=== PATIENT | female | born 1980 | race Two or more races ===

== ENCOUNTER 2024-07-01 08:30 | Outpatient (RCR) | payer MEDICAID, SELFPAY ==
--- NOTE | 2024-06-08 10:36 | PT.ODAYNRPT ---
PT Outpatient Daily Note OP Daily Note Outpatient Physical Therapy Treatment Date: 06/08/24 Visit Reasons: Left shoulder Rotator cuff Subjective: Pt still has difficulty reaching behind her back due to tightness . Pt recently had a follow up appt with her surgeon and mention about the numbness/tingling in her arm but it was dismiss. Pt continues to have concerns about numbness besides concerns patient feel that her arm ROM is improving. Objective: HBB AROM: thumb at gluteal fold Assessment: Pt instructed on HBB stretch as HEP to help improved HBB AROM. Pt demonstrate correctly and safely Plan: Continue with PT Length of Time (minutes) of Treatment: 30 Minutes Procedure Charges Therapeutic Exercise 30 minutes: Yes
--- NOTE | 2024-06-11 10:36 | PT.ODAYNRPT ---
PT Outpatient Daily Note OP Daily Note Outpatient Physical Therapy Treatment Date: 06/11/24 Visit Reasons: Left shoulder Rotator cuff Subjective: Pt continues to difficulty reaching behind her back. Pt has been working on stretching more at home. Objective: Please see flow chart for list of ther ex performed Assessment: minimal changes with HBB AROM. Pt ecourage to continue HBB stretching at home to help ROM Plan: Continue with PT Length of Time (minutes) of Treatment: 30 Minutes Procedure Charges Therapeutic Exercise 30 minutes: Yes
--- NOTE | 2024-06-15 09:25 | PT.ODAYNRPT ---
PT Outpatient Daily Note OP Daily Note Outpatient Physical Therapy Treatment Date: 06/15/24 Visit Reasons: Left shoulder Rotator cuff Subjective: Pt mention she may her strained or hurt her shoulder a few days ago. Pt continues to have pain and has been using ice more often. Objective: HBB AROM: thumb at L3 Assessment: progressing with HBB AROM. unable to perform standing ER stretch due to pain. The stretch was held. Plan: Continue with PT Length of Time (minutes) of Treatment: 30 Minutes Procedure Charges Therapeutic Exercise 30 minutes: Yes
--- NOTE | 2024-06-22 09:01 | PT.ODAYNRPT ---
PT Outpatient Daily Note OP Daily Note Outpatient Physical Therapy Treatment Date: 06/22/24 Visit Reasons: Left shoulder Rotator cuff Subjective: Pt's shoulder feels good. Today Pt denies of dizziness and wants to do physical therapy. Objective: Please see flow chart for list of ther ex performed Assessment: no change in HBB AROM; Pt educated to continue HBB AROM and stretching at home to help improve ROM. Pt gave verbal understanding Plan: Continue with PT Length of Time (minutes) of Treatment: 30 Minutes Procedure Charges Therapeutic Exercise 30 minutes: Yes
--- NOTE | 2024-06-24 08:45 | PT.ODAYNRPT ---
PT Outpatient Daily Note OP Daily Note Outpatient Physical Therapy Treatment Date: 06/24/24 Visit Reasons: Left shoulder Rotator cuff Subjective: Pt reports shoulder progress for mobility is slow. Pt shared that she continues to have tingling and numbing down her arm and notices it is happening more frequent. Objective: Please see flow sheet for ther ex list. Assessment: Pt ROM continues to improve, IR behind back continues to be the most limited. Pt has aggravating numbing and tingling with thera band exercises. Plan: Continue with POC. Length of Time (minutes) of Treatment: 30 Minutes Procedure Charges Therapeutic Exercise 30 minutes: Yes
--- NOTE | 2024-07-01 09:20 | PT.ODAYNRPT ---
PT Outpatient Daily Note OP Daily Note Outpatient Physical Therapy Treatment Date: 07/01/24 Visit Reasons: Left shoulder Rotator cuff Subjective: Pt's shoulder is better only concern is numbness in the hand. Objective: Please see flow chart for list of ther ex performed Assessment: progressing with HBB AROM. Cues to correct form with body blade exercises Plan: Continue with PT Length of Time (minutes) of Treatment: 30 Minutes Procedure Charges Therapeutic Exercise 30 minutes: Yes
== END 2024-07-06 23:59 | disposition home or self-care (01) ==
LOC: CPTX 08:30
PROVIDERS: PCP Nurse Practitioner; Referring Provider Nurse Practitioner; Visit Provider Nurse Practitioner
DX: M25.512 Pain in left shoulder (principal); R53.1 Weakness; R20.0 Anesthesia of skin; S46.012D Strain of muscle(s) and tendon(s) of the rotator cuff of left shoulder, subsequent encounter; X58.XXXD Exposure to other specified factors, subsequent encounter
CPT/HCPCS: 97110

== ENCOUNTER 2024-08-03 08:30 | Outpatient (RCR) | payer MEDICAID, SELFPAY ==
--- NOTE | 2024-07-08 10:31 | PT.ODAYNRPT ---
PT Outpatient Daily Note OP Daily Note Outpatient Physical Therapy Treatment Date: 07/08/24 Visit Reasons: Left shoulder Rotator cuff Subjective: Pt's shoulder sore and ache from her son bumping into her a few days ago. Objective: Please see flow chart for list of ther ex performed Assessment: difficulty with OH press up and PNF D1 exercise using weight due to rotator cuff weakness. Pt was able to complete instructed reps Plan: Continue with PT Length of Time (minutes) of Treatment: 30 Minutes Procedure Charges Therapeutic Exercise 30 minutes: Yes
--- NOTE | 2024-07-14 10:43 | PT.ODAYNRPT ---
PT Outpatient Daily Note OP Daily Note Outpatient Physical Therapy Treatment Date: 07/14/24 Visit Reasons: Left shoulder Rotator cuff Subjective: Pt reports L shoulder mobility is slowly coming along but continues to have tingling and numbing that is worse with activity. Objective: Please see flow sheet for ther ex list. Assessment: INterventions completed with rest break in between due to increase in numbing and tingling with movement in all planes. Plan: Continue with pOC. Length of Time (minutes) of Treatment: 30 Minutes Procedure Charges Therapeutic Exercise 30 minutes: Yes
--- NOTE | 2024-07-20 13:15 | PT.ODS1RPT ---
PT OP Progress/Discharge Note Date of Service: 07/20/24 Progress Note/DC Note Progress Note/Discharge Note: Progress Note Patient Information Visit Reasons: Left shoulder Rotator cuff Medical Diagnosis: M75.112 Treatment Dx #1: Left Shoulder Weakness Treatment Dx #2: Left Shoulder Pain Service Continue Service or Discharge: Continue Service Certification Date Certification Dates: 07/20/24 to 10/18/24 Status Subjective: Pt's shoulder is feeling much better. Pt still has limitation with reaching behind her back, overhead lifting, and performing recreational activities. Pt has been able to resume self care, cook, chores, and light ADLs around the house. Pt mentioned she continues to have numbess in her arm with certain movement and will consult with surgeon soon. Objective: Left Shoulder AROM Flexion: 170 deg Abduction: 160 deg External Rotation: 90 deg Internal Rotation: 70 deg Left Shoulder MMTs: grossly 4-/5 Left Scapula MMTs: grossly 4-/5 HBB AROM: Thumb at T10 Assessment: Pt is progressing slowly with shoulder AROM and strength allowing her to perform most light ADLs with less limitation. Pt still has limitation with overhead lifting and recreational activities due to weakness and will continue to benefit from physical therapy to work on strengthening. Pt advised to consult with surgeon regarding persistent numbness in the arm. Pt gave verbal consent and understanding; thank you for your referrals. Plan: Continue with PT/POC and add 6 sessions (2 x wk for 3 wks) Procedure Charges Therapeutic Exercise 30 minutes: Yes
--- NOTE | 2024-07-27 15:06 | PT.ODAYNRPT ---
PT Outpatient Daily Note OP Daily Note Outpatient Physical Therapy Treatment Date: 07/27/24 Visit Reasons: Left shoulder Rotator cuff Subjective: According to patient surgeon does not plan to extend therapy. Pt will like PT to finish with authorized session and d/c patient with HEP Objective: Please see flow chart for list of ther ex performed Assessment: difficulty with OH press using 1 # weight due to RTC weakness where patient overcompensate with upper trape. Pt able to complete instructed reps. Plan: Continue with PT Length of Time (minutes) of Treatment: 30 Minutes Procedure Charges Therapeutic Exercise 30 minutes: Yes
--- NOTE | 2024-08-25 10:58 | PT.ODS1RPT ---
PT OP Progress/Discharge Note Date of Service: 08/25/24 Progress Note/DC Note Progress Note/Discharge Note: DC Note Patient Information Visit Reasons: Left shoulder Rotator cuff Service Discharge Date: 08/25/24 Status Assessment: Pt has been seen for 24 visits (eval + 23 visits). Pt last treated on 08/04/24. Pt did not returned to her last session. At this time Pt will be d/c from care due to non-compliance per attendance policy. Pt met most goals set in therapy; thank you for your referrals.
== END 2024-08-06 23:59 | disposition home or self-care (01) ==
LOC: CPTX 08:30
PROVIDERS: PCP Nurse Practitioner; Referring Provider Nurse Practitioner; Visit Provider Nurse Practitioner
DX: M25.512 Pain in left shoulder (principal); R53.1 Weakness; S43.432D Superior glenoid labrum lesion of left shoulder, subsequent encounter; X58.XXXD Exposure to other specified factors, subsequent encounter
CPT/HCPCS: 97110

== ENCOUNTER 2024-08-10 08:20 | Outpatient (RCR) | payer MEDICAID, SELFPAY | END 2024-09-03 23:59 | disposition home or self-care (01) | LOC: CPTX 08:20 | PROVIDERS: PCP Nurse Practitioner; Referring Provider Nurse Practitioner; Visit Provider Nurse Practitioner | DX: Z53.8 Procedure and treatment not carried out for other reasons (principal) ==

== ENCOUNTER 2024-09-08 07:52 | Inpatient (IN) | payer MEDICAID, SELFPAY ==
[2024-09-08] VITALS (13 sets, daily range): BP systolic 86–153; BP diastolic 49–96; PULSE 72–139; RESP 16–29; TEMP 32.7–38.1; O2SAT 92–100; BMI 31.3
--- NOTE | 2024-09-08 07:56 | XR_ITS ---
Examination: CT brain head without contrast. 2-D sagittal coronal reconstructions Date and time of exam:September 08, 2024 0847 hours Comparison January 02, 2024 INDICATIONS: Onset altered mental status today CTDI: vol (mGy):52.5 DLP: (mGycm):1061 Technique: Multiple CT axial sections of the brain have been obtained, 5 mm slice thickness. Contrast has not been administered. 2-D sagittal, coronal reconstructions have been obtained Low dose protocols were performed. One or more of the following dose reduction techniques were used; automated exposure control, adjustment of the mA and/or KV according to patient size, use of iterative reconstruction technique. Findings: No significant ventricular enlargement. Intra-axial or extra-axial hemorrhage density is not seen. No mass effect or midline shift Basal cisterns are not remarkable. Fourth ventricle is midline. Cranial vault intact. Impression: Negative for acute hemorrhage, mass effect or midline shift If symptoms persist, consider brain MRI follow-up stroke protocol
--- NOTE | 2024-09-08 07:57 | EKG_ITS ---
[facility] Test Date: 2024-09-08 Pat Name: GEE MURILLO Department: Room: - Gender: Female [employer] Room Tapper: : 1980 Requested By: Luke Martinez Order Number: [id number] Reading MD: Luke Martinez Measurements Intervals [place] Rate: 95 P: 20 CT: 142 QRS: 12 QRSD: 95 T: 5 QT: 360 QTc: 453 Interpretive Statements SINUS RHYTHM No previous ECG available for comparison /store/S0/[id number]/ecg/[id number].pdf
--- NOTE | 2024-09-08 07:57 | XR_ITS ---
Examination: AP chest single view TECHNIQUE: AP portable semiupright chest single view Exam date and time: September 08, 2024 at 0929 hours Comparison March 02, 2022 INDICATIONS: Shortness of breath today. FINDINGS: Diffuse left lung pneumonia Normal heart size Right lung clear IMPRESSION: Diffuse left lung pneumonia
[2024-09-08] MEDS: DEXTROSE 50%-WATER INJ 50 ML SYRINGE IV ×3 (08:00→11:41)
[2024-09-08 08:20] LABS: Base Excess -2 (-3-3); HCO3 25 mEq/L (20-26); Inspired O2, VO2 Liters 15 L/min; O2 Saturation 97 % (91-98); PCO2 48 mmHg (32.0-48.0); PO2 93 mmHg (83-108); pH, Arterial 7.32 (7.35-7.45)
[2024-09-08 08:22] LABS: Allen Test Performed/OK; Puncture Site Right Radial
--- NOTE | 2024-09-08 08:32 | PD.EDAMS ---
Altered Mental Status RME/HPI General Chief Complaint: Altered Mental Status Stated Complaint: HYPOGLYCEMIA Time Seen by Provider: 09/08/24 07:55 Arrival date/time: 09/08/24 07:52 RME / HPI RME / HPI narrative: DR. LIGHT MAIN ED EVALUATION: This section includes all my notes and documentations, including HPI, PE, and ED course.? Luke Light MD HPI: 43 year old female with past medical history significant for seizures, diabetes, and hypothyroidism presents to the Emergency Department [facility] with complaint of decreased mentation according to this morning. Per EMS, patient has low blood glucose, in the 20's. No treatment given due to difficult IV access. No other complaints reported. ROS: Can't obtain from the patient due to current clinical condition. Physical Exam: General: Patient is obtunded. Eyes:? Conjunctivae and lids clear. PERRL. EOMI. ENT:? No nasal congestion.? ? Neck:? Supple. Heart:? RRR. Lungs:? No respiratory distress.? Decreased air movement with rales..? Abdomen:? Soft and nontender.? Legs:? No clubbing, cyanosis, edema. Skin:? Warm and dry.? Neuro: GCS 4 (patient only moans). Glucagon 1 mg IM given prior to IV access. I reviewed all diagnostic test results. My interpretation of the EKG is?NSR (95 bpm) with no ST-T changes. My interpretation of the chest x-ray is diffuse left lung pneumonia My review of the head CT report is?negative for acute hemorrhage, mass effect or midline shift Blood tests remarkable for GLU 121. At this point, diagnoses include severe and persistent hypoglycemia and AMS and pneumonia. Treatment here included D50 multiple times due to persistent hypoglycemia, glucagon, Rocephin, and Zithromax. Significant improvement noted, patient returned to baseline mental status. I discussed the case with our hospitalist.? About the presentation and exam and diagnostics and treatments here.? And need of further care in the hospital. Will accept the patient. Luke Light MD Related Data Home Medications ?Medication ?Instructions ?Recorded ?Confirmed cholecalciferol (vitamin D3) 10 50,000 unit PO QWEEK 03/11/20 04/30/21 mcg (400 unit) capsule (Vitamin D3) propranolol 20 mg tablet 20 mg PO DAILY 03/11/20 04/30/21 gabapentin 300 mg capsule 300 mg PO BID 03/22/20 04/30/21 topiramate 100 mg tablet (Topamax) 100 mg PO QAM 04/04/20 03/02/22 glimepiride 1 mg tablet 1 mg PO QDAY 07/26/20 03/02/22 pioglitazone 30 mg tablet (Actos) 30 mg PO QDAY 07/26/20 04/30/21 baclofen 10 mg tablet 10 mg PO HS 03/02/22 03/02/22 duloxetine 30 mg capsule,delayed 30 mg PO BID 03/02/22 03/02/22 release levothyroxine 75 mcg tablet 75 mcg PO QDAY 03/02/22 03/02/22 prochlorperazine maleate 10 mg 10 mg PO BID PRN Nausea or Headache 03/02/22 03/02/22 tablet rimegepant 75 mg disintegrating 75 mg PO Q OTHER DAY 03/02/22 03/02/22 tablet (Nurtec ODT) topiramate 100 mg tablet 200 mg PO QPM 03/02/22 03/02/22 Previous Rx's ?Medication ?Instructions ?Recorded sumatriptan succinate 100 mg 100 mg PO Q2HR PRN MIGRAINE #10 03/24/20 tablet (Imitrex) tabs Allergies Allergy/AdvReac Type Severity Reaction Status Date / Time egg Allergy Severe Abdominal Verified 01/02/24 03:45 Pain milk Allergy Severe Abdominal Verified 01/02/24 03:45 Pain Penicillins Allergy Severe Rash Verified 01/02/24 03:45 hydrocodone Allergy Intermediate ITCHING Verified 01/02/24 03:45 morphine Allergy Rash Verified 01/02/24 03:45 metoclopramide HCl AdvReac Severe HEADACHE Verified 01/02/24 03:45 Course Quality Measures none Orders Category Date Time Status Bedside COVID-19 Antigen Test NOW Care 09/08/24 07:56 Active Bedside Influenza A&B Antigen Test NOW Care 09/08/24 07:56 Completed EKG (ED ONLY) *Do not use* NOW Care 09/08/24 07:57 Completed Glucose [Bedside Blood Glucose] NOW Care 09/08/24 09:25 Active Initiate Warming Therapy X1 Care 09/08/24 10:03 Active Insert IV NOW Care 09/08/24 07:53 Active Saline [Insert IV] NOW Care 09/08/24 07:56 Active Straight [In and Out Catheter] X1 Care 09/08/24 07:[address] head/brain wo con Stat Exams 09/08/24 07:56 Completed EKG (ED Only) Stat Exams 09/08/24 07:57 Draft XR chest 1V portable Stat Exams 09/08/24 07:57 Completed ABG [Arterial Blood Gas] Stat Lab 09/08/24 08:15 Completed Alcohol, Blood Medical Stat Lab 09/08/24 08:29 Completed Ammonia Stat Lab 09/08/24 08:29 Completed BNP [B-Type Natriuretic Peptide] Stat Lab 09/08/24 08:29 Completed Beta Hydroxybutyrate Stat Lab 09/08/24 08:29 Completed Blood Culture (Lab) Stat Lab 09/08/24 08:29 Received CBC Stat Lab 09/08/24 08:29 Completed CMP [Comprehensive Metabolic Panel] Stat Lab 09/08/24 08:29 Completed Drug Screen,Urine Stat Lab 09/08/24 07:57 Ordered HCG Qualitative,Urine Stat Lab 09/08/24 07:57 Ordered HCG,Qualitative Serum Stat Lab 09/08/24 08:29 Completed Lactate (Lactic Acid) Stat Lab 09/08/24 08:29 Completed Magnesium Stat Lab 09/08/24 08:29 Completed TSH [Thyroid Stimulating Hormone] Stat Lab 09/08/24 08:29 Completed Troponin I Stat Lab 09/08/24 08:29 Completed UA, C/S IF [Urinalysis, C/S if Indicated] Stat Lab 09/08/24 07:57 Ordered Azithromycin Inj [Zithromax Inj] 500 mg Med 09/08/24 10:35 Pending Sodium Chloride 0.9% 250 ml [Ns] 250 ml IV QDAY Azithromycin Inj [Zithromax Inj] 500 mg Med 09/08/24 10:45 Active Sodium Chloride 0.9% 250 ml [Ns] 250 ml IV X1 Dextrose 50% Syr [D50w Syringe Abboject] Med 09/08/24 07:53 Discontinued 50 ml IV X1 ONE Dextrose 50% Syr [D50w Syringe Abboject] Med 09/08/24 07:56 Discontinued 50 ml IV X1 ONE Dextrose 50% Syr [D50w Syringe Abboject] Med 09/08/24 09:39 Discontinued 50 ml IV X1 ONE Dextrose 50% Syr [D50w Syringe Abboject] Med 09/08/24 11:39 Discontinued 50 ml IV X1 ONE Glucagon Inj Med 09/08/24 07:55 Discontinued 1 mg IM X1 ONE HYDROmorphone INJ [Dilaudid Inj] Med 09/08/24 09:15 Discontinued 0.5 mg IVP X1 ONE Promethazine HCl [Phenergan] Med 09/08/24 09:22 Discontinued 25 mg PO X1 ONE Sodium Chloride 0.9% 1000 ml [Ns] 1,000 ml Med 09/08/24 10:33 Discontinued IV 999 mls/hr cefTRIAXone [Rocephin] 1,000 mg Med 09/08/24 10:33 Discontinued SODIUM CHLORIDE 0.9% (Popper) [Ns 0.9% (P)] 50 ml IV X1 Vital Signs Vital signs: Vital Signs Pulse Rate 77 09/08/24 07:53 Respiratory Rate 18 09/08/24 07:53 Blood Pressure 153/96 H 09/08/24 07:53 Pulse Oximetry (%) 100 09/08/24 07:53 Oxygen Delivery Method Oxy Mask 09/08/24 07:53 Oxygen Flow Rate 15 09/08/24 07:53 Altered Mental Status MDM Narrative MDM Narrative:: I, Caroline Shay am scribing for and in the presence of Dr. Light. Patient data External records reviewed:: EMS form Clinical information provided by:: patient, EMS and spouse Social determinants that could affect healthcare access:: none Patient has the following chronic illnesses:: seizures, diabetes, and hypothyroidism How is presenting disease/condition affected by chronic disease/condition?: uneffected by Evaluation data The following diagnostics were reviewed and interpreted by me:: lab results, radiology exam(s) and EKG tracing(s) (My interpretation of the EKG: NSR (95 bpm) with no ST-T changes. Luke Light MD) Lab and/or radiology exams considered but not ordered:: none Interpretation Summary: Pneumonia and hypoglycemia Medications / Prescriptions Medications or Prescriptions considered but not ordered:: none Medication administrations:: Medication Administration History Azithromycin 500 mg/ Sodium (Chloride) 250 mls @ 250 mls/hr IV QDAY ARIANA Stop: 09/15/24 10:34 Azithromycin 500 mg/ Sodium (Chloride) 250 mls @ 250 mls/hr IV X1 ONE Stop: 09/08/24 11:44 Last Admin: 09/08/24 11:34 Dose: 250 mls/hr Documented By: TRAV Discontinued Medications Dextrose (Dextrose 50%-Water Inj 50 Ml Syringe) 50 ml IV X1 ONE Stop: 09/08/24 07:57 Last Admin: 09/08/24 08:00 Dose: 50 ml Documented By: TRAV Dextrose (Dextrose 50%-Water Inj 50 Ml Syringe) 50 ml IV X1 ONE Stop: 09/08/24 07:54 Last Admin: 09/08/24 09:20 Dose: Not Given Documented By: TRAV Non-Admin Reason: Duplicate Medication on eMAR Dextrose (Dextrose 50%-Water Inj 50 Ml Syringe) 50 ml IV X1 ONE Stop: 09/08/24 09:40 Last Admin: 09/08/24 09:42 Dose: 50 ml Documented By: TRAV Dextrose (Dextrose 50%-Water Inj 50 Ml Syringe) 50 ml IV X1 ONE Stop: 09/08/24 11:40 Last Admin: 09/08/24 11:41 Dose: 50 ml Documented By: TRAV Glucagon (Glucagon Inj 1 Mg Vial) 1 mg IM X1 ONE Stop: 09/08/24 07:56 Last Admin: 09/08/24 09:02 Dose: Not Given Documented By: TRAV Non-Admin Reason: Change of Condition Hydromorphone HCl (Hydromorphone Inj 2 Mg/Ml Vial) 0.5 mg IVP X1 ONE Stop: 09/08/24 09:16 Last Admin: 09/08/24 09:34 Dose: 0.5 mg Documented By: TRAV Ceftriaxone Sodium 1,000 mg/ (Sodium Chloride) 50 mls @ 100 mls/hr IV X1 ONE Stop: 09/08/24 11:02 Last Infusion: 09/08/24 11:35 Dose: Infused Documented By: Admin: 09/08/24 10:55 Dose: 100 mls/hr Documented By: TRAV Sodium Chloride (Ns) 1,000 mls @ 999 mls/hr IV .Q1H1M ONE Stop: 09/08/24 11:33 Last Admin: 09/08/24 10:55 Dose: 999 mls/hr Documented By: TRAV Promethazine HCl (Promethazine Hcl 25 Mg Tablet) 25 mg PO X1 ONE Stop: 09/08/24 09:23 Last Admin: 09/08/24 09:35 Dose: 25 mg Documented By: TRAV Glucagon and D50 and Rocephin and Zithromax Consultations Consultation(s) initiated? (list below): No Diagnosis Differential diagnosis altered mental status: alcoholic intoxication, altered mental status, delirium, dementia, hypoglycemia, hyponatremia, subarachnoid hemorrhage and sepsis Most likely diagnosis given after review of the tests above:: Pneumonia and persistent hypoglycemia Admission Indicated Admission indicated?: indicated Explain why admission is indicated or not indicated:: Pneumonia and persistent hypoglycemia Admission Request Was there a request for admission?: Yes Admission Attestation Admission request attestation: Discussed case with Hospitalist service regarding admission. Discussed patients ED course, exam findings, labs, and radiology results. The Hospitalist [agrees] to accept the patient for admission. Disposition Plan Disposition Plan: Admit Discharge Plan Prescriptions/Referrals Prescriptions/Med Rec: No Action propranolol 20 mg Tablet 20 mg PO DAILY cholecalciferol (vitamin D3) [Vitamin D3] 10 mcg (400 unit) Capsule 50,000 unit PO QWEEK Rx Instructions: SATURDAYS. topiramate [Topamax] 100 mg Tablet 100 mg PO QAM Rx Instructions: FILLED AT [facility] ON 03/24/2020. gabapentin 300 mg capsule 300 mg PO BID sumatriptan succinate [Imitrex] 100 MG tablet 100 mg PO Q2HR PRN (Reason: MIGRAINE) Qty: 10 0RF glimepiride 1 mg Tablet 1 mg PO QDAY pioglitazone [Actos] 30 mg Tablet 30 mg PO QDAY prochlorperazine maleate 10 mg Tablet 10 mg PO BID PRN (Reason: Nausea or Headache) levothyroxine 75 mcg Tablet 75 mcg PO QDAY baclofen 10 mg Tablet 10 mg PO HS topiramate 100 mg Tablet 200 mg PO QPM duloxetine 30 mg Capsule,Delayed Release(Dr/Ec) 30 mg PO BID Nurtec ODT 75 mg Tablet,Disintegrating 75 mg PO Q OTHER DAY Referrals: Eunice Peterson PA-C [Primary Care Provider] - In 1 week Problem List Clinical Impression: Hypoglycemia level 3, Pneumonia Patient/Caregiver Discharge Instructions Print Language: Hungarian
[2024-09-08 08:43] LABS: Lactate (Lactic Acid) 1.5 mMol/L (0.4-2.0)
[2024-09-08 08:49] LABS: Basophils % (Auto) 1 % (0-2.5); Eosinophils # (Auto) 0.1 Thou/mm3 (0.0-0.5); Eosinophils % (Auto) 1 % (0-10); Hematocrit 30.6 % (36.0-46.0); Hemoglobin 8.9 g/dL (12.0-16.0); Immature Granulocytes % (Auto) 0 % (0-0); Immature Granulocytes Auto 0.03 Thou/mm3 (0.00-0.00); Lymphocytes # (Auto) 1.8 Thou/mm3 (1.0-4.8); Lymphocytes % (Auto) 23 % (10-50); Mean Corpuscular HGB Conc 29.1 g/dl (31.0-37.0); Mean Corpuscular Hemoglobin 20.1 pg (25.0-35.0); Mean Corpuscular Volume 69 fL (80-100); Monocytes # (Auto) 0.3 Thou/mm3 (0.0-0.8); Monocytes % (Auto) 4 % (0-12); Neutrophils # (Auto) 5.6 Thou/mm3 (1.8-7.7); Neutrophils % (Auto) 71 % (37-80); Nucleated Red Blood Cell % 0 /100 WBC (0); Platelet Count 523 Thou/mm3 (140-440); RDW Standard Deviation 43.2 fL (36.4-46.3); Red Blood Count 4.42 Miln/mm3 (4.00-5.20); White Blood Count 7.8 Thou/mm3 (3.6-11.0)
[2024-09-08 08:51] LABS: Beta Hydroxybutyrate 0.1 mmol/L (<0.6)
[2024-09-08 09:03] LABS: B-Type Natriuretic Peptide 44 pg/mL (0-100)
[2024-09-08 09:04] LABS: Ammonia 23 uMol/L (11-32); HCG,Qualitative Serum Negative
[2024-09-08 09:17] LABS: Alanine Aminotransferase 31 U/L (10-49); Albumin, Serum 4.1 gm/dL (3.5-5.0); Albumin/Globulin Ratio 1.3 (1.2-2.2); Alcohol, Blood Medical < 3.0 mg/dL (0-10.0); Alkaline Phosphatase 114 U/L (46-116); Anion Gap 9 (7-16); Aspartate Amino Transferase 32 U/L (0-34); BUN/Creatinine Ratio 24 Ratio (12-20); Bilirubin,Total < 0.2 mg/dL (0.3-1.2); Blood Urea Nitrogen 19 mg/dL (9-23); Calcium 8.6 mg/dL (8.3-10.6); Calcium (Corrected) 8.6 mg/dL (8.5-10.1); Carbon Dioxide 22.6 mMol/L (20.0-31.0); Chloride 108 mMol/L (98-107); Creatinine (Component) 0.8 mg/dL (0.6-1.3); Estimated Creatinine Clearance 105.9 mL/min (>60); Globulin 3.2 gm/dL (2.3-3.5); Glucose 121 mg/dL (74-106); Osmolality,Calculated 282 (275-295); Potassium 3.9 mMol/L (3.4-5.1); Sodium 140 mMol/L (136-145); Thyroid Stimulating Hormone 4.81 uIU/mL (0.55-4.78); Total Protein 7.3 gm/dL (5.7-8.2); Troponin I < 0.020 ng/mL (0.0-0.045); eGFR > 60 See Note
[2024-09-08] MEDS: HYDROmorphone INJ 2 MG/ML VIAL 0.5 MG IVP (09:34)
[2024-09-08] MEDS: PROMETHAZINE HCL 25 MG TABLET PO ×2 (09:35→20:14)
[2024-09-08] MEDS: cefTRIAXone 1,000 MG in SODIUM CHLORIDE 0.9% (Popper) 50 ML 100 MG IV (10:55)
[2024-09-08] MEDS: SODIUM CHLORIDE 0.9% 1000 ML 1,000 ML 999 ML IV (10:55)
[2024-09-08] MEDS: AZITHROMYCIN INJ 500 MG in SODIUM CHLORIDE 0.9% 250 ML 250 ML 250 MG IV (11:34)
--- NOTE | 2024-09-08 12:28 | PC.CC ---
Patient is a 43 year-old female BIBA due to Hypoglycemia. Bronwyn PRATER made [id number] contact with patient. ASW introduced self, role, and reason for visit. Patient appeared alert and oriented to self, location, and situation. Patient was pleasant and engaged in initial assessment. Patient confirmed information on demographic and reports to living at home with her , Alfreod Hicks . Patient reports in the event she is unable to make her own medical decisions her medical decision maker would be her , Alfredo Hicks. Patient is able to ambulate independently and completes own ADLs. Patient does not use any DME at home. Patient's primary provider is Eunice Peterson and her pharmacy of choice is [facility]. Upon discharge patient plans to return home. business services intern to follow up with any discharge needs.
[2024-09-08] MEDS: DEXTROSE 10%-WATER 1000 ML 1,000 ML 35 ML IV (12:44)
[2024-09-08 13:35] LABS: Collection Type, Urine Clean Catch; RBC,Urine 0 /hpf (0-3)
--- NOTE | 2024-09-08 13:48 | ESHP_ITS ---
<Statement entered by Dayna Armstrong MD - 09/08/24 23:39> Patient was seen and examined by me personally. I have directly supervised and reviewed documentation by the team resident and agree with its findings with any exceptions or additional findings as below. Plan of care was discussed with the attending, Dr. Weinberg. New admission today. Patient is a 43-year-old female with a past medical history of type 2 diabetes, hypothyroidism, fibromyalgia, and gastric bypass surgery who presented to the ED on 09/08/2024 due to altered mental status. Patient was found to be hypoglycemic to 23 and hypothermic to 91 degrees F. At the time of evaluation for admission the patient was back to baseline mental status, seen under theodore nicole. However blood glucose kept dropping and patient needed 4 administrations of D50. Patient reports last night she was laying in bed playing games on her phone around 3 am with her when she started feeling hot and sweaty, symptoms she notes she gets when she becomes hypoglycemic. She drank some juice then subsequently went to sleep. This morning she was found to be unarousable by , therefore was brought by EMS to ED. Patient denies any usage of insulin for the past 1 year due to frequent episodes of hypoglycemia since her gastric bypass surgery about 5 years ago. Pharmacy history suggests patient was also on glimepiride but she denies taking it the last few months, stating she self-discontinued it due to hypoglycemia. Patient follows with PCP Eunice Peterson at [facility]. Patient does endorse history of passing out due to hypoglycemia, last episode was a few days ago but at that time she was able to be woken up so did not seek medical care. Upon reviewing the chart, notably the patient had admissions related to hypoglycemia as early as 2019. During an April 2020 admission, she was hypoglycemic, denied insulin usage, but blood insulin levels were found high and C-peptide levels low, raising suspicion for exogenous insulin use. At that point in time PCP was notified by hospitalist with concern to have insulin discontinued. Patient has also had imaging done in the past to evaluate for possible pancreatic tumor which had been negative, latest was an MRCP in February 2022 which was negative for masses. The patient will be admitted for hypoglycemia, and further workup will be done for recurrent episodes, C-peptide and blood insulin levels ordered, AM cortisol ordered. Started D10 infusion. On CXR patient also noted to have diffuse left lung pneumonia and she was requiring supplemental oxygen so was started on ceftriaxone and metronidazole to cover for potential aspiration pneumonia. Will follow cultures. Attempted to reach out to PCP today, did not receive a call back, will try again tomorrow. Dayna Patti, PGY-2 Documentation for date of: 09/08/24 HPI History of Present Illness Chief complaint: general weakness History of present illness: The patient is a 43-year-old female with a previous medical history of type 2 diabetes, hypothyroidism, fibromyalgia who was brought to the ED due to low blood sugar. Initial blood sugar was 23. According to the chart review she had multiple admissions for low blood sugar previously and was found to have low level of C-peptide and high levels of insulin. According to the patient she has been playing on the phone with her at approximately 3 AM when she started to feel weak, shaky and sweaty, she started to drink juice. She has not been using insulin in in a year and denies taking glimepiride in a few months. She reports that she started to have episodes of weakness and low blood sugar after undergoing a gastric bypass surgery a few years ago. She also reports having diarrhea after the meals, denies bloody stools, nausea, vomiting. In the ED initially her blood sugar was 23, she was hypothermic and saturates well on 2 L NC. Following up labs showed hemoglobin 8.9, ABGs showed pH of 7.2, TSH of 4.81. hCG was negative. U tox was negative. Head CT was unremarkable, chest x-ray showed diffuse left lung pneumonia. EKG unremarkable. She received D50 4 times, her blood sugar arelis, but continued to drop after some time so D10 she was also started tolerating continuous infusion was started on antibiotics. She is being admitted for hypoglycemia episode. Review of Systems Review of Systems Narrative Review of Systems: General: Denies weight loss, fever and chills. Reports shaking. HEENT: Denies changes in vision and hearing. Resp: Denies SOB, cough and wheezing. CVS: Denies palpitations and CP. GI: Denies abdominal pain, nausea, vomiting. Reports diarrhea after meals. : Denies dysuria and urinary frequency. MSK: Denies myalgia and joint pain. Denies rash and pruritus. Neuro: Denies headache and syncope. Exam Vital Signs Temp Pulse Resp BP Pulse Ox O2 Del Method O2 Flow Rate 99.1 F 136 H 26 H 147/76 H 94 L Nasal Cannula 2 09/08/24 13:40 09/08/24 13:40 09/08/24 13:40 09/08/24 13:40 09/08/24 13:40 09/08/24 13:40 09/08/24 13:40 Narrative Exam Physical Exam General: Awake, shaking in a theodore hugger. Conversational and non-toxic appearing. HEENT: Normocephalic, atraumatic, mucous membranes moist. Heart: Regular rate and rhythm, no murmurs. Lungs: Mild diffuse wheezing. Abdomen: Soft, nondistended, nontender, positive bowel sounds. ?No guarding or rebound tenderness. Neurologic: Alert and oriented x3, no gross neurological deficit, and patient able to move all 4 extremities. Extremities: No edema. Skin: No rash or ecchymoses. Results: Labs 09/09/24 04:47 09/09/24 04:47 Labs: Short CBC 09/08/24 Range/Units 08:29 WBC 7.8 (3.6-11.0) Thou/mm3 Hgb 8.9 L (12.0-16.0) g/dL Hct 30.6 L (36.0-46.0) % Plt Count 523 H (140-440) Thou/mm3 BMP 09/08/24 08:29 Sodium 140 Potassium 3.9 Chloride 108 H Carbon Dioxide 22.6 BUN 19 Creatinine 0.8 Glucose 121 H Calcium 8.6 Cardiac Enzymes 09/08/24 Range/Units 08:29 Troponin I < 0.020 (0.0-0.045) ng/mL Liver Function 09/08/24 Range/Units 08:29 Total Bilirubin < 0.2 L (0.3-1.2) mg/dL AST 32 (0-34) U/L ALT 31 (10-49) U/L Alkaline Phosphatase 114 (46-116) U/L Albumin 4.1 (3.5-5.0) gm/dL ABG Interpretation ABG results: 09/08/24 08:15 ABG pH 7.32 L ABG pCO2 48 ABG pO2 93 ABG HCO3 25 ABG O2 Saturation 97 ABG Base Excess -2 Quality Measures Quality Measures none Medications Home Medications and Allergies Home Medications ?Medication ?Instructions ?Recorded ?Confirmed ?Type cholecalciferol (vitamin D3) 10 50,000 unit PO QWEEK 0 03/11/20 04/30/21 History mcg (400 unit) capsule (Vitamin D3) propranolol 20 mg tablet 20 mg PO DAILY 03/11/2004/07 History gabapentin 300 mg capsule 300 mg PO BID 03/22/2004/30 History topiramate 100 mg tablet (Topamax) 100 mg PO QAM 04/0403/02/22 History glimepiride 1 mg tablet 1 mg PO QDAY 07/26/20 History pioglitazone 30 mg tablet (Actos) 30 mg PO QDAY 04/30/21 History baclofen 10 mg tablet 10 mg PO HS 03/02/22 2 History duloxetine 30 mg capsule,delayed 30 mg PO BID 03/02/22 03/02/22 History release levothyroxine 75 mcg tablet 75 mcg PO QDAY 03/02/22 History prochlorperazine maleate 10 mg 10 mg PO BID PRN Nausea or Headache 03/02/22 03/02/22 History tablet rimegepant 75 mg disintegrating 75 mg PO Q OTHER DAY 0 03/02/22 03/02/22 History tablet (Nurtec ODT) topiramate 100 mg tablet 200 mg PO QPM 03/02/2203/02 History Allergies Allergy/AdvReac Type Severity Reaction Status Date / Time egg Allergy Severe Abdominal Verified 01/02/24 03:45 Pain milk Allergy Severe Abdominal Verified 01/02/24 03:45 Pain Penicillins Allergy Severe Rash Verified 01/02/24 03:45 hydrocodone Allergy Intermediate ITCHING Verified 01/02/24 03:45 morphine Allergy Rash Verified 01/02/24 03:45 metoclopramide HCl AdvReac Severe HEADACHE Verified 01/02/24 03:45 Visit Medications Acetaminophen (Acetaminophen 325 Mg Tablet) 650 mg PO Q6H PRN PRN Reason: Fever >101.5 Stop: 10/08/24 12:14 Acetaminophen (Acetaminophen 325 Mg Tablet) 650 mg PO Q6H PRN PRN Reason: PAIN SCALE 1-3 (mild Stop: 10/08/24 12:14 Heparin Sodium (Porcine) (Heparin Sod Inj 5000 Unit/Ml Vial) 5,000 unit SC BID [facility] Stop: 09/22/24 20:59 Azithromycin 500 mg/ Sodium (Chloride) 250 mls @ 250 mls/hr IV QDAY [facility] Stop: 09/15/24 10:34 Dextrose (D10w 1000 Ml) 1,000 mls @ 35 mls/hr IV .Q24H [facility] Stop: 09/09/24 12:17 Last Admin: 09/08/24 12:44 Dose: 35 mls/hr Ondansetron HCl (Ondansetron Inj 2 Mg/Ml Inj 2 Ml) 4 mg IV Q6H PRN; Protocol PRN Reason: NAUSEA OR VOMITING Stop: 10/08/24 12:14 Discontinued Medications Dextrose (Dextrose 50%-Water Inj 50 Ml Syringe) 50 ml IV X1 ONE Stop: 09/08/24 07:57 Last Admin: 09/08/24 08:00 Dose: 50 ml Dextrose (Dextrose 50%-Water Inj 50 Ml Syringe) 50 ml IV X1 ONE Stop: 09/08/24 07:54 Last Admin: 09/08/24 09:20 Dose: Not Given Dextrose (Dextrose 50%-Water Inj 50 Ml Syringe) 50 ml IV X1 ONE Stop: 09/08/24 09:40 Last Admin: 09/08/24 09:42 Dose: 50 ml Dextrose (Dextrose 50%-Water Inj 50 Ml Syringe) 50 ml IV X1 ONE Stop: 09/08/24 11:40 Last Admin: 09/08/24 11:41 Dose: 50 ml Glucagon (Glucagon Inj 1 Mg Vial) 1 mg IM X1 ONE Stop: 09/08/24 07:56 Last Admin: 09/08/24 09:02 Dose: Not Given Hydromorphone HCl (Hydromorphone Inj 2 Mg/Ml Vial) 0.5 mg IVP X1 ONE Stop: 09/08/24 09:16 Last Admin: 09/08/24 09:34 Dose: 0.5 mg Ceftriaxone Sodium 1,000 mg/ (Sodium Chloride) 50 mls @ 100 mls/hr IV X1 ONE Stop: 09/08/24 11:02 Last Infusion: 09/08/24 11:35 Dose: Infused Sodium Chloride (Ns) 1,000 mls @ 999 mls/hr IV .Q1H1M ONE Stop: 09/08/24 11:33 Last Infusion: 09/08/24 12:14 Dose: Infused Azithromycin 500 mg/ Sodium (Chloride) 250 mls @ 250 mls/hr IV X1 ONE Stop: 09/08/24 11:44 Last Infusion: 09/08/24 12:50 Dose: Infused Promethazine HCl (Promethazine Hcl 25 Mg Tablet) 25 mg PO X1 ONE Stop: 09/08/24 09:23 Last Admin: 09/08/24 09:35 Dose: 25 mg Assessment & Plan Plan The patient is a 43-year-old female with a previous medical history of type 2 diabetes, hypothyroidism, fibromyalgia who was admitted due to low blood sugar levels. #Hypoglycemia episodes #Type 2 diabetes #Hypothermia Patient has a history of recurrent hypoglycemic episodes. Denies recent glimepiride and insuline use. Reports only taking Monjaro injections. Denies having a ignition specialist. Patient has a history of multiple admission for hypoglycemia episodes. In 2019 work up showed low level of C-peptide and high level of insulin. 09/08: utox is negative. Plan: - hypoglycemia protocol - D10 infusion at 50 ml, rate depending on the blood glucose level - C-peptide and insuline levels pending - AM cortizol - Theodore hugger as needed - med rec is pending #Community-acquired pneumonia Patient reporting having wheezes. She reports using inhaler at home. Chest x- ray showed pneumonia. There's a concern for possible aspiration during hypoglycemia. Plan: ? Blood cultures pending ? Ceftriaxone 1 g daily 3/5?current ?Metronidazole 500 mg daily 3/5?current #Hypothyroidism Patient reports to have chronic hypothyroidism. Plan: ? pending med rec #Diabetic neuropathy Patient reports taking gabapentine and duloxetine for pain. Plan: ?Hold for now due to episode of altered mental status Health maintenance: FEN: Carbohydrate consistent DVT prophylaxis: Heparin SC GI prophylaxis: None Dispo: Telemetry CODE STATUS: Full code Plan of care discussed with attending Dr. Weinberg, PGY-[address] Armstrong and PGY-[address] Mcneill. Ana Luisa Jorgensen MD, PGY 1. Attending Provider Attestation/Addendum I have examined the patient, reviewed labs and imaging findings, discussed the case with the resident(s), and reviewed entered orders. I agree with the plan of care as outlined in this note, with these additional summaries/recommendations: Patient is a 43-year-old female with a medical history of diabetes mellitus type 2, obesity status post gastric bypass approx. 4 years ago? and currently on Mounjaro, Migraine headaches, and fibromyalgia who presents to [facility] emergency department on 09/08/2024 with chief complaint of altered mental status secondary to hypoglycemia. Patient was found to have severe life-threatening hypoglycemia on admission with blood sugars in the 20s. Patient was given multiple amps of D50 in the ED with improvement in mental status and patient is back to baseline in terms of her mentation. Patient has had hospitalizations in the past for recurrent hypoglycemia and thought to be secondary to exogenous insulin/factitious disorder. Nonetheless we will proceed with workup for recurrent hypoglycemia. We will order insulin, C-peptide, proinsulin, A1C, and cortisol. BHB WNL on admission. Differential includes factitious versus late dumping syndrome versus adrenal versus medication induced versus less likely insulinoma. We will start the patient on D10 drip and monitor blood sugars every hour. Patient was also noted to be hypothermic and currently on Theodore hugger and can discontinue if patient reaches appropriate body temperature. Community-acquired aspiration pneumonia also noted on chest x-ray. We will start IV Rocephin and metronidazole. Patient noted to have microcytic anemia although no evidence of gastrointestinal bleeding at this time. Continue to monitor blood sugar closely. Patient updated on plan and in agreement. Repeat hematology and chemistry panel in AM. Dr. Lenard MD
[2024-09-08 13:50] LABS: HCG Qualitative,Urine Negative
[2024-09-08 13:55] LABS: Bacteria,Urine Rare; Bilirubin,Urine Negative (Negative); Blood,Urine Negative (Negative); Clarity,Urine Clear (Clear/Hazy); Color,Urine Lt-Yellow (Lt Yel-Yel); Glucose, Urine 1+ (Negative); Ketones,Urine Negative (Negative); Leukocyte Esterase,Urine Negative (Negative); Nitrite,Urine Positive (Negative); PH,Urine 5.5 (5.0-7.0); Protein,Urine Trace (Neg - Trace); Specific Gravity,Urine 1.021 (1.001-1.035); Squamous Epithelial Cell,Urine < 1 /hpf (0-5); Urobilinogen,Urine Negative mg/dL (0.0-1.0); WBC,Urine 1 /hpf (0-5)
[2024-09-08 13:58] LABS: Amphetamine/Methamp Scrn,U Negative (Negative); Barbiturate Screen,Urine Negative (Negative); Benzodiazepines Screen,Urine Negative (Negative); Benzoylecgonine Screen, Ur Negative (Negative); Fentanyl Screen,Urine Negative (Negative); Opiate Screen,Urine Negative (Negative); THC Screen,Urine Negative (Negative)
[2024-09-08 14:16] LABS: Culture Indicated,Urine Yes
[2024-09-08] MEDS: ACETAMINOPHEN 325 MG TABLET 650 MG PO ×2 (14:59→22:28)
[2024-09-08] MEDS: DEXTROSE 10%-WATER 1000 ML 1,000 ML 50 ML IV (16:13)
--- NOTE | 2024-09-08 19:20 | PC.NURSE ---
DR. CUELLAR MADE AWARE OF BP OF 91/53, MAP OF 65, HR 122. +DIZZINESS. LAST BSFS AT 1820 74. ON D10 @ 50 ML/HR. NO NEW ORDERS GIVEN.
[2024-09-08] MEDS: KETOROLAC INJ 30 MG/ML VIAL IVP (19:25)
[2024-09-08] MEDS: metroNIDAZOLE/NS 500 MG IVPB 500 MG/100 ML BAG 200 MG IV (19:43)
--- NOTE | 2024-09-08 19:48 | PC.NURSE ---
DR. ELLIS AND POLO AT BEDSIDE ASSESSING PT. NEW ORDERS PLACED FOR IVF BOLUS. HOME MED PHENERGAN RESUMED SINCE PT IS STATING THAT ZOFRAN IS INEFFECTIVE.
[2024-09-08] MEDS: DEXTROSE 5%-NS 1,000 ML 100 ML IV (20:00)
--- NOTE | 2024-09-08 20:01 | PC.NURSE ---
Dr. Armstrong notified of BS 63 and ordered to increase D10 fluids. Notified Dr. Armstrong of pain from IO insertion, pain regime ordered. When checking pain medication in sep norco ordered, but allergy to norco. Pharmacy called and changed to toradol.
[2024-09-08] MEDS: HEPARIN SOD INJ 5000 UNIT/ML VIAL SC (20:14)
[2024-09-08] MEDS: RINGERS LACTATED 1000 ML 1,000 ML 999 ML IV ×2 (20:14→22:45)
[2024-09-08 21:07] LABS: INR 1.1 (0.9-1.3); Partial Thromboplastin Time 31.7 Seconds (22.0-36.0)
--- NOTE | 2024-09-08 22:35 | PC.NURSE ---
DR. ELLIS MADE AWARE OF CURRENT BP LEFT ARM 86/49, MAP OF 61 AND RIGHT LOWER ARM 93/53, MAP OF 66. FSBS AT 105. +DIZZINESS. STATES HE WILL PLACE NEW ORDERS FOR IVF BOLUS.
[2024-09-08] MEDS: SODIUM CHLORIDE RT 10% 15 ML NEBU 5 ML INH (23:47)
[2024-09-08] MEDS: ALBUTEROL/IPRATROPIUM (Duoneb) RT SOL 3 ML NEBU INH (23:57)
[2024-09-09] VITALS (53 sets, daily range): BP systolic 93–134; BP diastolic 51–80; PULSE 103–131; RESP 13–54; TEMP 36.1–38; O2SAT 90–97
[2024-09-09] MEDS: KETOROLAC INJ 30 MG/ML VIAL IVP ×2 (01:57→09:55)
[2024-09-09] MEDS: DEXTROSE 10%-WATER 500 ML 40 ML IV (02:10)
[2024-09-09] MEDS: DEXTROSE 5%-NS 1,000 ML 100 ML IV ×2 (05:13→12:24)
[2024-09-09] MEDS: metroNIDAZOLE/NS 500 MG IVPB 500 MG/100 ML BAG 200 MG IV ×3 (05:13→21:31)
[2024-09-09] MEDS: PROMETHAZINE HCL 25 MG TABLET PO ×2 (05:48→19:59)
[2024-09-09 05:56] LABS: Basophils # (Auto) 0.1 Thou/mm3 (0.0-0.2); Basophils % (Auto) 0 % (0-2.5); Eosinophils # (Auto) 0.3 Thou/mm3 (0.0-0.5); Eosinophils % (Auto) 1 % (0-10); Hematocrit 23.4 % (36.0-46.0); Immature Granulocytes % (Auto) 0 % (0-0); Immature Granulocytes Auto 0.09 Thou/mm3 (0.00-0.00); Lymphocytes # (Auto) 2.8 Thou/mm3 (1.0-4.8); Lymphocytes % (Auto) 12 % (10-50); Mean Corpuscular HGB Conc 29.5 g/dl (31.0-37.0); Mean Corpuscular Hemoglobin 20.4 pg (25.0-35.0); Mean Corpuscular Volume 69 fL (80-100); Monocytes % (Auto) 4 % (0-12); Neutrophils # (Auto) 19.9 Thou/mm3 (1.8-7.7); Neutrophils % (Auto) 82 % (37-80); Nucleated Red Blood Cell % 0 /100 WBC (0); Platelet Count 401 Thou/mm3 (140-440); RDW Standard Deviation 43.9 fL (36.4-46.3); Red Blood Count 3.38 Miln/mm3 (4.00-5.20); White Blood Count 24.2 Thou/mm3 (3.6-11.0)
--- NOTE | 2024-09-09 06:04 | PC.NURSE ---
DR. WILLOUGHBY MADE AWARE OF URINE OUTPUT OF 350 ML. PT FEELING HANDS TIGHT . FSBS AT 77. PT ASYMPTOMATIC. ORANGE JUICE GIVEN. NO NEW ORDERS.
[2024-09-09 06:08] LABS: Hemoglobin 6.9 g/dL (12.0-16.0)
[2024-09-09 06:31] LABS: Alanine Aminotransferase 26 U/L (10-49); Albumin/Globulin Ratio 1.2 (1.2-2.2); Alkaline Phosphatase 78 U/L (46-116); Anion Gap 8 (7-16); Aspartate Amino Transferase 22 U/L (0-34); BUN/Creatinine Ratio 22 Ratio (12-20); Bilirubin,Total 0.2 mg/dL (0.3-1.2); Blood Urea Nitrogen 26 mg/dL (9-23); Calcium 7.6 mg/dL (8.3-10.6); Calcium (Corrected) 8.4 mg/dL (8.5-10.1); Carbon Dioxide 24.3 mMol/L (20.0-31.0); Chloride 105 mMol/L (98-107); Creatinine (Component) 1.2 mg/dL (0.6-1.3); Estimated Creatinine Clearance 70.6 mL/min (>60); Free T4 (Free Thyroxine) 1.06 ng/dL (0.89-1.76); Globulin 2.5 gm/dL (2.3-3.5); Glucose 79 mg/dL (74-106); Magnesium 1.8 mg/dL (1.6-2.6); Osmolality,Calculated 277 (275-295); Phosphorous 2.8 mg/dL (2.4-5.1); Potassium 3.8 mMol/L (3.4-5.1); Sodium 137 mMol/L (136-145); Thyroid Stimulating Hormone 1.76 uIU/mL (0.55-4.78); Total Protein 5.5 gm/dL (5.7-8.2); eGFR 58 See Note
[2024-09-09] MEDS: ACETAMINOPHEN 325 MG TABLET 650 MG PO ×2 (07:20→19:53)
--- NOTE | 2024-09-09 07:24 | PC.NURSE ---
LAB MADE AWARE OF STAT CBC STILL NOT DRAWN. STATES THEY WILL SEND SOME ONE UP TO DRAW
[2024-09-09 08:33] LABS: Basophils # (Auto) 0.1 Thou/mm3 (0.0-0.2); Basophils % (Auto) 0 % (0-2.5); Eosinophils # (Auto) 0.4 Thou/mm3 (0.0-0.5); Eosinophils % (Auto) 1 % (0-10); Hematocrit 27.6 % (36.0-46.0); Immature Granulocytes % (Auto) 1 % (0-0); Immature Granulocytes Auto 0.16 Thou/mm3 (0.00-0.00); Lymphocytes # (Auto) 2.7 Thou/mm3 (1.0-4.8); Lymphocytes % (Auto) 11 % (10-50); Mean Corpuscular Hemoglobin 20.5 pg (25.0-35.0); Mean Corpuscular Volume 71 fL (80-100); Monocytes # (Auto) 0.9 Thou/mm3 (0.0-0.8); Monocytes % (Auto) 3 % (0-12); Neutrophils # (Auto) 21.5 Thou/mm3 (1.8-7.7); Neutrophils % (Auto) 84 % (37-80); Nucleated Red Blood Cell % 0 /100 WBC (0); Platelet Count 345 Thou/mm3 (140-440); RDW Standard Deviation 44.8 fL (36.4-46.3); Red Blood Count 3.91 Miln/mm3 (4.00-5.20); White Blood Count 25.7 Thou/mm3 (3.6-11.0)
[2024-09-09] MEDS: cefTRIAXone 1,000 MG in SODIUM CHLORIDE 0.9% (Popper) 50 ML 100 MG IV (08:54)
[2024-09-09] MEDS: AZITHROMYCIN INJ 500 MG in SODIUM CHLORIDE 0.9% 250 ML 250 ML 250 MG IV (08:56)
[2024-09-09] MEDS: HEPARIN SOD INJ 5000 UNIT/ML VIAL SC ×2 (08:56→20:59)
--- NOTE | 2024-09-09 09:23 | PC.SS ---
Follow up note: On IV fluids and IV antibiotic. Ptr will return home upon dc.
[2024-09-09 10:07] LABS: Misc Send Out* See Sep Rpt
--- NOTE | 2024-09-09 12:17 | PC.NURSE ---
MD made aware of pt blood glucose 48. Pt is asymptomatic at this time. Juice was given to the pt. Md ordered to stop D10 iv fluids and to restart D5NS iv fluids @ 100 ml/hr. Will continue to monitor
--- NOTE | 2024-09-09 14:21 | ESPR_ITS ---
<Statement entered by Dayna Armstrong MD - 09/10/24 00:24> Patient was seen and examined by me personally. I have directly supervised and reviewed documentation by the team resident and agree with its findings with any exceptions or additional findings as below. Plan of care was discussed with the attending, Dr. Weinberg. Overnight, patient continued to have episodes of hypoglycemia despite D10W infusion and had low BP to 86/49, therefore night team added D5-LR infusion at 100 ml/hr in addition to the D10. When inquired about her medication usage patient again denied insulin use for some time and states she self-discontinued glimepiride a couple months ago due to the low blood sugars. It was brought up that patient had hospitalizations for hypoglycemia in 2019 where it was suspected that the patient was using insulin while she was denying use. Patient states that indeed there was an investigation carried out at that time where police were even sent to her house and interviewed her partner and children, and she felt it was unnecessary and unwarranted. Patient is adamant that she could not have mixed up her medications either, she adamantly denies taking the sulfonylurea. at bedside and did not provide input himself. Patient states that she does have depression and fibromyalgia and takes duloxetine, but denies any intents of self-harm or suicidal ideations. She also reports history of seizures described as stiffening, is taking Keppra, is followed by Neurology Dr. Tello, and is scheduled for an EEG. Throughout the day today, patient's BG continued to have dips despite having adequate food intake. BG at 12:00 was 48, at 15:00 was 47, and at 17:00 was 51. Patient asymptomatic at all of these episodes and able to eat. Consulted with Dr. Wallace, Insurance Representative for input regarding case. He suggested the following studies to be drawn during a period of low glucose, <55: serum insulin, pro-insulin, C-peptide, beta-hydroxybutyrate, and serum glucose. Labs were successfully drawn and sent this afternoon, serum glucose at draw resulted at 43. Sulfonylurea screening also sent. Will continue to follow the case. Contacted the patient's PCP LULÚ Beltrán at [facility]. PCP denies documented history of hypoglycemic episodes for the patient, but that patient had on some visits been complaining of fatigue, which was attributed to anemia (Hgb 8.7). PCP does confirm that glimepiride is on patient's active medications list and was not aware that the patient reportedly stopped taking it. She confirms that the patient has not been on prescribed insulin for a long time. The last A1c was 6.5 for the patient, obtained on 08/20/2024. Interestingly, A1c drawn for this admission was cancelled and unable to be read, usually indicative of extremely low or extremely high (>14.0) A1c. It seems very much less likely that her A1c is higher than 14.0 given the reading of 6.5 three weeks ago. It is possible that the A1c is very low given the recent recurrent episodes of hypoglycemia. Otherwise, PCP denies any notable personality disorder or psych issues other than patient does not like leaving her home, and it has been difficult for her to come to appointments. At this point differentials are still broad, which include gastric bypass- induced postprandial hyperinsulinemic hypoglycemia; sulfonylurea or meglitinide toxicity; insulinoma or islet cell hyperplasia; psych etiologies such as surreptitious insulin use secondary to Munchausen syndrome (factitious disorder), Munchausen by proxy (if is administering patient medication, less likely), or suicide/self-harm attempt (patient denies); noninsulinoma pancreatogenous hypoglycemia syndrome; and other drug-induced causes. Sent additional studies: insulin antibody and insulin-like growth factor. Should refractory hypoglycemia persist, may consider octreotide drip. Dayna Armstrong, PGY-2 Test interpretation per [employer]. [email or web address] Documentation for date of: 09/09/24 Subjective Subjective Interval history: Patient was seen and examined by the bedside. Overnight patient continued to be on D10 W infusion, D5 W with elevated blood pressure, blood sugar was in the 70s. Patient reports feeling better, not shaky and sweaty. Denies taking insulin or sulfonylureas. Patient reported that previously she was investigated for surreptitious insulin use and that the police came to her house to investigate. Denies surreptitious insulin use. Insulin and C-peptide levels are pending. Continues to receive antibiotics. Saturates well on 1 L nasal cannula. Asked the patient about taking any supplements, she was not sure and was asked to bring all her medications to the hospital for med rec. Patient also reporting having seizures and following up with neurologist Dr. Tello, reported taking Keppra, last seizure 6 months ago, patient herself describes it as she becomes stiff . Patient has showed her extensive list of prescription on the phone, she has a prescription for glimepiride last picked up on 08/23/2024, she also is taking Keppra 500 mg qday. Spoke with Dr. Wallace, dietitian chief. He recommended to hold glucose infusions and controlled the labs when the sugar is less than 60. The labs he suggested are C-peptide, proinsulin, insulin, beta hydroxybutyrate and sulfonylurea screen. Also, Eunice Peterson who is patient's PA was contacted, she deniedhypoglycemic episodes under her care. Exam Vital Signs Temp Pulse Resp BP Pulse Ox O2 Del Method O2 Flow Rate 98.5 F 108 H 21 H 134/72 H 96 Nasal Cannula 1 09/09/24 12:00 09/09/24 12:00 09/09/24 12:09/09/24 12:00 09/09/24 12:00 09/09/24 12:09/09/24 12:00 Narrative Exam Physical Exam General: Awake and in no acute distress. Conversational and non-toxic appearing. HEENT: Normocephalic, atraumatic, mucous membranes moist. Heart: Regular rate and rhythm, no murmurs. Lungs: Clear to auscultation with no wheezing or crackles. Abdomen: Soft, nondistended, nontender, positive bowel sounds. ?No guarding or rebound tenderness. Neurologic: Alert and oriented x3, no gross neurological deficit, and patient able to move all 4 extremities. Extremities: No edema. Skin: No rash or ecchymoses. Objective Labs 09/10/24 04:24 09/10/24 04:24 Labs: Laboratory Results - last 24 hr 09/08/24 09/09/24 09/09/24 20:18 04:47 07:58 WBC 24.2 H D 25.7 H RBC 3.38 L 3.91 L Hgb 6.9 L* D 8.0 L Hct 23.4 L 27.6 L MCV 69 L 71 L MCH 20.4 L 20.5 L MCHC 29.5 L 29.0 L RDW Std Deviation 43.9 44.8 Plt Count 401 D 345 D Neut % (Auto) 82 H 84 H Lymph % (Auto) 12 11 [place] % (Auto) 4 3 Eos % (Auto) 1 1 Baso % (Auto) 0 0 Neut # (Auto) 19.9 H 21.5 H Lymph # (Auto) 2.8 2.7 [place] # (Auto) 1.0 H 0.9 H Eos # (Auto) 0.3 0.4 Baso # (Auto) 0.1 0.1 Immature Gran # (Auto) 0.09 H 0.16 H Absolute Nucleated RBC 0.00 0.00 Immature Gran % 0 1 H Nucleated RBC % 0 0 PT 12.0 INR 1.1 APTT 31.7 Sodium 137 Potassium 3.8 Chloride 105 Carbon Dioxide 24.3 Anion Gap 8 BUN 26 H Creatinine 1.2 Estim Creat Clear Calc 70.6 eGFR 58 L BUN/Creatinine Ratio 22 [address] Glucose [address] Glu mg/dL Cancelled Hemoglobin A1c Cancelled Calculated Osmolality 277 Calcium 7.6 L Corrected Calcium 8.4 L Phosphorus 2.8 Magnesium 1.8 Total Bilirubin 0.2 L AST 22 ALT 26 Alkaline Phosphatase 78 D Total Protein 5.5 L Albumin 3.0 L D Globulin 2.5 Albumin/Globulin Ratio 1.2 TSH 1.76 D Free T4 1.06 ABG Interpretation ABG results: 09/08/24 08:15 ABG pH 7.32 L ABG pCO2 48 ABG pO2 93 ABG HCO3 25 ABG O2 Saturation 97 ABG Base Excess -2 Quality Measures Quality Measures VTE prophylaxis Assessment & Plan Assessment Current Active Medications: Generic Name Dose Route Start Last Admin Trade Name Freq PRN Reason Stop Dose Admin Acetaminophen 650 mg 09/08/24 12:15 Acetaminophen 325 Mg Tablet PO 10/08/24 12:14 Q6H PRN Fever >101.5 Acetaminophen 650 mg 09/08/24 12:15 09/09/24 07:20 Acetaminophen 325 Mg Tablet PO 10/08/24 12:14 650 mg Q6H PRN Administration PAIN SCALE 1-3 (mild Albuterol/Ipratropium 3 ml 09/08/24 14:57 09/08/24 23:57 Albuterol/Ipratropium (Duoneb) Rt Jennifer 3 Ml Nebu INH 10/08/24 14:59 3 ml Q8HRRT PRN Administration Shortness of breath, wheezing Dextrose 25 ml 09/08/24 16:18 Dextrose 50%-Water Inj 50 Ml Syringe IV 10/08/24 16:17 Q15MIN PRN BG 50-70 responsive npo pt Dextrose 50 ml 09/08/24 16:18 Dextrose 50%-Water Inj 50 Ml Syringe IV 10/08/24 16:17 Q15MIN PRN BG <50 OR BG <70 & pt unresponsive Glucagon 1 mg 09/08/24 16:18 Glucagon Inj 1 Mg Vial IM Q15MIN PRN BG <70, and no IV access Heparin Sodium (Porcine) 5,000 unit 09/08/24 21:00 09/09/24 08:56 Heparin Sod Inj 5000 Unit/Ml Vial SC 09/22/24 20:59 5,000 unit BID ARIANA Administration Ceftriaxone Sodium 1,000 mg/ 50 mls @ 100 mls/hr 09/09/24 09:00 09/09/24 08:54 Sodium Chloride IV 09/16/24 08:59 100 mls/hr QDAY ARIANA Administration Metronidazole 500 mg in 100 mls @ 200 mls/hr 09/08/24 15:58 09/09/24 13:11 Flagyl 500 Mg Iv IV 09/15/24 15:57 200 mls/hr Q8HR ARIANA Administration Azithromycin 500 mg/ Sodium 250 mls @ 250 mls/hr 09/09/24 09:00 09/09/24 08:56 Chloride IV 09/18/24 08:59 250 mls/hr QDAY ARIANA Administration Dextrose/Sodium Chloride 1,000 mls @ 100 mls/hr 09/09/24 12:15 09/09/24 12:24 D5-Ns IV 10/09/24 12:14 100 mls/hr .Q10H ARIANA Administration Ketorolac Tromethamine 30 mg 09/08/24 18:34 09/09/24 09:55 Ketorolac Inj 30 Mg/Ml Vial IVP 09/13/24 18:33 30 mg Q6HR PRN Administration PAIN Protocol Ondansetron HCl 4 mg 09/08/24 12:15 Ondansetron Inj 2 Mg/Ml Inj 2 Ml IV 10/08/24 12:14 Q6H PRN NAUSEA OR VOMITING Protocol Promethazine HCl 25 mg 09/08/24 19:52 09/09/24 05:48 Promethazine Hcl 25 Mg Tablet PO 10/08/24 19:51 25 mg Q6HR PRN Administration NAUSEA OR VOMITING Protocol Plan The patient is a 43-year-old female with a previous medical history of type 2 diabetes, hypothyroidism, fibromyalgia who was admitted due to low blood sugar levels. #Hypoglycemia episodes #Type 2 diabetes #Hypothermia Patient has a history of recurrent hypoglycemic episodes. Denies recent glimepiride and insuline use. Reports only taking Monjaro injections. Denies having a application packaging specialist. Patient has a history of multiple admission for hypoglycemia episodes. In 2019 work up showed low level of C-peptide and high level of insulin. CT done in [place]: medication side effect vs dumping syndrome vs hormon producing tumor vs insulin use 09/08: utox is negative. 09/09: Spoke with Dr. Wallace, dietitian chief. He recommended to hold glucose infusions and controlled the labs when the sugar is less than 60. The labs he suggested are C-peptide, proinsulin, insulin, beta hydroxybutyrate and sulfonylurea screen. Plan: - hypoglycemia protocol - D10 infusion at 50 ml, rate depending on the blood glucose level - C-peptide and insuline levels pending - AM cortizol pending - med rec is pending #Community-acquired pneumonia Patient reporting having wheezes. She reports using inhaler at home. Chest x- ray showed pneumonia. There's a concern for possible aspiration during hypoglycemia. Plan: ? Blood cultures pending ? Ceftriaxone 1 g daily 3/5?current ?Metronidazole 500 mg daily 3/5?current #History of seizures Patient follow-up with Dr. Tello. Last seizure was 6 months ago. Plan: - Keppra 500 mg qday #Hypothyroidism Patient reports to have chronic hypothyroidism. Plan: ? pending med rec #Diabetic neuropathy Patient reports taking gabapentine and duloxetine for pain. Plan: ?Hold for now due to episode of altered mental status Health maintenance: FEN: Carbohydrate consistent DVT prophylaxis: Heparin SC GI prophylaxis: None Dispo: Telemetry CODE STATUS: Full code Plan of care discussed with attending Dr. Weinberg, PGY-[address] Armstrong and PGY-[address] Mcneill. Ana Luisa Jorgensen MD, PGY 1. Attending Provider Attestation/Addendum I have examined the patient, reviewed labs and imaging findings, discussed the case with the resident(s), and reviewed entered orders. I agree with the plan of care as outlined in this note, with these additional summaries/recommendations: Patient is a 43-year-old female with a medical history of diabetes mellitus type 2, obesity status post gastric bypass approx. 4 years ago? and currently on Mounjaro, Migraine headaches, and fibromyalgia who presents to [facility] emergency department on 09/08/2024 with chief complaint of altered mental status secondary to hypoglycemia. Patient seen at bedside. Overnight patients blood pressure was noted to be soft and was given additional fluid boluses. Patient also had recurrent hypoglycemia despite D10 drip and D50 was also added. Today we will wean off D10 and continue with D50 at 100 cc/h. Patient again denies taking any insulin or sulfonylurea. Medication reconciliation requested via in-house pharmacy. Patient has had hospitalizations in the past for recurrent hypoglycemia and thought to be secondary to exogenous insulin/factitious disorder. Nonetheless we will proceed with workup for recurrent hypoglycemia as we cannot confirm or deny exogenous insulin at this time. Insulin, C-peptide, proinsulin, A1C, and cortisol ordered and pending. BHB WNL on admission. Differential includes factitious versus late dumping syndrome versus adrenal versus medication induced versus less likely insulinoma. Community-acquired aspiration pneumonia also noted on chest x-ray. We will continue IV Rocephin and metronidazole. Patient noted to have microcytic anemia although no evidence of gastrointestinal bleeding at this time. Hgb 6.9 this morning which was likely lab error as repeat hemoglobin 8.0. Continue to monitor blood sugar closely. Ur cx growing GNR although to urinary symptoms at this time. Patient updated on plan and in agreement. Repeat hematology and chemistry panel in AM. Dr. Lenard MD
--- NOTE | 2024-09-09 15:08 | PC.NURSE ---
MD made aware pt blood glucose is 47. previous blood glucose was 81 @ 1300. pt is eating and drinking juice. pt is asymptomatic at this time. MD ordered to restart the D10 @ 60 ml/hr and d/c d5ns. will continue to monitor.
[2024-09-09 17:23] LABS: Misc Send Out* See Sep Rpt
[2024-09-09 17:54] LABS: Beta Hydroxybutyrate 0.1 mmol/L (<0.6)
[2024-09-09 18:11] LABS: Glucose 43 mg/dL (74-106)
--- NOTE | 2024-09-09 18:22 | PC.NURSE ---
Critical lab blood glucose 43. made aware. to place orders. Pt is asymptomatic at this time. Will continue to monitor
[2024-09-09] MEDS: DEXTROSE 10%-WATER 500 ML 70 ML IV (20:23)
[2024-09-09] MEDS: GABAPENTIN 300 MG CAPSULE PO (20:58)
[2024-09-09] MEDS: PROMETHAZINE INJ 12.5 MG in SODIUM CHLORIDE 0.9% 50 ML 150.871 MG IV (20:58)
[2024-09-09] MEDS: DULoxetine HCL 30 MG CAPSULE PO (20:58)
[2024-09-09] MEDS: DEXTROSE 50%-WATER INJ 50 ML SYRINGE 25 ML IV (23:12)
[2024-09-10] VITALS (25 sets, daily range): BP systolic 103–153; BP diastolic 69–98; PULSE 103–125; RESP 14–95; TEMP 36.3–37.1; O2SAT 89–96; BMI 31.4
[2024-09-10] MEDS: LORazepam 2 MG/ML VIAL 0.5 MG IVP ×2 (00:02→21:46)
[2024-09-10] MEDS: DEXTROSE 50%-WATER INJ 50 ML SYRINGE IV ×2 (02:59→03:43)
[2024-09-10] MEDS: DEXTROSE 10%-WATER 500 ML 100 ML IV ×2 (03:43→09:01)
[2024-09-10] MEDS: ACETAMINOPHEN 325 MG TABLET 650 MG PO ×2 (04:28→21:45)
[2024-09-10 05:13] LABS: Misc Send Out* See Sep Rpt
[2024-09-10 05:17] LABS: Basophils # (Auto) 0.1 Thou/mm3 (0.0-0.2); Basophils % (Auto) 0 % (0-2.5); Eosinophils # (Auto) 0.6 Thou/mm3 (0.0-0.5); Eosinophils % (Auto) 3 % (0-10); Hematocrit 23.8 % (36.0-46.0); Immature Granulocytes % (Auto) 1 % (0-0); Immature Granulocytes Auto 0.09 Thou/mm3 (0.00-0.00); Lymphocytes # (Auto) 2.1 Thou/mm3 (1.0-4.8); Lymphocytes % (Auto) 12 % (10-50); Mean Corpuscular Hemoglobin 20.1 pg (25.0-35.0); Mean Corpuscular Volume 69 fL (80-100); Monocytes # (Auto) 0.9 Thou/mm3 (0.0-0.8); Monocytes % (Auto) 5 % (0-12); Neutrophils # (Auto) 13.8 Thou/mm3 (1.8-7.7); Neutrophils % (Auto) 79 % (37-80); Nucleated Red Blood Cell % 0 /100 WBC (0); Platelet Count 449 Thou/mm3 (140-440); RDW Standard Deviation 44.1 fL (36.4-46.3); Red Blood Count 3.43 Miln/mm3 (4.00-5.20); White Blood Count 17.6 Thou/mm3 (3.6-11.0)
[2024-09-10 05:31] LABS: Hemoglobin 6.9 g/dL (12.0-16.0)
[2024-09-10 05:41] LABS: Alanine Aminotransferase 21 U/L (10-49); Albumin, Serum 3.4 gm/dL (3.5-5.0); Albumin/Globulin Ratio 1.2 (1.2-2.2); Alkaline Phosphatase 88 U/L (46-116); Anion Gap 7 (7-16); Aspartate Amino Transferase 19 U/L (0-34); BUN/Creatinine Ratio 20 Ratio (12-20); Bilirubin,Total 0.2 mg/dL (0.3-1.2); Blood Urea Nitrogen 20 mg/dL (9-23); Calcium (Corrected) 8.5 mg/dL (8.5-10.1); Carbon Dioxide 24.9 mMol/L (20.0-31.0); Chloride 108 mMol/L (98-107); Estimated Creatinine Clearance 84.7 mL/min (>60); Globulin 2.9 gm/dL (2.3-3.5); Glucose 127 mg/dL (74-106); Osmolality,Calculated 284 (275-295); Potassium 4.1 mMol/L (3.4-5.1); Sodium 140 mMol/L (136-145); Total Protein 6.3 gm/dL (5.7-8.2); eGFR > 60 See Note
[2024-09-10] MEDS: LEVOTHYROXINE SODIUM 25 MCG TABLET 75 MCG PO (05:52)
[2024-09-10] MEDS: metroNIDAZOLE/NS 500 MG IVPB 500 MG/100 ML BAG 200 MG IV ×3 (05:52→21:07)
[2024-09-10 07:57] LABS: Hematocrit 22.7 % (36.0-46.0)
[2024-09-10 08:01] LABS: Hemoglobin 6.6 g/dL (12.0-16.0)
[2024-09-10] MEDS: cefTRIAXone 1,000 MG in SODIUM CHLORIDE 0.9% (Popper) 50 ML 100 MG IV (08:41)
[2024-09-10] MEDS: levETIRAcetam 250 MG TABLET 500 MG PO ×2 (08:41→20:04)
[2024-09-10] MEDS: GABAPENTIN 300 MG CAPSULE PO ×2 (08:41→20:04)
[2024-09-10] MEDS: DULoxetine HCL 30 MG CAPSULE PO ×2 (08:42→20:04)
[2024-09-10] MEDS: HEPARIN SOD INJ 5000 UNIT/ML VIAL SC ×2 (08:45→20:17)
[2024-09-10] MEDS: AZITHROMYCIN INJ 500 MG in SODIUM CHLORIDE 0.9% 250 ML 250 ML 250 MG IV (08:59)
[2024-09-10] MEDS: FUROSEMIDE INJ 10 MG/ML VIAL 2 ML 20 MG IVP (09:00)
[2024-09-10 11:11] LABS: Iron 10 mcg/dL (50-170); Percent Iron Saturation 2 % (20-55); Total Iron Binding Capacity 345 mcg/dL (250-425); Unsaturated Iron Binding 335 (225-295)
[2024-09-10] MEDS: OCTREOTIDE ACET 50 MCG IVP ×3 (13:23→23:45)
--- NOTE | 2024-09-10 15:04 | PC.SS ---
GRADUATE FELLOW conducted bedside contact with the patient conduct initial assessment and to discuss discharge planning.? Patient confirmed demographic information.? Patient resides at home with spouse, Alfredo Hicks . ?Patient does not utilize any form of DME to assist with ambulation.? Patient does not utilize home oxygen.? Patient describes the ability to complete ADL?s independently.? Patient identified spouse, Alfredo Hicks; as medical surrogate decision maker.? Patient?s PCP is Eunice Peterson.? Patient?s neurologist is Dr. Tello.? Patient does not participate with dialysis.? Patient possesses history of diabetes.? Patient in possession of [employer].? Patient utilizes [facility] for medication services.? Plan is for the patient to return home at the time of discharge.? Family will provide transportation on behalf of the patient. No discharge needs identified by the patient.? No further intervention required at this time, manager social responsibility will be available to address any further concerns.? Next of Kin: Alfredo Hicks D/C Plan: Home
--- NOTE | 2024-09-10 15:24 | ESPR_ITS ---
Documentation for date of: 09/10/24 Subjective Subjective Interval history: Patient was seen and examined by the bedside. Patient had low blood sugar overnight, D10W was increased to 100 ml/hr. Today, she was started on octreotide 50 mcg q6hr. Glucose checks q4hr, continues to be on D10W at 30 ml/hr. Insullin, C-peptide pending. AM CBC was 6.9, before starting D10W she was anemic. Will diurese her today and transfuse 1 unit of PRBC. Ordered FOBT. Exam Vital Signs Temp Pulse Resp BP Pulse Ox O2 Del Method O2 Flow Rate 98.2 F 104 H 20 145/83 H 94 L Nasal Cannula 2 09/10/24 15:13 09/10/24 15:13 09/10/24 15:13 09/10/24 15:13 09/10/24 15:13 09/10/24 12:00 09/10/24 15:13 Narrative Exam Physical Exam General: Awake and in no acute distress. Conversational and non-toxic appearing. HEENT: Normocephalic, atraumatic, mucous membranes moist. Heart: Regular rate and rhythm, no murmurs. Lungs: Clear to auscultation with no wheezing or crackles. Abdomen: Soft, nondistended, nontender, positive bowel sounds. ?No guarding or rebound tenderness. Neurologic: Alert and oriented x3, no gross neurological deficit, and patient able to move all 4 extremities. Extremities: 1+ edema. Skin: No rash or ecchymoses. Objective Labs 09/11/24 05:00 09/11/24 05:00 Labs: Laboratory Results - last 24 hr 09/09/24 09/10/24 09/10/24 17:05 04:24 07:34 WBC 17.6 H D RBC 3.43 L Hgb 6.9 L* 6.6 L* Hct 23.8 L 22.7 L MCV 69 L MCH 20.1 L MCHC 29.0 L RDW Std Deviation 44.1 Plt Count 449 H D Neut % (Auto) 79 Lymph % (Auto) 12 Webb % (Auto) 5 Eos % (Auto) 3 Baso % (Auto) 0 Neut # (Auto) 13.8 H Lymph # (Auto) 2.1 Webb # (Auto) 0.9 H Eos # (Auto) 0.6 H Baso # (Auto) 0.1 Immature Gran # (Auto) 0.09 H Absolute Nucleated RBC 0.00 Immature Gran % 1 H Nucleated RBC % 0 Sodium 140 Potassium 4.1 Chloride 108 H Carbon Dioxide 24.9 Anion Gap 7 BUN 20 Creatinine 1.0 Estim Creat Clear Calc 84.7 eGFR > 60 BUN/Creatinine Ratio 20 Glucose 43 L* 127 H D Calculated Osmolality 284 Calcium 8.0 L Corrected Calcium 8.5 Iron 10 L TIBC 345 Iron Saturation 2 L Unsat Iron Binding 335 H Total Bilirubin 0.2 L AST 19 ALT 21 Alkaline Phosphatase 88 Total Protein 6.3 Albumin 3.4 L Globulin 2.9 Albumin/Globulin Ratio 1.2 Beta-Hydroxybutyrate/Acetoacetate 0.1 Blood Type Antibody Screen Crossmatch Blood Bank Wristband ID 09/10/24 08:45 WBC RBC Hgb Hct MCV MCH MCHC RDW Std Deviation Plt Count Neut % (Auto) Lymph % (Auto) Webb % (Auto) Eos % (Auto) Baso % (Auto) Neut # (Auto) Lymph # (Auto) Webb # (Auto) Eos # (Auto) Baso # (Auto) Immature Gran # (Auto) Absolute Nucleated RBC Immature Gran % Nucleated RBC % Sodium Potassium Chloride Carbon Dioxide Anion Gap BUN Creatinine Estim Creat Clear Calc eGFR BUN/Creatinine Ratio Glucose Calculated Osmolality Calcium Corrected Calcium Iron TIBC Iron Saturation Unsat Iron Binding Total Bilirubin AST ALT Alkaline Phosphatase Total Protein Albumin Globulin Albumin/Globulin Ratio Beta-Hydroxybutyrate/Acetoacetate Blood Type O Positive Antibody Screen NEGATIVE Crossmatch See Detail Blood Bank Wristband ID Yes ABG Interpretation ABG results: 09/08/24 08:15 ABG pH 7.32 L ABG pCO2 48 ABG pO2 93 ABG HCO3 25 ABG O2 Saturation 97 ABG Base Excess -2 Quality Measures Quality Measures VTE prophylaxis Assessment & Plan Assessment Current Active Medications: Generic Name Dose Route Start Last Admin Trade Name Freq PRN Reason Stop Dose Admin Acetaminophen 650 mg 09/08/24 12:15 Acetaminophen 325 Mg Tablet PO 10/08/24 12:14 Q6H PRN Fever >101.5 Acetaminophen 650 mg 09/08/24 12:15 09/10/24 04:28 Acetaminophen 325 Mg Tablet PO 10/08/24 12:14 650 mg Q6H PRN Administration PAIN SCALE 1-3 (mild Albuterol/Ipratropium 3 ml 09/08/24 14:57 09/08/24 23:57 Albuterol/Ipratropium (Duoneb) Rt Jennifer 3 Ml Nebu INH 10/08/24 14:59 3 ml Q8HRRT PRN Administration Shortness of breath, wheezing Dextrose 25 ml 09/08/24 16:18 09/09/24 23:12 Dextrose 50%-Water Inj 50 Ml Syringe IV 10/08/24 16:17 25 ml Q15MIN PRN Administration BG 50-70 responsive npo pt Dextrose 50 ml 09/08/24 16:18 09/10/24 02:59 Dextrose 50%-Water Inj 50 Ml Syringe IV 10/08/24 16:17 50 ml Q15MIN PRN Administration BG <50 OR BG <70 & pt unresponsive Duloxetine HCl 30 mg 09/09/24 21:00 09/10/24 08:42 Duloxetine Hcl 30 Mg Capsule PO 10/09/24 20:59 30 mg BID ARIANA Administration Gabapentin 300 mg 09/09/24 21:00 09/10/24 08:41 Gabapentin 300 Mg Capsule PO 10/09/24 20:59 300 mg BID ARIANA Administration Glucagon 1 mg 09/08/24 16:18 Glucagon Inj 1 Mg Vial IM Q15MIN PRN BG <70, and no IV access Heparin Sodium (Porcine) 5,000 unit 09/08/24 21:00 09/10/24 08:45 Heparin Sod Inj 5000 Unit/Ml Vial SC 09/22/24 20:59 5,000 unit BID ARIANA Administration Ceftriaxone Sodium 1,000 mg/ 50 mls @ 100 mls/hr 09/09/24 09:00 09/10/24 08:41 Sodium Chloride IV 09/16/24 08:59 100 mls/hr QDAY ARIANA Administration Metronidazole 500 mg in 100 mls @ 200 mls/hr 09/08/24 15:58 09/10/24 14:23 Flagyl 500 Mg Iv IV 09/15/24 15:57 200 mls/hr Q8HR ARIANA Administration Azithromycin 500 mg/ Sodium 250 mls @ 250 mls/hr 09/09/24 09:00 09/10/24 08:59 Chloride IV 09/18/24 08:59 250 mls/hr QDAY ARIANA Administration Promethazine HCl 12.5 mg/ 50.5 mls @ 150.871 mls/hr 09/09/24 20:32 09/09/24 20:58 Sodium Chloride IV 10/09/24 20:31 150.871 mls/hr Q6HR PRN Administration NAUSEA OR VOMITING Protocol Levetiracetam 500 mg 09/10/24 21:00 Levetiracetam 250 Mg Tablet PO 10/10/24 20:59 BID ARIANA Levothyroxine Sodium 75 mcg 09/10/24 06:00 09/10/24 05:52 Levothyroxine Sodium 25 Mcg Tablet PO 10/10/24 05:59 75 mcg ACBR ARIANA Administration Octreotide Acetate 50 mcg 09/10/24 12:00 09/10/24 13:23 Octreotide Acet Inj 100 Mcg/Ml Vial IVP 09/11/24 06:01 50 mcg Q6HR ARIANA Administration Ondansetron HCl 4 mg 09/08/24 12:15 Ondansetron Inj 2 Mg/Ml Inj 2 Ml IV 10/08/24 12:14 Q6H PRN NAUSEA OR VOMITING Protocol Plan The patient is a 43-year-old female with a previous medical history of type 2 diabetes, hypothyroidism, fibromyalgia who was admitted due to low blood sugar levels. #Hypoglycemia episodes #Type 2 diabetes #Hypothermia Patient has a history of recurrent hypoglycemic episodes. Denies recent glimepiride and insuline use. Reports only taking Monjaro injections. Denies having a pet nutrition specialist. Patient has a history of multiple admission for hypoglycemia episodes. In 2019 work up showed low level of C-peptide and high level of insulin. CT done in Ddx: medication side effect vs dumping syndrome vs hormon producing tumor vs insulin use 09/08: utox is negative. 09/09: Spoke with Dr. Wallace, bus and trolley inspecting dispatcher. He recommended to hold glucose infusions and controlled the labs when the sugar is less than 60. The labs he suggested are C-peptide, proinsulin, insulin, beta hydroxybutyrate and sulfonylurea screen. Plan: - hypoglycemia protocol - D10 infusion at 30 ml, rate depending on the blood glucose level - C-peptide and insuline levels pending - AM cortizol pending - med rec is pending ?Glucose checks every 4 hours #Community-acquired pneumonia Patient reporting having wheezes. She reports using inhaler at home. Chest x- ray showed pneumonia. There's a concern for possible aspiration during hypoglycemia. Plan: ? Blood cultures negative after 48 hours ? Ceftriaxone 1 g daily 09/08?current ?Metronidazole 500 mg daily 09/08?current #UTI UA was possible for rare bacteria.Urine culture grew E. coli resistant to amoxicillin/clavulanate and ampicillin. #History of seizures Patient follow-up with Dr. Tello. Last seizure was 6 months ago. Plan: - Keppra 500 mg twice daily ? Lamotrigine is on hold for now due to concern of possible side effect of hypoglycemia #Hypothyroidism Patient reports to have chronic hypothyroidism. Plan: ? pending med rec #Diabetic neuropathy Patient reports taking gabapentine and duloxetine for pain. Plan: ?Hold for now due to episode of altered mental status Health maintenance: FEN: Carbohydrate consistent DVT prophylaxis: Heparin SC GI prophylaxis: None Dispo: Telemetry CODE STATUS: Full code Plan of care discussed with attending Dr. Weinberg and PGY-[address] Mcneill. Ana Luisa Jorgensen MD, PGY 1. -- ATTESTATION: I saw and examined the patient this morning, and I agree with current management stated by the resident. Will continue to monitor patient during their stay. patient is a 43-year-old female with a previous medical history of type 2 diabetes, hypothyroidism, fibromyalgia who was initially admitted on 09/08/2024 due to recurrent episodes of severe hypoglycemia. Patient continues to have episodes of hypoglycemia down to the 40s with 2 episodes overnight. We started octreotide today as our differential seems to include dumping syndrome. We have ordered proinsulin, C-peptide, insulin level, glucose level, and beta- hydroxybutyrate as per endocrinology recommendations during an episode of hypoglycemia. We are pending those results. Will continue to monitor patient closely and she was put back on the D10 at 30 cc/h on top of the octreotide as she continues to have hypoglycemic episodes. Will also pending urine culture speciation. Patient agrees with current plan. Disclaimer: Despite multiple revisions, due to the dictation software being used, the document bellow may not be free of grammatical errors including phonetic/typographic errors. However, this does not deter from our commitment to providing health care in the patient's best interest in mind. Dr. Jorge Mcneill, PGY-3 Attending Provider Attestation/Addendum I have examined the patient, reviewed labs and imaging findings, discussed the case with the resident(s), and reviewed entered orders. I agree with the plan of care as outlined in this note, with these additional summaries/recommendations: Patient is a 43-year-old female with a medical history of diabetes mellitus type 2, obesity status post gastric bypass approx. 4 years ago? and currently on Mounjaro, Migraine headaches, and fibromyalgia who presents to [facility] emergency department on 09/08/2024 with chief complaint of altered mental status secondary to hypoglycemia. Patient seen at bedside. Patient had another hypoglycemic event overnight despite glucose containing fluids. Patient was given juice/glucose with improvement and moved to ICU for closer monitoring. Today at bedside patient has no new complaints to report except for mild headache. Differentials for recurrent hypoglycemia include gastric bypass-induced postprandial hyperinsulinemic hypoglycemia/Dumping syndrome vs sulfonylurea vs exogenous insulin vs adrenal insufficiency vs insulinoma. Yesterday we ordered serum insuin, proinsulin, C-peptide, BHB, cortisol, and serum glucose. We will follow- up results as they become available. We will start IV octreotide today for suspected dumping syndrome and we will monitor how patient tolerates. Will follow-up with endocrinology for further recommendations. Continue IV antibiotics for community-acquired aspiration pneumonia. Blood cultures negative at 48 hours. Urine culture returned with E. coli although no urinary symptoms. Hemoglobin 6.9 on hematology panel and repoint 6.6. No obvious signs of bleeding at this time and likely secondary to severe iron deficiency anemia. We will transfuse 1 unit PRBCs today and follow-up posttransfusion H&H. FOBT ordered. Patient will remain hospitalized given recurrent hypoglycemia. Patient and updated on the plan and in agreement. Repeat hematology and chemistry panel in AM. Continue every hour fingerstick glucose checks. Dr. Lenard MD
[2024-09-10] MEDS: DEXTROSE 10%-WATER 500 ML 30 ML IV (16:21)
[2024-09-10] MEDS: PROMETHAZINE INJ 12.5 MG in SODIUM CHLORIDE 0.9% 50 ML 150.871 MG IV (19:37)
[2024-09-10 21:05] LABS: Hematocrit 29.4 % (36.0-46.0)
[2024-09-10 21:10] LABS: Hemoglobin 8.8 g/dL (12.0-16.0)
[2024-09-11] VITALS (11 sets, daily range): BP systolic 121–160; BP diastolic 68–102; PULSE 96–111; RESP 16–93; TEMP 36.2–36.8; O2SAT 93–97; BMI 39.7
[2024-09-11] MEDS: LEVOTHYROXINE SODIUM 25 MCG TABLET 75 MCG PO (05:16)
[2024-09-11] MEDS: OCTREOTIDE ACET 50 MCG IVP (05:16)
[2024-09-11] MEDS: metroNIDAZOLE/NS 500 MG IVPB 500 MG/100 ML BAG 200 MG IV ×3 (05:16→21:34)
[2024-09-11 05:55] LABS: Basophils # (Auto) 0.1 Thou/mm3 (0.0-0.2); Basophils % (Auto) 1 % (0-2.5); Eosinophils # (Auto) 0.8 Thou/mm3 (0.0-0.5); Eosinophils % (Auto) 6 % (0-10); Hematocrit 27.9 % (36.0-46.0); Immature Granulocytes % (Auto) 0 % (0-0); Immature Granulocytes Auto 0.04 Thou/mm3 (0.00-0.00); Lymphocytes # (Auto) 2.5 Thou/mm3 (1.0-4.8); Lymphocytes % (Auto) 19 % (10-50); Mean Corpuscular HGB Conc 29.7 g/dl (31.0-37.0); Mean Corpuscular Hemoglobin 21.3 pg (25.0-35.0); Mean Corpuscular Volume 72 fL (80-100); Monocytes # (Auto) 0.7 Thou/mm3 (0.0-0.8); Monocytes % (Auto) 5 % (0-12); Neutrophils # (Auto) 8.9 Thou/mm3 (1.8-7.7); Neutrophils % (Auto) 69 % (37-80); Nucleated Red Blood Cell % 0 /100 WBC (0); Platelet Count 434 Thou/mm3 (140-440); RDW Standard Deviation 48.8 fL (36.4-46.3)
[2024-09-11 05:56] LABS: Hemoglobin 8.3 g/dL (12.0-16.0)
[2024-09-11 06:36] LABS: Alanine Aminotransferase 36 U/L (10-49); Albumin, Serum 3.6 gm/dL (3.5-5.0); Albumin/Globulin Ratio 1.2 (1.2-2.2); Alkaline Phosphatase 103 U/L (46-116); Anion Gap 8 (7-16); Aspartate Amino Transferase 50 U/L (0-34); BUN/Creatinine Ratio 18 Ratio (12-20); Bilirubin,Total 0.3 mg/dL (0.3-1.2); Blood Urea Nitrogen 16 mg/dL (9-23); Calcium 8.5 mg/dL (8.3-10.6); Calcium (Corrected) 8.8 mg/dL (8.5-10.1); Carbon Dioxide 24.5 mMol/L (20.0-31.0); Chloride 107 mMol/L (98-107); Creatinine (Component) 0.9 mg/dL (0.6-1.3); Estimated Creatinine Clearance 104.9 mL/min (>60); Glucose 107 mg/dL (74-106); Osmolality,Calculated 278 (275-295); Potassium 4.2 mMol/L (3.4-5.1); Sodium 139 mMol/L (136-145); Total Protein 6.6 gm/dL (5.7-8.2); eGFR > 60 See Note
[2024-09-11] MEDS: cefTRIAXone 1,000 MG in SODIUM CHLORIDE 0.9% (Popper) 50 ML 100 MG IV (09:07)
[2024-09-11] MEDS: levETIRAcetam 250 MG TABLET 500 MG PO ×2 (09:08→20:26)
[2024-09-11] MEDS: DULoxetine HCL 30 MG CAPSULE PO ×2 (09:08→20:26)
[2024-09-11] MEDS: GABAPENTIN 300 MG CAPSULE PO ×2 (09:08→20:26)
[2024-09-11] MEDS: HEPARIN SOD INJ 5000 UNIT/ML VIAL SC ×2 (09:08→20:30)
[2024-09-11] MEDS: lamoTRIgine 25 MG CHEW 100 MG PO ×2 (10:30→21:34)
[2024-09-11] MEDS: PROPRANOLOL 10 MG TABLET PO ×2 (10:30→20:25)
[2024-09-11] MEDS: PROMETHAZINE INJ 12.5 MG in SODIUM CHLORIDE 0.9% 50 ML 150.871 MG IV (12:56)
--- NOTE | 2024-09-11 13:04 | ESPR_ITS ---
<Statement entered by Dayna Armstrong MD - 09/11/24 13:33> Patient was seen and examined by me personally. I have directly supervised and reviewed documentation by the team resident and agree with its findings with any exceptions or additional findings as below. Plan of care was discussed with the attending, Dr. Weinberg. Overnight, patient reported anxiety and panic attacks, so was given lorazepam 0.5 mg IV x1 by night team and patient was able to sleep. Patient seen this morning and reported feeling well, although she states that her anxiety has been worse as she spends more days in the hospital. Patient sees her psychiatrist for anxiety, depression, PTSD, and agoraphobia. She states she takes propranalol both scheduled and as needed for anxiety. Will resume propranalol here and again attempt to get a full medication list from her pharmacy, [facility] [address]. Will obtain medical information release authorization. Otherwise, patient glucose has been maintaining above 100 overnight with q4h checks on D10W at 30 ml/hr. She completed 4 doses of octreotide. Will stop the D10, discontinue octreotide, and monitor blood glucose for the rest of the day. Patient encouraged to call if symptomatic again. Hypoglycemia workup is pending (see prior notes). Will likely need to follow up outpatient for full results of studies. Hgb today stable at 8.3. Patient is saturating well on room air. Continue IV ceftriaxone and IV metronidazole for aspiration pneumonia. Dayna Armstrong, PGY-2 Documentation for date of: 09/11/24 Subjective Subjective Interval history: Patient was seen and examined by the bedside. Overnight patient reported having anxiety, received Ativan 0.5 mg once. Her home Lamictal and propranolol medications were resumed. This morning blood sugar was 149, discontinued D10W and octreotide injection. Will continue with glucose checks every 4 hours and antibiotic. A.m. hemoglobin 8.3, hematocrit 27.9. Exam Vital Signs Temp Pulse Resp BP Pulse Ox O2 Del Method O2 Flow Rate 98.1 F 103 H 18 145/82 H 97 Nasal Cannula 2 09/11/24 08:00 09/11/24 10:30 09/11/24 08:00 09/11/24 10:30 09/11/24 08:00 09/11/24 08:00 09/11/24 08:00 Narrative Exam Physical Exam General: Awake and in no acute distress. Conversational and non-toxic appearing. HEENT: Normocephalic, atraumatic, mucous membranes moist. Heart: Regular rate and rhythm, no murmurs. Lungs: Clear to auscultation with no wheezing or crackles. Abdomen: Soft, nondistended, nontender, positive bowel sounds. ?No guarding or rebound tenderness. Neurologic: Alert and oriented x3, no gross neurological deficit, and patient able to move all 4 extremities. Extremities: 1+ edema. Skin: No rash or ecchymoses. Objective Labs 09/12/24 05:38 09/12/24 05:38 Labs: Laboratory Results - last 24 hr 09/10/24 09/10/24 09/11/24 08:45 20:22 05:00 WBC 13.0 H RBC 3.90 L Hgb 8.8 L D 8.3 L Hct 29.4 L 27.9 L MCV 72 L MCH 21.3 L MCHC 29.7 L RDW Std Deviation 48.8 H Plt Count 434 Neut % (Auto) 69 Lymph % (Auto) 19 Bulloch % (Auto) 5 Eos % (Auto) 6 Baso % (Auto) 1 Neut # (Auto) 8.9 H Lymph # (Auto) 2.5 Bulloch # (Auto) 0.7 Eos # (Auto) 0.8 H Baso # (Auto) 0.1 Immature Gran # (Auto) 0.04 H Absolute Nucleated RBC 0.00 Immature Gran % 0 Nucleated RBC % 0 Sodium 139 Potassium 4.2 Chloride 107 Carbon Dioxide 24.5 Anion Gap 8 BUN 16 Creatinine 0.9 Estim Creat Clear Calc 104.9 eGFR > 60 BUN/Creatinine Ratio 18 Glucose 107 H Calculated Osmolality 278 Calcium 8.5 Corrected Calcium 8.8 Total Bilirubin 0.3 AST 50 H ALT 36 Alkaline Phosphatase 103 Total Protein 6.6 Albumin 3.6 Globulin 3.0 Albumin/Globulin Ratio 1.2 Blood Type O Positive Antibody Screen NEGATIVE Crossmatch See Detail Blood Bank Wristband ID Yes ABG Interpretation ABG results: 09/08/24 08:15 ABG pH 7.32 L ABG pCO2 48 ABG pO2 93 ABG HCO3 25 ABG O2 Saturation 97 ABG Base Excess -2 Quality Measures Quality Measures VTE prophylaxis Assessment & Plan Assessment Current Active Medications: Generic Name Dose Route Start Last Admin Trade Name Freq PRN Reason Stop Dose Admin Acetaminophen 650 mg 09/08/24 12:15 09/10/24 21:45 Acetaminophen 325 Mg Tablet PO 10/08/24 12:14 650 mg Q6H PRN Administration Fever >101.5 Acetaminophen 650 mg 09/08/24 12:15 09/10/24 04:28 Acetaminophen 325 Mg Tablet PO 10/08/24 12:14 650 mg Q6H PRN Administration PAIN SCALE 1-3 (mild Albuterol/Ipratropium 3 ml 09/08/24 14:57 09/08/24 23:57 Albuterol/Ipratropium (Duoneb) Rt Jennifer 3 Ml Nebu INH 10/08/24 14:59 3 ml Q8HRRT PRN Administration Shortness of breath, wheezing Dextrose 25 ml 09/08/24 16:18 09/09/24 23:12 Dextrose 50%-Water Inj 50 Ml Syringe IV 10/08/24 16:17 25 ml Q15MIN PRN Administration BG 50-70 responsive npo pt Dextrose 50 ml 09/08/24 16:18 09/10/24 02:59 Dextrose 50%-Water Inj 50 Ml Syringe IV 10/08/24 16:17 50 ml Q15MIN PRN Administration BG <50 OR BG <70 & pt unresponsive Duloxetine HCl 30 mg 09/09/24 21:00 09/11/24 09:08 Duloxetine Hcl 30 Mg Capsule PO 10/09/24 20:59 30 mg BID ARIANA Administration Gabapentin 300 mg 09/09/24 21:00 09/11/24 09:08 Gabapentin 300 Mg Capsule PO 10/09/24 20:59 300 mg BID ARIANA Administration Glucagon 1 mg 09/08/24 16:18 Glucagon Inj 1 Mg Vial IM Q15MIN PRN BG <70, and no IV access Heparin Sodium (Porcine) 5,000 unit 09/08/24 21:00 09/11/24 09:08 Heparin Sod Inj 5000 Unit/Ml Vial SC 09/22/24 20:59 5,000 unit BID ARIANA Administration Ceftriaxone Sodium 1,000 mg/ 50 mls @ 100 mls/hr 09/09/24 09:00 09/11/24 09:07 Sodium Chloride IV 09/16/24 08:59 100 mls/hr QDAY ARIANA Administration Metronidazole 500 mg in 100 mls @ 200 mls/hr 09/08/24 15:58 09/11/24 05:16 Flagyl 500 Mg Iv IV 09/15/24 15:57 200 mls/hr Q8HR ARIANA Administration Promethazine HCl 12.5 mg/ 50.5 mls @ 150.871 mls/hr 09/09/24 20:32 09/11/24 12:56 Sodium Chloride IV 10/09/24 20:31 150.871 mls/hr Q6HR PRN Administration NAUSEA OR VOMITING Protocol Lamotrigine 100 mg 09/11/24 10:00 09/11/24 10:30 Lamotrigine 25 Mg Chew PO 10/11/24 09:59 100 mg BID ARIANA Administration Levetiracetam 500 mg 09/10/24 21:00 09/11/24 09:08 Levetiracetam 250 Mg Tablet PO 10/10/24 20:59 500 mg BID ARIANA Administration Levothyroxine Sodium 75 mcg 09/10/24 06:00 09/11/24 05:16 Levothyroxine Sodium 25 Mcg Tablet PO 10/10/24 05:59 75 mcg ACBR ARIANA Administration Ondansetron HCl 4 mg 09/08/24 12:15 Ondansetron Inj 2 Mg/Ml Inj 2 Ml IV 10/08/24 12:14 Q6H PRN NAUSEA OR VOMITING Protocol Propranolol HCl 10 mg 09/11/24 10:00 09/11/24 10:30 Propranolol 10 Mg Tablet PO 10/11/24 09:59 10 mg BID ARIANA Administration Plan The patient is a 43-year-old female with a previous medical history of type 2 diabetes, hypothyroidism, fibromyalgia who was admitted due to low blood sugar levels. #Hypoglycemia episodes #Type 2 diabetes #Hypothermia Patient has a history of recurrent hypoglycemic episodes. Denies recent glimepiride and insuline use. Reports only taking Monjaro injections. Denies having a monitoring specialist. Patient has a history of multiple admission for hypoglycemia episodes. In 2019 work up showed low level of C-peptide and high level of insulin. CT done in Ddx: medication side effect vs dumping syndrome vs hormon producing tumor vs insulin use 09/08: utox is negative. 09/09: Spoke with Dr. Wallace, chief scientific officer. He recommended to hold glucose infusions and controlled the labs when the sugar is less than 60. The labs he suggested are C-peptide, proinsulin, insulin, beta hydroxybutyrate and sulfonylurea screen. Plan: - hypoglycemia protocol - D10 infusion discontinued today ? Octreotide on hold for now - C-peptide and insuline levels pending - AM cortizol pending - med rec is pending ?Glucose checks every 4 hours #Community-acquired pneumonia Patient reporting having wheezes. She reports using inhaler at home. Chest x- ray showed pneumonia. There's a concern for possible aspiration during hypoglycemia. Plan: ? Blood cultures negative after 48 hours ? Ceftriaxone 1 g daily 09/08?current ?Metronidazole 500 mg daily 09/08?current #UTI UA was possible for rare bacteria.Urine culture grew E. coli resistant to amoxicillin/clavulanate and ampicillin. #History of seizures Patient follow-up with Dr. Tello. Last seizure was 6 months ago. Plan: - Keppra 500 mg twice daily #Hypothyroidism Patient reports to have chronic hypothyroidism. Plan: ? Resumed home levothyroxine #Anxiety Plan: ? Resume home propranolol and lamotrigine #Diabetic neuropathy Patient reports taking gabapentine and duloxetine for pain. Plan: ?Hold for now due to episode of altered mental status Health maintenance: FEN: Carbohydrate consistent DVT prophylaxis: Heparin SC GI prophylaxis: None Dispo: Telemetry CODE STATUS: Full code Plan of care discussed with attending Dr. Weinberg and PGY-[address] Armstrong. Ana Luisa Jorgensen MD, PGY 1. Attending Provider Attestation/Addendum I have examined the patient, reviewed labs and imaging findings, discussed the case with the resident(s), and reviewed entered orders. I agree with the plan of care as outlined in this note, with these additional summaries/recommendations: Patient is a 43-year-old female with a medical history of diabetes mellitus type 2, obesity status post gastric bypass approx. 4 years ago? and currently on Mounjaro, Migraine headaches, and fibromyalgia who presents to [facility] emergency department on 09/08/2024 with chief complaint of altered mental status secondary to hypoglycemia. Patient seen at bedside. No acute overnight events. Patient remained on D10 gtt overnight without any hypoglycemic events. We will discontinue glucose fluids & octreotide today. We will monitor closely for any further episodes of hypoglycemia. Differentials for recurrent hypoglycemia include gastric bypass- induced postprandial hyperinsulinemic hypoglycemia/Dumping syndrome vs sulfonylurea vs exogenous insulin vs adrenal insufficiency vs insulinoma. Serum insuin, proinsulin, C-peptide, BHB, cortisol, and serum glucose ordered and pending. We will follow-up results as they become available. Patient encouraged to eat frequent small meals for possible dumping syndrome. Will follow-up with endocrinology for further recommendations. Continue IV antibiotics for community-acquired aspiration pneumonia. Blood cultures negative at 48 hours. Urine culture returned with E. coli although no urinary symptoms. Patient received 1U PRBCs for MELISSA. No obvious signs of bleeding at this time. Resume ferrous gluconate. Patient will remain hospitalized given recurrent hypoglycemia. Patient and updated on the plan and in agreement. Repeat hematology and chemistry panel in AM. Dr. Lenard MD
[2024-09-11] MEDS: FERROUS GLUCONATE 324 MG PO (18:04)
[2024-09-11] MEDS: PROMETHAZINE INJ 25 MG in SODIUM CHLORIDE 0.9% 50 ML 150.871 MG IV (18:04)
--- NOTE | 2024-09-11 22:21 | PC.NURSE ---
MD Esteban notified that patient is experiencing severe anxiety and feeling restless due to her agoraphobia. MD ordered 6 mg of melatonin and she said to reassess in 15-20 minutes. MD spoke to patient on the phone and patient agreed to take melatonin.
[2024-09-11] MEDS: MELATONIN 3 MG TABLET 6 MG PO (22:26)
[2024-09-11] MEDS: LORazepam 2 MG/ML VIAL 0.5 MG IVP (22:59)
[2024-09-12] VITALS (12 sets, daily range): BP systolic 100–151; BP diastolic 71–99; PULSE 82–96; RESP 16–92; TEMP 36.1–36.7; O2SAT 92–100; BMI 39.7
[2024-09-12] MEDS: PROMETHAZINE INJ 25 MG in SODIUM CHLORIDE 0.9% 50 ML 150.871 MG IV ×2 (00:26→09:13)
[2024-09-12] MEDS: LEVOTHYROXINE SODIUM 25 MCG TABLET 75 MCG PO (05:31)
[2024-09-12] MEDS: metroNIDAZOLE/NS 500 MG IVPB 500 MG/100 ML BAG 200 MG IV (05:32)
[2024-09-12 06:07] LABS: Basophils # (Auto) 0.1 Thou/mm3 (0.0-0.2); Basophils % (Auto) 1 % (0-2.5); Eosinophils # (Auto) 0.6 Thou/mm3 (0.0-0.5); Eosinophils % (Auto) 6 % (0-10); Hematocrit 29.5 % (36.0-46.0); Hemoglobin 8.9 g/dL (12.0-16.0); Immature Granulocytes % (Auto) 0 % (0-0); Immature Granulocytes Auto 0.03 Thou/mm3 (0.00-0.00); Lymphocytes # (Auto) 2.5 Thou/mm3 (1.0-4.8); Lymphocytes % (Auto) 24 % (10-50); Mean Corpuscular HGB Conc 30.2 g/dl (31.0-37.0); Mean Corpuscular Hemoglobin 21.3 pg (25.0-35.0); Mean Corpuscular Volume 71 fL (80-100); Monocytes # (Auto) 0.6 Thou/mm3 (0.0-0.8); Monocytes % (Auto) 6 % (0-12); Neutrophils # (Auto) 6.6 Thou/mm3 (1.8-7.7); Neutrophils % (Auto) 64 % (37-80); Nucleated Red Blood Cell % 0 /100 WBC (0); Platelet Count 448 Thou/mm3 (140-440); RDW Standard Deviation 47.8 fL (36.4-46.3); Red Blood Count 4.17 Miln/mm3 (4.00-5.20); White Blood Count 10.4 Thou/mm3 (3.6-11.0)
[2024-09-12 06:30] LABS: Alanine Aminotransferase 36 U/L (10-49); Albumin, Serum 3.6 gm/dL (3.5-5.0); Albumin/Globulin Ratio 1.1 (1.2-2.2); Alkaline Phosphatase 113 U/L (46-116); Anion Gap 6 (7-16); Aspartate Amino Transferase 34 U/L (0-34); BUN/Creatinine Ratio 20 Ratio (12-20); Bilirubin,Total 0.3 mg/dL (0.3-1.2); Blood Urea Nitrogen 18 mg/dL (9-23); Calcium 8.6 mg/dL (8.3-10.6); Calcium (Corrected) 8.9 mg/dL (8.5-10.1); Carbon Dioxide 24.5 mMol/L (20.0-31.0); Chloride 107 mMol/L (98-107); Creatinine (Component) 0.9 mg/dL (0.6-1.3); Estimated Creatinine Clearance 104.9 mL/min (>60); Globulin 3.2 gm/dL (2.3-3.5); Glucose 115 mg/dL (74-106); Osmolality,Calculated 276 (275-295); Potassium 4.2 mMol/L (3.4-5.1); Sodium 137 mMol/L (136-145); Total Protein 6.8 gm/dL (5.7-8.2); eGFR > 60 See Note
[2024-09-12] MEDS: cefTRIAXone 1,000 MG in SODIUM CHLORIDE 0.9% (Popper) 50 ML 100 MG IV (08:53)
[2024-09-12] MEDS: HEPARIN SOD INJ 5000 UNIT/ML VIAL SC ×2 (08:58→20:39)
[2024-09-12] MEDS: PROPRANOLOL 10 MG TABLET PO ×2 (08:58→20:38)
[2024-09-12] MEDS: GABAPENTIN 300 MG CAPSULE PO ×2 (08:59→20:38)
[2024-09-12] MEDS: lamoTRIgine 25 MG CHEW 100 MG PO (08:59)
[2024-09-12] MEDS: levETIRAcetam 250 MG TABLET 500 MG PO ×2 (08:59→20:38)
[2024-09-12] MEDS: DULoxetine HCL 30 MG CAPSULE PO ×2 (08:59→20:38)
--- NOTE | 2024-09-12 09:25 | PC.NURSE ---
Pt. at side of bed, pt. refuses bed alarm and refuses assistance. Pt. ambulatory. pt. educated to call for help and agrees. call light and belongings within reach.
--- NOTE | 2024-09-12 10:42 | PC.NURSE ---
Per. Dr. Jorgensen hold this amoxicilin dose and start it tonight. pt. will be DC most likely tomorrow.
--- NOTE | 2024-09-12 12:38 | PC.NURSE ---
Addendum entered by Radha Arnold RN 09/12/24 12:41: Dr. Armstrong orders no insulin for now. give Tylenol for headache and if it does not resolve then will give something else. Original Note: Dr. Armstrong made aware pt. q4 sugar reading is 211.
[2024-09-12] MEDS: ACETAMINOPHEN 325 MG TABLET 650 MG PO (12:47)
[2024-09-12] MEDS: ALBUTEROL/IPRATROPIUM (Duoneb) RT SOL 3 ML NEBU INH (16:23)
[2024-09-12] MEDS: KETOROLAC INJ 30 MG/ML VIAL 15 MG IVP (16:25)
--- NOTE | 2024-09-12 17:59 | ESPR_ITS ---
Documentation for date of: 09/12/24 Subjective Subjective Interval history: Patient was seen and examined by the bedside. Patient had anxiety overnight, night team tried alprazolam but the patient declined, requested lorazepam IV. Patient reported that she likes lorazepam more since alprazolam makes her feel like she is out of her body. Overnight, blood sugar was stable, during the day her blood sugar went up to 211 after the breakfast. Will monitor blood sugar for today since her episodes of glycemia were frequent and she had an life- threatening levels of glucose. Dr. Armstrong has reached out to them pharmacy with the patient and obtained a list of the medications that she was prescribed. Send out labs, insulin, C-peptide pending. If her blood sugar continues to be stable, anticipate discharge in 24 hours. Exam Vital Signs Temp Pulse Resp BP Pulse Ox O2 Del Method O2 Flow Rate 97.0 F 93 22 H 137/99 H 97 Nasal Cannula 3 09/12/24 16:00 09/12/24 16:37 09/12/24 16:37 09/12/24 16:00 09/12/24 16:37 09/12/24 16:00 09/12/24 16:37 Narrative Exam Physical Exam General: Awake and in no acute distress. Conversational and non-toxic appearing. HEENT: Normocephalic, atraumatic, mucous membranes moist. Heart: Regular rate and rhythm, no murmurs. Lungs: Clear to auscultation with no wheezing or crackles. Abdomen: Soft, nondistended, nontender, positive bowel sounds. ?No guarding or rebound tenderness. Neurologic: Alert and oriented x3, no gross neurological deficit, and patient able to move all 4 extremities. Extremities: Trace ankle edema. Skin: No rash or ecchymoses. Objective Labs 09/13/24 05:34 09/13/24 05:34 Labs: Laboratory Results - last 24 hr 09/12/24 05:38 WBC 10.4 RBC 4.17 Hgb 8.9 L Hct 29.5 L MCV 71 L MCH 21.3 L MCHC 30.2 L RDW Std Deviation 47.8 H Plt Count 448 H Neut % (Auto) 64 Lymph % (Auto) 24 [place] % (Auto) 6 Eos % (Auto) 6 Baso % (Auto) 1 Neut # (Auto) 6.6 Lymph # (Auto) 2.5 [place] # (Auto) 0.6 Eos # (Auto) 0.6 H Baso # (Auto) 0.1 Immature Gran # (Auto) 0.03 H Absolute Nucleated RBC 0.00 Immature Gran % 0 Nucleated RBC % 0 Sodium 137 Potassium 4.2 Chloride 107 Carbon Dioxide 24.5 Anion Gap 6 L BUN 18 Creatinine 0.9 Estim Creat Clear Calc 104.9 eGFR > 60 BUN/Creatinine Ratio 20 Glucose 115 H Calculated Osmolality 276 Calcium 8.6 Corrected Calcium 8.9 Total Bilirubin 0.3 AST 34 ALT 36 Alkaline Phosphatase 113 Total Protein 6.8 Albumin 3.6 Globulin 3.2 Albumin/Globulin Ratio 1.1 L ABG Interpretation ABG results: 09/08/24 08:15 ABG pH 7.32 L ABG pCO2 48 ABG pO2 93 ABG HCO3 25 ABG O2 Saturation 97 ABG Base Excess -2 Quality Measures Quality Measures VTE prophylaxis Assessment & Plan Assessment Current Active Medications: Generic Name Dose Route Start Last Admin Trade Name Freq PRN Reason Stop Dose Admin Acetaminophen 650 mg 09/08/24 12:15 09/10/24 21:45 Acetaminophen 325 Mg Tablet PO 10/08/24 12:14 650 mg Q6H PRN Administration Fever >101.5 Acetaminophen 650 mg 09/08/24 12:15 09/12/24 12:47 Acetaminophen 325 Mg Tablet PO 10/08/24 12:14 650 mg Q6H PRN Administration PAIN SCALE 1-3 (mild Albuterol/Ipratropium 3 ml 09/08/24 14:57 09/12/24 16:23 Albuterol/Ipratropium (Duoneb) Rt Jennifer 3 Ml Nebu INH 10/08/24 14:59 3 ml Q8HRRT PRN Administration Shortness of breath, wheezing Amoxicillin/Clavulanate Potassium 1 tab 09/12/24 09:45 09/12/24 10:39 Amoxicillin/Pot Clav 875 Tablet PO 09/19/24 09:44 Not Given BID ARIANA Dextrose 25 ml 09/08/24 16:18 09/09/24 23:12 Dextrose 50%-Water Inj 50 Ml Syringe IV 10/08/24 16:17 25 ml Q15MIN PRN Administration BG 50-70 responsive npo pt Dextrose 50 ml 09/08/24 16:18 09/10/24 02:59 Dextrose 50%-Water Inj 50 Ml Syringe IV 10/08/24 16:17 50 ml Q15MIN PRN Administration BG <50 OR BG <70 & pt unresponsive Duloxetine HCl 30 mg 09/09/24 21:00 09/12/24 08:59 Duloxetine Hcl 30 Mg Capsule PO 10/09/24 20:59 30 mg BID ARIANA Administration Ferrous Gluconate 324 mg 09/11/24 17:30 09/11/24 18:04 Ferrous Gluc 324 Mg Tablet PO 10/11/24 17:29 324 mg QOD ARIANA Administration Gabapentin 300 mg 09/09/24 21:00 09/12/24 08:59 Gabapentin 300 Mg Capsule PO 10/09/24 20:59 300 mg BID ARIANA Administration Glucagon 1 mg 09/08/24 16:18 Glucagon Inj 1 Mg Vial IM Q15MIN PRN BG <70, and no IV access Heparin Sodium (Porcine) 5,000 unit 09/08/24 21:00 09/12/24 08:58 Heparin Sod Inj 5000 Unit/Ml Vial SC 09/22/24 20:59 5,000 unit BID ARIANA Administration Promethazine HCl 25 mg/ Sodium 51 mls @ 150.871 mls/hr 09/11/24 13:28 09/12/24 09:13 Chloride IV 10/09/24 20:31 150.871 mls/hr Q6HR PRN Administration NAUSEA OR VOMITING Protocol Lamotrigine 100 mg 09/12/24 21:00 Lamotrigine 100 Mg Tablet (Non-Form) PO 10/11/24 09:59 BID ARIANA Levetiracetam 500 mg 09/10/24 21:00 09/12/24 08:59 Levetiracetam 250 Mg Tablet PO 10/10/24 20:59 500 mg BID ARIANA Administration Levothyroxine Sodium 75 mcg 09/10/24 06:00 09/12/24 05:31 Levothyroxine Sodium 25 Mcg Tablet PO 10/10/24 05:59 75 mcg ACBR ARIANA Administration Lorazepam 0.5 mg 09/12/24 17:47 Lorazepam 2 Mg/Ml Vial IVP 09/17/24 17:46 X1 PRN ANXIETY Ondansetron HCl 4 mg 09/08/24 12:15 Ondansetron Inj 2 Mg/Ml Inj 2 Ml IV 10/08/24 12:14 Q6H PRN NAUSEA OR VOMITING Protocol Propranolol HCl 10 mg 09/11/24 10:00 09/12/24 08:58 Propranolol 10 Mg Tablet PO 10/11/24 09:59 10 mg BID ARIANA Administration Plan The patient is a 43-year-old female with a previous medical history of type 2 diabetes, hypothyroidism, fibromyalgia who was admitted due to low blood sugar levels. #Hypoglycemia episodes, resolving #Type 2 diabetes #Hypothermia, resolved Patient has a history of recurrent hypoglycemic episodes. Denies recent glimepiride and insuline use. Reports only taking Monjaro injections. Denies having a beef cattle specialist. Patient has a history of multiple admission for hypoglycemia episodes. In 2019 work up showed low level of C-peptide and high level of insulin. CT done in Ddx: medication side effect vs dumping syndrome vs hormon producing tumor vs insulin use 09/08: utox is negative. 09/09: Spoke with Dr. Wallace, requirements analyst. He recommended to hold glucose infusions and controlled the labs when the sugar is less than 60. The labs he suggested are C-peptide, proinsulin, insulin, beta hydroxybutyrate and sulfonylurea screen. Plan: - hypoglycemia protocol - C-peptide and insuline levels pending - AM cortizol pending ?Glucose checks every 4 hours - Follow-up with requirements analyst on discharge #Community-acquired pneumonia, improving Patient reporting having wheezes. She reports using inhaler at home. Chest x- ray showed pneumonia. There's a concern for possible aspiration during hypoglycemia. Plan: ? Blood cultures negative after 48 hours ? Started Augmentin 875 mg twice daily 09/12?current ? Discontinued ceftriaxone 1 g daily 09/08?09/12 ? Discontinued metronidazole 500 mg daily 09/08?09/12 #Asymptomatic bacteriuria UA was positive for rare bacteria. Urine culture grew E. coli resistant to amoxicillin/clavulanate and ampicillin. Patient denies dysuria. Plan: - continue to monitor - continue antibiotics #History of seizures Patient follow-up with Dr. Tello. Last seizure was 6 months ago. Plan: - Keppra 500 mg twice daily #Hypothyroidism Patient reports to have chronic hypothyroidism. Plan: ? Resumed home levothyroxine #Anxiety Plan: ? home propranolol and lamotrigine #Diabetic neuropathy Patient reports taking gabapentine and duloxetine for pain. Plan: ? home gabapentin and duloxetine Health maintenance: FEN: Carbohydrate consistent DVT prophylaxis: Heparin SC GI prophylaxis: None Dispo: Telemetry CODE STATUS: Full code Plan of care discussed with attending Dr. Weinberg and PGY-[address] Armstrong. Ana Luisa Jorgensen MD, PGY 1. Attending Provider Attestation/Addendum I have examined the patient, reviewed labs and imaging findings, discussed the case with the resident(s), and reviewed entered orders. I agree with the plan of care as outlined in this note, with these additional summaries/recommendations: Patient is a 43-year-old female with a medical history of diabetes mellitus type 2, obesity status post gastric bypass approx. 4 years ago? and currently on Mounjaro, Migraine headaches, and fibromyalgia who presents to [facility] emergency department on 09/08/2024 with chief complaint of altered mental status secondary to hypoglycemia. Patient seen at bedside. Overnight patient had panic attack and required benzodiazepine. Patient has extensive history of anxiety and informed patient we will give low-dose benzodiazepine again tonight if she is anxious. Patient now off dextrose containing fluids for 24 hours and blood sugars are maintaining. Given the life-threatening nature of patient's hypoglycemia we will keep patient hospitalized for additional 24 hours to monitor for any further hypoglycemic episodes. If no further hypoglycemic episodes then anticipate patient will be discharged in the next 24 to 48 hours. She will require close outpatient follow-up with PCP and discussed referral to requirements analyst. We will monitor closely for any further episodes of hypoglycemia. Differentials for recurrent hypoglycemia include gastric bypass- induced postprandial hyperinsulinemic hypoglycemia/Dumping syndrome vs sulfonylurea vs exogenous insulin vs adrenal insufficiency vs insulinoma. Serum insuin, proinsulin, C-peptide, BHB, cortisol, and serum glucose ordered and pending. We will follow-up results as they become available. Patient encouraged to eat frequent small meals for possible dumping syndrome. Will follow-up with endocrinology for further recommendations. De-escalate antibiotics today for community-acquired aspiration pneumonia. Blood cultures negative at 48 hours. Urine culture returned with E. coli although no urinary symptoms. Patient received 1U PRBCs for MELISSA. No obvious signs of bleeding at this time. Continue ferrous gluconate. Patient and updated on the plan and in agreement. Repeat hematology and chemistry panel in AM. Dr. Lenard MD
[2024-09-12] MEDS: lamoTRIgine 100 MG TABLET (NON-FORM) PO (20:38)
[2024-09-12] MEDS: AMOXICILLIN/POT CLAV 875 TABLET 1 TAB PO (20:38)
[2024-09-12] MEDS: LORazepam 2 MG/ML VIAL 0.5 MG IVP ×2 (20:53→22:56)
[2024-09-12] MEDS: PROMETHAZINE INJ 25 MG in SODIUM CHLORIDE 0.9% 50 ML 150.8 MG IV (20:59)
[2024-09-13] VITALS (8 sets, daily range): BP systolic 135–171; BP diastolic 78–99; PULSE 84–98; RESP 14–21; TEMP 35.9–36.4; O2SAT 95–99
[2024-09-13] MEDS: LEVOTHYROXINE SODIUM 25 MCG TABLET 75 MCG PO (05:25)
[2024-09-13 06:04] LABS: Basophils # (Auto) 0.1 Thou/mm3 (0.0-0.2); Basophils % (Auto) 1 % (0-2.5); Eosinophils # (Auto) 0.7 Thou/mm3 (0.0-0.5); Eosinophils % (Auto) 7 % (0-10); Hematocrit 29.8 % (36.0-46.0); Immature Granulocytes % (Auto) 0 % (0-0); Immature Granulocytes Auto 0.04 Thou/mm3 (0.00-0.00); Lymphocytes # (Auto) 2.6 Thou/mm3 (1.0-4.8); Lymphocytes % (Auto) 26 % (10-50); Mean Corpuscular HGB Conc 30.2 g/dl (31.0-37.0); Mean Corpuscular Hemoglobin 21.3 pg (25.0-35.0); Mean Corpuscular Volume 70 fL (80-100); Monocytes # (Auto) 0.7 Thou/mm3 (0.0-0.8); Monocytes % (Auto) 7 % (0-12); Neutrophils # (Auto) 5.9 Thou/mm3 (1.8-7.7); Neutrophils % (Auto) 59 % (37-80); Nucleated Red Blood Cell % 0 /100 WBC (0); Platelet Count 431 Thou/mm3 (140-440); RDW Standard Deviation 47.5 fL (36.4-46.3); Red Blood Count 4.23 Miln/mm3 (4.00-5.20)
[2024-09-13 06:53] LABS: Alanine Aminotransferase 39 U/L (10-49); Albumin, Serum 3.7 gm/dL (3.5-5.0); Albumin/Globulin Ratio 1.2 (1.2-2.2); Alkaline Phosphatase 117 U/L (46-116); Anion Gap 7 (7-16); Aspartate Amino Transferase 41 U/L (0-34); BUN/Creatinine Ratio 22 Ratio (12-20); Bilirubin,Total 0.2 mg/dL (0.3-1.2); Blood Urea Nitrogen 22 mg/dL (9-23); Calcium 9.1 mg/dL (8.3-10.6); Calcium (Corrected) 9.3 mg/dL (8.5-10.1); Carbon Dioxide 24.1 mMol/L (20.0-31.0); Chloride 107 mMol/L (98-107); Estimated Creatinine Clearance 95.7 mL/min (>60); Globulin 3.2 gm/dL (2.3-3.5); Glucose 104 mg/dL (74-106); Osmolality,Calculated 278 (275-295); Potassium 4.6 mMol/L (3.4-5.1); Sodium 138 mMol/L (136-145); Total Protein 6.9 gm/dL (5.7-8.2); eGFR > 60 See Note
[2024-09-13] MEDS: levETIRAcetam 250 MG TABLET 500 MG PO (08:59)
[2024-09-13] MEDS: PROPRANOLOL 10 MG TABLET PO (08:59)
[2024-09-13] MEDS: lamoTRIgine 100 MG TABLET (NON-FORM) PO (08:59)
[2024-09-13] MEDS: DULoxetine HCL 30 MG CAPSULE PO (09:00)
[2024-09-13] MEDS: FERROUS GLUCONATE 324 MG PO (09:00)
[2024-09-13] MEDS: GABAPENTIN 300 MG CAPSULE PO (09:00)
[2024-09-13] MEDS: HEPARIN SOD INJ 5000 UNIT/ML VIAL SC (09:01)
[2024-09-13] MEDS: AMOXICILLIN/POT CLAV 875 TABLET 1 TAB PO (09:02)
--- NOTE | 2024-09-13 09:04 | PC.CC ---
PA submitted for Freestyle Dina 3 Plus sensors 2/2 recurrent severe hypoglycemia.
--- NOTE | 2024-09-13 10:09 | PC.SS ---
Follow up note: Pt will return home upon dc. Pt is d/c for today.
[2024-09-13] MEDS: PROMETHAZINE INJ 25 MG in SODIUM CHLORIDE 0.9% 50 ML 150.8 MG IV (15:06)
[2024-09-13] MEDS: LORazepam 2 MG/ML VIAL 0.5 MG IVP ×2 (15:24→16:27)
--- NOTE | 2024-09-13 16:00 | PC.NURSE ---
PT placed on RA with O2 saturations 96%. On exertion patient maintained O2 saturations at 93%
[2024-09-13] MEDS: hydrOXYzine HCL 10 MG TABLET PO (16:52)
--- NOTE | 2024-09-13 17:55 | PD.RESDS ---
Planned Discharge Date 09/13/24 DS: Providers Provider Date of admission: 09/08/24 12:15 Primary care physician: Eunice Peterson PA-C Admitting Provider: Claudy Weinberg MD Attending Provider on Admission: Claudy Weinberg MD Consults: 09/08/24 18:47 [facility] Referral - Nutrition Routine Comment: Positive screening for nutrition needs. [facility] Referral - Utilities Routine Comment: Positive screening for utility assistance needs. Attending Provider on DC: Claudy Weinberg MD Discharging Provider: Dayna Armstrong MD Hospital Course Hospital Course Hospital course: Patient was seen and examined by the bedside. Patient had anxiety overnight, night team tried alprazolam but the patient declined, requested lorazepam IV. Patient reported that she likes lorazepam more since alprazolam makes her feel like she is out of her body. Overnight, blood sugar was stable, during the day her blood sugar went up to 211 after the breakfast. Will monitor blood sugar for today since her episodes of glycemia were frequent and she had an life-threatening levels of glucose. Dr. Armstrong has reached out to them pharmacy with the patient and obtained a list of the medications that she was prescribed. Send out labs, insulin, C-peptide pending. If her blood sugar continues to be stable, anticipate discharge in 24 hours. Time Spent with Patient Time attestation: Total time spent providing and/or coordinating discharge services: Exam Vital Signs Temp Pulse Resp BP Pulse Ox O2 Del Method O2 Flow Rate 97.3 F 92 18 137/82 H 96 Room Air 2 09/13/24 16:20 09/13/24 16:20 09/13/24 16:20 09/13/24 16:20 09/13/24 16:20 09/13/24 16:20 09/13/24 16:00 Discharge Plan Plan Patient Disposition: HOME (Self Care) Patient condition on transfer: Stable Care Plan Goals: Discharge Recommendations: -Follow up with PCP within 1 week of discharge -Please request a referral to Endocrinology for blood sugar control and hypoglycemia work up -Follow up with your Psychiatrist as usual -We recommend holding the following medications, if you can, because they may have rare side effects related to low blood sugars: ? Mounjaro ? propranolol ? gabapentin ? tramadol -Completely stop glimepiride, as you have been doing -Continue rest of medications as previously prescribed -Return to the ED or call EMS if symptoms return and/or worsen. Prescriptions/Referrals Prescriptions/Med Rec: New (DME) FreeStyle Dina 3 [place] Misc See Rx Instructions .Route Qty: 1 0RF Rx Instructions: As directed (DME) FreeStyle Dina 3 Sensor Device See Rx Instructions .Route Qty: 2 3RF Rx Instructions: As directed Continued prochlorperazine maleate 10 mg Tablet 10 mg PO BID PRN (Reason: Nausea or Headache) levothyroxine 75 mcg Tablet 75 mcg PO QDAY Nurtec ODT 75 mg Tablet,Disintegrating 75 mg PO Q OTHER DAY promethazine 25 mg tablet 25 mg PO TID PRN (Reason: nausea and vomiting) albuterol sulfate 90 mcg/actuation HFA aerosol inhaler 2 inh inhalation Q8H PRN (Reason: shortness of breath or wheezing) hydroxyzine HCl 10 mg tablet 10 mg PO HS ferrous gluconate 324 mg (37.5 mg iron) tablet 324 mg PO TID paroxetine HCl 20 mg tablet 20 mg PO QDAY PRN (Reason: depression) atorvastatin 20 mg tablet 20 mg PO QPM diphenhydramine HCl [Banophen] 50 mg capsule 300 mg PO HS buspirone 5 mg tablet 5 mg PO DAILY paroxetine HCl 37.5 mg tablet extended release 24 hr 37.5 mg PO HS levetiracetam [Keppra] 500 mg tablet 500 mg PO DAILY Xcopri 150 mg tablet 150 mg PO QDAY Rx Instructions: administer weeks 9 and 10 of therapy Held propranolol 20 mg Tablet 20 mg PO DAILY PRN (Reason: anxiety) Hold Instructions: Resume on 09/27/24. Hold until follow up with PCP gabapentin 300 mg capsule 300 mg PO DAILY Hold Instructions: Resume on 09/27/24. Hold until follow up with PCP tramadol 50 mg tablet 50 mg PO BID Hold Instructions: Resume on 09/27/24. Hold until follow up with PCP Mounjaro 10 mg/0.5 mL pen injector 10 mg subcut QWEEK Hold Instructions: Resume on 09/27/24. Hold until follow up with PCP propranolol 160 mg capsule,extended release 24 hr 160 mg PO QDAY Hold Instructions: Resume on 09/27/24. Hold until follow up with PCP Referrals: Vinning,Eunice, PA-C [Primary Care Provider] - Patient/Caregiver Discharge Instructions Education Materials: C-Peptide (Blood), Hypoglycemia (Low Blood Sugar), Hypoglycemia Steps, ED Hypoglycemia Oral Diabetic ... Print Language: Vietnamese Stand Alone Forms: Janel Award Info., Patient Portal Info Letter Discharge Order Discharge Orders: Discharge (Routine); Ordered 09/13/24 Ordered By: Dayna Armstrong MD Attestestation MD Attestation I have examined the patient, reviewed labs and imaging findings, discussed the case with the resident(s), and reviewed entered orders. I agree with the plan of care as outlined in this note, with these additional summaries/recommendations: Patient will require close outpatient follow-up with PCP and discussed referral to hose seamer. Differentials for recurrent hypoglycemia include gastric bypass-induced postprandial hyperinsulinemic hypoglycemia/Dumping syndrome vs sulfonylurea vs exogenous insulin vs adrenal insufficiency vs insulinoma. Serum insuin, proinsulin, C-peptide, BHB, cortisol, and serum glucose ordered and will need to be followed up outpatient with primary care provider. Patient encouraged to eat frequent small meals for possible dumping syndrome. Patient will be sent short course of antibiotics to complete treatment for aspiration pneumonia. Patient was counseled extensively on the importance of keeping a close eye on her blood sugars. Patient was advised to seek immediate medical attention if she develops any further hypoglycemic events. Continue ferrous gluconate for iron deficiency anemia. Patient updated on the plan and in agreement. All questions answered to satisfaction. Dr. Lenard MD
== END 2024-09-13 18:30 | disposition home or self-care (01) | DRG 420 ==
LOC: SERX 08:07 → SERHOLD 12:47 → S2NX 15:56 → S2SX 09-10 00:16 → S2NX 09-10 21:35
PROVIDERS: Student in an Organized Health Care Education/Training Program; Admitting Provider Student in an Organized Health Care Education/Training Program; Emergency Provider Emergency Medicine; PCP Physician Assistant; Visit Provider Student in an Organized Health Care Education/Training Program
DX: E11.649 Type 2 diabetes mellitus with hypoglycemia without coma (principal); E03.9 Hypothyroidism, unspecified; M79.7 Fibromyalgia; J69.0 Pneumonitis due to inhalation of food and vomit; E11.40 Type 2 diabetes mellitus with diabetic neuropathy, unspecified; G40.909 Epilepsy, unspecified, not intractable, without status epilepticus; D50.9 Iron deficiency anemia, unspecified; B96.20 Unspecified Escherichia coli [E. coli] as the cause of diseases classified elsewhere; F43.10 Post-traumatic stress disorder, unspecified; E66.9 Obesity, unspecified; G43.909 Migraine, unspecified, not intractable, without status migrainosus; F40.00 Agoraphobia, unspecified; Z98.84 Bariatric surgery status; Z68.41 Body mass index [BMI] 40.0-44.9, adult; Z79.84 Long term (current) use of oral hypoglycemic drugs; Z79.899 Other long term (current) drug therapy; Z79.890 Hormone replacement therapy; T68.XXXA Hypothermia, initial encounter
CPT/HCPCS: 36415; 36600; 70450; 71045; 80053; 80307; 80320; 81001; 81025; 82010; 82140; 82533; 82803; 82947; 83036; 83525; 83540; 83550; 83605; 83735; 83880; 84100; 84305; 84439; 84443; 84484; 84681; 84703; 85014; 85018; 85025; 85610; 85730; 86850; 86900; 86901; 86920; 87040; 87077; 87086; 87186; 87400; 87811; 93005; 94640; 94664; 96365; 96367; 99285; A9270; J0456; J0696; J1643; J1885; J1940; J2060; J2354; J2550; J3490; J7030; J7042; J7050; J7120; P9016; G0480; J1836

== ENCOUNTER 2024-10-11 10:53 | Emergency (ER) | payer MEDICAID, SELFPAY ==
[2024-10-11 10:54] VITALS: PULSE 88; RESP 16; O2SAT 98
[2024-10-11 11:06] VITALS: BMI 40.3
[2024-10-11 11:07] VITALS: BP 189/97; PULSE 116; RESP 16; TEMP 36.8; O2SAT 100
[2024-10-11] MEDS: DEXTROSE 50%-WATER INJ 50 ML SYRINGE IV (11:07)
[2024-10-11] MEDS: ONDANSETRON INJ 2 MG/ML INJ 2 ML 4 MG IV (11:37)
--- NOTE | 2024-10-11 11:54 | PD.EDADULT ---
ED General RME/HPI General Chief complaint: Nausea/Vomiting/Diarrhea Stated complaint: LOW BLOOD SUGAR Time Seen by Provider: 10/11/24 11:39 Arrival date/time: 10/11/24 10:53 RME / HPI RME / HPI narrative: DR. SPAIN MAIN ED EVALUATION: 43 year old female presents to the Emergency Department [facility] with complaints of reported syncopal episode and hypoglycemia. Symptoms are moderate. No other symptoms reported at this time. PMHx: Seizures, diabetes, and hypothyroidism. Social Hx: No tobacco, alcohol, or substance use. Related Data Home Medications ?Medication ?Instructions ?Recorded ?Confirmed propranolol 20 mg tablet 20 mg PO DAILY PRN anxiety 03/11/20 09/12/24 Held on 09/13/24. Instructions: Resume on 09/27/24. Hold until follow up with PCP gabapentin 300 mg capsule 300 mg PO DAILY 03/22/20 09/12/24 Held on 09/13/24. Instructions: Resume on 09/27/24. Hold until follow up with PCP levothyroxine 75 mcg tablet 75 mcg PO QDAY 03/02/22 09/12/24 prochlorperazine maleate 10 mg 10 mg PO BID PRN Nausea or Headache 03/02/22 09/12/24 tablet rimegepant 75 mg disintegrating 75 mg PO Q OTHER DAY 03/02/22 09/12/24 tablet (Nurtec ODT) albuterol sulfate 90 mcg/actuation 2 inh inhalation Q8H PRN shortness 09/12/24 09/12/24 aerosol inhaler of breath or wheezing atorvastatin 20 mg tablet 20 mg PO QPM 09/12/24 09/12/24 buspirone 5 mg tablet 5 mg PO DAILY 09/12/24 09/12/24 cenobamate 150 mg tablet (Xcopri) 150 mg PO QDAY 09/12/24 09/12/24 diphenhydramine HCl 50 mg capsule 300 mg PO HS 09/12/24 09/12/24 (Banophen) ferrous gluconate 324 mg (37.5 mg 324 mg PO TID 09/12/24 09/12/24 iron) tablet hydroxyzine HCl 10 mg tablet 10 mg PO HS 09/12/24 09/12/24 levetiracetam 500 mg tablet 500 mg PO DAILY 09/12/24 09/12/24 (Lindsey) paroxetine HCl 20 mg tablet 20 mg PO QDAY PRN depression 09/12/24 09/12/24 paroxetine HCl 37.5 mg 37.5 mg PO HS 09/12/24 09/12/24 tablet,extended release 24 hr promethazine 25 mg tablet 25 mg PO TID PRN nausea and 09/12/24 09/12/24 vomiting propranolol 160 mg capsule,24 160 mg PO QDAY 09/12/24 09/12/24 hr,extended release Held on 09/13/24. Instructions: Resume on 09/27/24. Hold until follow up with PCP tirzepatide 10 mg/0.5 mL 10 mg subcut QWEEK 09/12/24 09/12/24 subcutaneous pen injector (Vandana) Held on 09/13/24. Instructions: Resume on 09/27/24. Hold until follow up with PCP tramadol 50 mg tablet 50 mg PO BID 09/12/24 09/12/24 Held on 09/13/24. Instructions: Resume on 09/27/24. Hold until follow up with PCP Previous Rx's ?Medication ?Instructions ?Recorded blood-glucose meter,continuous #1 ea 09/13/24 (FreeStyle Dina 3 [place]) blood-glucose sensor (FreeStyle #2 ea 09/13/24 Dina 3 Sensor device) Allergies Allergy/AdvReac Type Severity Reaction Status Date / Time egg Allergy Severe Abdominal Verified 01/02/24 03:45 Pain milk Allergy Severe Abdominal Verified 01/02/24 03:45 Pain Penicillins Allergy Severe Rash Verified 01/02/24 03:45 hydrocodone Allergy Intermediate ITCHING Verified 01/02/24 03:45 morphine Allergy Rash Verified 01/02/24 03:45 metoclopramide HCl AdvReac Severe HEADACHE Verified 01/02/24 03:45 Review of Systems Review of Systems Systems Reviewed: All systems reviewed, normal except as documented Past Medical History Past Medical History NEUROLOGIC: Positive Neurological Disorders and Migraine; Negative Seizures CARDIAC: Positive Cardiac Disorders, Hypercholesterolemia, Edema and Hypertension; Negative Congestive Heart Failure RESPIRATORY: Positive Pneumonia; Negative Chronic Obstructive Pulmonary Disease (COPD) or Asthma GASTROINTESTINAL: Positive Obesity GENITOURINARY: Negative Genitourinary Disorders or Renal Disease REPRODUCTIVE: Positive Previous Pregnancies MUSCULOSKELETAL: Positive Musculoskeletal Disorders, Fibromyalgia and Fractures ENT: Positive Cataracts, Blind and Retinal Detachment ENDOCRINE: Positive Endocrine Disorders, Diabetes Mellitus Type 2 and Hypothyroidism; Negative Diabetes Mellitus Type 1 HEMATOLOGIC: Positive Blood Disorders and Anemia; Negative Sickle Cell Disease PSYCHO/SOCIAL: Positive Depression and Anxiety OTHER HISTORY: Positive Chicken Pox and Measles; Negative Autoimmune Disease, Blood Transfusions, Blood Transfusion Reaction, Anesthesia Reactions or Cancer Family History FAMILY HISTORY: Positive Family Psychiatric Problems, Family Cardiac Disorders, Family Cancer and Family Surgery; Negative Family Respiratory Disorders, Family Gastrointestinal Problems or Family Anesthesia Reaction Surgical History SURGICAL: Positive Eye Surgery, Abdominal Surgery, Gastric Bypass Surgery, Hysterectomy and Section Social History SMOKING STATUS: Never smoker SUBSTANCE USE: does not use ALCOHOL: Never ED Exam Narrative Physical exam: GENERAL APPEARANCE: alert and oriented x 4, well-developed, well-nourished, no acute distress VITALS: All vitals were reviewed and the pulse ox is 100% on room air, which is normal according to my interpretation. HEENT: Normocephalic, atraumatic; pupils equal, round, reactive to light; EOMI; mucous membranes pink, moist; oropharynx clear NECK: Supple LUNGS: CTABL; no wheezes, no rales, no rhonchi HEART: Regular rate, regular rhythm; normal S1, S2; no murmurs ABDOMEN: non distended; normal BS; soft, no tenderness, no guarding, no rebound; no masses, no organomegaly, no hernia BACK: no CVA tenderness EXTREMITIES: atraumatic; no edema NEUROLOGIC: awake; alert and oriented x4; cranial nerves II-XII grossly intact; no focal sensory or motor deficits PSYCHIATRIC: appropriate mood and affect SKIN: warm, dry, normal color; no rashes Course Quality Measures none Orders Category Date Time Status EKG (ED ONLY) *Do not use* NOW Care 10/11/24 11:51 Completed EKG (ED Only) Stat Exams 10/11/24 11:51 Ordered CBC Stat Lab 10/11/24 11:00 Completed Comprehensive Metabolic Panel Stat Lab 10/11/24 11:00 Completed Lipase Stat Lab 10/11/24 11:00 Completed Magnesium Stat Lab 10/11/24 11:00 Completed Troponin I Stat Lab 10/11/24 11:00 Completed Dextrose 50% Syr [D50w Syringe Abboject] Med 10/11/24 10:52 Discontinued 50 ml IV .STK-MED ONE Dextrose 50% Syr [D50w Syringe Abboject] Med 10/11/24 11:07 Discontinued 50 ml IV X1 ONE Ondansetron Inj [Zofran Inj] Med 10/11/24 11:33 Discontinued 4 mg IV X1 ONE Promethazine HCl [Phenergan] Med 10/11/24 11:44 Discontinued 25 mg PO X1 ONE Vital Signs Vital signs: Vital Signs Temperature 98.3 F 10/11/24 11:07 Pulse Rate 116 H 10/11/24 11:07 Respiratory Rate 16 10/11/24 11:07 Blood Pressure 189/97 H 10/11/24 11:07 Pulse Oximetry (%) 100 10/11/24 11:07 [facility] Patient data External records reviewed:: EMS form Clinical information provided by:: patient and EMS Social determinants that could affect healthcare access:: none Patient has the following chronic illnesses:: Seizures, diabetes, and hypothyroidism. How is presenting disease/condition affected by chronic disease/condition?: exacerbated by Evaluation data The following diagnostics were reviewed and interpreted by me:: lab results Lab and/or radiology exams considered but not ordered:: none Interpretation Summary: See under MDM narrative. Medications Medications considered but not ordered:: none Medication administrations:: Medication Administration History Discontinued Medications Dextrose (Dextrose 50%-Water Inj 50 Ml Syringe) 50 ml IV X1 ONE Stop: 10/11/24 11:08 Last Admin: 10/11/24 11:07 Dose: 50 ml Documented By: ANABEL Dextrose (Dextrose 50%-Water Inj 50 Ml Syringe) Confirm Administered Dose 50 ml IV .STK-MED ONE Stop: 10/11/24 10:53 Last Admin: 10/11/24 11:14 Dose: Not Given Documented By: ANABEL Non-Admin Reason: Duplicate Medication on eMAR Ondansetron HCl (Ondansetron Inj 2 Mg/Ml Inj 2 Ml) 4 mg IV X1 ONE; Protocol Stop: 10/11/24 11:34 Last Admin: 10/11/24 11:37 Dose: 4 mg Documented By: ANABEL Promethazine HCl (Promethazine Hcl 25 Mg Tablet) 25 mg PO X1 ONE Stop: 10/11/24 11:45 see above Consultations Consultation(s) initiated? (list below): No Diagnosis Differential Diagnosis ED Complaint MDM: hypoglycemia, dehydration, electrolyte imbalance Most likely diagnosis given after review of the tests above:: Hypoglycemia Admission Indicated Admission indicated?: not indicated Explain why admission is indicated or not indicated:: Patient has no emergent abnormalities on his studies and can be managed on an outpatient basis. Admission Request Was there a request for admission?: No Disposition Plan Disposition Plan: Discharge Discharge Attestation Discharge Attestation: The patient and all family members were given an opportunity to ask questions and understood the discharge instructions. Discharge instructions specifically effects, indications for sooner follow up or return to the emergency department, and the expected course of current diagnosis. Patient condition: Stable Medical Decision Making MDM Narrative MDM Narrative: Caroline Pineda am scribing for and in the presence of Dr. [place]. Differential Diagnosis Differential Diagnosis: hypoglycemia, dehydration, electrolyte imbalance Lab Data 10/11/24 11:00 10/11/24 11:00 Labs: Lab Results 10/11/24 Range/Units 11:00 WBC 11.3 H (3.6-11.0) Thou/mm3 RBC 4.42 (4.00-5.20) Miln/mm3 Hgb 9.4 L (12.0-16.0) g/dL Hct 31.8 L (36.0-46.0) % MCV 72 L (80-100) fL MCH 21.3 L (25.0-35.0) pg MCHC 29.6 L (31.0-37.0) g/dl RDW Std Deviation 49.9 H (36.4-46.3) fL Plt Count 461 H D (140-440) Thou/mm3 Neut % (Auto) 66 (37-80) % Lymph % (Auto) 22 (10-50) % [place] % (Auto) 6 (0-12) % Eos % (Auto) 5 (0-10) % Baso % (Auto) 1 (0-2.5) % Neut # (Auto) 7.4 (1.8-7.7) Thou/mm3 Lymph # (Auto) 2.5 (1.0-4.8) Thou/mm3 [place] # (Auto) 0.7 (0.0-0.8) Thou/mm3 Eos # (Auto) 0.5 (0.0-0.5) Thou/mm3 Baso # (Auto) 0.1 (0.0-0.2) Thou/mm3 Immature Gran # (Auto) 0.06 H (0.00-0.00) Thou/mm3 Absolute Nucleated RBC 0.00 (0.00-0.00) Thou/mm3 Immature Gran % 1 H (0-0) % Nucleated RBC % 0 (0) /100 WBC Sodium 136 (136-145) mMol/L Potassium 3.9 (3.4-5.1) mMol/L Chloride 100 (98-107) mMol/L Carbon Dioxide 28.1 (20.0-31.0) mMol/L Anion Gap 8 (7-16) BUN 11 (9-23) mg/dL Creatinine 0.8 (0.6-1.3) mg/dL Estim Creat Clear Calc 117.1 (>60) mL/min eGFR > 60 (60 - ) See Note BUN/Creatinine Ratio 14 (12-20) Ratio Glucose 39 L* (74-106) mg/dL Calculated Osmolality 268 L (275-295) Calcium 8.9 (8.3-10.6) mg/dL Corrected Calcium 8.9 (8.5-10.1) mg/dL Magnesium 2.0 (1.6-2.6) mg/dL Total Bilirubin 0.3 (0.3-1.2) mg/dL AST 26 (0-34) U/L ALT 26 (10-49) U/L Alkaline Phosphatase 111 (46-116) U/L Troponin I < 0.002 (0.0-0.045) ng/mL Total Protein 7.6 (5.7-8.2) gm/dL Albumin 4.1 (3.5-5.0) gm/dL Globulin 3.5 (2.3-3.5) gm/dL Albumin/Globulin Ratio 1.2 (1.2-2.2) Lipase 28 (12-53) U/L Discharge Plan Plan Patient Disposition: HOME (Self Care) Patient condition on transfer: Stable Prescriptions/Referrals Prescriptions/Med Rec: No Action propranolol 20 mg Tablet 20 mg PO DAILY PRN (Reason: anxiety) gabapentin 300 mg capsule 300 mg PO DAILY prochlorperazine maleate 10 mg Tablet 10 mg PO BID PRN (Reason: Nausea or Headache) levothyroxine 75 mcg Tablet 75 mcg PO QDAY Nurtec ODT 75 mg Tablet,Disintegrating 75 mg PO Q OTHER DAY tramadol 50 mg tablet 50 mg PO BID promethazine 25 mg tablet 25 mg PO TID PRN (Reason: nausea and vomiting) Mounjaro 10 mg/0.5 mL pen injector 10 mg subcut QWEEK propranolol 160 mg capsule,extended release 24 hr 160 mg PO QDAY albuterol sulfate 90 mcg/actuation HFA aerosol inhaler 2 inh inhalation Q8H PRN (Reason: shortness of breath or wheezing) hydroxyzine HCl 10 mg tablet 10 mg PO HS ferrous gluconate 324 mg (37.5 mg iron) tablet 324 mg PO TID paroxetine HCl 20 mg tablet 20 mg PO QDAY PRN (Reason: depression) atorvastatin 20 mg tablet 20 mg PO QPM diphenhydramine HCl [Banophen] 50 mg capsule 300 mg PO HS buspirone 5 mg tablet 5 mg PO DAILY paroxetine HCl 37.5 mg tablet extended release 24 hr 37.5 mg PO HS levetiracetam [Keppra] 500 mg tablet 500 mg PO DAILY Xcopri 150 mg tablet 150 mg PO QDAY Rx Instructions: administer weeks 9 and 10 of therapy (DME) FreeStyle Dina 3 [place] Misc See Rx Instructions .Route Qty: 1 0RF Rx Instructions: As directed (DME) FreeStyle Dina 3 Sensor Device See Rx Instructions .Route Qty: 2 3RF Rx Instructions: As directed Referrals: Eunice Peterson PA-C [Primary Care Provider] - In 1 week Problem List Clinical Impression: Hypoglycemia Patient/Caregiver Discharge Instructions Education Materials: Hypoglycemia (Low Blood Sugar) Print Language: Georgian Stand Alone Forms: Janel Award Info., Patient Portal Info Letter
[2024-10-11 12:16] LABS: Basophils # (Auto) 0.1 Thou/mm3 (0.0-0.2); Basophils % (Auto) 1 % (0-2.5); Eosinophils # (Auto) 0.5 Thou/mm3 (0.0-0.5); Eosinophils % (Auto) 5 % (0-10); Hematocrit 31.8 % (36.0-46.0); Hemoglobin 9.4 g/dL (12.0-16.0); Immature Granulocytes % (Auto) 1 % (0-0); Immature Granulocytes Auto 0.06 Thou/mm3 (0.00-0.00); Lymphocytes # (Auto) 2.5 Thou/mm3 (1.0-4.8); Lymphocytes % (Auto) 22 % (10-50); Mean Corpuscular HGB Conc 29.6 g/dl (31.0-37.0); Mean Corpuscular Hemoglobin 21.3 pg (25.0-35.0); Mean Corpuscular Volume 72 fL (80-100); Monocytes # (Auto) 0.7 Thou/mm3 (0.0-0.8); Monocytes % (Auto) 6 % (0-12); Neutrophils # (Auto) 7.4 Thou/mm3 (1.8-7.7); Neutrophils % (Auto) 66 % (37-80); Nucleated Red Blood Cell % 0 /100 WBC (0); Platelet Count 461 Thou/mm3 (140-440); RDW Standard Deviation 49.9 fL (36.4-46.3); Red Blood Count 4.42 Miln/mm3 (4.00-5.20); White Blood Count 11.3 Thou/mm3 (3.6-11.0)
[2024-10-11 12:45] LABS: Alanine Aminotransferase 26 U/L (10-49); Albumin, Serum 4.1 gm/dL (3.5-5.0); Albumin/Globulin Ratio 1.2 (1.2-2.2); Alkaline Phosphatase 111 U/L (46-116); Anion Gap 8 (7-16); Aspartate Amino Transferase 26 U/L (0-34); BUN/Creatinine Ratio 14 Ratio (12-20); Bilirubin,Total 0.3 mg/dL (0.3-1.2); Blood Urea Nitrogen 11 mg/dL (9-23); Calcium 8.9 mg/dL (8.3-10.6); Calcium (Corrected) 8.9 mg/dL (8.5-10.1); Carbon Dioxide 28.1 mMol/L (20.0-31.0); Chloride 100 mMol/L (98-107); Creatinine (Component) 0.8 mg/dL (0.6-1.3); Estimated Creatinine Clearance 117.1 mL/min (>60); Globulin 3.5 gm/dL (2.3-3.5); Lipase 28 U/L (12-53); Osmolality,Calculated 268 (275-295); Potassium 3.9 mMol/L (3.4-5.1); Sodium 136 mMol/L (136-145); Total Protein 7.6 gm/dL (5.7-8.2); Troponin I < 0.002 ng/mL (0.0-0.045); eGFR > 60 See Note
[2024-10-11 12:48] LABS: Glucose 39 mg/dL (74-106)
== END 2024-10-11 12:44 | disposition home or self-care (01) ==
PROVIDERS: Emergency Provider Emergency Medicine; PCP Physician Assistant
DX: E11.649 Type 2 diabetes mellitus with hypoglycemia without coma (principal); E03.9 Hypothyroidism, unspecified
CPT/HCPCS: 36415; 80053; 81001; 83690; 83735; 84484; 85025; 96374; 99284; J2405

== ENCOUNTER 2024-10-13 08:25 | Inpatient (IN) | payer MEDICAID, SELFPAY ==
[2024-10-13] VITALS (10 sets, daily range): BP systolic 104–159; BP diastolic 61–95; PULSE 107–173; RESP 16–20; TEMP 36.4–37.4; O2SAT 96–100; BMI 40.3; BMI 41.3
--- NOTE | 2024-10-13 09:02 | PD.EDADULT ---
ED General RME/HPI General Chief complaint: Recheck/Abnormal Lab/Rx Stated complaint: HYPOGLYCEMIA Time Seen by Provider: 10/13/24 08:29 Arrival date/time: 10/13/24 08:25 RME / HPI RME / HPI narrative: DR. LOVELL MAIN ED EVALUATION: 43 year old female presents to the Emergency Department with complaint of hypoglycemia with associated nausea and vomiting today. Blood glucose per EMS was 32 on scene. EMS gave 250 ml of D10 en route and brought it up to 162. Patient states she has not taken her diabetes medications for 5 weeks. PMHx: Seizures, diabetes, and hypothyroidism. Social Hx: No tobacco, alcohol, or substance use. Related Data Home Medications ?Medication ?Instructions ?Recorded ?Confirmed propranolol 20 mg tablet 20 mg PO DAILY PRN anxiety 03/11/20 10/14/24 gabapentin 300 mg capsule 300 mg PO DAILY 03/22/20 09/12/24 Held on 09/13/24. Instructions: Resume on 09/27/24. Hold until follow up with PCP levothyroxine 75 mcg tablet 75 mcg PO QDAY 03/02/22 10/14/24 prochlorperazine maleate 10 mg 10 mg PO BID PRN Nausea or Headache 03/02/22 10/14/24 tablet rimegepant 75 mg disintegrating 75 mg PO Q OTHER DAY 03/02/22 10/14/24 tablet (Nurtec ODT) albuterol sulfate 90 mcg/actuation 2 inh inhalation Q8H PRN shortness 09/12/24 10/13/24 aerosol inhaler of breath or wheezing atorvastatin 20 mg tablet 20 mg PO QPM 09/12/24 10/14/24 buspirone 5 mg tablet 5 mg PO DAILY 09/12/24 10/14/24 cenobamate 150 mg tablet (Xcopri) 150 mg PO QDAY 09/12/24 09/12/24 diphenhydramine HCl 50 mg capsule 50 mg PO HS 09/12/24 10/14/24 (Banophen) ferrous gluconate 324 mg (37.5 mg 324 mg PO TID 09/12/24 09/12/24 iron) tablet hydroxyzine HCl 10 mg tablet 10 mg PO HS 09/12/24 10/13/24 levetiracetam 500 mg tablet 500 mg PO DAILY 09/12/24 09/12/24 (Lindsey) paroxetine HCl 20 mg tablet 20 mg PO QDAY PRN depression 09/12/24 09/12/24 paroxetine HCl 37.5 mg 37.5 mg PO HS 09/12/24 10/14/24 tablet,extended release 24 hr promethazine 25 mg tablet 25 mg PO TID PRN nausea and 09/12/24 10/13/24 vomiting propranolol 160 mg capsule,24 160 mg PO QDAY 09/12/24 10/14/24 hr,extended release tirzepatide 10 mg/0.5 mL 10 mg subcut QWEEK 09/12/24 09/12/24 subcutaneous pen injector (Vandana) Held on 09/13/24. Instructions: Resume on 09/27/24. Hold until follow up with PCP tramadol 50 mg tablet 50 mg PO BID 09/12/24 10/14/24 cenobamate 100 mg tablet (Xcopri) 100 mg PO QDAY 10/13/24 10/13/24 flash glucose sensor (FreeXcaliayle 10/13/24 10/13/24 Dina 2 Sensor kit) gabapentin 100 mg capsule 100 mg PO 10/13/24 lamotrigine 100 mg tablet 100 mg PO HS 10/13/24 10/13/24 glucagon 3 mg/actuation nasal mg intranasal 10/14/24 spray (Baqsimi) lamotrigine 150 mg tablet 150 mg PO 10/14/24 lamotrigine 200 mg tablet 200 mg PO 10/14/24 lorazepam 2 mg tablet 2 mg PO 10/14/24 paroxetine HCl 30 mg tablet 30 mg PO 10/14/24 tretinoin 0.01 % topical gel topical 10/14/24 Previous Rx's ?Medication ?Instructions ?Recorded blood-glucose meter,continuous #1 ea 09/13/24 (FreeStyle Dina 3 Kane) blood-glucose sensor (NeongaStyle #2 ea 09/13/24 Dina 3 Sensor device) Allergies Allergy/AdvReac Type Severity Reaction Status Date / Time egg Allergy Severe Abdominal Verified 01/02/24 03:45 Pain milk Allergy Severe Abdominal Verified 01/02/24 03:45 Pain Penicillins Allergy Severe Rash Verified 01/02/24 03:45 hydrocodone Allergy Intermediate ITCHING Verified 01/02/24 03:45 morphine Allergy Rash Verified 01/02/24 03:45 metoclopramide HCl AdvReac Severe HEADACHE Verified 01/02/24 03:45 Review of Systems Review of Systems Systems Reviewed: All systems reviewed, normal except as documented Past Medical History Past Medical History NEUROLOGIC: Positive Neurological Disorders and Migraine; Negative Seizures CARDIAC: Positive Cardiac Disorders, Hypercholesterolemia, Edema and Hypertension; Negative Congestive Heart Failure RESPIRATORY: Positive Pneumonia GASTROINTESTINAL: Positive Obesity REPRODUCTIVE: Positive Previous Pregnancies MUSCULOSKELETAL: Positive Musculoskeletal Disorders, Fibromyalgia and Fractures ENT: Positive Cataracts, Blind and Retinal Detachment ENDOCRINE: Positive Endocrine Disorders, Diabetes Mellitus Type 2 and Hypothyroidism HEMATOLOGIC: Positive Blood Disorders and Anemia PSYCHO/SOCIAL: Positive Depression and Anxiety OTHER HISTORY: Positive Chicken Pox and Measles Family History FAMILY HISTORY: Positive Family Psychiatric Problems, Family Cardiac Disorders, Family Cancer and Family Surgery Surgical History SURGICAL: Positive Eye Surgery, Abdominal Surgery, Gastric Bypass Surgery, Hysterectomy and Section Social History SMOKING STATUS: Never smoker SUBSTANCE USE: does not use ALCOHOL: Never ED Exam Narrative Physical exam: GENERAL APPEARANCE: alert and oriented x 4, well-developed, well-nourished, patient is actively vomiting VITALS: All vitals were reviewed and the pulse ox is 99% on room air, which is normal according to my interpretation. HEENT: Normocephalic, atraumatic; pupils equal, round, reactive to light; EOMI; mucous membranes pink, moist; oropharynx clear NECK: Supple LUNGS: CTABL; no wheezes, no rales, no rhonchi HEART: Regular rate, regular rhythm; normal S1, S2; no murmurs ABDOMEN: non distended; normal BS; soft, no tenderness, no guarding, no rebound; no masses, no organomegaly, no hernia BACK: no CVA tenderness EXTREMITIES: atraumatic; no edema NEUROLOGIC: awake; alert and oriented x4; cranial nerves II-XII grossly intact; no focal sensory or motor deficits PSYCHIATRIC: appropriate mood and affect SKIN: warm, dry, normal color; no rashes Course Quality Measures none Orders Category Date Time Status Glucose [Bedside Blood Glucose] NOW Care 10/13/24 20:30 Completed C-Peptide* Stat Lab 10/13/24 09:40 Received CBC Stat Lab 10/13/24 12:56 Completed CMP [Comprehensive Metabolic Panel] Stat Lab 10/13/24 12:56 Completed Magnesium Stat Lab 10/13/24 12:56 Completed UA, C/S IF [Urinalysis, C/S if Indicated] Stat Lab 10/13/24 13:25 Completed Dextrose 50% Syr [D50w Syringe Abboject] Med 10/13/24 09:00 Discontinued 50 ml IV X1 ONE Dextrose 50% Syr [D50w Syringe Abboject] Med 10/13/24 14:00 Discontinued 50 ml IV X1 ONE Dextrose 50% Syr [D50w Syringe Abboject] Med 10/13/24 19:44 Discontinued 50 ml IV X1 ONE Dextrose 50% Syr [D50w Syringe Abboject] Med 10/13/24 21:10 Discontinued 50 ml IV X1 ONE LORazepam [Ativan Inj] Med 10/13/24 18:53 Discontinued 0.5 mg IVP X1 ONE LORazepam [Ativan Inj] Med 10/13/24 19:25 Discontinued 2 mg IVP X1 ONE Promethazine Inj [Phenergan Inj] 12.5 mg Med 10/13/24 09:01 Discontinued Sodium Chloride 0.9% [Ns] 50 ml IV X1 Promethazine Inj [Phenergan Inj] 12.5 mg Med 10/13/24 13:42 Discontinued Sodium Chloride 0.9% [Ns] 50 ml IV X1 Promethazine Inj [Phenergan Inj] 25 mg Med 10/13/24 20:01 Discontinued Sodium Chloride 0.9% [Ns] 50 ml IV X1 Sodium Chloride 0.9% 1000 ml [Ns] 1,000 ml Med 10/13/24 15:09 Discontinued IV 999 mls/hr Reevaluation(s) Reevaluation #1: Patient states she is feeling good and was able to keep a sandwich down. Will get a repeat blood glucose and send her home if it is okay. Time: 16:40 Reevaluation #2: Patient remains clinically stable throughout the emergency department visit. Re-assessment at the time of disposition demonstrates that the patient is in no acute distress. We reviewed all the results, analysis, and treatment plans. Patient is amenable to discharge. Strict return precautions were outlined. Patient was discharged in stable condition. Time: 16:50 Vital Signs Vital signs: Vital Signs Temperature 97.6 F 10/13/24 08:34 Pulse Rate 117 H 10/13/24 08:34 Respiratory Rate 18 10/13/24 08:34 Blood Pressure 159/95 H 10/13/24 08:34 Pulse Oximetry (%) 99 10/13/24 08:34 Oxygen Delivery Method Room Air 10/13/24 08:34 [facility] Patient data External records reviewed:: EMS form Clinical information provided by:: patient and EMS Social determinants that could affect healthcare access:: none Patient has the following chronic illnesses:: Seizures, diabetes, and hypothyroidism. How is presenting disease/condition affected by chronic disease/condition?: exacerbated by Evaluation data The following diagnostics were reviewed and interpreted by me:: lab results Lab and/or radiology exams considered but not ordered:: none Interpretation Summary: See under MDM narrative. Medications Medications considered but not ordered:: none Medication administrations:: Medication Administration History Dextrose (Dextrose 50%-Water Inj 50 Ml Syringe) 25 ml IV Q15MIN PRN PRN Reason: BG 50-70 responsive npo pt Stop: 11/12/24 21:35 Dextrose (Dextrose 50%-Water Inj 50 Ml Syringe) 50 ml IV Q15MIN PRN PRN Reason: BG <50 OR BG <70 & pt unresponsive Stop: 11/12/24 21:35 Last Admin: 10/14/24 04:20 Dose: 50 ml Documented By: HUGO Glucagon (Glucagon Inj 1 Mg Vial) 1 mg IM Q15MIN PRN PRN Reason: BG <70, and no IV access Heparin Sodium (Porcine) (Heparin Sod Inj 5000 Unit/Ml Vial) 5,000 unit SC Q8HR ARIANA Stop: 10/27/24 21:59 Last Admin: 10/14/24 05:27 Dose: 5,000 unit Documented By: HUGO Co-signed By: JOSHUA Admin: 10/13/24 23:20 Dose: 5,000 unit Documented By: HUGO Co-signed By: DARRELL Dextrose (D5w) 1,000 mls @ 100 mls/hr IV .Q10H ARIANA Stop: 11/12/24 21:44 Last Admin: 10/13/24 21:45 Dose: 100 mls/hr Documented By: LB Levothyroxine Sodium (Levothyroxine Sodium 25 Mcg Tablet) 75 mcg PO ACBR ARIANA Stop: 11/13/24 05:59 Last Admin: 10/14/24 05:27 Dose: 75 mcg Documented By: HUGO Lorazepam (Lorazepam 0.5 Mg Tablet) 2 mg PO Q8HR PRN PRN Reason: ANXIETY Stop: 10/18/24 21:48 Ondansetron HCl (Ondansetron Inj 2 Mg/Ml Inj 2 Ml) 4 mg IV Q6HR PRN; Protocol PRN Reason: NAUSEA OR VOMITING Stop: 11/12/24 23:37 Discontinued Medications Dextrose (Dextrose 50%-Water Inj 50 Ml Syringe) 50 ml IV X1 ONE Stop: 10/13/24 09:01 Last Admin: 10/13/24 09:45 Dose: 50 ml Documented By: ANTONIO Dextrose (Dextrose 50%-Water Inj 50 Ml Syringe) 50 ml IV X1 ONE Stop: 10/13/24 14:01 Last Admin: 10/13/24 14:00 Dose: 50 ml Documented By: ANTONIO Dextrose (Dextrose 50%-Water Inj 50 Ml Syringe) 50 ml IV X1 ONE Stop: 10/13/24 19:45 Last Admin: 10/13/24 19:50 Dose: 50 ml Documented By: SIGRID Dextrose (Dextrose 50%-Water Inj 50 Ml Syringe) 50 ml IV X1 ONE Stop: 10/13/24 21:11 Last Admin: 10/13/24 21:27 Dose: 50 ml Documented By: SIGRID Promethazine HCl 12.5 mg/ (Sodium Chloride) 50.5 mls @ 2.5 mls/min IV X1 ONE Stop: 10/13/24 09:21 Last Infusion: 10/13/24 09:43 Dose: Infused Documented By: Admin: 10/13/24 09:08 Dose: 2.5 mls/min Documented By: MARY Promethazine HCl 12.5 mg/ (Sodium Chloride) 50.5 mls @ 2.5 mls/min IV X1 ONE Stop: 10/13/24 14:02 Last Infusion: 10/13/24 14:15 Dose: Infused Documented By: Admin: 10/13/24 13:51 Dose: 2.5 mls/min Documented By: MARY Sodium Chloride (Ns) 1,000 mls @ 999 mls/hr IV .Q1H1M ONE Stop: 10/13/24 16:09 Last Infusion: 10/13/24 18:48 Dose: Infused Documented By: Admin: 10/13/24 15:13 Dose: 999 mls/hr Documented By: ANTONIO Promethazine HCl 25 mg/ Sodium (Chloride) 51 mls @ 2.5 mls/min IV X1 ONE Stop: 10/13/24 20:21 Last Infusion: 10/13/24 21:05 Dose: Infused Documented By: Admin: 10/13/24 20:14 Dose: 2.5 mls/min Documented By: SIGRID Promethazine HCl 12.5 mg/ (Sodium Chloride) 50.5 mls @ 2.5 mls/min IV X1 ONE Stop: 10/14/24 04:49 Last Admin: 10/14/24 04:56 Dose: 2.5 mls/min Documented By: HUGO Promethazine HCl 12.5 mg/ (Sodium Chloride) 50.5 mls @ 2.5 mls/min IV X1 ONE Stop: 10/14/24 05:24 Lorazepam (Lorazepam 2 Mg/Ml Vial) 0.5 mg IVP X1 ONE Stop: 10/13/24 18:54 Last Admin: 10/13/24 19:24 Dose: 0.5 mg Documented By: LINDSAY Lorazepam (Lorazepam 2 Mg/Ml Vial) 2 mg IVP X1 ONE Stop: 10/13/24 19:26 Last Admin: 10/13/24 19:37 Dose: 2 mg Documented By: SIGRID see above Consultations Consultation(s) initiated? (list below): No Diagnosis Differential Diagnosis ED Complaint MDM: hypoglycemia, dehydration, electrolyte imbalance Most likely diagnosis given after review of the tests above:: Hypoglycemia Vomiting Admission Indicated Admission indicated?: not indicated Explain why admission is indicated or not indicated:: Patient has no emergent abnormalities on his studies and can be managed on an outpatient basis. Admission Request Was there a request for admission?: No Disposition Plan Disposition Plan: Discharge Discharge Attestation Discharge Attestation: The patient and all family members were given an opportunity to ask questions and understood the discharge instructions. Discharge instructions specifically effects, indications for sooner follow up or return to the emergency department, and the expected course of current diagnosis. Patient condition: Stable Medical Decision Making MDM Narrative MDM Narrative: ICaroline, am scribing for and in the presence of Dr. Lovell. Differential Diagnosis Differential Diagnosis: hypoglycemia, dehydration, electrolyte imbalance Lab Data 10/13/24 12:56 10/13/24 12:56 Labs: Lab Results 10/13/24 10/13/24 Range/Units 12:56 13:25 WBC 11.5 H (3.6-11.0) Thou/mm3 RBC 4.63 (4.00-5.20) Miln/mm3 Hgb 9.7 L (12.0-16.0) g/dL Hct 32.8 L (36.0-46.0) % MCV 71 L (80-100) fL MCH 21.0 L (25.0-35.0) pg MCHC 29.6 L (31.0-37.0) g/dl RDW Std Deviation 49.1 H (36.4-46.3) fL Plt Count 552 H D (140-440) Thou/mm3 Neut % (Auto) 73 (37-80) % Lymph % (Auto) 20 (10-50) % [place]idan % (Auto) 5 (0-12) % Eos % (Auto) 0 (0-10) % Baso % (Auto) 0 (0-2.5) % Neut # (Auto) 8.4 H (1.8-7.7) Thou/mm3 Lymph # (Auto) 2.4 (1.0-4.8) Thou/mm3 [place] # (Auto) 0.6 (0.0-0.8) Thou/mm3 Eos # (Auto) 0.0 (0.0-0.5) Thou/mm3 Baso # (Auto) 0.0 (0.0-0.2) Thou/mm3 Immature Gran # (Auto) 0.06 H (0.00-0.00) Thou/mm3 Absolute Nucleated RBC 0.00 (0.00-0.00) Thou/mm3 Immature Gran % 1 H (0-0) % Nucleated RBC % 0 (0) /100 WBC Sodium 138 (136-145) mMol/L Potassium 4.5 D (3.4-5.1) mMol/L Chloride 101 (98-107) mMol/L Carbon Dioxide 31.2 H (20.0-31.0) mMol/L Anion Gap 6 L (7-16) BUN 10 (9-23) mg/dL Creatinine 0.9 (0.6-1.3) mg/dL Estim Creat Clear Calc 104.0 (>60) mL/min eGFR > 60 (60 - ) See Note BUN/Creatinine Ratio 11 L (12-20) Ratio Glucose 75 D (74-106) mg/dL Calculated Osmolality 273 L (275-295) Calcium 9.0 (8.3-10.6) mg/dL Corrected Calcium 9.0 (8.5-10.1) mg/dL Magnesium 2.3 (1.6-2.6) mg/dL Iron 26 L (50-170) mcg/dL TIBC 440 H (250-425) mcg/dL Iron Saturation 5 L (20-55) % Unsat Iron Binding 414 H (225-295) Total Bilirubin 0.4 (0.3-1.2) mg/dL AST 19 (0-34) U/L ALT 20 (10-49) U/L Alkaline Phosphatase 111 (46-116) U/L Total Protein 7.6 (5.7-8.2) gm/dL Albumin 4.2 (3.5-5.0) gm/dL Globulin 3.4 (2.3-3.5) gm/dL Albumin/Globulin Ratio 1.2 (1.2-2.2) Vitamin B12 283 (211-911) pg/mL Folate 17.70 (>5.38) ng/mL Ur Collection Type Clean Catch Urine Color Lt-Yellow (Lt Yel-Yel) Urine Clarity Clear (Clear/Hazy) Urine pH 8.0 H (5.0-7.0) Ur Specific [place] 1.013 (1.001-1.035) Urine Protein Trace (Neg - Trace) Urine Glucose (UA) Negative (Negative) Urine Ketones Negative (Negative) Urine Blood Negative (Negative) Urine Nitrite Negative (Negative) Urine Bilirubin Negative (Negative) Urine Urobilinogen (Auto) Negative (0.0-1.0) mg/dL Ur Leukocyte Esterase Negative (Negative) Urine RBC < 1 (0-3) /hpf Urine WBC 2 (0-5) /hpf Ur Squamous Epith Cells < 1 (0-5) /hpf Urine Bacteria None (None) Ur Culture Indicated? Not Indicated Discharge Plan Plan Patient Disposition: Admit Acute Care w/in Hospital Problem List Clinical Impression: Hypoglycemia, Vomiting
[2024-10-13] MEDS: PROMETHAZINE INJ 12.5 MG in SODIUM CHLORIDE 0.9% 50 ML 2.5 MG IV ×2 (09:08→13:51)
[2024-10-13] MEDS: DEXTROSE 50%-WATER INJ 50 ML SYRINGE IV ×4 (09:45→21:27)
--- NOTE | 2024-10-13 12:30 | PC.NURSE ---
PTS BS DROPPED TO 77, PROVIDER MADE AWARE. PT STATES SHE IS READY TO TRY TO EAT/DRINK. JUICE, JELLO, AND SANDWICH PROVIDED.
[2024-10-13 13:08] LABS: Basophils % (Auto) 0 % (0-2.5); Eosinophils % (Auto) 0 % (0-10); Hematocrit 32.8 % (36.0-46.0); Hemoglobin 9.7 g/dL (12.0-16.0); Immature Granulocytes % (Auto) 1 % (0-0); Immature Granulocytes Auto 0.06 Thou/mm3 (0.00-0.00); Lymphocytes # (Auto) 2.4 Thou/mm3 (1.0-4.8); Lymphocytes % (Auto) 20 % (10-50); Mean Corpuscular HGB Conc 29.6 g/dl (31.0-37.0); Mean Corpuscular Volume 71 fL (80-100); Monocytes # (Auto) 0.6 Thou/mm3 (0.0-0.8); Monocytes % (Auto) 5 % (0-12); Neutrophils # (Auto) 8.4 Thou/mm3 (1.8-7.7); Neutrophils % (Auto) 73 % (37-80); Nucleated Red Blood Cell % 0 /100 WBC (0); Platelet Count 552 Thou/mm3 (140-440); RDW Standard Deviation 49.1 fL (36.4-46.3); Red Blood Count 4.63 Miln/mm3 (4.00-5.20); White Blood Count 11.5 Thou/mm3 (3.6-11.0)
[2024-10-13 13:27] LABS: Alanine Aminotransferase 20 U/L (10-49); Albumin, Serum 4.2 gm/dL (3.5-5.0); Albumin/Globulin Ratio 1.2 (1.2-2.2); Alkaline Phosphatase 111 U/L (46-116); Anion Gap 6 (7-16); Aspartate Amino Transferase 19 U/L (0-34); BUN/Creatinine Ratio 11 Ratio (12-20); Bilirubin,Total 0.4 mg/dL (0.3-1.2); Blood Urea Nitrogen 10 mg/dL (9-23); Carbon Dioxide 31.2 mMol/L (20.0-31.0); Chloride 101 mMol/L (98-107); Creatinine (Component) 0.9 mg/dL (0.6-1.3); Globulin 3.4 gm/dL (2.3-3.5); Glucose 75 mg/dL (74-106); Magnesium 2.3 mg/dL (1.6-2.6); Osmolality,Calculated 273 (275-295); Potassium 4.5 mMol/L (3.4-5.1); Sodium 138 mMol/L (136-145); Total Protein 7.6 gm/dL (5.7-8.2); eGFR > 60 See Note
[2024-10-13 13:34] LABS: Collection Type, Urine Clean Catch
[2024-10-13 13:37] LABS: Bilirubin,Urine Negative (Negative); Blood,Urine Negative (Negative); Clarity,Urine Clear (Clear/Hazy); Color,Urine Lt-Yellow (Lt Yel-Yel); Culture Indicated,Urine Not Indicated; Glucose, Urine Negative (Negative); Ketones,Urine Negative (Negative); Leukocyte Esterase,Urine Negative (Negative); Nitrite,Urine Negative (Negative); Protein,Urine Trace (Neg - Trace); RBC,Urine < 1 /hpf (0-3); Specific Gravity,Urine 1.013 (1.001-1.035); Squamous Epithelial Cell,Urine < 1 /hpf (0-5); Urobilinogen,Urine Negative mg/dL (0.0-1.0); WBC,Urine 2 /hpf (0-5)
[2024-10-13] MEDS: SODIUM CHLORIDE 0.9% 1000 ML 1,000 ML 999 ML IV (15:13)
[2024-10-13] MEDS: LORazepam 2 MG/ML VIAL 0.5 MG IVP (19:24)
[2024-10-13] MEDS: LORazepam 2 MG/ML VIAL IVP (19:37)
[2024-10-13] MEDS: PROMETHAZINE INJ 25 MG in SODIUM CHLORIDE 0.9% 50 ML IV (20:14)
--- NOTE | 2024-10-13 21:31 | PC.NURSE ---
Dr. Su in room seeing pt.
--- NOTE | 2024-10-13 21:36 | EKG_ITS ---
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
--- NOTE | 2024-10-13 21:40 | PC.NURSE ---
Residents in room seeing pt.
--- NOTE | 2024-10-13 21:41 | PD.EVENT ---
Documentation for date of: 10/13/24 Event Note Event Note: A 43-year-old female presented to the ER with the chief complaint of hypoglycemia. The patient reports that her blood glucose was found to be critically low at home this morning by her , who observed abnormal behavior and checked her CGM device, which read ?LOW.? EMS was called and recorded a blood glucose of 32. She has a history of recurrent severe hypoglycemia, with prior episodes as low as 13, often associated with loss of consciousness. D10 was administered en route, raising her glucose to 162. She reports feeling cold and weak during these episodes. The patient describes a recurring pattern of several weeks of hypoglycemia each year since undergoing gastric bypass in 2019, followed by periods of hyperglycemia. The patient has a history of gastric bypass, anxiety, depression, PTSD, fibromyalgia, diabetic neuropathy, and hypothyroidism. Surgical history includes laparoscopic gastric bypass, hernia repair, , and hysterectomy. Current medications include Ativan 2 mg TID, Melatonin, Phenergan, Tramadol, Gabapentin, and Levothyroxine 75 mcg. She is prescribed Metformin and Mounjaro for DM but has not taken either in over 5 weeks. Social history is negative for tobacco, alcohol, or recreational drug use. She has two children. She was previously admitted in September for the same issue. During admission, hypoglycemia workup revealed insulin 32.4, C-peptide 0.39, proinsulin 5.5, IGF-1 83, and A1c 5.2 (sample drawn with serum glucose of 43). In the ER, vital signs recorded as temp 97.6 F, HR 117 bpm, RR 18, BP 159/95 mmHg, BMI 40.4. Lab revealed WBC 11.5, Hb 9.7, MCV 71, Plt 552, Na 138, K 4.5, BUN 10, Cr 0.9. She received 4 amps of D50, but glucose remained low, with recent readings of 58 and 65. She attempted oral intake of a sandwich and crackers, but notes she frequently vomits without Phenergan. The patient is being admitted for observation due to persistent hypoglycemia despite multiple interventions. #Acute Hypoglycemia Assessment: Recurrent post-bariatric hypoglycemia (documented glucose 32 in EMS, persistent hypoglycemia despite dextrose, Hx of severe episodes post-RYGB); labs suggest endogenous hyperinsulinemic hypoglycemia (insulin 32.4, C-peptide 0.39, proinsulin 5.5 during glucose 43); prior A1c 5.2; patient off DM meds for 5+ weeks Plan: - Admit for glucose monitoring and stabilization - D5W IV fluids with frequent glucose checks - Continue oral intake as tolerated - Antiemetics prn to reduce vomiting risk - Educate patient on dietary modifications to mitigate postprandial hypoglycemia - Hold diabetes medications; reassess need prior to discharge - Outpatient follow-up #Morbid Obesity Assessment: Class III obesity (BMI 40.4); status post RYGB 2018 Plan: - Reinforce dietary counseling during hospitalization; monitor for nutritional deficiencies - Encourage physical activity as tolerated - Outpatient follow-up with bariatric team and drier take off tender #Type 2 Diabetes Mellitus (off meds) Assessment: Currently off Metformin and Mounjaro for >5 weeks; A1c 5.2 during hypoglycemic state Plan: - Hold antihyperglycemic agents during admission - Monitor glucose trends; insulin not indicated at this time #Anemia Assessment: Microcytic anemia (Hb 9.7, MCV 71) Plan: - Check iron studies, B12, folate - Monitor CBC during hospitalization #Anxiety, Depression, PTSD Assessment: Chronic psychiatric conditions; currently on Ativan 2 mg TID Plan: - Continue home psych meds - Outpatient psychiatric follow-up
[2024-10-13] MEDS: DEXTROSE 5%-WATER 1,000 ML 100 ML IV (21:45)
--- NOTE | 2024-10-13 22:45 | PD.RESHP ---
Documentation for date of: 10/13/24 HPI History of Present Illness Chief complaint: Low blood sugar History of present illness: The patient is a 43-year-old female with a previous medical history of recurrent hypoglycemia episodes, type 2 diabetes, depression, anxiety, agoraphobia, fibromyalgia, hypothyroidism who was brought in by ambulance to the ED on 10/13/2024 due to low blood sugar. She reports that in the morning her found her in bed weak and her blood sugar reading was low. She reports she does not get any sleep, because her blood sugars constantly low and she has to constantly drink juice or eat something sweet to keep it up. She also reports feeling nauseaous. She denies fever, chills. EMS services were called and blood sugar measured at that point of time was 32. She received 250 mL of D10 en route, blood sugar went to 162. In the ED blood sugar was 141, she reports that she has been having more episodes of hypoglycemia since her last admission to the hospital. Her PCP is Eunice Peterson. She reports that she is usually take glimepiride and Mounjaro for her diabetes, but denies recent insulin, glimepiride, Mounjaro use. Patient denies stress at home, family problems, but reports significant agoraphobia. During her last admission in September 2024 her blood sugars has improved at the javed of 48-72 hours, A1c was 5.2, serum insulin 39.2 (reference range <or=18.4), proinsulin was 5.5 (reference range<or=18.4), C-peptide was 0.39 (reference range 0.80?3.85), drawn during blood sugar of 43. Hypoglycemic panel 09/09/2024: Negative for rosiglitazone, chlorpropamide, tolbutamide, tolazamide, glipizide, pioglitazone, glimepiride, glimepiride, nateglinide, repaglinide. IGF I level was 83 (reference 52-328 ng/mL), Z-score for female was -1.1 (reference -2?+2.[address]). [address] Wallace, picking table worker was contacted, results of the work up are highly suspicious for surreptitious insulin use. In the ED: Blood pressure 159/95, heart rate 117, afebrile. Labs showed WBC count of 11.5, hemoglobin 9.7, platelets 552, sodium 138, potassium 4.5, BUN 10, creatinine 0.9. UA was negative for signs of UTI. EKG showed sinus tachycardia. She received 4 A of D50, promethazine, 1 L of sodium chloride, lorazepam, and was started on D5W at 100 mL/h. Patient is going to be admitted for hypoglycemia management. Social history: Denies smoking, drinking alcohol. Surgical history: Status post gastric bypass surgery, hysterectomy, hernia repair. Medications: Official med rec is pending, patient reports taking tramadol, gabapentin, lorazepam, levothyroxine. Denies taking Mounjaro, glimepiride, insulin. Review of Systems Review of Systems Systems Reviewed: All systems reviewed, normal except as documented Past Medical History Past Medical History NEUROLOGIC: Positive Neurological Disorders and Migraine; Negative Seizures CARDIAC: Positive Cardiac Disorders and Hypercholesterolemia GASTROINTESTINAL: Positive Obesity REPRODUCTIVE: Positive Previous Pregnancies MUSCULOSKELETAL: Positive Musculoskeletal Disorders, Fibromyalgia and Fractures ENDOCRINE: Positive Endocrine Disorders, Diabetes Mellitus Type 2 and Hypothyroidism HEMATOLOGIC: Positive Blood Disorders and Anemia PSYCHO/SOCIAL: Positive Depression and Anxiety Family History FAMILY HISTORY: Positive Family Psychiatric Problems, Family Cardiac Disorders, Family Cancer and Family Surgery Surgical History SURGICAL: Positive Eye Surgery, Abdominal Surgery, Gastric Bypass Surgery, Hysterectomy and Section Social History SMOKING STATUS: Never smoker SUBSTANCE USE: does not use ALCOHOL: Never Exam Vital Signs Temp Pulse Resp BP Pulse Ox O2 Del Method 98.9 F 115 H 16 125/92 H 96 Room Air 10/13/24 21:11 10/13/24 21:11 10/13/24 21:11 10/13/24 21:11 10/13/24 21:11 10/13/24 21:11 Narrative Exam Physical Exam General: Awake, appears tired. Conversational. HEENT: Normocephalic, atraumatic, mucous membranes moist. Heart: Regular rate and rhythm, no murmurs. Lungs: Clear to auscultation with no wheezing or crackles. Abdomen: Soft, nondistended, nontender, positive bowel sounds. ?No guarding or rebound tenderness. Neurologic: Alert and oriented x3, no gross neurological deficit, and patient able to move all 4 extremities. Extremities: No edema. Skin: No rash or ecchymoses. Results: Labs 10/13/24 12:56 10/13/24 12:56 Labs: Short CBC 10/13/24 Range/Units 12:56 WBC 11.5 H (3.6-11.0) Thou/mm3 Hgb 9.7 L (12.0-16.0) g/dL Hct 32.8 L (36.0-46.0) % Plt Count 552 H D (140-440) Thou/mm3 BMP 10/13/24 12:56 Sodium 138 Potassium 4.5 D Chloride 101 Carbon Dioxide 31.2 H BUN 10 Creatinine 0.9 Glucose 75 D Calcium 9.0 Liver Function 10/13/24 Range/Units 12:56 Total Bilirubin 0.4 (0.3-1.2) mg/dL AST 19 (0-34) U/L ALT 20 (10-49) U/L Alkaline Phosphatase 111 (46-116) U/L Albumin 4.2 (3.5-5.0) gm/dL Urine 10/13/24 Range/Units 13:25 Urine Color Lt-Yellow (Lt Yel-Yel) Urine Clarity Clear (Clear/Hazy) Urine pH 8.0 H (5.0-7.0) Ur Specific [place] 1.013 (1.001-1.035) Urine Protein Trace (Neg - Trace) Urine Glucose (UA) Negative (Negative) Quality Measures Quality Measures none Medications Home Medications and Allergies Home Medications ?Medication ?Instructions ?Recorded ?Confirmed ?Type propranolol 20 mg tablet 20 mg PO DAILY PRN anxiety 03/11/20 10/14/24 History gabapentin 300 mg capsule 300 mg PO DAILY 03/22/20 09/12/24 History Held on 09/13/24. Instructions: Resume on 09/27/24. Hold until follow up with PCP levothyroxine 75 mcg tablet 75 mcg PO QDAY 03/02/22 10/14/24 History prochlorperazine maleate 10 mg 10 mg PO BID PRN Nausea or Headache 03/02/22 10/14/24 History tablet rimegepant 75 mg disintegrating 75 mg PO Q OTHER DAY 03/02/22 10/14/24 History tablet (Nurtec ODT) albuterol sulfate 90 mcg/actuation 2 inh inhalation Q8H PRN shortness 09/12/24 10/13/24 History aerosol inhaler of breath or wheezing atorvastatin 20 mg tablet 20 mg PO QPM 09/12/24 10/14/24 History buspirone 5 mg tablet 5 mg PO DAILY 09/12/24 10/14/24 History cenobamate 150 mg tablet (Xcopri) 150 mg PO QDAY 09/12/24 09/12/24 History diphenhydramine HCl 50 mg capsule 50 mg PO HS 09/12/24 10/14/24 History (Banophen) ferrous gluconate 324 mg (37.5 mg 324 mg PO TID 09/12/24 09/12/24 History iron) tablet hydroxyzine HCl 10 mg tablet 10 mg PO HS 09/12/24 10/13/24 History levetiracetam 500 mg tablet 500 mg PO DAILY 09/12/24 09/12/24 History (Keppra) paroxetine HCl 20 mg tablet 20 mg PO QDAY PRN depression 09/12/24 09/12/24 History paroxetine HCl 37.5 mg 37.5 mg PO HS 09/12/24 10/14/24 History tablet,extended release 24 hr promethazine 25 mg tablet 25 mg PO TID PRN nausea and 09/12/24 10/13/24 History vomiting propranolol 160 mg capsule,24 160 mg PO QDAY 09/12/24 10/14/24 History hr,extended release tirzepatide 10 mg/0.5 mL 10 mg subcut QWEEK 09/12/24 09/12/24 History subcutaneous pen injector (Vandana) Held on 09/13/24. Instructions: Resume on 09/27/24. Hold until follow up with PCP tramadol 50 mg tablet 50 mg PO BID 09/12/24 10/14/24 History cenobamate 100 mg tablet (Xcopri) 100 mg PO QDAY 10/13/24 10/13/24 History flash glucose sensor (FreeStyle 10/13/24 10/13/24 History Dina 2 Sensor kit) gabapentin 100 mg capsule 100 mg PO 10/13/24 History lamotrigine 100 mg tablet 100 mg PO HS 10/13/24 10/13/24 History glucagon 3 mg/actuation nasal mg intranasal 10/14/24 History spray (Baqsimi) lamotrigine 150 mg tablet 150 mg PO 10/14/24 History lamotrigine 200 mg tablet 200 mg PO 10/14/24 History lorazepam 2 mg tablet 2 mg PO 10/14/24 History paroxetine HCl 30 mg tablet 30 mg PO 10/14/24 History tretinoin 0.01 % topical gel topical 10/14/24 History Allergies Allergy/AdvReac Type Severity Reaction Status Date / Time egg Allergy Severe Abdominal Verified 01/02/24 03:45 Pain milk Allergy Severe Abdominal Verified 01/02/24 03:45 Pain Penicillins Allergy Severe Rash Verified 01/02/24 03:45 hydrocodone Allergy Intermediate ITCHING Verified 01/02/24 03:45 morphine Allergy Rash Verified 01/02/24 03:45 metoclopramide HCl AdvReac Severe HEADACHE Verified 01/02/24 03:45 Visit Medications Dextrose (Dextrose 50%-Water Inj 50 Ml Syringe) 25 ml IV Q15MIN PRN PRN Reason: BG 50-70 responsive npo pt Stop: 11/12/24 21:35 Dextrose (Dextrose 50%-Water Inj 50 Ml Syringe) 50 ml IV Q15MIN PRN PRN Reason: BG <50 OR BG <70 & pt unresponsive Stop: 11/12/24 21:35 Glucagon (Glucagon Inj 1 Mg Vial) 1 mg IM Q15MIN PRN PRN Reason: BG <70, and no IV access Heparin Sodium (Porcine) (Heparin Sod Inj 5000 Unit/Ml Vial) 5,000 unit SC Q8HR ARIANA Stop: 10/27/24 21:59 Dextrose (D5w) 1,000 mls @ 100 mls/hr IV .Q10H ARIANA Stop: 11/12/24 21:44 Last Admin: 10/13/24 21:45 Dose: 100 mls/hr Levothyroxine Sodium (Levothyroxine Sodium 25 Mcg Tablet) 75 mcg PO ACBR ARIANA Stop: 11/13/24 05:59 Lorazepam (Lorazepam 0.5 Mg Tablet) 2 mg PO Q8HR PRN PRN Reason: ANXIETY Stop: 10/18/24 21:48 Discontinued Medications Dextrose (Dextrose 50%-Water Inj 50 Ml Syringe) 50 ml IV X1 ONE Stop: 10/13/24 09:01 Last Admin: 10/13/24 09:45 Dose: 50 ml Dextrose (Dextrose 50%-Water Inj 50 Ml Syringe) 50 ml IV X1 ONE Stop: 10/13/24 14:01 Last Admin: 10/13/24 14:00 Dose: 50 ml Dextrose (Dextrose 50%-Water Inj 50 Ml Syringe) 50 ml IV X1 ONE Stop: 10/13/24 19:45 Last Admin: 10/13/24 19:50 Dose: 50 ml Dextrose (Dextrose 50%-Water Inj 50 Ml Syringe) 50 ml IV X1 ONE Stop: 10/13/24 21:11 Last Admin: 10/13/24 21:27 Dose: 50 ml Promethazine HCl 12.5 mg/ (Sodium Chloride) 50.5 mls @ 2.5 mls/min IV X1 ONE Stop: 10/13/24 09:21 Last Infusion: 10/13/24 09:43 Dose: Infused Promethazine HCl 12.5 mg/ (Sodium Chloride) 50.5 mls @ 2.5 mls/min IV X1 ONE Stop: 10/13/24 14:02 Last Infusion: 10/13/24 14:15 Dose: Infused Sodium Chloride (Ns) 1,000 mls @ 999 mls/hr IV .Q1H1M ONE Stop: 10/13/24 16:09 Last Infusion: 10/13/24 18:48 Dose: Infused Promethazine HCl 25 mg/ Sodium (Chloride) 51 mls @ 2.5 mls/min IV X1 ONE Stop: 10/13/24 20:21 Last Infusion: 10/13/24 21:05 Dose: Infused Lorazepam (Lorazepam 2 Mg/Ml Vial) 0.5 mg IVP X1 ONE Stop: 10/13/24 18:54 Last Admin: 10/13/24 19:24 Dose: 0.5 mg Lorazepam (Lorazepam 2 Mg/Ml Vial) 2 mg IVP X1 ONE Stop: 10/13/24 19:26 Last Admin: 10/13/24 19:37 Dose: 2 mg Assessment & Plan Plan The patient is a 43-year-old female with a previous medical history of recurrent hypoglycemia episodes, type 2 diabetes, depression, anxiety, agoraphobia, fibromyalgia, hypothyroidism who was brought in by ambulance to the ED on 10/13/2024 due to low blood sugar.Patient is going to be admitted for hypoglycemia management. #Hypoglycemia #Recurrent hypoglycemia episodes Patient has a history of multiple admission for hypoglycemia, work up done previously suspicious for exogenous insulin use. Patient denies taking diabetes medication for a few weeks. Plan: - Glucose checks q3hr - D5W at 100 ml/hr - Home diabetes medications are on hold - Hypoglycemia protocol in place #Hypothyroidism Plan: - Resumed home levothyroxine #Moderate microcytic iron deficiency anemia Hemoglobin 9.7, MCV 71. Iron panel in September 2024 showed iron deficiency. Plan: ? Folate, B12 ordered ? Consider starting iron supplements on discharge #Type 2 DM - diabetes medication on hold for now #History of anxiety #History of depression Patient denies stress at home, family problems, but reports significant agoraphobia. Plan: - Lorazepam 2 mg TID prn - Psychiatry follow-up outpatient #Morbid obesity Patient reports gaining approximately 30 pounds, eats diet high in carbohydrates. Plan: - follow-up outpatient - due to hypoglycemia, will start her on regular diet Health maintenance: FEN: regular DVT prophylaxis: heparin sc GI prophylaxis: none Dispo: med surg obs CODE STATUS: Full code Plan of care discussed with attending Dr. Su. Ana Luisa Jorgensen MD, PGY 1. Attending Provider Attestation/Addendum Pt was evaluated and plan formulated together with the housestaff team. I have reviewed the residents note above and agree with most of its content. Please refer to the residents note for additional details.
[2024-10-13] MEDS: HEPARIN SOD INJ 5000 UNIT/ML VIAL SC (23:20)
[2024-10-14] VITALS: BP 103/72; PULSE 94; RESP 18; TEMP 36.4; O2SAT 98
[2024-10-14 00:27] LABS: Vitamin B12 283 pg/mL (211-911)
[2024-10-14 00:36] LABS: Iron 26 mcg/dL (50-170); Percent Iron Saturation 5 % (20-55); Total Iron Binding Capacity 440 mcg/dL (250-425); Unsaturated Iron Binding 414 (225-295)
[2024-10-14 04:00] VITALS: BP 106/71; PULSE 100; RESP 19; TEMP 36.4; O2SAT 95
[2024-10-14] MEDS: DEXTROSE 50%-WATER INJ 50 ML SYRINGE IV (04:20)
[2024-10-14] MEDS: PROMETHAZINE INJ 12.5 MG in SODIUM CHLORIDE 0.9% 50 ML 2.5 MG IV (04:56)
[2024-10-14] MEDS: LEVOTHYROXINE SODIUM 25 MCG TABLET 75 MCG PO (05:27)
[2024-10-14] MEDS: HEPARIN SOD INJ 5000 UNIT/ML VIAL SC ×3 (05:27→21:01)
[2024-10-14 08:00] VITALS: BP 121/80; PULSE 93; RESP 17; TEMP 36.3; O2SAT 96
--- NOTE | 2024-10-14 08:09 | PC.NURSE ---
Dr. Dover made aware patient is feeling nauseous. No new orders.
--- NOTE | 2024-10-14 09:31 | PC.SS ---
Shilpa Maldonado is a 43 year old female admitted for Hypoglycemia. SS met with patient at bedside, patient appeared to be alert and oriented, patient reports she lives at home with her , Alfredo Hicks who she reports is her surrogate decision maker [phone]. Prior to admission patient did not utilize any source of DME to assist with ambulation. Choice of pharmacy is [facility]. PCP is Eunice Peterson. At time of discharge patient will return back home. Patient's will provide transportation. Next of kin; Lorraine Hicks Discharge Plan Home
[2024-10-14] MEDS: PROMETHAZINE HCL 25 MG TABLET PO (10:57)
[2024-10-14] MEDS: LORazepam 0.5 MG TABLET 2 MG PO (10:58)
[2024-10-14] MEDS: lamoTRIgine 25 MG CHEW 150 MG PO (11:01)
[2024-10-14] MEDS: DEXTROSE 5%-WATER 1,000 ML 100 ML IV (11:25)
[2024-10-14 11:54] VITALS: BP 108/77; PULSE 76; RESP 17; TEMP 37.3; O2SAT 98
--- NOTE | 2024-10-14 12:14 | ESPR_ITS ---
<Statement entered by Cory Mcmanus MD - 10/15/24 14:20> Senior Resident Attestation: I supervised/discussed management plan with production internship physician Dr. Hickey, and was involved in the care of this patient. I personally saw and examined the patient and discussed the assessment and plan with the entire medicine team, including my attending. I agree with the assessment and plan as documented. Patient's care was discussed with attending physician, Dr. Hinds. Cory Mcmanus MD PGY-2. Documentation for date of: 10/14/24 Subjective Subjective Interval history: Patient is an overnight admit. Patient seen and examined at bedside this morning patient is saturating on room air, is at bedside. Pt's most current finger stick glucose is 104. Pt states she continues to be nausea and usually nothing resolves it except promethazine. Pt denies diziness, blurry vision or abdominal pain. pt has no other complaints. Exam Vital Signs Temp Pulse Resp BP Pulse Ox O2 Del Method 99.2 F 76 17 108/77 98 Room Air 10/14/24 11:54 10/14/24 11:54 10/14/24 11:54 10/14/24 11:54 10/14/24 11:54 10/14/24 11:54 Narrative Exam General: Awake, appears tired. Conversational. HEENT: Normocephalic, atraumatic, mucous membranes moist. Heart: Regular rate and rhythm, no murmurs. Lungs: Clear to auscultation with no wheezing or crackles. Abdomen: Soft, nondistended, nontender, positive bowel sounds. ?No guarding or rebound tenderness. Neurologic: Alert and oriented x3, no gross neurological deficit, and patient able to move all 4 extremities. Extremities: No edema. Skin: No rash or ecchymoses. Objective Labs 10/13/24 12:56 10/13/24 12:56 Labs: Laboratory Results - last 24 hr 10/13/24 10/13/24 12:56 13:25 WBC 11.5 H RBC 4.63 Hgb 9.7 L Hct 32.8 L MCV 71 L MCH 21.0 L MCHC 29.6 L RDW Std Deviation 49.1 H Plt Count 552 H D Neut % (Auto) 73 Lymph % (Auto) 20 [place] % (Auto) 5 Eos % (Auto) 0 Baso % (Auto) 0 Neut # (Auto) 8.4 H Lymph # (Auto) 2.4 [place] # (Auto) 0.6 Eos # (Auto) 0.0 Baso # (Auto) 0.0 Immature Gran # (Auto) 0.06 H Absolute Nucleated RBC 0.00 Immature Gran % 1 H Nucleated RBC % 0 Sodium 138 Potassium 4.5 D Chloride 101 Carbon Dioxide 31.2 H Anion Gap 6 L BUN 10 Creatinine 0.9 Estim Creat Clear Calc 104.0 eGFR > 60 BUN/Creatinine Ratio 11 L Glucose 75 D Calculated Osmolality 273 L Calcium 9.0 Corrected Calcium 9.0 Magnesium 2.3 Iron 26 L TIBC 440 H Iron Saturation 5 L Unsat Iron Binding 414 H Total Bilirubin 0.4 AST 19 ALT 20 Alkaline Phosphatase 111 Total Protein 7.6 Albumin 4.2 Globulin 3.4 Albumin/Globulin Ratio 1.2 Vitamin B12 283 Folate 17.70 Ur Collection Type Clean Catch Urine Color Lt-Yellow Urine Clarity Clear Urine pH 8.0 H Ur Specific [place] 1.013 Urine Protein Trace Urine Glucose (UA) Negative Urine Ketones Negative Urine Blood Negative Urine Nitrite Negative Urine Bilirubin Negative Urine Urobilinogen (Auto) Negative Ur Leukocyte Esterase Negative Urine RBC < 1 Urine WBC 2 Ur Squamous Epith Cells < 1 Urine Bacteria None Ur Culture Indicated? Not Indicated Quality Measures Quality Measures none Assessment & Plan Assessment Current Active Medications: Generic Name Dose Route Start Last Admin Trade Name Freq PRN Reason Stop Dose Admin Atorvastatin Calcium 20 mg 10/14/24 21:00 Atorvastatin Calcium 20 Mg Tablet PO 11/13/24 20:59 QPM ARIANA Dextrose 25 ml 10/13/24 21:36 Dextrose 50%-Water Inj 50 Ml Syringe IV 11/12/24 21:35 Q15MIN PRN BG 50-70 responsive npo pt Dextrose 50 ml 10/13/24 21:36 10/14/24 04:20 Dextrose 50%-Water Inj 50 Ml Syringe IV 11/12/24 21:35 50 ml Q15MIN PRN Administration BG <50 OR BG <70 & pt unresponsive Glucagon 1 mg 10/13/24 21:36 Glucagon Inj 1 Mg Vial IM Q15MIN PRN BG <70, and no IV access Heparin Sodium (Porcine) 5,000 unit 10/13/24 22:00 10/14/24 05:27 Heparin Sod Inj 5000 Unit/Ml Vial SC 10/27/24 21:59 5,000 unit Q8HR ARIANA Administration Dextrose 1,000 mls @ 100 mls/hr 10/13/24 21:45 10/14/24 11:25 D5w IV 11/12/24 21:44 100 mls/hr .Q10H ARIANA Administration Lamotrigine 150 mg 10/14/24 10:30 10/14/24 11:01 Lamotrigine 25 Mg Chew PO 11/13/24 10:14 150 mg QDAY ARIANA Administration Levothyroxine Sodium 75 mcg 10/14/24 06:00 10/14/24 05:27 Levothyroxine Sodium 25 Mcg Tablet PO 11/13/24 05:59 75 mcg ACBR ARIANA Administration Lorazepam 2 mg 10/13/24 21:49 10/14/24 10:58 Lorazepam 0.5 Mg Tablet PO 10/18/24 21:48 2 mg Q8HR PRN Administration ANXIETY Home Medication- 100 mg 10/14/24 10:15 10/14/24 11:09 Please Speak With PO 11/13/24 10:14 Not Given Patient Caregiver To QDAY ARIANA Have Rx Brought To [facility] Ondansetron HCl 4 mg 10/13/24 23:38 Ondansetron Inj 2 Mg/Ml Inj 2 Ml IV 11/12/24 23:37 Q6HR PRN NAUSEA OR VOMITING Protocol Promethazine HCl 25 mg 10/14/24 10:26 10/14/24 10:57 Promethazine Hcl 25 Mg Tablet PO 11/13/24 10:01 25 mg TID PRN Administration nausea and vomiting Plan The patient is a 43-year-old female with a previous medical history of recurrent hypoglycemia episodes, type 2 diabetes, depression, anxiety, agoraphobia, fibromyalgia, hypothyroidism who was brought in by ambulance to the ED on 10/13/2024 due to low blood sugar.Patient is going to be admitted for hypoglycemia management. #Hypoglycemia #Recurrent hypoglycemia episodes #chronic nausea and vomiting Patient has a history of multiple admission for hypoglycemia, work up done previously suspicious for exogenous insulin use. Patient denies taking diabetes medication for a few weeks. -Pt states she often has episodes of nausea and vomiting since her gastric bypass surgery. which causes her to not want to eat Plan: - Glucose checks q3hr - D5W at 100 ml/hr - Hypoglycemia protocol in place -resumed home promethazine #Hypothyroidism Plan: - Resumed home levothyroxine #Microcytic iron deficiency anemia Hemoglobin 9.7, MCV 71. Iron panel October 2024 showed iron deficiency. Plan: ? Folate, B12 ordered ? Consider starting iron supplements on discharge #Type 2 DM -Last A1c from September 2024, 5.2 -Pt stopped taking manjaro and glimperide approximately 6 weeks ago. #History of seizure disorder - resumed home lamotragine and cenobamate #History of anxiety #History of depression Patient denies stress at home, family problems, but reports significant agoraphobia. Plan: -Lorazepam 2 mg TID prn -Psychiatry follow-up outpatient #Morbid obesity #S/p gastric bypass surgery in 2018 Patient reports gaining approximately 30 pounds, eats diet high in carbohydrates. Plan: -Follow-up outpatient -Due to hypoglycemia, will start her on regular diet Health maintenance: FEN: regular DVT prophylaxis: heparin sc GI prophylaxis: none Dispo: med surg obs CODE STATUS: Full code Assessment and plan discussed with my senior resident Dr. Mcmanus & attending physician Dr. Lizet Hickey (PGY-1)- Internal medicine resident Attending Provider Attestation/Addendum I attest that I was physically present for the evaluation, physical examination, lab and imaging review of the patient with the residents. I discussed the case with the residents and agree with the findings and plans of care as documented above. At bedside today, patient is states she is feeling well and feels better compared to yesterday.? Denies any new complaints.? Her blood glucose have improved significantly to 146 this afternoon while being on D5W at 100 cc/h.? We will discontinue her IV hydration and monitor her glucose level closely.? On further questioning, patient states that she was on sulfonylurea and GLP-1 inhibitor about 5 weeks ago, which were discontinued due to her episode of hypoglycemia.? Her labs from previous visit show that her serum insulin was high, C-peptide was low, proinsulin level was normal, antihyperglycemic drug screening was negative.? Patient's at home is also diabetic and is on insulin.? Her hemoglobin A1c from last visit was 5.2.? Suspicion for exogenous insulin use remains high.? If patient's blood glucoses remain stable overnight without the dextrose infusion, we will plan for discharge tomorrow.? Also plan to have further discussion with the patient regarding insulin use. William Hinds MD
[2024-10-14] MEDS: levETIRAcetam 250 MG TABLET 500 MG PO (14:30)
[2024-10-14 15:26] VITALS: BP 158/81; PULSE 84; RESP 17; TEMP 37.3; O2SAT 98
--- NOTE | 2024-10-14 18:07 | PC.NURSE ---
Dr. Pritchett made aware BS 184, continue Q6h BS checks and close monitoring throughout the night.
[2024-10-14 20:00] VITALS: BP 106/75; PULSE 102; RESP 16; TEMP 36.5; O2SAT 97
[2024-10-14] MEDS: ONDANSETRON INJ 2 MG/ML INJ 2 ML 4 MG IV (20:23)
[2024-10-14] MEDS: PROMETHAZINE INJ 25 MG in SODIUM CHLORIDE 0.9% 50 ML IV (20:38)
[2024-10-14] MEDS: LORazepam 2 MG/ML VIAL 0.5 MG IVP (21:00)
[2024-10-14] MEDS: LORazepam 2 MG/ML VIAL 1.5 MG IVP (21:55)
[2024-10-15] VITALS: BP 119/52; PULSE 103; RESP 16; TEMP 36.1; O2SAT 98
[2024-10-15 04:00] VITALS: BP 129/83; PULSE 91; PULSE 93; RESP 15; TEMP 36.2; O2SAT 95
[2024-10-15] MEDS: HEPARIN SOD INJ 5000 UNIT/ML VIAL SC (05:15)
[2024-10-15] MEDS: LEVOTHYROXINE SODIUM 25 MCG TABLET 75 MCG PO (05:15)
[2024-10-15] MEDS: PROMETHAZINE HCL 25 MG TABLET PO ×2 (05:21→11:29)
[2024-10-15 07:42] VITALS: BP 123/62; PULSE 103; RESP 18; TEMP 37.2; O2SAT 95
[2024-10-15 08:00] VITALS: PULSE 98
[2024-10-15] MEDS: lamoTRIgine 25 MG CHEW 150 MG PO (09:23)
[2024-10-15] MEDS: levETIRAcetam 250 MG TABLET 500 MG PO (09:23)
[2024-10-15 11:27] VITALS: BP 120/94; PULSE 98; RESP 18; TEMP 36.9; O2SAT 98
[2024-10-15] MEDS: LORazepam 0.5 MG TABLET 2 MG PO (11:29)
[2024-10-15 11:35] VITALS: PULSE 108
--- NOTE | 2024-10-15 15:35 | ESDS_ITS ---
Planned Discharge Date 10/15/24 DS: Providers Provider Date of admission: 10/14/24 16:37 Primary care physician: Eunice Peterson PA-C Admitting Provider: Rakesh Su MD Attending Provider on Admission: William Hinds MD Attending Provider on DC: China Hickey MD Discharging Provider: China Hickey MD DS: Diagnosis Problem List Completed Was Problem List Reviewed/Reconciled?: Yes Hospital Course Hospital Course Hospital course: Ms. Maldonado is a 43-year-old female with a past medical history of type 2 diabetes, hypothyroidism, gastric bypass surgery (2018), seizure disorder followed by Dr. Tello, migraines, fibromyalgia, significant psych history including depression, anxiety, agoraphobia, panic disorder, and PTSD who presented to [facility] ED on 10/13/2024 due to low blood sugar and persistent weakness. Patient states that she was unable to tolerate any oral diet at home due to persistent nausea and vomiting. Patient was started on D50 and her blood glucose improved to above 100. Patient has had repeat hospital admissions due to similar episodes of hypoglycemia and extensive workup has been completed and repeat workup shows exogenous use of insulin. Patient denies using insulin for over 13 years. Patient was on oral medications along with Mounjaro which she has not used for the past 6 weeks. Patient's is at bedside who is also diabetic and uses insulin at home. Patient has refused exogenous use of insulin however workup has been completed multiple times which is found to have high levels of insulin and C-peptide levels are low raising suspicion of exogenous insulin use. Patient is encouraged to play closer attention to her medications and advised against exogenous insulin use if that is what she is doing, patient is also urged to follow-up with PCP to further d iscuss and possible would need referral to quality control tech to undergo further evaluation for differentials including insulinoma, adrenal insufficiency, drug- induced side effects, hypoglycemia induced by history of gastric bypass surgery. Patient is hemodynamically stable blood glucose have been stable patient is tolerating oral diet and is eager to return home to her children. Patient is ready to be discharged home to self-care with . Discharge Recommendations Continue home medications as prescribed. Follow up with PCP within 1 week. Discuss lab findings from hospital regarding insulin studies. Have candies or other sugar-containing food with you in case of hypoglycemia. Hospitalization Diagnosis #Hypoglycemia - resolved #Recurrent hypoglycemia episodes #suspicion for exogenous insulin use #chronic nausea and vomiting #Hypothyroidism #Microcytic iron deficiency anemia #Type 2 DM #History of seizure disorder #History of anxiety #History of depression #Morbid obesity #S/p gastric bypass surgery in 2018 Assessment and plan discussed with my attending physician Dr. Lizet Hickey (PGY-1)- Internal medicine resident Time Spent with Patient Time attestation: Total time spent providing and/or coordinating discharge services: Time spent: Less than 30 minutes Exam Vital Signs Temp Pulse Resp BP Pulse Ox O2 Del Method 98.4 F 108 H 18 120/94 H 98 Room Air 10/15/24 11:27 10/15/24 11:35 10/15/24 11:27 10/15/24 11:27 10/15/24 11:27 10/15/24 11:27 Narrative Exam General: Awake, appears tired. Conversational. HEENT: Normocephalic, atraumatic, mucous membranes moist. Heart: Regular rate and rhythm, no murmurs. Lungs: Clear to auscultation with no wheezing or crackles. Abdomen: Soft, nondistended, nontender, positive bowel sounds. ?No guarding or rebound tenderness. Neurologic: Alert and oriented x3, no gross neurological deficit, and patient able to move all 4 extremities. Extremities: No edema. Skin: No rash or ecchymoses. Discharge Plan Plan Patient Disposition: HOME (Self Care) Patient condition on transfer: Stable Care Plan Goals: Continue home medications as prescribed. Follow up with PCP within 1 week. Discuss lab findings from hospital regarding insulin studies. Have candies or other sugar-containing food with you in case of hypoglycemia. Prescriptions/Referrals Prescriptions/Med Rec: Continued levothyroxine 75 mcg Tablet 75 mcg PO QDAY Nurtec ODT 75 mg Tablet,Disintegrating 75 mg PO Q OTHER DAY tramadol 50 mg tablet 50 mg PO BID promethazine 25 mg tablet 25 mg PO TID PRN (Reason: nausea and vomiting) albuterol sulfate 90 mcg/actuation HFA aerosol inhaler 2 inh inhalation Q8H PRN (Reason: shortness of breath or wheezing) ferrous gluconate 324 mg (37.5 mg iron) tablet 324 mg PO TID atorvastatin 20 mg tablet 20 mg PO QPM diphenhydramine HCl [Banophen] 50 mg capsule 50 mg PO HS buspirone 5 mg tablet 5 mg PO DAILY paroxetine HCl 37.5 mg tablet extended release 24 hr 37.5 mg PO HS levetiracetam [Keppra] 500 mg tablet 500 mg PO DAILY Xcopri 150 mg tablet 150 mg PO QDAY Rx Instructions: administer weeks 9 and 10 of therapy (DME) FreeStyle Dina 3 [place] Misc See Rx Instructions .Route Qty: 1 0RF Rx Instructions: As directed (DME) FreeStyle Dina 3 Sensor Device See Rx Instructions .Route Qty: 2 3RF Rx Instructions: As directed Xcopri 100 mg tablet 100 mg PO QDAY Rx Instructions: administer weeks 7 and 8 of therapy gabapentin 100 mg capsule 100 mg PO (DME) FreeStyle Dina 2 Sensor Kit Patient Comments: CHECK BLOOD SUGARS 3 TIMES A DAY FOR DIABETES lamotrigine 150 mg tablet 150 mg PO Baqsimi 3 mg/actuation spray,non-aerosol intranasal lorazepam 2 mg tablet 2 mg PO Patient Comments: TAKE 1 TABLET BY MOUTH TWICE A DAY NEEDED tretinoin 0.01 % gel TOPICAL Patient Comments: APPLY VERY SPARINGLY TO AFFECTED AREA EVERY NIGHT Discontinued propranolol 20 mg Tablet 20 mg PO DAILY PRN (Reason: anxiety) gabapentin 300 mg capsule 300 mg PO DAILY prochlorperazine maleate 10 mg Tablet 10 mg PO BID PRN (Reason: Nausea or Headache) Mounjaro 10 mg/0.5 mL pen injector 10 mg subcut QWEEK propranolol 160 mg capsule,extended release 24 hr 160 mg PO QDAY hydroxyzine HCl 10 mg tablet 10 mg PO HS paroxetine HCl 20 mg tablet 20 mg PO QDAY PRN (Reason: depression) lamotrigine 100 mg tablet 100 mg PO HS paroxetine HCl 30 mg tablet 30 mg PO Patient Comments: TAKE 2 TABLET BY MOUTH ONCE A DAY AT BEDTIME lamotrigine 200 mg tablet 200 mg PO Patient Comments: TAKE 1 & 1/2 TABLETS BY MOUTH EVERY DAY AT BEDTIME Referrals: Eunice Peterson PA-C [Primary Care Provider] - Patient/Caregiver Discharge Instructions Other Discharge Activity Instructions:: Continue home medications as prescribed. Follow up with PCP within 1 week. Discuss lab findings from hospital regarding insulin studies. Have candies or other sugar-containing food with you in case of hypoglycemia. Education Materials: Hypoglycemia (Low Blood Sugar), Hypoglycemia Steps Print Language: Guamanian Stand Alone Forms: Janel Award Info., Patient Portal Info Letter Discharge Order Discharge Orders: Discharge (Routine); Ordered 10/15/24 Ordered By: China Hickey Quality Discharge Quality Measures VTE prophylaxis MD Attestestation MD Attestation I attest that I was physically present for the evaluation, physical examination, lab and imaging review of the patient with the residents. I discussed the case with the residents and agree with the findings and plans of care as documented above. William Hinds MD
== END 2024-10-15 12:45 | disposition home or self-care (01) | DRG 420 ==
LOC: SERX 21:41 → SERHOLD 23:06 → S3SX 23:11
PROVIDERS: Emergency Medicine; Admitting Provider Internal Medicine; Emergency Provider Emergency Medicine; PCP Physician Assistant; Visit Provider Student in an Organized Health Care Education/Training Program
DX: E11.649 Type 2 diabetes mellitus with hypoglycemia without coma (principal); E03.9 Hypothyroidism, unspecified; F32.A Depression, unspecified; G40.909 Epilepsy, unspecified, not intractable, without status epilepticus; F40.00 Agoraphobia, unspecified; M79.7 Fibromyalgia; D50.9 Iron deficiency anemia, unspecified; E66.813 Obesity, class 3; Z68.41 Body mass index [BMI] 40.0-44.9, adult; E11.40 Type 2 diabetes mellitus with diabetic neuropathy, unspecified; E27.40 Unspecified adrenocortical insufficiency; K91.0 Vomiting following gastrointestinal surgery; F43.10 Post-traumatic stress disorder, unspecified; K95.89 Other complications of other bariatric procedure; Y83.2 Surgical operation with anastomosis, bypass or graft as the cause of abnormal reaction of the patient, or of later complication, without mention of misadventure at the time of the procedure; Z79.890 Hormone replacement therapy; Z98.84 Bariatric surgery status; Z90.710 Acquired absence of both cervix and uterus; Z79.4 Long term (current) use of insulin
CPT/HCPCS: 36415; 80053; 81001; 82607; 82746; 83540; 83550; 83735; 84681; 85025; 93005; 96361; 96365; 96367; 99285; G0378; J1643; J2060; J2405; J2550; J7030; J7070; A9270

== ENCOUNTER 2025-02-16 11:37 | Inpatient (IN) | payer MEDICAID, SELFPAY ==
[2025-02-16] VITALS (9 sets, daily range): BP systolic 109–143; BP diastolic 65–103; PULSE 92–125; RESP 16–24; TEMP 36.5–36.9; O2SAT 95–98; BMI 43.0; BMI 44.4
--- NOTE | 2025-02-16 11:46 | PD.EDADULT ---
ED General RME/HPI General Chief complaint: Seizure Stated complaint: Hypoglycemia Time Seen by Provider: 02/16/25 11:44 Source: patient and EMS Arrival date/time: 02/16/25 11:37 CC: Seizure, hypoglycemia, nausea vomiting HPI patient presents to the ER via EMS with a witnessed seizure as reported by family EMS report tachycardia and hypotension and persistent nausea and vomiting. Patient states she i takes Keppra for seizures and last seizure was months ago . Patient states ondansetron does not work, Dr Tello is her neurologist. Mode of arrival: EMS Related Data Home Medications ?Medication ?Instructions ?Recorded ?Confirmed levothyroxine 75 mcg tablet 75 mcg PO QDAY 03/02/22 10/14/24 rimegepant 75 mg disintegrating 75 mg PO Q OTHER DAY 03/02/22 10/14/24 tablet (Nurtec ODT) albuterol sulfate 90 mcg/actuation 2 inh inhalation Q8H PRN shortness 09/12/24 10/13/24 aerosol inhaler of breath or wheezing atorvastatin 20 mg tablet 20 mg PO QPM 09/12/24 10/14/24 buspirone 5 mg tablet 5 mg PO DAILY 09/12/24 10/14/24 cenobamate 150 mg tablet (Xcopri) 150 mg PO QDAY 09/12/24 09/12/24 diphenhydramine HCl 50 mg capsule 50 mg PO HS 09/12/24 10/14/24 (Banophen) ferrous gluconate 324 mg (37.5 mg 324 mg PO TID 09/12/24 09/12/24 iron) tablet levetiracetam 500 mg tablet 500 mg PO DAILY 09/12/24 09/12/24 (Keppra) paroxetine HCl 37.5 mg 37.5 mg PO HS 09/12/24 10/14/24 tablet,extended release 24 hr promethazine 25 mg tablet 25 mg PO TID PRN nausea and 09/12/24 10/13/24 vomiting tramadol 50 mg tablet 50 mg PO BID 09/12/24 10/14/24 cenobamate 100 mg tablet (Xcopri) 100 mg PO QDAY 10/13/24 10/13/24 flash glucose sensor (FreeStyle 10/13/24 10/13/24 Dina 2 Sensor kit) gabapentin 100 mg capsule 100 mg PO 10/13/24 glucagon 3 mg/actuation nasal mg intranasal 10/14/24 spray (Baqsimi) lamotrigine 150 mg tablet 150 mg PO 10/14/24 lorazepam 2 mg tablet 2 mg PO 10/14/24 tretinoin 0.01 % topical gel topical 10/14/24 Previous Rx's ?Medication ?Instructions ?Recorded blood-glucose sensor (FreeStyle #2 ea 09/13/24 Dina 3 Sensor device) blood-glucose,rn intensive care unit,cont #1 ea 09/13/24 (FreeStyle Dina 3 [place]) Allergies Allergy/AdvReac Type Severity Reaction Status Date / Time egg Allergy Severe Abdominal Verified 01/02/24 03:45 Pain milk Allergy Severe Abdominal Verified 01/02/24 03:45 Pain Penicillins Allergy Severe Rash Verified 01/02/24 03:45 hydrocodone Allergy Intermediate ITCHING Verified 01/02/24 03:45 morphine Allergy Rash Verified 01/02/24 03:45 metoclopramide HCl AdvReac Severe HEADACHE Verified 01/02/24 03:45 Review of Systems Review of Systems Narrative Review of Systems: GEN: No fever, no chills, no weight loss EYES: No discharge, no visual changes, no pain HEENT: No ear pain, no congestion, no sore throat PULM: No shortness of breath, no cough, no congestion CV: No chest pain, no dyspnea on exertion, no palpitations GI: + nausea, + vomiting, no diarrhea, no pain, no constipation : No frequency, no urgency, no dysuria MUSC/SKEL: No joint pain, no back pain SKIN: No rash PSYCH: No hallucinations, no depression HEME/LYMPH: No easy bleeding or bruising tendencies NEURO: No weakness, no headache Past Medical History Past Medical History NEUROLOGIC: Positive Neurological Disorders and Migraine; Negative Seizures CARDIAC: Positive Cardiac Disorders, Hypercholesterolemia, Edema and Hypertension; Negative Congestive Heart Failure RESPIRATORY: Positive Pneumonia; Negative Chronic Obstructive Pulmonary Disease (COPD) or Asthma GASTROINTESTINAL: Positive Obesity GENITOURINARY: Negative Genitourinary Disorders or Renal Disease REPRODUCTIVE: Positive Previous Pregnancies MUSCULOSKELETAL: Positive Musculoskeletal Disorders, Fibromyalgia and Fractures ENT: Positive Cataracts, Blind and Retinal Detachment ENDOCRINE: Positive Endocrine Disorders, Diabetes Mellitus Type 2 and Hypothyroidism; Negative Diabetes Mellitus Type 1 HEMATOLOGIC: Positive Blood Disorders and Anemia; Negative Sickle Cell Disease PSYCHO/SOCIAL: Positive Depression and Anxiety OTHER HISTORY: Positive Chicken Pox and Measles; Negative Autoimmune Disease, Blood Transfusions, Blood Transfusion Reaction, Anesthesia Reactions or Cancer Family History FAMILY HISTORY: Positive Family Psychiatric Problems, Family Cardiac Disorders, Family Cancer and Family Surgery; Negative Family Respiratory Disorders, Family Gastrointestinal Problems or Family Anesthesia Reaction Surgical History SURGICAL: Positive Eye Surgery, Abdominal Surgery, Gastric Bypass Surgery, Hysterectomy and Section Social History SMOKING STATUS: Never smoker SUBSTANCE USE: does not use ED Exam Narrative Physical exam: [General: Obese actively vomiting but not in any acute distress Head normocephalic HEENT: Eyes pupils are PERRLA EOMs are intact mouth pink moist membranes uvula is midline swallow symmetrical within acceptable limits Neck is supple nontender Chest equal chest rise nontender to palpation Respiratory: Clear to auscultation no wheezes crackles or rubs CV: Rate rhythm is regular no murmurs rubs or clicks Abdomen is distended secondary to body habitus soft nontender no masses positive bowel sounds all 4 quadrants Back: No CVA tenderness no spinous process tenderness from cervical spine thoracic and lumbar spine Skin: Intact no petechiae rash induration ulceration or crepitus Extremities: Moving all extremity against resistance cap refill less than 2 seconds neurosensory intact Neuro: Awake alert oriented x3 Glascow coma 15 no focal deficits] Course Course Course Narrative: Nightly Accu-Chek history, initially with EMS and blood sugar was in the 50s, patient was given D10, and then in the ER initial blood check was 135 however 1 hour later at 1315, patient's blood glucose dropped to 50 again and gave the patient 1 amp of D50 she has no active seizure activity, and nausea and vomiting has resolved. At this time I will admit the patient as I am concerned that the patient may have persistent hypoglycemia. Patient's case discussed with Dr. Jaime who agrees to accept the patient for admission. Quality Measures none Orders Category Date Time Status Admit to Inpatient Status Routine Admission 02/16/25 14:19 Active Patient Condition Routine Admission 02/16/25 14:19 Ordered COVID-19 Screening Questionnaire NOW Care 02/16/25 13:57 Active Human Resource Adviser Q4H START 00 Care 02/16/25 12:08 Active Decision to Admit X1 Care 02/16/25 13:57 Completed Glucose [Bedside Blood Glucose] NOW Care 02/16/25 11:44 Active Miscellaneous Nursing Order NOW Care 02/16/25 12:18 Active Notify provider NEEDED Care 02/16/25 14:19 Active Saline [Insert IV] NOW Care 02/16/25 11:44 Active Seizure precautions NOW Care 02/16/25 12:[address] head/brain wo con Urgent Exams 02/16/25 14:19 Ordered B-Type Natriuretic Peptide Stat Lab 02/16/25 12:01 Completed CBC Stat Lab 02/16/25 12:01 Completed Comprehensive Metabolic Panel Stat Lab 02/16/25 12:01 Results Drug Screen,Urine Stat Lab 02/16/25 11:44 Ordered Lipase Stat Lab 02/16/25 12:01 Results Magnesium Stat Lab 02/16/25 12:01 Results Partial Thromboplastin Time Stat Lab 02/16/25 12:01 Completed Prothrombin Time with INR Stat Lab 02/16/25 12:01 Completed TSH [Thyroid Stimulating Hormone] Stat Lab 02/16/25 12:01 Results Troponin I Stat Lab 02/16/25 12:01 Results Urinalysis Stat Lab 02/16/25 11:44 Ordered Dextrose 50% Syr [D50w Syringe Abboject] Med 02/16/25 11:49 Discontinued 50 ml IVP X1 ONE Promethazine Inj [Phenergan Inj] 25 mg Med 02/16/25 11:45 Discontinued Sodium Chloride 0.9% [Ns] 50 ml IV NOW levETIRAcetam INJ [Keppra Inj] Med 02/16/25 11:44 Discontinued 1,000 mg IVP X1 ONE Vital Signs Vital signs: Vital Signs Temperature 98.4 F 02/16/25 11:53 Pulse Rate 116 H 02/16/25 11:53 Respiratory Rate 20 02/16/25 11:53 Blood Pressure 143/103 H 02/16/25 11:53 Pulse Oximetry (%) 98 02/16/25 11:53 Oxygen Delivery Method Room Air 02/16/25 11:53 Discharge Plan Plan Patient Disposition: Other Care w/in Hosp ([facility]) Patient condition on transfer: Stable Problem List Clinical Impression: Hypoglycemia PA/PASSENGER BRAKEMAN Supervising Physician PA/PASSENGER BRAKEMAN Supervising Physician: Umberto Lawson ENP, MD Attestation MD Attestation The patient was seen by the midlevel practitioner. I, the co-signing physician, was present during the entire ER visit. While I did not physically examine the patient, I was available for consultation as needed. I agree with the plan and documentation. MDM Clinical Information Provided by patient and EMS Medical Records Reviewed [facility] and EMS Lab Interpretation Lab(s) interpretation(s): CBC shows mild leukocytosis and H&H of 9.8 and 34.1 platelets elevated 540 note: The patient has a history of anemia and is on iron supplements. Coags within acceptable limits CMP shows a sodium of 135 glucose of 140 no other significant electrolyte imbalances Magnesium of 1.6 no transaminitis other than alk phos of 144 no T. bili elevation. Lipase at 24 TSH at 3.74. Medication Administration(s) Medication Administration History Acetaminophen (Acetaminophen 325 Mg Tablet) 650 mg PO Q6H PRN PRN Reason: Fever >101.5 or pain 1-3 Stop: 03/18/25 14:34 Dextrose (Dextrose 50%-Water Inj 50 Ml Syringe) 25 ml IV Q15MIN PRN PRN Reason: BG 50-70 responsive npo pt Stop: 03/18/25 14:40 Dextrose (Dextrose 50%-Water Inj 50 Ml Syringe) 50 ml IV Q15MIN PRN PRN Reason: BG <50 OR BG <70 & pt unresponsive Stop: 03/18/25 14:40 Glucagon (Glucagon Inj 1 Mg Vial) 1 mg IM Q15MIN PRN PRN Reason: BG <70, and no IV access Sodium Chloride (Ns) 1,000 mls @ 75 mls/hr IV .[id number] ARIANA Stop: 02/17/25 04:04 Dextrose (D10w) 500 mls @ 50 mls/hr IV .Q10H ARIANA Stop: 02/18/25 14:55 Insulin Human Lispro (Insulin Lispro (Admelog) 1 Unit/0.01 Ml Unit) 0 unit SC AC ARIANA; Protocol Stop: 03/18/25 16:59 Ondansetron HCl (Ondansetron Inj 2 Mg/Ml Inj 2 Ml) 4 mg IVP Q6H PRN; Protocol PRN Reason: NAUSEA OR VOMITING Stop: 03/18/25 14:34 Discontinued Medications Dextrose (Dextrose 50%-Water Inj 50 Ml Syringe) 50 ml IVP X1 ONE Stop: 02/16/25 11:50 Last Admin: 02/16/25 13:12 Dose: 50 ml Documented By: DAMON Dextrose (Dextrose 50%-Water Inj 50 Ml Syringe) 50 ml IVP X1 ONE Stop: 02/16/25 14:50 Diazepam (Diazepam Inj 5 Mg/Ml Vial 2 Ml) 2 mg IVP X1 ONE Stop: 02/16/25 14:34 Promethazine HCl 25 mg/ Sodium (Chloride) 51 mls @ 2.5 mls/min IV NOW ONE Stop: 02/16/25 12:05 Last Infusion: 02/16/25 12:40 Dose: Infused Documented By: Admin: 02/16/25 12:12 Dose: 2.5 mls/min Documented By: DAMON Levetiracetam (Levetiracetam Inj 100 Mg/Ml Vial 5ml) 1,000 mg IVP X1 ONE Stop: 02/16/25 11:45 Last Admin: 02/16/25 11:57 Dose: 1,000 mg Documented By: DAMON
[2025-02-16] MEDS: levETIRAcetam INJ 100 MG/ML VIAL 5ML 1000 MG IVP (11:57)
[2025-02-16] MEDS: PROMETHAZINE INJ 25 MG in SODIUM CHLORIDE 0.9% 50 ML IV (12:12)
[2025-02-16 12:16] LABS: Basophils # (Auto) 0.0 Thou/mm3 (0.0-0.2); Basophils % (Auto) 0 % (0-2.5); Eosinophils # (Auto) 0.2 Thou/mm3 (0.0-0.5); Eosinophils % (Auto) 2 % (0-10); Hematocrit 34.1 % (36.0-46.0); Hemoglobin 9.8 g/dL (12.0-16.0); Immature Granulocytes Auto 0.05 Thou/mm3 (0.00-0.00); Lymphocytes # (Auto) 1.4 Thou/mm3 (1.0-4.8); Lymphocytes % (Auto) 12 % (10-50); Mean Corpuscular HGB Conc 28.7 g/dl (31.0-37.0); Mean Corpuscular Hemoglobin 20.1 pg (25.0-35.0); Mean Corpuscular Volume 70 fL (80-100); Monocytes # (Auto) 0.4 Thou/mm3 (0.0-0.8); Monocytes % (Auto) 3 % (0-12); Neutrophils # (Auto) 9.9 Thou/mm3 (1.8-7.7); Neutrophils % (Auto) 82 % (37-80); Nucleated Red Blood Cell # 0.00 Thou/mm3 (0.00-0.00); Nucleated Red Blood Cell % 0 /100 WBC (0); Platelet Count 540 Thou/mm3 (140-440); RDW Standard Deviation 44.2 fL (36.4-46.3); Red Blood Count 4.88 Miln/mm3 (4.00-5.20); White Blood Count 12.0 Thou/mm3 (3.6-11.0)
[2025-02-16 12:31] LABS: INR 1.0 (0.9-1.3); Partial Thromboplastin Time 27.2 Seconds (22.0-36.0); Prothrombin Time 10.7 Seconds (9.0-12.2)
[2025-02-16 12:39] LABS: Alanine Aminotransferase 11 U/L (10-49); Albumin, Serum 4.5 gm/dL (3.5-5.0); Albumin/Globulin Ratio 1.3 (1.2-2.2); Alkaline Phosphatase 144 U/L (46-116); Anion Gap 8 (7-16); Aspartate Amino Transferase 18 U/L (0-34); BUN/Creatinine Ratio 14 Ratio (12-20); Bilirubin,Total 0.3 mg/dL (0.3-1.2); Blood Urea Nitrogen 14 mg/dL (9-23); Calcium 9.7 mg/dL (8.3-10.6); Calcium (Corrected) 9.7 mg/dL (8.5-10.1); Carbon Dioxide 25.6 mMol/L (20.0-31.0); Chloride 101 mMol/L (98-107); Creatinine (Component) 1.0 mg/dL (0.6-1.3); Estimated Creatinine Clearance 96.2 mL/min (>60); Globulin 3.5 gm/dL (2.3-3.5); Glucose 140 mg/dL (74-106); Lipase 23 U/L (12-53); Magnesium 1.6 mg/dL (1.6-2.6); Osmolality,Calculated 272 (275-295); Potassium 4.2 mMol/L (3.4-5.1); Sodium 135 mMol/L (136-145); Thyroid Stimulating Hormone 3.74 uIU/mL (0.55-4.78); Total Protein 8.0 gm/dL (5.7-8.2); eGFR > 60 See Note
[2025-02-16 12:46] LABS: B-Type Natriuretic Peptide 57 pg/mL (0-100)
[2025-02-16] MEDS: DEXTROSE 50%-WATER INJ 50 ML SYRINGE IVP ×2 (13:12→15:06)
--- NOTE | 2025-02-16 13:37 | PC.NURSE ---
Patient made aware of need of u/a, patient states she is unable to provide urine at this tiago, patient refusing in and out cathetar. Umberto ASSISTANT MEDIA BUYER made aware and states ok to give water. Patient denies n/vomiting cup of water provided
--- NOTE | 2025-02-16 13:44 | PC.NURSE ---
Patient awaiting evaluation by hospitalists for admission, patient made aware.
--- NOTE | 2025-02-16 14:13 | PC.CC ---
Patient is a 44 year-old female who presents to the hospital for Hypoglycemia. BLUNGER MACHINE OPERATORBronwyn and ASWGhada made [id number] contact with patient. BLUNGER MACHINE OPERATOR introduced self, role, and reason for visit. Patient appeared alert and oriented to self, location, and situation. BLUNGER MACHINE OPERATOR discussed limits of confidentiality. Patient was pleasant and engaged in initial assessment. Patient confirmed information on demographics and reports to living at home with her , Alfredo Hicks. At home patient reports she ambulates independently and is able to complete her own ADLs. Patient does not require any DME and is not a dialysis patient. Patient's primary provider is Eunice Peterson and pharmacy of choice is [facility]. Upon discharge patient plans to return back home. visitor services representative to follow up with any discharge needs.?
--- NOTE | 2025-02-16 14:19 | XR_ITS ---
Examination: CT brain head without contrast. 2-D sagittal coronal reconstructions Date and time of exam:2024, 1657 hours Comparison September 08, 2024 INDICATIONS: Seizure today, seizure January 02, 2024, September 08, 2024 CTDI: vol (mGy):50.1 DLP: (mGycm):1030 Technique: Multiple CT axial sections of the brain have been obtained, 5 mm slice thickness. Contrast has not been administered. 2-D sagittal, coronal reconstructions have been obtained Low dose protocols were performed. One or more of the following dose reduction techniques were used; automated exposure control, adjustment of the mA and/or KV according to patient size, use of iterative reconstruction technique. Findings: No significant ventricular enlargement. Intra-axial or extra-axial hemorrhage density is not seen. No mass effect or midline shift Basal cisterns are not remarkable. Fourth ventricle is midline. Cranial vault intact. Impression: Negative for acute hemorrhage, mass effect or midline shift Please see the brain MRI report May 01, 2023, suspicious for early demyelinating disease, consider repeat brain MRI without contrast follow-up to confirm demyelinating disease
--- NOTE | 2025-02-16 14:53 | ESHP_ITS ---
<Statement entered by Meggan Jalloh MD - 02/17/25 11:57> I have reviewed the note and agree with the resident's assessment & plan with exceptions as below. I have personally reviewed labs, imaging, home meds/prior records, examined the patient, formulated and discussed management plan with the IM team. Patient examined at bedside today. No acute overnight events. Patient admitted after witnessed seizure and hypoglycemic episode at home. Patient recently started on a new seizure medicine at the time, however has not been taking it. Patient has been admitted for superstitious use of insulin and required ICU stay for persistent hypoglycemia. Patient does have extensive psychiatric history and she reports that she recently fired her psychiatrist as well. Will initiate D10 infusion at this time, bedside glucose checks every 4 hours, and resume other home medicines. Patient will need to get this home seizure medicine from home. Consult neurology, appreciate recommendations. Repeat hematology, chemistry and electrolytes in the a.m. Meggan Jalloh, PGY-2 Internal Medicine Documentation for date of: 02/16/25 HPI History of Present Illness History of present illness: 44 year old female w/ PMHx seizures, gastric bypass, obesity, hypercholesterolemia, cataracts, R eye blindness, DM2, hypothyroid, migraines, anxiety, abdominal hernia, who presented to the ED after 15 seconds seizure (without head trauma) witnessed by her . Upon initial examination patient is anxious, wiggling her feet nervously in the gurney under multiple layers of blankets. Initially she states I dont remember any of it. I woke up to make breakfast and then I see the paramedics and now I am here. I have bad anxiety - I take ativan 2mg BID . She states that she doesn't remember much of what happened, that she woke up at 8:33am, sat on her bed and then passed out. She does not recall wetting herself or becoming stiff, but her reports that she had stiffness when she fell backwards on to the bed. The whole event lasted about 15 seconds and she did not feel any preceding aura or muscle stiffness that accompanied past seizures. She said her then helped her to the bathroom where she urinated, and recalled that he said she was not making any sense and repeating her words, at this point he called the paramedics. She states she did not hit her head and only fell on to the bed. She says her first seizure was 3 years ago and that it has been a few months since her last seizure. She says that there is no insulin at home and that she only takes mounjaro for her diabetes and even then she has not taken it in 2-3 weeks. She states there was a similar event in October where she was hypoglycemic and felt very confused. She has an extensive history of anxiety and very poor sleep over her life due to night terrors. Most recently there have been many stressful events, such as their landlord telling them 3 weeks ago that they have one month to move out since he recently sold the unit, switching psychiatric providers two weeks ago due to medication disputes following her most recent discharge, her lost his job two weeks ago, and tomorrow her children aged 12 and 13 starting academy tomorrow (they will still be living at home while attending). She also has an abdominal hernia from a past that causes her discomfort that surgeons require robotic surgery to operate on holding up her treatment also causing her anxiety. ED Course Summary:Presented to the ED with NV BP: 143/103 Pulse; 116. Work up found to have CBC shows mild leukocytosis and H&H of 9.8 and 34.1 platelets elevated 540 note: The patient has a history of anemia and is on iron supplements. Coags within acceptable limits. CMP shows a sodium of 135 glucose of 140 no other significant electrolyte imbalances. Magnesium of 1.6 no transaminitis other than alk phos of 144 no T. bili elevation. Lipase at 24, TSH at 3.74. She was administered pain control (Acetaminophen), glucose regulation (D50, glucagon, NS 1 L, D10, lispro 1 unit), and nausea control (ondansetron 4mg). Diazepam 2mg was administeered for patient's anxiety about being in the ED and undergoing scans. Medical Hx: seizures, gastric bypass, obesity, hypercholesterolemia, cataracts, R eye blindness, DM2, hypothyroid, migraines, anxiety, abdominal hernia Medications: Pending med rec Allergies: Egg, milk, penicillins, hydrocodone, morphine, metoclopramide Surgical history: , hysterectomy, debridement of infection s/p hysterectomy, gallbladder removal, gastric bypass. Fhx: dad: stent x1, mom: 12 years ago due to lung cancer Soc Hx: living with and two sons (12+13), renting an apartment. All 12 systems reviewed and were negative except otherwise stated in HPI. Patient admitted for seizure work up. Exam Vital Signs Temp Pulse Resp BP Pulse Ox O2 Del Method 98.4 F 100 16 115/67 95 Room Air 02/16/25 11:53 02/16/25 13:14 02/16/25 13:14 02/16/25 13:14 02/16/25 13:14 02/16/25 13:14 Narrative Exam General: Awake, appears tired and anxious. Conversational. HEENT: Normocephalic, atraumatic, mucous membranes moist. Blind in R eye Heart: tachy, regular rhythm, no murmurs. Lungs: Clear to auscultation with no wheezing or crackles. Abdomen: Soft, nondistended, TTP , large tender left side abdominal hernia able to be reduced, positive bowel sounds. ?No guarding or rebound tenderness. Neurologic: Alert and oriented x3, no gross neurological deficit, and patient able to move all 4 extremities. Extremities: No edema. Skin: No rash or ecchymoses. Results: Labs 02/17/25 05:20 02/17/25 05:20 Labs: Short CBC 02/16/25 Range/Units 12:01 WBC 12.0 H (3.6-11.0) Thou/mm3 Hgb 9.8 L (12.0-16.0) g/dL Hct 34.1 L (36.0-46.0) % Plt Count 540 H (140-440) Thou/mm3 BMP 02/16/25 12:01 Sodium 135 L Potassium 4.2 Chloride 101 Carbon Dioxide 25.6 BUN 14 Creatinine 1.0 Glucose 140 H Calcium 9.7 Liver Function 02/16/25 Range/Units 12:01 Total Bilirubin 0.3 (0.3-1.2) mg/dL AST 18 (0-34) U/L ALT 11 (10-49) U/L Alkaline Phosphatase 144 H (46-116) U/L Albumin 4.5 (3.5-5.0) gm/dL Quality Measures Quality Measures none Medications Home Medications and Allergies Home Medications ?Medication ?Instructions ?Recorded ?Confirmed ?Type levothyroxine 75 mcg tablet 75 mcg PO QDAY 03/02/22 History rimegepant 75 mg disintegrating 75 mg PO Q OTHER DAY 0 03/02/22 02/16/25 History tablet (Nurtec ODT) albuterol sulfate 90 mcg/actuation 2 inh inhalation Q8 H PRN shortness 09/12/24 02/16/25 History aerosol inhaler of breath or wheezing cenobamate 150 mg tablet (Xcopri) 150 mg PO QDAY 09/1202/16/25 History diphenhydramine HCl 50 mg capsule 50 mg PO HS 09/12/24 02/16/25 History (Banophen) levetiracetam 500 mg tablet 500 mg PO DAILY 09/12/24 0 02/16/25 History (Keppra) promethazine 25 mg tablet 25 mg PO TID PRN nausea and 09/12/24 02/16/25 History vomiting tramadol 50 mg tablet 50 mg PO BID 09/12/24 History cenobamate 100 mg tablet (Xcopri) 100 mg PO QDAY 10/1302/16/25 History flash glucose sensor (FreeStyle 10/13/24 02/16/25 His Quill Content Dina 2 Sensor kit) gabapentin 100 mg capsule 100 mg PO TID PRN neuropathy 10/13/24 02/16/25 History glucagon 3 mg/actuation nasal 3 mg intranasal Q15MIN P RN low 10/14/24 02/16/25 History spray (Baqsimi) blood sugar lorazepam 2 mg tablet 2 mg PO Q12H 10/14/24 History Allergies Allergy/AdvReac Type Severity Reaction Status Date / Time egg Allergy Severe Abdominal Verified 01/02/24 03:45 Pain milk Allergy Severe Abdominal Verified 01/02/24 03:45 Pain Penicillins Allergy Severe Rash Verified 01/02/24 03:45 hydrocodone Allergy Intermediate ITCHING Verified 01/02/24 03:45 morphine Allergy Rash Verified 01/02/24 03:45 metoclopramide HCl AdvReac Severe HEADACHE Verified 01/02/24 03:45 Visit Medications Acetaminophen (Acetaminophen 325 Mg Tablet) 650 mg PO Q6H PRN PRN Reason: Fever >101.5 or pain 1-3 Stop: 03/18/25 14:34 Dextrose (Dextrose 50%-Water Inj 50 Ml Syringe) 25 ml IV Q15MIN PRN PRN Reason: BG 50-70 responsive npo pt Stop: 03/18/25 14:40 Dextrose (Dextrose 50%-Water Inj 50 Ml Syringe) 50 ml IV Q15MIN PRN PRN Reason: BG <50 OR BG <70 & pt unresponsive Stop: 03/18/25 14:40 Glucagon (Glucagon Inj 1 Mg Vial) 1 mg IM Q15MIN PRN PRN Reason: BG <70, and no IV access Sodium Chloride (Ns) 1,000 mls @ 75 mls/hr IV .[id number] ARIANA Stop: 02/17/25 04:04 Insulin Human Lispro (Insulin Lispro (Admelog) 1 Unit/0.01 Ml Unit) 0 unit SC AC ARIANA; Protocol Stop: 03/18/25 16:59 Ondansetron HCl (Ondansetron Inj 2 Mg/Ml Inj 2 Ml) 4 mg IVP Q6H PRN; Protocol PRN Reason: NAUSEA OR VOMITING Stop: 03/18/25 14:34 Discontinued Medications Dextrose (Dextrose 50%-Water Inj 50 Ml Syringe) 50 ml IVP X1 ONE Stop: 02/16/25 11:50 Last Admin: 02/16/25 13:12 Dose: 50 ml Dextrose (Dextrose 50%-Water Inj 50 Ml Syringe) 50 ml IVP X1 ONE Stop: 02/16/25 14:50 Diazepam (Diazepam Inj 5 Mg/Ml Vial 2 Ml) 2 mg IVP X1 ONE Stop: 02/16/25 14:34 Promethazine HCl 25 mg/ Sodium (Chloride) 51 mls @ 2.5 mls/min IV NOW ONE Stop: 02/16/25 12:05 Last Infusion: 02/16/25 12:40 Dose: Infused Levetiracetam (Levetiracetam Inj 100 Mg/Ml Vial 5ml) 1,000 mg IVP X1 ONE Stop: 02/16/25 11:45 Last Admin: 02/16/25 11:57 Dose: 1,000 mg Assessment & Plan Plan 44 year old female w/ PMHx seizures, gastric bypass, obesity, hypercholesterolemia, cataracts, R eye blindness, DM2, hypothyroid, migraines, anxiety, abdominal hernia, who presented to the ED after 15 seconds seizure (without head trauma) witnessed by her . #Witnessed seizure #Hx of Seizure Patient awoke this morning and her witnessed her fall flat back on the bed with reported stiffness and tongue biting, bilateral bite esposito present on physical exam. Patient does not recall much of what happened after the event states she did not defecate or urinate on herself or hit her head. Patient also takes seizure threshold lowering medications for anxiety such as ativan 2mg BID which she takes at the end of the day or before having to leave her house. She states her schedule of taking these medicines has not changed. Plan: -Consult neuro -CT head fup -Continue home meds: Keppra 500mg BID #Hypoglcyemia Syncopal episode could be due to hypoglycemia. Per EMS patients blood sugar was 50 and after D5 was 50 again in the ED. While not pharmacologically possible on [place] she did have recent admission due to hypoglycemia. Etiology of hypoglycemia could be due to gastric bypass surgery impairing absorption Plan: -Regular bedside insulin checks #DM2 (noninsulin dependent) Takes mounjaro at home. Plan: -Insulin sliding scale -Confirm she is using her rogelio freestyleper chart review #Abdominal hernia Patient is awaiting surgeons to ok surgery, but procedure needs to be done robotically. Has reported pain and discomfort from hernia, able to be reduced on physical exam, does not appear incarcerated or strangulated. Plan: -Continue to monitor -FUP outpatient #Hypercholesterolemia Plan: -FUP lipid panel -Pending med rec restart lipitor 20mg #Hypothyroid TSH 3.74 Plan: -Continue home dose 75mcg levothyroxine once med rec confirms dose and schedule #Obesity #Hx of gastric bypass sx Patient could be experiencing episodes of reactive hypoglycemia, however less likely due to no reported meals before syncopal episode #Migraines Plan: -Pending med rec restart home med: nurtec #Anxiety #Fibromyalgia #Diabetic neuropathy Patient reports taking tramadol 50mg BID for fibromyalgia and diabetic neuropathy and ativan 2mg BID for anxiety. Will hold off on more sedatives for now b/c do not want patient altered/sedated for evaluations. reported no longer taking paroxetine or buspirone. Plan: -Tylenol for pain control, patient is allergic to hydrocodone. #Hx of cataracts #R eye blindness (chronic) Health Maintenance: DVT prophylaxis: SCDs Diet: carb consistent Sol: None Lines: PIV Supplemental O2: RA CODE STATUS: Full Disposition: Admitted for seizure work up Patient seen and reviewed with attending Dr. Jaime and supervising resident Dr. Jalloh. Note written by Ambrose Hanna MD PGY-1 Attending Provider Attestation/Addendum I have discussed and was present for the essential components of the history, physical examination, diagnosis, and treatment plan with the resident. I agree with the patient's care as documented by the resident and amended herein by me. Michael Jaime, DO. Although this document has been carefully reviewed, there may still be some phonetic and other typographical errors. These errors are purely grammatical due to imperfections in the software program and should not be construed in any way to compromise the substance of the patient's medical care during this visit.
[2025-02-16 15:24] LABS: Troponin I < 0.002 ng/mL (0.0-0.045)
[2025-02-16] MEDS: DEXTROSE 10%-WATER 500 ML 50 ML IV (15:28)
[2025-02-16] MEDS: DIAZEPAM INJ 5 MG/ML VIAL 2 ML 2 MG IVP (16:46)
--- NOTE | 2025-02-16 19:41 | PD.RESCONSUL ---
HPI Data of Consult Requesting Physician: Franklin Jaime DO Admitting Provider: Franklin Jaime DO Attending Provider: Franklin Jaime DO Primary Care Provider: Eunice Peterson PA-C Consult Narrative History of present illness: CC: Seizure Patient is a 44-year-old female with a past medical history of hyperlipidemia, diabetes mellitus type 2 on Mounjaro 10 mg subq weekly, history of seizures, hypothyroidism, diabetic neuropathy, right eye blindness, fibromyalgia, depression and anxiety, and agoraphobia who presented to the emergency room via EMS with chief complaint of witnessed seizure and hypoglycemic, glucose 53. Patient sitting at the edge of the bed this morning at approximately 8:30 AM when she lost consciousness and fell back up on her bed, denied head trauma, and tongue biting witnessed by patient's . Per chart review patient has been described tonic episode. Patient home medication is Keppra 500 mg twice daily. Patient recently stopped Nurtec after running out of prescription. Patinet recently stopped Paroxetine, pending new psychiatrist. Home medication for diabetes is only Mounjaro 10 mg sub once weekly, but patient has not taken it over the past 3 weeks because glucose has been low at home. ER Course: Vitals: 143/103, heart rate 116, respiratory rate 20, T98.4 CBC: Leukocytosis WBC count 12.0, microcytic anemia hemoglobin 9.8, hematocrit 34.1, MCV 70, thrombocytosis WBC 540 CMP sodium 135, K4.2, chloride 101, bicarb 25.6, BUN 14, creatinine 1, GFR greater than 60, glucose 140 (after receiving dextrose from EMS), troponin within normal limits BNP 57 TSH 3.74 previous C-peptide 0.80, previous iron panel: Iron 26, TIBC 440, iron saturation 5, unsaturated iron binding 414. Patient was loaded with Keppra 1000 mg IV push x 1 and promethazine given diazepam 2 mg IV push x 1 Past Medical History: seizures, gastric bypass, obesity, hypercholesterolemia, cataracts, R eye blindness, DM2, hypothyroid, migraines, Depression/ anxiety, abdominal hernia Medications: Keppra 500 mg BID, Xcopri 150 mg PO Qday, Nurt ec 75 mg, Tramadol 50 mg BID PRN, Mounjaro 10 mg once weekly, Atorvastatin 20 mg, Gabapentin ?, Parooxetine recently stopped & recently stopped Nurtec as well. Surgical history: , hysterectomy, debridement of infection s/p hysterectomy, Cholecystectomy, gastric bypass. Family History: dad: stent x1, mom: 12 years ago due to lung cancer. Daughter PMH of seizures. Allergies: Egg, milk, penicillins, hydrocodone, morphine, metoclopramide Social History: Denied Alcohol Use, Denied Illicit drug use, Never smoker. Neurology following for break through seizure, likely triggered by stopping Nurtec, plan to resume outpatient. cc:: cc: Franklin Jaime, DO Review of Systems Review of Systems Narrative Review of Systems: General appearance: NO weight change, YES fatigue, NO weakness, NO fever, NO chills, NO night sweats, No cough Skin: NO rash, NO itching, NO sores, NO moles HEENT: NO Trauma, NO nausea, NO vomiting, NO visual changes, NO blurry vision, NO double vision, NO tinnitus, NO vertigo, NO ear discharge, NO rhinorrhea, NO stuffiness, NO sneezing, NO allergy, NO epistaxis. NO Hoarseness, NO sore throat, NO swollen neck. Cardiac: NO Palpitations, NO dyspnea on exertion, NO orthopnea, NO paroxysmal nocturnal dyspnea, NO edema Respiratory: NO Shortness of Breath, NO Wheezing, NO Cough, NO Sputum, NO hemoptysis GI:NO appetite, NO nausea, NO vomiting, NO dysphagia, NO changes in bowel frequency, NO stool color, NO diarrhea, NO constipation, NO hemetemesis, NO hemorrhoids, NO melena, NO hematechezia, NO abdominal pain, NO jaundice Renal: NO frequency, NO hesitancy, NO urgency, NO hematuria, NO nocturia, NO incontinence MSK: NO muscle weakness, NO gout, NO arthritis, NO muscle stiffness Neuro: NO headaches, NO tremors, NO weakness, NO paralysis, Yes seizures, Yes loss of consciousness, NO numbness. Hem: Yes anemia, NO easy bruising/bleeding, NO petechiae, NO purpura Endo: NO heat/cold intolerance, NO excessive sweating, NO polyuria, NO polydipsia, NO polyphagia, YES thyroid problems, YES diabetes Pysch: Yes anxiety, Yes depression Exam Vital Signs Temp Pulse Resp BP Pulse Ox O2 Del Method 98.0 F 99 18 127/69 95 Room Air 02/16/25 15:27 02/16/25 16:42 02/16/25 16:42 02/16/25 16:42 02/16/25 16:42 02/16/25 16:42 Narrative Exam General Appearance: Alert & Oriented X3, well-nourished female who is lying in bed in no acute distress, appears tired. HEENT: Skull symmetrical and atraumatic. Conjunctivae pin and moist. Pupils equal, round, reactive to light and accommodation (PERRL). External ear without lesion or discharge. Straight, nares patient, mucosa pink, no discharge. No thyroid nodule appreciated. Cardio: Normal Rate and Rhythm with S1 and S2 heart sounds. No murmurs or extra heart sounds auscultated. No bruits on carotid auscultation. No peripheral edema or cyanosis. Lungs: Symmetric with good expansion. Chest and back non-tender. Breath sounds vesicular without crackles, wheezing or rhonchi Abdomen: Non-tender, Non-distended, Normal Reactive Bowel Sounds Neuro: Yes Alert, Yes cooperative, Yes oriented to person, Yes place, and YEs time. Speech clear. CN grossly intact. Upper motor strength 5/5 and Lower motor strength 5/5. Sensation intact. Results Labs 02/16/25 12:01 02/16/25 12:01 Labs: Short CBC 02/16/25 Range/Units 12:01 WBC 12.0 H (3.6-11.0) Thou/mm3 Hgb 9.8 L (12.0-16.0) g/dL Hct 34.1 L (36.0-46.0) % Plt Count 540 H (140-440) Thou/mm3 BMP 02/16/25 12:01 Sodium 135 L Potassium 4.2 Chloride 101 Carbon Dioxide 25.6 BUN 14 Creatinine 1.0 Glucose 140 H Calcium 9.7 Cardiac Enzymes 02/16/25 Range/Units 12:01 Troponin I < 0.002 (0.0-0.045) ng/mL Liver Function 02/16/25 Range/Units 12:01 Total Bilirubin 0.3 (0.3-1.2) mg/dL AST 18 (0-34) U/L ALT 11 (10-49) U/L Alkaline Phosphatase 144 H (46-116) U/L Albumin 4.5 (3.5-5.0) gm/dL Quality Measures Quality Measures none Medications Home Medications and Allergies Home Medications ?Medication ?Instructions ?Recorded ?Confirmed ?Type levothyroxine 75 mcg tablet 75 mcg PO QDAY 03/02/22 02/16/25 History rimegepant 75 mg disintegrating 75 mg PO Q OTHER DAY 03/02/22 02/16/25 History tablet (Nurtec ODT) albuterol sulfate 90 mcg/actuation 2 inh inhalation Q8H PRN shortness 09/12/24 02/16/25 History aerosol inhaler of breath or wheezing cenobamate 150 mg tablet (Xcopri) 150 mg PO QDAY 09/12/24 02/16/25 History diphenhydramine HCl 50 mg capsule 50 mg PO HS 09/12/24 02/16/25 History (Banophen) levetiracetam 500 mg tablet 500 mg PO DAILY 09/12/24 02/16/25 History (Keppra) promethazine 25 mg tablet 25 mg PO TID PRN nausea and 09/12/24 02/16/25 History vomiting tramadol 50 mg tablet 50 mg PO BID 09/12/24 02/16/25 History cenobamate 100 mg tablet (Xcopri) 100 mg PO QDAY 10/13/24 02/16/25 History flash glucose sensor (FreeStyle 10/13/24 10/13/24 History Dina 2 Sensor kit) gabapentin 100 mg capsule 100 mg PO 10/13/24 History glucagon 3 mg/actuation nasal 3 mg intranasal 10/14/24 History spray (Baqsimi) lorazepam 2 mg tablet 2 mg PO Q12H 10/14/24 02/16/25 History Allergies Allergy/AdvReac Type Severity Reaction Status Date / Time egg Allergy Severe Abdominal Verified 01/02/24 03:45 Pain milk Allergy Severe Abdominal Verified 01/02/24 03:45 Pain Penicillins Allergy Severe Rash Verified 01/02/24 03:45 hydrocodone Allergy Intermediate ITCHING Verified 01/02/24 03:45 morphine Allergy Rash Verified 01/02/24 03:45 metoclopramide HCl AdvReac Severe HEADACHE Verified 01/02/24 03:45 Visit Medications Acetaminophen (Acetaminophen 325 Mg Tablet) 650 mg PO Q6H PRN PRN Reason: Fever >101.5 or pain 1-3 Stop: 03/18/25 14:34 Dextrose (Dextrose 50%-Water Inj 50 Ml Syringe) 25 ml IV Q15MIN PRN PRN Reason: BG 50-70 responsive npo pt Stop: 03/18/25 14:40 Dextrose (Dextrose 50%-Water Inj 50 Ml Syringe) 50 ml IV Q15MIN PRN PRN Reason: BG <50 OR BG <70 & pt unresponsive Stop: 03/18/25 14:40 Diazepam (Diazepam Inj 5 Mg/Ml Vial 2 Ml) 5 mg IVP X1 PRN PRN Reason: agoraphobia Stop: 02/21/25 19:06 Glucagon (Glucagon Inj 1 Mg Vial) 1 mg IM Q15MIN PRN PRN Reason: BG <70, and no IV access Dextrose (D10w) 500 mls @ 50 mls/hr IV .Q10H ARIANA Stop: 02/18/25 14:55 Last Admin: 02/16/25 15:28 Dose: 50 mls/hr Insulin Human Lispro (Insulin Lispro (Admelog) 1 Unit/0.01 Ml Unit) 0 unit SC AC [facility]; Protocol Stop: 03/18/25 16:59 Last Admin: 02/16/25 17:00 Dose: Not Given Levetiracetam (Levetiracetam 250 Mg Tablet) 500 mg PO BID ARIANA Stop: 03/18/25 19:59 Ondansetron HCl (Ondansetron Inj 2 Mg/Ml Inj 2 Ml) 4 mg IVP Q6H PRN; Protocol PRN Reason: NAUSEA OR VOMITING Stop: 03/18/25 14:34 Discontinued Medications Dextrose (Dextrose 50%-Water Inj 50 Ml Syringe) 50 ml IVP X1 ONE Stop: 02/16/25 11:50 Last Admin: 02/16/25 13:12 Dose: 50 ml Dextrose (Dextrose 50%-Water Inj 50 Ml Syringe) 50 ml IVP X1 ONE Stop: 02/16/25 14:50 Last Admin: 02/16/25 15:06 Dose: 50 ml Diazepam (Diazepam Inj 5 Mg/Ml Vial 2 Ml) 2 mg IVP X1 ONE Stop: 02/16/25 14:34 Last Admin: 02/16/25 16:46 Dose: 2 mg Promethazine HCl 25 mg/ Sodium (Chloride) 51 mls @ 2.5 mls/min IV NOW ONE Stop: 02/16/25 12:05 Last Infusion: 02/16/25 12:40 Dose: Infused Sodium Chloride (Ns) 1,000 mls @ 75 mls/hr IV .[id number] ARIANA Stop: 02/17/25 04:04 Last Admin: 02/16/25 16:48 Dose: Not Given Levetiracetam (Levetiracetam Inj 100 Mg/Ml Vial 5ml) 1,000 mg IVP X1 ONE Stop: 02/16/25 11:45 Last Admin: 02/16/25 11:57 Dose: 1,000 mg Assessment & Plan Plan Patient is a 44-year-old female with a past medical history of hyperlipidemia, diabetes mellitus type 2 on Mounjaro 10 mg subq weekly, history of seizures, hypothyroidism, diabetic neuropathy, right eye blindness, fibromyalgia, depression and anxiety, and agoraphobia who was admitted on 02/16/2025 for break through seizure. #Breakthrough Seizure #Seizure #Leukocytosis Patient has a past medical history of seizures. Patients home medication include Keppra 500 mg BID, Xcorpi 150 mg once daily, and Nurtec for migraine abortive therapy. Patient has several risk factors that could have triggered breakthrough seizure, including abrupt cessation of Xcopri and hypoglycemia in addition to personal stressors, consider GCM and re-evaluate dose of Mounjaro vs UTI but denied dysuria. Diagnostics: CT Head (02/16/2025): Negative TSH 3.74 Plan -EEG & MRI with and without contrast -Keppra 500 mg BID -Xcorpi (non-formulary), please have patient bring to resume -Resume [facility], outpatient for abortive theraoy for migraine -K>4 and Mg >2 -Head of the bed 30 -Seizure Precautions #Hypoglcyemia #Diabetes Mellitus Type 2 #HLD #Hypothyrodism #Anxiety #Depression #Fibromyalgia #Diabetic Neuropathy #R. Eye Blindness #Obesity #history of Gastric bypass #microcytic anemia #thrombocytosis #Asymptomatic UTI - The patient's plan was discussed with attending Dr. Elisha Norton MD PGY2 Internal Medicine Attending Provider Attestation/Addendum I personally have seen and examined the patient at the bedside and agreed with resident's findings, assessment and plan of care. Patient with a history of seizures on Keppra and Xcopri, Keppra, presented with a breakthrough seizure that was witnessed at home lasted less than 30 seconds unlike her usual seizures but associated with the tongue laceration and the loss of consciousness. Likely triggered by abrupt discontinuation of Xcopri from lack of prescription refill and follow-up and hypoglycemia. Follow-up with MRI brain and EEG. Will continue with the Keppra 500 mg twice a day along with Xcopri 150 mg nightly upon discharge.
[2025-02-16 19:42] LABS: Collection Type, Urine Clean Catch; RBC,Urine 0 /hpf (0-3)
[2025-02-16 20:05] LABS: Bacteria,Urine 2+; Bilirubin,Urine Negative (Negative); Blood,Urine Negative (Negative); Clarity,Urine Turbid (Clear/Hazy); Color,Urine Lt-Yellow (Lt Yel-Yel); Glucose, Urine Negative (Negative); Ketones,Urine Negative (Negative); Leukocyte Esterase,Urine Positive (Negative); Nitrite,Urine Positive (Negative); PH,Urine 6.5 (5.0-7.0); Protein,Urine Negative (Neg - Trace); Specific Gravity,Urine 1.008 (1.001-1.035); Squamous Epithelial Cell,Urine 3 /hpf (0-5); Urobilinogen,Urine Negative mg/dL (0.0-1.0); WBC,Urine 141 /hpf (0-5)
[2025-02-16 21:13] LABS: Amphetamine/Methamp Scrn,U Negative (Negative); Barbiturate Screen,Urine Negative (Negative); Benzodiazepines Screen,Urine Negative (Negative); Benzoylecgonine Screen, Ur Negative (Negative); Fentanyl Screen,Urine Negative (Negative); Opiate Screen,Urine Negative (Negative); THC Screen,Urine Negative (Negative)
[2025-02-16] MEDS: PROMETHAZINE INJ 12.5 MG in SODIUM CHLORIDE 0.9% 50 ML 2.5 MG IV (21:53)
[2025-02-17] VITALS (7 sets, daily range): BP systolic 101–146; BP diastolic 73–91; PULSE 87–109; RESP 18–21; TEMP 36–36.4; O2SAT 96–100
--- NOTE | 2025-02-17 | XR_ITS ---
Examination: MRI of brain without intravenous contrast. MRI brain with intravenous contrast. Date and time of exam:February 17, 2025 0851 hours, comparison May 01, 2023 INDICATIONS: Seizure episodes beginning last month Technique: Multiple axial and sagittal images of the brain to been obtained. Siemens high-resolution 1.52 Miriam short bore scanner utilized. Sagittal sections, T1 weighted images, TR 500, TE 14, are performed. Axial sections proton-density and T2-weighted images have been obtained. Inversion recovery axial images, TR 9260, TE 111, TR 2500. Diffusion weighted images, axial sections, TR 4800, TE 128, B value 1000. Axial sections, ADC map, TR 4800, TE 128. Axial and coronal images were also obtained post 20 cc gadolinium administered intravenously. Findings:: Enlargement of the sella turcica is not present. The optic chiasm and infundibular stalk are not remarkable. There is no localized enlargement of the medulla or aime. Fourth ventricle and cerebellar tonsils appear normal in position. No subacute area of hemorrhage density is seen. Fourth ventricle is midline. Mass in the cerebellopontine angle region is not evident. 7th and 8th nerve complexes exhibit symmetry Globes are symmetrical Orbital musculature including medial lateral rectus muscles do not exhibit abnormality Scattered punctate foci increased signal in the frontal white matter FLAIR image 1314 Effacement of the cortical sulcal markings is not identified. Mass effect upon the ventricular system is not identified. Diffusion-weighted images demonstrate no focus of restricted diffusion Contrast images demonstrate no abnormal enhancement Impression: Scattered punctate foci increased signal in the white matter, demyelinating disease pattern
[2025-02-17] MEDS: DEXTROSE 10%-WATER 500 ML 50 ML IV ×2 (04:18→14:44)
[2025-02-17 05:46] LABS: Basophils # (Auto) 0.1 Thou/mm3 (0.0-0.2); Basophils % (Auto) 1 % (0-2.5); Eosinophils # (Auto) 0.4 Thou/mm3 (0.0-0.5); Eosinophils % (Auto) 4 % (0-10); Hematocrit 28.3 % (36.0-46.0); Immature Granulocytes Auto 0.01 Thou/mm3 (0.00-0.00); Lymphocytes # (Auto) 2.8 Thou/mm3 (1.0-4.8); Lymphocytes % (Auto) 26 % (10-50); Mean Corpuscular HGB Conc 29.3 g/dl (31.0-37.0); Mean Corpuscular Hemoglobin 20.8 pg (25.0-35.0); Mean Corpuscular Volume 71 fL (80-100); Monocytes # (Auto) 0.6 Thou/mm3 (0.0-0.8); Monocytes % (Auto) 5 % (0-12); Neutrophils # (Auto) 6.7 Thou/mm3 (1.8-7.7); Neutrophils % (Auto) 64 % (37-80); Nucleated Red Blood Cell # 0.00 Thou/mm3 (0.00-0.00); Nucleated Red Blood Cell % 0 /100 WBC (0); Platelet Count 452 Thou/mm3 (140-440); RDW Standard Deviation 45.7 fL (36.4-46.3); Red Blood Count 3.99 Miln/mm3 (4.00-5.20); White Blood Count 10.6 Thou/mm3 (3.6-11.0)
[2025-02-17 05:54] LABS: Hemoglobin 8.3 g/dL (12.0-16.0)
[2025-02-17 06:26] LABS: INR 1.0 (0.9-1.3); Prothrombin Time 10.9 Seconds (9.0-12.2)
[2025-02-17 07:51] LABS: Alanine Aminotransferase 8 U/L (10-49); Albumin, Serum 3.8 gm/dL (3.5-5.0); Albumin/Globulin Ratio 1.3 (1.2-2.2); Alkaline Phosphatase 115 U/L (46-116); Anion Gap 9 (7-16); Aspartate Amino Transferase 17 U/L (0-34); BUN/Creatinine Ratio 13 Ratio (12-20); Bilirubin,Total 0.2 mg/dL (0.3-1.2); Blood Urea Nitrogen 13 mg/dL (9-23); Calcium 9.0 mg/dL (8.3-10.6); Calcium (Corrected) 9.2 mg/dL (8.5-10.1); Carbon Dioxide 25.5 mMol/L (20.0-31.0); Chloride 105 mMol/L (98-107); Creatinine (Component) 1.0 mg/dL (0.6-1.3); Estimated Creatinine Clearance 97.9 mL/min (>60); Globulin 3.0 gm/dL (2.3-3.5); Glucose 74 mg/dL (74-106); Magnesium 2.1 mg/dL (1.6-2.6); Osmolality,Calculated 276 (275-295); Phosphorous 2.7 mg/dL (2.4-5.1); Potassium 3.8 mMol/L (3.4-5.1); Sodium 139 mMol/L (136-145); Thyroid Stimulating Hormone 3.58 uIU/mL (0.55-4.78); Total Protein 6.8 gm/dL (5.7-8.2); eGFR > 60 See Note
[2025-02-17] MEDS: DIAZEPAM INJ 5 MG/ML VIAL 2 ML IVP (08:25)
--- NOTE | 2025-02-17 10:37 | PC.NURSE ---
pt back from MRI and now having EEG, will give morning medication once it is done
--- NOTE | 2025-02-17 11:02 | ESPR_ITS ---
<Statement entered by Meggan Jalloh MD - 02/17/25 14:28> I have reviewed the note and agree with the resident's assessment & plan with exceptions as below. I have personally reviewed labs, imaging, home meds/prior records, examined the patient, formulated and discussed management plan with the IM team. Patient examined at bedside today. No acute overnight events. Neurology on consult, appreciate recommendations. Patient to bring home seizure medicine as this can be a contributing factor for why she has seizure in addition to hypoglycemia. Continue D10 infusion at this time. Pending MRI and EEG. Repeat hematology and chemistry in AM. Continue with bedside glucose every 4 hours. Meggan Jalloh, PGY-2 Internal Medicine Documentation for date of: 02/17/25 Subjective Subjective Interval history: Patient examined bedside in preparation for MRI for which she was just given 5mg IV diazepam for her anxiety and claustrophobia. Patient was very calm and in good spirits, her children had just called her on their way to their first day of school. She reports that she has not taken xcopri in about 3 weeks and also has not taken any ativan for 2 weeks. She reports no jittery or shaking feelings consistent with withdrawal other than her baseline anxiety. She ednorses no BM since admission but does not feel bloated and declined any laxatives or stool softeners. She endorses some urinary discomfort that started the day of admission and would like treatment for it. She denies SOB, chest pain, NVD, fevers, chills, night sweats. Exam Vital Signs Temp Pulse Resp BP Pulse Ox O2 Del Method 97.4 F 87 18 124/81 100 Room Air 02/17/25 08:00 02/17/25 08:00 02/17/25 08:00 02/17/25 08:00 02/17/25 08:00 02/17/25 08:00 Narrative Exam General: Awake, appears tired and anxious. Conversational. HEENT: Normocephalic, atraumatic, mucous membranes moist. Blind in R eye Heart: RRR, no murmurs, rubs or gallops Lungs: Clear to auscultation with no wheezing or crackles. Abdomen: Soft, nondistended, NTTP , large tender left side abdominal hernia able to be reduced, positive bowel sounds. ?No guarding or rebound tenderness. Neurologic: Alert and oriented x3, no gross neurological deficit, and patient able to move all 4 extremities. Extremities: No edema. Skin: No rash or ecchymoses. : Urinary discomfort while peeing Objective Labs 02/17/25 05:20 02/17/25 05:20 Labs: Laboratory Results - last 24 hr 02/16/25 02/16/25 02/17/25 12:01 19:17 05:20 WBC 12.0 H 10.6 RBC 4.88 3.99 L Hgb 9.8 L 8.3 L Hct 34.1 L 28.3 L MCV 70 L 71 L MCH 20.1 L 20.8 L MCHC 28.7 L 29.3 L RDW Std Deviation 44.2 45.7 Plt Count 540 H 452 H D Neut % (Auto) 82 H 64 Lymph % (Auto) 12 26 [place] % (Auto) 3 5 Eos % (Auto) 2 4 Baso % (Auto) 0 1 Neut # (Auto) 9.9 H 6.7 Lymph # (Auto) 1.4 2.8 [place] # (Auto) 0.4 0.6 Eos # (Auto) 0.2 0.4 Baso # (Auto) 0.0 0.1 Immature Gran # (Auto) 0.05 H 0.01 H Absolute Nucleated RBC 0.00 0.00 Immature Gran % 0 0 Nucleated RBC % 0 0 PT 10.7 10.9 INR 1.0 1.0 APTT 27.2 Sodium 135 L 139 Potassium 4.2 3.8 Chloride 101 105 Carbon Dioxide 25.6 25.5 Anion Gap 8 9 BUN 14 13 Creatinine 1.0 1.0 Estim Creat Clear Calc 96.2 97.9 eGFR > 60 > 60 BUN/Creatinine Ratio 14 13 Glucose 140 H 74 D Calculated Osmolality 272 L 276 Calcium 9.7 9.0 Corrected Calcium 9.7 9.2 Phosphorus 2.7 Magnesium 1.6 2.1 Total Bilirubin 0.3 0.2 L AST 18 17 ALT 11 8 L Alkaline Phosphatase 144 H 115 D Troponin I < 0.002 B-Natriuretic Peptide 57 Total Protein 8.0 6.8 Albumin 4.5 3.8 D Globulin 3.5 3.0 Albumin/Globulin Ratio 1.3 1.3 Lipase 23 TSH 3.74 3.58 Ur Collection Type Clean Catch Urine Color Lt-Yellow Urine Clarity Turbid A Urine pH 6.5 Ur Specific [place] 1.008 Urine Protein Negative Urine Glucose (UA) Negative Urine Ketones Negative Urine Blood Negative Urine Nitrite Positive Urine Bilirubin Negative Urine Urobilinogen (Auto) Negative Ur Leukocyte Esterase Positive Urine RBC 0 Urine WBC 141 H Ur Squamous Epith Cells 3 Urine Bacteria 2+ A Urine Opiates Screen Negative Urine Fentanyl Screen Negative Ur Barbiturates Screen Negative U Amphetamin/Meth Scrn Negative U Benzodiazepines Scrn Negative U Cocaine Metab Screen Negative U Marijuana (THC) Screen Negative Quality Measures Quality Measures none Assessment & Plan Assessment Current Active Medications: Generic Name Dose Route Start Last Admin Trade Name Freq PRN Reason Stop Dose Admin Acetaminophen 650 mg 02/16/25 14:35 Acetaminophen 325 Mg Tablet PO 03/18/25 14:34 Q6H PRN Fever >101.5 or pain 1-3 Dextrose 25 ml 02/16/25 14:41 Dextrose 50%-Water Inj 50 Ml Syringe IV 03/18/25 14:40 Q15MIN PRN BG 50-70 responsive npo pt Dextrose 50 ml 02/16/25 14:41 Dextrose 50%-Water Inj 50 Ml Syringe IV 03/18/25 14:40 Q15MIN PRN BG <50 OR BG <70 & pt unresponsive Diazepam 5 mg 02/16/25 19:07 02/17/25 08:25 Diazepam Inj 5 Mg/Ml Vial 2 Ml IVP 02/21/25 19:06 5 mg X1 PRN Administration agoraphobia Glucagon 1 mg 02/16/25 14:41 Glucagon Inj 1 Mg Vial IM Q15MIN PRN BG <70, and no IV access Dextrose 500 mls @ 50 mls/hr 02/16/25 14:56 02/17/25 04:18 D10w IV 02/18/25 14:55 50 mls/hr .Q10H ARIANA Administration Promethazine HCl 12.5 mg/ 50.5 mls @ 2.5 mls/min 02/16/25 20:34 02/16/25 21:53 Sodium Chloride IV 03/18/25 20:33 2.5 mls/min Q6HR PRN Administration NAUSEA OR VOMITING Insulin Human Lispro 0 unit 02/16/25 17:00 02/17/25 07:28 Insulin Lispro (Admelog) 1 Unit/0.01 Ml Unit SC 03/18/25 16:59 Not Given AC ARIANA Protocol Levetiracetam 500 mg 02/16/25 20:00 02/17/25 10:57 Levetiracetam 250 Mg Tablet PO 03/18/25 19:59 500 mg BID ARIANA Administration Ondansetron HCl 4 mg 02/16/25 14:35 Ondansetron Inj 2 Mg/Ml Inj 2 Ml IVP 03/18/25 14:34 Q6H PRN NAUSEA OR VOMITING Protocol Plan 44 year old female w/ PMHx seizures, gastric bypass, obesity, hypercholesterolemia, cataracts, R eye blindness, DM2, hypothyroid, migraines, anxiety, abdominal hernia, who presented to the ED after 15 seconds seizure (without head trauma) witnessed by her . #Witnessed seizure #Hx of Seizure Patient awoke this morning and her witnessed her fall flat back on the bed with reported stiffness and tongue biting, bilateral bite esposito present on physical exam. Patient does not recall much of what happened after the event states she did not defecate or urinate on herself or hit her head. Patient also takes seizure threshold lowering medications for anxiety such as ativan 2mg BID which she has not taken in two weeks and has not taken her xcopri for 3 weeks due to lack of FUP and refills. She has also stopped taking her paroxetine. MRI reveals a demyelinating disease patten Plan: -Consult neuro: - On discharge restart xcopri 150mg in the evenings - MRI: Scattered punctate foci increased signal in the white matter, demyelinating disease pattern - FUP EEG: - Continue home meds: Keppra 500mg BID -CT head: Negative for acute hemorrhage, mass effect or midline shift #Hypoglcyemia Syncopal episode could be due to hypoglycemia. Per EMS patients blood sugar was 50 and after D5 was 50 again in the ED. While not pharmacologically possible on Migdalia she did have recent admission due to hypoglycemia. Etiology of hypoglycemia could be due to gastric bypass surgery impairing absorption Plan: -Regular bedside insulin checks -D10 IV 3 days on the 02/18 -Give D50 if glucose falls below 70 #Microcytic Anemia HgB: 8.3 Hct: 28.3 MCV: 71 Plan: -FUP iron panel -FUP ferritin -FUP reticulocytes -FUP blood smear #UTI Discomfort when urinating. UA: turbid, WBC: 14, bact 2+ UCx: E.coli+ Plan: -IV rocephin 1 gm x3 days #DM2 (noninsulin dependent) Takes mounjaro at home. Plan: -Insulin sliding scale -Confirm she is using her rogelio freestyleper chart review #Abdominal hernia Patient is awaiting surgeons to ok surgery, but procedure needs to be done robotically. Has reported pain and discomfort from hernia, able to be reduced on physical exam, does not appear incarcerated or strangulated. Plan: -Continue to monitor -FUP outpatient #Hypercholesterolemia Plan: -Lipid panel: Pending -Pending med rec restart lipitor 20mg #Hypothyroid TSH 3.74 Plan: -Continue home dose 75mcg levothyroxine once med rec confirms dose and schedule #Obesity #Hx of gastric bypass sx Patient could be experiencing episodes of reactive hypoglycemia, however less likely due to no reported meals before syncopal episode #Migraines Plan: -Restart nurtec upon discharge per nubina #Anxiety #Fibromyalgia #Diabetic neuropathy Patient reports taking tramadol 50mg BID for fibromyalgia and diabetic neuropathy and ativan 2mg BID for anxiety. Will hold off on more sedatives for now b/c do not want patient altered/sedated for evaluations. reported no longer taking paroxetine or buspirone. Plan: -Tylenol for pain control, patient is allergic to hydrocodone. #Hx of cataracts #R eye blindness (chronic) Health Maintenance: DVT prophylaxis: SCDs Diet: carb consistent Sol: None Lines: PIV Supplemental O2: RA CODE STATUS: Full Disposition: Admitted for seizure work up Patient seen and reviewed with attending Dr. Jaime and supervising resident Dr. Jalloh. Note written by Ambrose Hanna MD PGY-1
--- NOTE | 2025-02-17 11:12 | RESP.EEG ---
EEG COMPLETED AND READY FOR REVIEW
--- NOTE | 2025-02-17 12:02 | PC.SS ---
ss update: d/c today pending MRI, EEG, neurology rec.
[2025-02-17] MEDS: cefTRIAXone/D5w 1gm IV premix 1 GM/50 ML BAG IV (13:26)
--- NOTE | 2025-02-17 14:36 | PC.SS ---
rounding note: MRI done, waiting for EEG read
[2025-02-17 15:06] LABS: Cardiac Risk Estimate 4.0 RATIO (3.7-5.6); Cholesterol 157 mg/dL (132-200); HDL Cholesterol 39 mg/dL (40-60); LDL Cholesterol,Calculated 86 mg/dL (0-130); Triglycerides 160 mg/dL (30-150)
--- NOTE | 2025-02-17 15:30 | PC.NURSE ---
pt c/o nausea and anxiety, offered zofran for the nausea but pt refused, call Dr. Hanna regarding anxiety medication received order for xanax PO that was given, pt vomited 5 minutes later, Dr. Hanna order IV anxiety medication, pt would like to take home promethazine, This RN informed her that she is not allowed to take home medication
[2025-02-17] MEDS: DIAZEPAM INJ 5 MG/ML VIAL 2 ML 2 MG IVP (15:43)
[2025-02-17 16:10] LABS: Partial Thromboplastin Time 26.2 Seconds (22.0-36.0)
[2025-02-17 16:44] LABS: Glucose Estimated Average 114 mg/dL (80-131); Hemoglobin A1C 5.6 % Hgb (4.8-6.0)
[2025-02-17] MEDS: PROMETHAZINE INJ 12.5 MG in SODIUM CHLORIDE 0.9% 50 ML 2.5 MG IV (20:48)
--- NOTE | 2025-02-17 23:51 | PD.NEUROPROG ---
Documentation for date of: 02/17/25 Subjective Subjective Interval history: Patient was seen in [facility] today at the bedside. Patient complains of aches and pains and weakness and not feeling good. She dislikes hospital food and did not eat much, stating it hurts to eat with lacerated tongue. However, staff menitoned that she ate food that was store bought. She reportedly was anxious overnight, received Ativan 2 mg po, valium and Xanax for anxiety/panic attack. No witnessed sz reported after admission. Exam - Neurology Vital Signs Temp Pulse Resp BP Pulse Ox O2 Del Method 97.3 F 109 H 18 110/73 96 Room Air 02/17/25 20:00 02/17/25 20:00 02/17/25 20:00 02/17/25 20:00 02/17/25 20:00 02/17/25 20:00 Narrative Exam GENERAL APPEARANCE: Well hydrated, obese built female in no acute distress. HEENT: Normocephalic, atraumatic, extraocular movements intact. Pupils: Equal reacting to light and accommodation, she is blind in the right eye secondary to diabetic retinopathy years ago NECK: Supple, no JVD or bruits. CARDIOVASULAR: Heart: S1, S2 heard, regular without S3-S4 or murmur no rubs or gallops. LUNGS/CHEST: Clear to auscultation bilaterally. No rails, rhonchi, or wheezing. Normal inspection. ABDOMEN: Soft, with normal bowel sounds. No pulsatile masses. EXTREMITIES: Normal inspection and palpation. No edema, clubbing or cyanosis. SKIN: Warm and dry without rashes. Normal inspection. MUSCULOSKELETAL: No cervical, thoracic, lumbar or midline bony tenderness. Normal inspection. NEURO: Alert, awake and oriented x3. Cranial nerves: II through XII grossly intact. Speech and language: Normal with no dysarthria or dysphasia. Motor system: Tone and bulk: Normal: Strength: 5 out of 5 in all 4 extremities; No pronator drift noted. Deep tendon reflexes: 2+ bilaterally symmetrical. Plantar reflex: Downgoing bilaterally. Sensory system: Intact to all modalities of sensation bilaterally. Coordination: Intact to logvty-tbax-bsque and ddbk-psuh-czrr test bilaterally. No ataxia, no dysmetria, or dysdiadochokinesia noted. No intention tremors noted. Gait: not tested. PSYCHIATRIC: Normal mood and affect at present time, but asking for Phenergan for nausea and if she can take Ativan 2 mg from home meds. Objective Labs 02/17/25 05:20 02/17/25 05:20 Labs: Laboratory Results - last 24 hr 02/17/25 02/17/25 05:20 15:35 WBC 10.6 RBC 3.99 L Hgb 8.3 L Hct 28.3 L MCV 71 L MCH 20.8 L MCHC 29.3 L RDW Std Deviation 45.7 Plt Count 452 H D Neut % (Auto) 64 Lymph % (Auto) 26 [place] % (Auto) 5 Eos % (Auto) 4 Baso % (Auto) 1 Neut # (Auto) 6.7 Lymph # (Auto) 2.8 [place] # (Auto) 0.6 Eos # (Auto) 0.4 Baso # (Auto) 0.1 Immature Gran # (Auto) 0.01 H Absolute Nucleated RBC 0.00 Immature Gran % 0 Nucleated RBC % 0 PT 10.9 INR 1.0 APTT 26.2 Sodium 139 Potassium 3.8 Chloride 105 Carbon Dioxide 25.5 Anion Gap 9 BUN 13 Creatinine 1.0 Estim Creat Clear Calc 97.9 eGFR > 60 BUN/Creatinine Ratio [address] Glu mg/dL 114 Hemoglobin A1c 5.6 Calculated Osmolality 276 Calcium 9.0 Corrected Calcium 9.2 Phosphorus 2.7 Magnesium 2.1 Total Bilirubin 0.2 L AST 17 ALT 8 L Alkaline Phosphatase 115 D Total Protein 6.8 Albumin 3.8 D Globulin 3.0 Albumin/Globulin Ratio 1.3 Triglycerides 160 H Cholesterol 157 LDL Cholesterol, Calc 86 HDL Cholesterol 39 L Cholesterol/HDL Ratio 4.0 TSH 3.58 Assessment & Plan Additional Assessment & Plan Additional Plan: Patient is a 44-year-old female with hyperlipidemia, diabetes mellitus type 2 on Mounjaro with neuropathy and retinopathy leading to blindness right eye, history of seizures, hypothyroidism, fibromyalgia, depression and anxiety, and agoraphobia who was admitted on 02/16/2025 with questionable break through seizure. #Breakthrough Seizure #Seizure disorder #Leukocytosis Patient has history of seizures. Patients home medication include Keppra 500 mg BID, Xcorpi 150 mg once daily. She takes Nurtec for migraine abortive therapy. Patient has several risk factors that could have triggered breakthrough seizure, including abrupt cessation of Xcopri and hypoglycemia in addition to personal stressors, consider CGM and re-evaluate dose of Mounjaro to prevent hypoglycemia. Workup: CT Head (02/16/2025): Negative TSH 3.74 MRI brain: nonspecific white matter changes from chronic microvascular ischemia, not consistent with demyelination EEG: showed normal study without any significant focal or generalized epileptiform discharges. Plan: Continue with Keppra 500 mg bid alone continue to hold Xcopri stable for DC home tomorrow. FU with me in Mar at [facility]. Will get approval for the extended ambulatory EEG monitoring as an outpatient after being off of Keppra for 3 days prior to confirm the diagnosis Advised no driving until the workup is complete. -
[2025-02-18] VITALS (9 sets, daily range): BP systolic 105–139; BP diastolic 57–95; PULSE 88–105; RESP 17–19; TEMP 36.1–37; O2SAT 95–98
[2025-02-18] MEDS: DEXTROSE 50%-WATER INJ 50 ML SYRINGE IV ×2 (04:22→07:50)
[2025-02-18 05:03] LABS: Basophils # (Auto) 0.0 Thou/mm3 (0.0-0.2); Basophils % (Auto) 0 % (0-2.5); Eosinophils # (Auto) 0.5 Thou/mm3 (0.0-0.5); Eosinophils % (Auto) 5 % (0-10); Hematocrit 29.0 % (36.0-46.0); Immature Granulocytes Auto 0.04 Thou/mm3 (0.00-0.00); Immature Reticulocyte Fraction 26.7 % (3.0-15.9); Lymphocytes # (Auto) 2.5 Thou/mm3 (1.0-4.8); Lymphocytes % (Auto) 24 % (10-50); Mean Corpuscular HGB Conc 28.3 g/dl (31.0-37.0); Mean Corpuscular Hemoglobin 20.3 pg (25.0-35.0); Mean Corpuscular Volume 72 fL (80-100); Monocytes # (Auto) 0.5 Thou/mm3 (0.0-0.8); Monocytes % (Auto) 5 % (0-12); Neutrophils # (Auto) 6.9 Thou/mm3 (1.8-7.7); Neutrophils % (Auto) 66 % (37-80); Nucleated Red Blood Cell # 0.00 Thou/mm3 (0.00-0.00); Nucleated Red Blood Cell % 0 /100 WBC (0); Platelet Count 443 Thou/mm3 (140-440); RDW Standard Deviation 45.7 fL (36.4-46.3); Red Blood Count 4.04 Miln/mm3 (4.00-5.20); Reticulocyte % (Auto) 1.6 % (0.5-1.5); Reticulocyte Absolute Auto 63.0 Biln/L (25.0-75.0); Reticulocyte Hgb Content 20.0 pg (28.0-35.0); White Blood Count 10.4 Thou/mm3 (3.6-11.0)
[2025-02-18 05:06] LABS: Hemoglobin 8.2 g/dL (12.0-16.0)
[2025-02-18 05:15] LABS: Path Review Blood Smear Sent to Pathologist
[2025-02-18 05:25] LABS: Alanine Aminotransferase < 7 U/L (10-49); Albumin, Serum 3.7 gm/dL (3.5-5.0); Albumin/Globulin Ratio 1.2 (1.2-2.2); Alkaline Phosphatase 115 U/L (46-116); Anion Gap 8 (7-16); Aspartate Amino Transferase 11 U/L (0-34); BUN/Creatinine Ratio 13 Ratio (12-20); Bilirubin,Total 0.2 mg/dL (0.3-1.2); Blood Urea Nitrogen 12 mg/dL (9-23); Calcium 8.8 mg/dL (8.3-10.6); Calcium (Corrected) 9.0 mg/dL (8.5-10.1); Carbon Dioxide 26.4 mMol/L (20.0-31.0); Chloride 106 mMol/L (98-107); Creatinine (Component) 0.9 mg/dL (0.6-1.3); Estimated Creatinine Clearance 108.7 mL/min (>60); Globulin 3.0 gm/dL (2.3-3.5); Glucose 116 mg/dL (74-106); Magnesium 2.0 mg/dL (1.6-2.6); Osmolality,Calculated 280 (275-295); Phosphorous 3.1 mg/dL (2.4-5.1); Potassium 4.1 mMol/L (3.4-5.1); Sodium 140 mMol/L (136-145); Total Protein 6.7 gm/dL (5.7-8.2); eGFR > 60 See Note
[2025-02-18 05:34] LABS: Iron 15 mcg/dL (50-170); Percent Iron Saturation 4 % (20-55); Total Iron Binding Capacity 354 mcg/dL (250-425); Unsaturated Iron Binding 339 (225-295)
[2025-02-18 06:18] LABS: Ferritin 6 ng/mL (7.3-270.7)
[2025-02-18] MEDS: DEXTROSE 10%-WATER 500 ML 50 ML IV ×3 (07:36→23:41)
[2025-02-18 08:27] LABS: Glucose 201 mg/dL (74-106)
[2025-02-18 15:11] LABS: Beta Hydroxybutyrate 0.0 mmol/L (<0.6)
--- NOTE | 2025-02-18 15:15 | PC.SS ---
Rounding: Neuro reccs, DC plan home
--- NOTE | 2025-02-18 15:28 | ESPR_ITS ---
<Statement entered by Loretta Reyes MD - 03/04/25 15:06> I reviewed above note and agree with findings and plans. I have also personally examined the patient with medicine team and went over assessment and plan with medical team including mechanical intern and resident physician. <Statement entered by Meggan Jalloh MD - 02/18/25 16:11> I have reviewed the note and agree with the resident's assessment & plan with exceptions as below. I have personally reviewed labs, imaging, home meds/prior records, examined the patient, formulated and discussed management plan with the IM team. Patient examined bedside today. Blood glucose overnight was 35. Patient wondering when she is going to go home. At this time we will initiate C-peptide and proinsulin levels to be sent out for further evaluation of persistent hypoglycemia. Neurology on consult, appreciate recommendations. MRI and EEG unremarkable, recommended to follow-up outpatient for continuous EEG monitoring. Patient to get PICC line/central line due to poor venous access. Repeat hematology and chemistry in AM. Continue with blood glucose checks every 4 hours. Meggan Jalloh, PGY-2 Internal Medicine Documentation for date of: 02/18/25 Subjective Subjective Interval history: Patient examined bedside. States she is really good and ready to go home. She states she had a panic attack last night and is not sure what she was given but she wants more of it (diazepam 2.5 mg). Her last BM was at home before the hospital but she does not want any stool softeners or laxatives. She denies SOB, chest pain, NVD, fevers, chills, night sweats. Exam Vital Signs Temp Pulse Resp BP Pulse Ox O2 Del Method 97.1 F 99 18 139/90 H 98 Room Air 02/18/25 11:43 02/18/25 12:00 02/18/25 11:43 02/18/25 11:43 02/18/25 11:43 02/18/25 11:43 Narrative Exam General: Awake, appears tired and anxious. Conversational. HEENT: Normocephalic, atraumatic, mucous membranes moist. Blind in R eye Heart: RRR, no murmurs, rubs or gallops Lungs: Clear to auscultation with no wheezing or crackles. Abdomen: Soft, nondistended, NTTP , large tender left side abdominal hernia able to be reduced, positive bowel sounds. ?No guarding or rebound tenderness. Neurologic: Alert and oriented x3, no gross neurological deficit, and patient able to move all 4 extremities. Extremities: No edema. Skin: No rash or ecchymoses. : No urinary discomfort while peeing Objective Labs 02/18/25 04:42 02/18/25 07:55 Labs: Laboratory Results - last 24 hr 02/17/25 02/17/25 02/18/25 05:20 15:35 04:42 WBC 10.4 RBC 4.04 Hgb 8.2 L Hct 29.0 L MCV 72 L MCH 20.3 L MCHC 28.3 L RDW Std Deviation 45.7 Plt Count 443 H Neut % (Auto) 66 Lymph % (Auto) 24 [place] % (Auto) 5 Eos % (Auto) 5 Baso % (Auto) 0 Neut # (Auto) 6.9 Lymph # (Auto) 2.5 [place] # (Auto) 0.5 Eos # (Auto) 0.5 Baso # (Auto) 0.0 Immature Gran # (Auto) 0.04 H Absolute Nucleated RBC 0.00 Immature Gran % 0 Nucleated RBC % 0 Smear Path Review Sent to Pathologist Retic Count (auto) 1.6 H Absolute Retic 63.0 Immature Retic Fraction 26.7 H Retic Hgb Content CHr 20.0 L APTT 26.2 Sodium 140 Potassium 4.1 Chloride 106 Carbon Dioxide 26.4 Anion Gap 8 BUN 12 Creatinine 0.9 Estim Creat Clear Calc 108.7 eGFR > 60 BUN/Creatinine Ratio 13 Glucose [address] Glu mg/dL 114 Hemoglobin A1c 5.6 Calculated Osmolality 280 Calcium 8.8 Corrected Calcium 9.0 Phosphorus 3.1 Magnesium 2.0 Iron 15 L TIBC 354 Iron Saturation 4 L Unsat Iron Binding 339 H Ferritin 6 L Total Bilirubin 0.2 L AST 11 ALT < 7 L Alkaline Phosphatase 115 Total Protein 6.7 Albumin 3.7 Globulin 3.0 Albumin/Globulin Ratio 1.2 Beta-Hydroxybutyrate/Acetoacetate 02/18/25 02/18/25 07:55 13:55 WBC RBC Hgb Hct MCV MCH MCHC RDW Std Deviation Plt Count Neut % (Auto) Lymph % (Auto) [place] % (Auto) Eos % (Auto) Baso % (Auto) Neut # (Auto) Lymph # (Auto) [place] # (Auto) Eos # (Auto) Baso # (Auto) Immature Gran # (Auto) Absolute Nucleated RBC Immature Gran % Nucleated RBC % Smear Path Review Retic Count (auto) Absolute Retic Immature Retic Fraction Retic Hgb Content CHr APTT Sodium Potassium Chloride Carbon Dioxide Anion Gap BUN Creatinine Estim Creat Clear Calc eGFR BUN/Creatinine Ratio Glucose [address] Glu mg/dL Hemoglobin A1c Calculated Osmolality Calcium Corrected Calcium Phosphorus Magnesium Iron TIBC Iron Saturation Unsat Iron Binding Ferritin Total Bilirubin AST ALT Alkaline Phosphatase Total Protein Albumin Globulin Albumin/Globulin Ratio Beta-Hydroxybutyrate/Acetoacetate 0.0 Quality Measures Quality Measures none Assessment & Plan Assessment Current Active Medications: Generic Name Dose Route Start Last Admin Trade Name Freq PRN Reason Stop Dose Admin Acetaminophen 650 mg 02/16/25 14:35 Acetaminophen 325 Mg Tablet PO 03/18/25 14:34 Q6H PRN Fever >101.5 or pain 1-3 Dextrose 25 ml 02/16/25 14:41 Dextrose 50%-Water Inj 50 Ml Syringe IV 03/18/25 14:40 Q15MIN PRN BG 50-70 responsive npo pt Dextrose 50 ml 02/16/25 14:41 02/18/25 07:50 Dextrose 50%-Water Inj 50 Ml Syringe IV 03/18/25 14:40 50 ml Q15MIN PRN Administration BG <50 OR BG <70 & pt unresponsive Glucagon 1 mg 02/16/25 14:41 Glucagon Inj 1 Mg Vial IM Q15MIN PRN BG <70, and no IV access Promethazine HCl 12.5 mg/ 50.5 mls @ 2.5 mls/min 02/16/25 20:34 02/17/25 20:48 Sodium Chloride IV 03/18/25 20:33 2.5 mls/min Q6HR PRN Administration NAUSEA OR VOMITING Ceftriaxone Sodium/Dextrose 1 gm in 50 mls @ 100 mls/hr 02/17/25 13:00 02/17/25 13:26 Rocephin/D5w 1gm Iv Premix IV 02/19/25 13:00 100 mls/hr QD ARIANA Administration Levetiracetam 500 mg 02/16/25 20:00 02/18/25 08:36 Levetiracetam 250 Mg Tablet PO 03/18/25 19:59 500 mg BID ARIANA Administration Lorazepam 2 mg 02/17/25 19:00 02/17/25 22:24 Lorazepam 0.5 Mg Tablet PO 02/22/25 18:59 1.5 mg HS PRN Administration anxiety Ondansetron HCl 4 mg 02/16/25 14:35 Ondansetron Inj 2 Mg/Ml Inj 2 Ml IVP 03/18/25 14:34 Q6H PRN NAUSEA OR VOMITING Protocol Plan 44 year old female w/ PMHx seizures, gastric bypass, obesity, hypercholesterolemia, cataracts, R eye blindness, DM2, hypothyroid, migraines, anxiety, abdominal hernia, who presented to the ED after 15 seconds seizure (without head trauma) witnessed by her . #Hypoglcyemia Per EMS patients blood sugar was 50 and after D5 was 50 again in the ED. While not pharmacologically possible on she did have recent admission due to hypoglycemia. Etiology of hypoglycemia could be due to gastric bypass surgery impairing absorption or reactive hypoglycemia, insulinoma or factitious disorder imposed on self. Reactive hypoglycemia is less likely because patient is maintained on D10 drip and episodes do not correspond to dietary habits. Insulinoma is less likely b/c glucose levels fluctuate and insulin does not appear to be consistenly low. 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 [facility] police have recently checked her house for insulin and could not find any. Plan: -Regular bedside insulin checks -FUP C-peptide and insulin levels -D10 IV 3 days on the 02/18 -Give D50 if glucose falls below 70 -US guided IV insertion today (02/18) --> PICC line if fails #Witnessed seizure #Hx of Seizure Patient awoke this morning and her witnessed her fall flat back on the bed with reported stiffness and tongue biting, bilateral bite esposito present on physical exam. Patient does not recall much of what happened after the event states she did not defecate or urinate on herself or hit her head. Patient also takes seizure threshold lowering medications for anxiety such as ativan 2mg BID which she has not taken in two weeks and has not taken her xcopri for 3 weeks due to lack of FUP and refills. She has also stopped taking her paroxetine. MRI reveals a demyelinating disease patten Plan: -Consult neuro: - On discharge restart xcopri 150mg in the evenings - MRI: Scattered punctate foci increased signal in the white matter, demyelinating disease pattern - FUP EEG: showed normal study without any significant focal or generalized epileptiform discharges. - Continue home meds: Keppra 500mg BID -CT head: Negative for acute hemorrhage, mass effect or midline shift #Microcytic Anemia #MELISSA HgB: 8.3 Hct: 28.3 MCV: 71 Plan: -FUP iron panel: Iron 15 (L), TIBC: 354 (N), Iron sat: 4 (L), Unsat iron bindin (H) -FUP ferritin: 6 (L) -FUP reticulocytes: 1.6 (H), abs: 63 (N), Immature: 26.7 (H), -FUP blood smear #UTI Discomfort when urinating. UA: turbid, WBC: 14, bact 2+ UCx: E.coli+ Plan: -IV rocephin 1 gm x3 days #DM2 (noninsulin dependent) Takes mounjaro at home. A1C: 5.6 Plan: -Insulin sliding scale -Confirm she is using her rogelio freestyle per chart review #Abdominal hernia Patient is awaiting surgeons to ok surgery, but procedure needs to be done robotically. Has reported pain and discomfort from hernia, able to be reduced on physical exam, does not appear incarcerated or strangulated. Plan: -Continue to monitor -FUP outpatient #Hypercholesterolemia Plan: -Lipid panel: Tri: 160 (H), Cholesterol: 157 (N), LDL: 86 (N), HDL: 39 (L) -Pending med rec restart lipitor 20mg, not needed at this time #Hypothyroid TSH 3.74 Plan: -Continue home dose 75mcg levothyroxine once med rec confirms dose and schedule #Obesity #Hx of gastric bypass sx Patient could be experiencing episodes of reactive hypoglycemia, however less likely due to no reported meals before syncopal episode as well as ongoing D10 IV #Migraines Plan: -Restart nurtec upon discharge per steve #Anxiety #Fibromyalgia #Diabetic neuropathy Patient reports taking tramadol 50mg BID for fibromyalgia and diabetic neuropathy and ativan 2mg BID for anxiety. Will hold off on more sedatives for now b/c do not want patient altered/sedated for evaluations. reported no longer taking paroxetine or buspirone. Plan: -Tylenol for pain control, patient is allergic to hydrocodone. #Hx of cataracts #R eye blindness (chronic) Health Maintenance: DVT prophylaxis: SCDs Diet: carb consistent Sol: None Lines: PIV Supplemental O2: RA CODE STATUS: Full Disposition: Admitted for seizure work up Patient seen and reviewed with attending Dr. Reyes and supervising resident Dr. Jalloh. Note written by Ambrose Hanna MD PGY-1
[2025-02-18] MEDS: cefTRIAXone/D5w 1gm IV premix 1 GM/50 ML BAG IV (17:22)
[2025-02-18] MEDS: DIAZEPAM INJ 5 MG/ML VIAL 2 ML 2.5 MG IVP (17:24)
[2025-02-18] MEDS: PROMETHAZINE INJ 12.5 MG in SODIUM CHLORIDE 0.9% 50 ML 2.5 MG IV (21:11)
--- NOTE | 2025-02-18 23:50 | ESPR_ITS ---
Documentation for date of: 02/18/25 Subjective Subjective Interval history: Patient was seen in [facility] today at the bedside. Patient complains of aches and pains and weakness and not feeling good. She continues to have anxiety despite the frequent doses of Benzos. No witnessed sz reported after admission. Exam - Neurology Vital Signs Temp Pulse Resp BP Pulse Ox O2 Del Method 97.1 F 99 17 107/57 L 95 Room Air 02/18/25 20:00 02/18/25 20:00 02/18/25 20:00 02/18/25 20:00 02/18/25 20:00 02/18/25 20:00 Narrative Exam GENERAL APPEARANCE: Well hydrated, obese built female in no acute distress. HEENT: Normocephalic, atraumatic, extraocular movements intact. Pupils: Equal reacting to light and accommodation, she is blind in the right eye secondary to diabetic retinopathy years ago NECK: Supple, no JVD or bruits. CARDIOVASULAR: Heart: S1, S2 heard, regular without S3-S4 or murmur no rubs or gallops. LUNGS/CHEST: Clear to auscultation bilaterally. No rails, rhonchi, or wheezing. Normal inspection. ABDOMEN: Soft, with normal bowel sounds. No pulsatile masses. EXTREMITIES: Normal inspection and palpation. No edema, clubbing or cyanosis. SKIN: Warm and dry without rashes. Normal inspection. MUSCULOSKELETAL: No cervical, thoracic, lumbar or midline bony tenderness. Normal inspection. NEURO: Alert, awake and oriented x3. Cranial nerves: II through XII grossly intact. Speech and language: Normal with no dysarthria or dysphasia. Motor system: Tone and bulk: Normal: Strength: 5 out of 5 in all 4 extremities; No pronator drift noted. Deep tendon reflexes: 2+ bilaterally symmetrical. Plantar reflex: Downgoing bilaterally. Sensory system: Intact to all modalities of sensation bilaterally. Coordination: Intact to [id number] and nqvy-[id number]-[id number] test bilaterally. No ataxia, no dysmetria, or dysdiadochokinesia noted. No intention tremors noted. Gait: not tested. PSYCHIATRIC: Normal mood and affect. Objective Labs 02/20/25 05:29 02/20/25 05:29 Labs: Laboratory Results - last 24 hr 02/18/25 02/18/25 02/18/25 04:42 07:55 13:55 WBC 10.4 RBC 4.04 Hgb 8.2 L Hct 29.0 L MCV 72 L MCH 20.3 L MCHC 28.3 L RDW Std Deviation 45.7 Plt Count 443 H Neut % (Auto) 66 Lymph % (Auto) 24 [place] % (Auto) 5 Eos % (Auto) 5 Baso % (Auto) 0 Neut # (Auto) 6.9 Lymph # (Auto) 2.5 [place] # (Auto) 0.5 Eos # (Auto) 0.5 Baso # (Auto) 0.0 Immature Gran # (Auto) 0.04 H Absolute Nucleated RBC 0.00 Immature Gran % 0 Nucleated RBC % 0 Smear Path Review Sent to Pathologist Retic Count (auto) 1.6 H Absolute Retic 63.0 Immature Retic Fraction 26.7 H Retic Hgb Content CHr 20.0 L Sodium 140 Potassium 4.1 Chloride 106 Carbon Dioxide 26.4 Anion Gap 8 BUN 12 Creatinine 0.9 Estim Creat Clear Calc 108.7 eGFR > 60 BUN/Creatinine Ratio 13 Glucose 116 H D 201 H D Calculated Osmolality 280 Calcium 8.8 Corrected Calcium 9.0 Phosphorus 3.1 Magnesium 2.0 Iron 15 L TIBC 354 Iron Saturation 4 L Unsat Iron Binding 339 H Ferritin 6 L Total Bilirubin 0.2 L AST 11 ALT < 7 L Alkaline Phosphatase 115 Total Protein 6.7 Albumin 3.7 Globulin 3.0 Albumin/Globulin Ratio 1.2 Beta-Hydroxybutyrate/Acetoacetate 0.0 Assessment & Plan Additional Assessment & Plan Additional Plan: Patient is a 44-year-old female with hyperlipidemia, diabetes mellitus type 2 on Mounjaro with neuropathy and retinopathy leading to blindness right eye, history of seizures, hypothyroidism, fibromyalgia, depression and anxiety, and agoraphobia who was admitted on 02/16/2025 with questionable break through seizure. #Breakthrough Seizure #Seizure disorder #Leukocytosis Patient has history of seizures. Patients home medication include Keppra 500 mg BID, Xcorpi 150 mg once daily. She takes Nurtec for migraine abortive therapy. Patient has several risk factors that could have triggered breakthrough seizure, including abrupt cessation of Xcopri and hypoglycemia in addition to personal stressors, consider CGM and re-evaluate dose of Mounjaro to prevent hypoglycemia. Workup: CT Head (02/16/2025): Negative TSH 3.74 MRI brain: nonspecific white matter changes from chronic microvascular ischemia, not consistent with demyelination EEG: showed normal study without any significant focal or generalized epileptiform discharges. Plan: Continue with Keppra 500 mg bid alone continue to hold Xcopri stable for DC home tomorrow. FU with me in Mar at [facility]. Will get approval for the extended ambulatory EEG monitoring as an outpatient after being off of Keppra for 3 days prior to confirm the diagnosis Advised no driving until the workup is complete. Noted primary team is managing her hypoglycemia with D5/D50. -
[2025-02-19] VITALS (9 sets, daily range): BP systolic 116–141; BP diastolic 53–81; PULSE 92–120; RESP 16–19; TEMP 36.1–37.2; O2SAT 95–99; BMI 44.1
--- NOTE | 2025-02-19 00:07 | PC.NURSE ---
Provided pt with snacks per request. Order in place for [employer] pt refused stated I do not feel comfortable with that, my anxiety is already high,
[2025-02-19 05:45] LABS: Basophils # (Auto) 0.0 Thou/mm3 (0.0-0.2); Basophils % (Auto) 1 % (0-2.5); Eosinophils # (Auto) 0.4 Thou/mm3 (0.0-0.5); Eosinophils % (Auto) 5 % (0-10); Hematocrit 29.8 % (36.0-46.0); Immature Granulocytes Auto 0.03 Thou/mm3 (0.00-0.00); Lymphocytes # (Auto) 1.3 Thou/mm3 (1.0-4.8); Lymphocytes % (Auto) 18 % (10-50); Mean Corpuscular HGB Conc 28.5 g/dl (31.0-37.0); Mean Corpuscular Hemoglobin 20.8 pg (25.0-35.0); Mean Corpuscular Volume 73 fL (80-100); Monocytes # (Auto) 0.5 Thou/mm3 (0.0-0.8); Monocytes % (Auto) 6 % (0-12); Neutrophils # (Auto) 5.2 Thou/mm3 (1.8-7.7); Neutrophils % (Auto) 70 % (37-80); Nucleated Red Blood Cell # 0.00 Thou/mm3 (0.00-0.00); Nucleated Red Blood Cell % 0 /100 WBC (0); Platelet Count 411 Thou/mm3 (140-440); RDW Standard Deviation 47.2 fL (36.4-46.3); Red Blood Count 4.09 Miln/mm3 (4.00-5.20); White Blood Count 7.4 Thou/mm3 (3.6-11.0)
[2025-02-19 05:46] LABS: Misc Send Out* See Sep Rpt
[2025-02-19 05:53] LABS: Hemoglobin 8.5 g/dL (12.0-16.0)
[2025-02-19 06:26] LABS: Alanine Aminotransferase < 7 U/L (10-49); Albumin, Serum 3.7 gm/dL (3.5-5.0); Albumin/Globulin Ratio 1.2 (1.2-2.2); Alkaline Phosphatase 115 U/L (46-116); Anion Gap 9 (7-16); Aspartate Amino Transferase 13 U/L (0-34); BUN/Creatinine Ratio 18 Ratio (12-20); Bilirubin,Total 0.2 mg/dL (0.3-1.2); Blood Urea Nitrogen 16 mg/dL (9-23); Calcium 9.1 mg/dL (8.3-10.6); Calcium (Corrected) 9.3 mg/dL (8.5-10.1); Carbon Dioxide 27.5 mMol/L (20.0-31.0); Chloride 105 mMol/L (98-107); Creatinine (Component) 0.9 mg/dL (0.6-1.3); Estimated Creatinine Clearance 108.7 mL/min (>60); Globulin 3.1 gm/dL (2.3-3.5); Glucose 91 mg/dL (74-106); Magnesium 1.8 mg/dL (1.6-2.6); Osmolality,Calculated 282 (275-295); Phosphorous 3.2 mg/dL (2.4-5.1); Potassium 4.1 mMol/L (3.4-5.1); Sodium 141 mMol/L (136-145); Total Protein 6.8 gm/dL (5.7-8.2); eGFR > 60 See Note
[2025-02-19] MEDS: LEVOTHYROXINE SODIUM 25 MCG TABLET 75 MCG PO (09:27)
[2025-02-19] MEDS: DEXTROSE 10%-WATER 500 ML 25 ML IV (09:28)
[2025-02-19] MEDS: PROMETHAZINE INJ 12.5 MG in SODIUM CHLORIDE 0.9% 50 ML 2.5 MG IV ×2 (09:45→23:35)
[2025-02-19] MEDS: cefTRIAXone/D5w 1gm IV premix 1 GM/50 ML BAG IV (13:08)
--- NOTE | 2025-02-19 14:45 | ESPR_ITS ---
Documentation for date of: 02/19/25 Subjective Subjective Interval history: Patient examined bedside. States she is really good and ready to go home. She states she had a panic attack last night and is not sure what she was given but she wants more of it (diazepam 2.5 mg). Her last BM was at home before the hospital but she does not want any stool softeners or laxatives. Blood glucose remained stable >80 throughout the day. She denies SOB, chest pain, NVD, fevers, chills, night sweats. Exam Vital Signs Temp Pulse Resp BP Pulse Ox O2 Del Method 99.0 F 115 H 18 125/53 L 96 Room Air 02/19/25 12:00 02/19/25 12:00 02/19/25 12:00 02/19/25 12:00 02/19/25 12:02/19/25 12:00 Narrative Exam General: Awake, appears tired and anxious. Conversational. HEENT: Normocephalic, atraumatic, mucous membranes moist. Blind in R eye Heart: RRR, no murmurs, rubs or gallops Lungs: Clear to auscultation with no wheezing or crackles. Abdomen: Soft, nondistended, NTTP , large tender left side abdominal hernia able to be reduced, positive bowel sounds. ?No guarding or rebound tenderness. Neurologic: Alert and oriented x3, no gross neurological deficit, and patient able to move all 4 extremities. Extremities: No edema. Skin: No rash or ecchymoses. : No urinary discomfort while peeing Objective Labs 02/20/25 05:29 02/20/25 05:29 Labs: Laboratory Results - last 24 hr 02/18/25 02/19/25 13:55 05:17 WBC 7.4 RBC 4.09 Hgb 8.5 L Hct 29.8 L MCV 73 L MCH 20.8 L MCHC 28.5 L RDW Std Deviation 47.2 H Plt Count 411 D Neut % (Auto) 70 Lymph % (Auto) 18 [place] % (Auto) 6 Eos % (Auto) 5 Baso % (Auto) 1 Neut # (Auto) 5.2 Lymph # (Auto) 1.3 [place] # (Auto) 0.5 Eos # (Auto) 0.4 Baso # (Auto) 0.0 Immature Gran # (Auto) 0.03 H Absolute Nucleated RBC 0.00 Immature Gran % 0 Nucleated RBC % 0 Sodium 141 Potassium 4.1 Chloride 105 Carbon Dioxide 27.5 Anion Gap 9 BUN 16 Creatinine 0.9 Estim Creat Clear Calc 108.7 eGFR > 60 BUN/Creatinine Ratio 18 Glucose 91 D Calculated Osmolality 282 Calcium 9.1 Corrected Calcium 9.3 Phosphorus 3.2 Magnesium 1.8 Total Bilirubin 0.2 L AST 13 ALT < 7 L Alkaline Phosphatase 115 Total Protein 6.8 Albumin 3.7 Globulin 3.1 Albumin/Globulin Ratio 1.2 Beta-Hydroxybutyrate/Acetoacetate 0.0 Quality Measures Quality Measures none Assessment & Plan Assessment Current Active Medications: Generic Name Dose Route Start Last Admin Trade Name Freq PRN Reason Stop Dose Admin Acetaminophen 650 mg 02/16/25 14:35 Acetaminophen 325 Mg Tablet PO 03/18/25 14:34 Q6H PRN Fever >101.5 or pain 1-3 Dextrose 25 ml 02/16/25 14:41 Dextrose 50%-Water Inj 50 Ml Syringe IV 03/18/25 14:40 Q15MIN PRN BG 50-70 responsive npo pt Dextrose 50 ml 02/16/25 14:41 02/18/25 07:50 Dextrose 50%-Water Inj 50 Ml Syringe IV 03/18/25 14:40 50 ml Q15MIN PRN Administration BG <50 OR BG <70 & pt unresponsive Glucagon 1 mg 02/16/25 14:41 Glucagon Inj 1 Mg Vial IM Q15MIN PRN BG <70, and no IV access Promethazine HCl 12.5 mg/ 50.5 mls @ 2.5 mls/min 02/16/25 20:34 02/19/25 09:45 Sodium Chloride IV 03/18/25 20:33 2.5 mls/min Q6HR PRN Administration NAUSEA OR VOMITING Levetiracetam 500 mg 02/16/25 20:00 02/19/25 09:27 Levetiracetam 250 Mg Tablet PO 03/18/25 19:59 500 mg BID ARIANA Administration Levothyroxine Sodium 75 mcg 02/19/25 08:00 02/19/25 09:27 Levothyroxine Sodium 25 Mcg Tablet PO 03/21/25 07:59 75 mcg ACBR ARIANA Administration Lorazepam 2 mg 02/17/25 19:00 02/17/25 22:24 Lorazepam 0.5 Mg Tablet PO 02/22/25 18:59 1.5 mg HS PRN Administration anxiety Ondansetron HCl 4 mg 02/16/25 14:35 Ondansetron Inj 2 Mg/Ml Inj 2 Ml IVP 03/18/25 14:34 Q6H PRN NAUSEA OR VOMITING Protocol Plan 44 year old female w/ PMHx seizures, gastric bypass, obesity, hypercholesterolemia, cataracts, R eye blindness, DM2, hypothyroid, migraines, anxiety, abdominal hernia, who presented to the ED after 15 seconds seizure (without head trauma) witnessed by her . Sporadically became hypoglycemic while on D10 drip until room was searched, and patient started requesting to be sent home. After being informed it would be unsafe to discharge with blood sugars in the 50s her glucose levels stayed above 80. #Hypoglcyemia - improved Per EMS patients blood sugar was 50 and after D5 was 50 again in the ED. While not pharmacologically possible on Monjaro (not taken in 3 weeks) she did have recent admission due to hypoglycemia. Etiology of hypoglycemia could be due to gastric bypass surgery impairing absorption or reactive hypoglycemia, insulinoma or factitious disorder imposed on self. Reactive hypoglycemia is less likely because patient is maintained on D10 drip and episodes do not correspond to dietary habits. Insulinoma is less likely b/c glucose levels fluctuate and insulin does not appear to be consistently low. 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 [facility] police have recently checked her house for insulin and could not find any. Plan: -Regular bedside insulin checks -FUP C-peptide and insulin levels -D10 IV 3 days on the 02/18 -Give D50 if glucose falls below 70 -US guided IV #Witnessed seizure #Hx of Seizure Patient awoke this morning and her witnessed her fall flat back on the bed with reported stiffness and tongue biting, bilateral bite esposiot present on physical exam. Patient does not recall much of what happened after the event states she did not defecate or urinate on herself or hit her head. Patient also takes seizure threshold lowering medications for anxiety such as ativan 2mg BID which she has not taken in two weeks and has not taken her xcopri for 3 weeks due to lack of FUP and refills. She has also stopped taking her paroxetine. MRI reveals a demyelinating disease patten Plan: -Consult neuro: - On discharge restart xcopri 150mg in the evenings - MRI: Scattered punctate foci increased signal in the white matter, demyelinating disease pattern - FUP EEG: showed normal study without any significant focal or generalized epileptiform discharges. - Continue home meds: Keppra 500mg BID -CT head: Negative for acute hemorrhage, mass effect or midline shift #Microcytic Anemia #MELISSA HgB: 8.3 Hct: 28.3 MCV: 71 Plan: -FUP iron panel: Iron 15 (L), TIBC: 354 (N), Iron sat: 4 (L), Unsat iron bindin (H) -FUP ferritin: 6 (L) -FUP reticulocytes: 1.6 (H), abs: 63 (N), Immature: 26.7 (H), -FUP blood smear #UTI Discomfort when urinating. UA: turbid, WBC: 14, bact 2+ UCx: E.coli+ Plan: -IV rocephin 1 gm x3 days #DM2 (noninsulin dependent) Takes mounjaro at home. A1C: 5.6 Plan: -Insulin sliding scale -Confirm she is using her rogelio freestyle per chart review #Abdominal hernia Patient is awaiting surgeons to ok surgery, but procedure needs to be done robotically. Has reported pain and discomfort from hernia, able to be reduced on physical exam, does not appear incarcerated or strangulated. Plan: -Continue to monitor -FUP outpatient #Hypercholesterolemia Plan: -Lipid panel: Tri: 160 (H), Cholesterol: 157 (N), LDL: 86 (N), HDL: 39 (L) -Pending med rec restart lipitor 20mg, not needed at this time #Hypothyroid TSH 3.74 Plan: -Continue home dose 75mcg levothyroxine once med rec confirms dose and schedule #Obesity #Hx of gastric bypass sx Patient could be experiencing episodes of reactive hypoglycemia, however less likely due to no reported meals before syncopal episode as well as ongoing D10 IV #Migraines Plan: -Restart nurtec upon discharge per steve #Anxiety #Fibromyalgia #Diabetic neuropathy Patient reports taking tramadol 50mg BID for fibromyalgia and diabetic neuropathy and ativan 2mg BID for anxiety. Will hold off on more sedatives for now b/c do not want patient altered/sedated for evaluations. reported no longer taking paroxetine or buspirone. Plan: -Tylenol for pain control, patient is allergic to hydrocodone. #Hx of cataracts #R eye blindness (chronic) Health Maintenance: DVT prophylaxis: SCDs Diet: carb consistent Sol: None Lines: PIV Supplemental O2: RA CODE STATUS: Full Disposition: Admitted for seizure work up Patient seen and reviewed with attending Dr. Cook and supervising resident Dr. Jalloh. Note written by Amborse Hanna MD PGY-1 Attending Provider Attestation/Addendum I have examined the patient, reviewed labs and imaging findings, discussed the case with the resident(s), and reviewed entered orders. I agree with the plan of care as outlined in this note, with these additional summaries/recommendations: Patient seen and examined at bedside. Sugars have remained stable currently minimal dextrose drip. Will discontinue at this time and if sugars are not stable for currently 12 to 24 hours, can consider discharge to home. Continue blood glucose checks every 4 hours and continue with tele sitter. Rakesh Cook MD
--- NOTE | 2025-02-19 20:11 | PC.NURSE ---
Pt is constipated, last BM was on Friday, offered top give some laxative/stool softener but she refused it, pt was given prune juice.
--- NOTE | 2025-02-19 20:48 | PC.NURSE ---
MD Tello came and seen pt, per MD ashley WILKINS for her Keppra.
[2025-02-20] VITALS: BP 115/77; PULSE 107; PULSE 98; RESP 16; TEMP 36.2; O2SAT 96
[2025-02-20 04:00] VITALS: BP 138/76; PULSE 94; PULSE 99; RESP 16; TEMP 36.2; O2SAT 97
[2025-02-20] MEDS: LEVOTHYROXINE SODIUM 25 MCG TABLET 75 MCG PO (05:06)
[2025-02-20 06:20] LABS: Basophils # (Auto) 0.0 Thou/mm3 (0.0-0.2); Basophils % (Auto) 1 % (0-2.5); Eosinophils # (Auto) 0.2 Thou/mm3 (0.0-0.5); Eosinophils % (Auto) 3 % (0-10); Hematocrit 26.8 % (36.0-46.0); Immature Granulocytes Auto 0.02 Thou/mm3 (0.00-0.00); Lymphocytes # (Auto) 2.3 Thou/mm3 (1.0-4.8); Lymphocytes % (Auto) 36 % (10-50); Mean Corpuscular HGB Conc 28.4 g/dl (31.0-37.0); Mean Corpuscular Hemoglobin 20.5 pg (25.0-35.0); Mean Corpuscular Volume 72 fL (80-100); Monocytes # (Auto) 0.9 Thou/mm3 (0.0-0.8); Monocytes % (Auto) 15 % (0-12); Neutrophils # (Auto) 2.8 Thou/mm3 (1.8-7.7); Neutrophils % (Auto) 45 % (37-80); Nucleated Red Blood Cell # 0.00 Thou/mm3 (0.00-0.00); Nucleated Red Blood Cell % 0 /100 WBC (0); Platelet Count 366 Thou/mm3 (140-440); RDW Standard Deviation 47.6 fL (36.4-46.3); Red Blood Count 3.70 Miln/mm3 (4.00-5.20); White Blood Count 6.3 Thou/mm3 (3.6-11.0)
[2025-02-20 06:26] LABS: Hemoglobin 7.6 g/dL (12.0-16.0)
[2025-02-20 06:55] LABS: Alanine Aminotransferase 8 U/L (10-49); Albumin, Serum 3.6 gm/dL (3.5-5.0); Albumin/Globulin Ratio 1.3 (1.2-2.2); Alkaline Phosphatase 103 U/L (46-116); Anion Gap 9 (7-16); Aspartate Amino Transferase 14 U/L (0-34); BUN/Creatinine Ratio 15 Ratio (12-20); Bilirubin,Total 0.2 mg/dL (0.3-1.2); Blood Urea Nitrogen 15 mg/dL (9-23); Calcium 8.8 mg/dL (8.3-10.6); Calcium (Corrected) 9.1 mg/dL (8.5-10.1); Carbon Dioxide 26.3 mMol/L (20.0-31.0); Chloride 106 mMol/L (98-107); Creatinine (Component) 1.0 mg/dL (0.6-1.3); Estimated Creatinine Clearance 97.9 mL/min (>60); Globulin 2.8 gm/dL (2.3-3.5); Glucose 102 mg/dL (74-106); Magnesium 1.7 mg/dL (1.6-2.6); Osmolality,Calculated 282 (275-295); Phosphorous 2.8 mg/dL (2.4-5.1); Potassium 3.9 mMol/L (3.4-5.1); Sodium 141 mMol/L (136-145); Total Protein 6.4 gm/dL (5.7-8.2); eGFR > 60 See Note
[2025-02-20 08:00] VITALS: BP 124/65; PULSE 83; PULSE 94; RESP 16; TEMP 36.6; O2SAT 98
[2025-02-20] MEDS: PROMETHAZINE INJ 12.5 MG in SODIUM CHLORIDE 0.9% 50 ML 2.5 MG IV (11:10)
--- NOTE | 2025-02-20 11:52 | ESDS_ITS ---
<Statement entered by Rakesh Cook MD - 02/22/25 17:18> Patient seen and examined at bedside with resident. Agree with assessment and plan as documented below. Patient cleared to be discharged today. Advised to followup closely with PCP, neurology, psychiatry. Rakesh Cook MD Planned Discharge Date 02/20/25 DS: Providers Provider Date of admission: 02/16/25 14:27 Primary care physician: Eunice Peterson PA-C Admitting Provider: Franklin Jaime DO Attending Provider on Admission: Franklin Jaime DO Consults: 02/16/25 14:47 Consult to Neurology / Tele-Neurology Routine Comment: seizures Consulting Provider: Lionel Tello Attending Provider on DC: Dr. Rakesh Cook Discharging Provider: Dr. Rakesh Cook DS: Diagnosis Problem List Completed Was Problem List Reviewed/Reconciled?: Yes Hospital Course Hospital Course Hospital course: 44 year old female w/ PMHx seizures, gastric bypass, obesity, hypercholesterolemia, cataracts, R eye blindness, DM2(Not on insulin, last mounjaro dose 3 weeks ago) hypothyroid, migraines, anxiety, abdominal hernia, who presented to the ED after 15 seconds seizure witnessed by her and glucose of the 50s per EMS. Admitted for seizure and hypoglycemia work up. In the ED she was nauseas, hypertensive, tachycardic w/ hyperglycemia: 135 s/p D10. She was given glucose regulation, nausea, and anxiety control. Neurology was consulted and found no seizure activity on EEG. Her head CT was normal MRI was unchanged since 2022. While on D10 her blood sugars would sporadically drop. After 24 hour monitoring of blood sugars above 80 she was safe to discharge and FUP with neurology outpatient. Discharge Instructions: Follow-up with your PCP within 1 week Follow up with your neurologist, Dr. Tello within one to two weeks. You will need to do an EEG (continuous) outpatient You will need to repeat CBC test to re-assess your hemoglobin level during your visit to your PCP. Continue to hold Xcorpi until you see your neurologist I am increasing your Keppra to 500 mg twice a day Continue using your continuous glucose monitoring Follow up with your psychiatrist within one to two weeks Take your medicines as prescribed Return to ED if your symptoms worsen or return #Hypoglcyemia #Witnessed seizure #Hx of Seizure #Microcytic Anemia #MELISSA #UTI #DM2 (noninsulin dependent) #Abdominal hernia #Hypercholesterolemia #Hypothyroid #Obesity #Hx of gastric bypass sx #Migraines #Anxiety #Fibromyalgia #Diabetic neuropathy #Hx of cataracts #R eye blindness (chronic) Patient's plan and care discussed with my attending, Dr. Joey Hanna MD Internal Medicine PGY-1 Time Spent with Patient Time attestation: Total time spent providing and/or coordinating discharge services: Time spent: Greater than 30 minutes Exam Vital Signs Temp Pulse Resp BP Pulse Ox O2 Del Method 97.9 F 94 16 124/65 98 Room Air 02/20/25 08:00 02/20/25 08:00 02/20/25 08:00 02/20/25 08:00 02/20/25 08:00 02/20/25 08:00 Narrative Exam General: Awake, appears tired and anxious. Conversational. HEENT: Normocephalic, atraumatic, mucous membranes moist. Blind in R eye Heart: RRR, no murmurs, rubs or gallops Lungs: Clear to auscultation with no wheezing or crackles. Abdomen: Soft, nondistended, NTTP , large tender left side abdominal hernia able to be reduced, positive bowel sounds. ?No guarding or rebound tenderness. Neurologic: Alert and oriented x3, no gross neurological deficit, and patient able to move all 4 extremities. Extremities: No edema. Skin: No rash or ecchymoses. : No urinary discomfort while peeing Discharge Plan Plan Patient Disposition: HOME (Self Care) Patient condition on transfer: Stable Care Plan Goals: Discharge instructions Follow-up with your PCP within 1 week Follow up with your neurologist, Dr. Tello within one to two weeks. You will need to do an EEG (continuous) outpatient You will need to repeat CBC test to re-assess your hemoglobin level during your visit to your PCP. Continue to hold Xcorpi until you see your neurologist I am increasing your Keppra to 500 mg twice a day Continue using your continuous glucose monitoring Follow up with your psychiatrist within one to two weeks Take your medicines as prescribed Return to ED if your symptoms worsen or return Prescriptions/Referrals Prescriptions/Med Rec: New ferrous sulfate 325 mg (65 mg iron) tablet 325 mg PO Q OTHER DAY 30 Days Qty: 15 0RF Rx Instructions: Take one tablet by mouth every other day Continued levothyroxine 75 mcg Tablet 75 mcg PO QDAY Nurtec ODT 75 mg Tablet,Disintegrating 75 mg PO Q OTHER DAY tramadol 50 mg tablet 50 mg PO BID promethazine 25 mg tablet 25 mg PO TID PRN (Reason: nausea and vomiting) albuterol sulfate 90 mcg/actuation HFA aerosol inhaler 2 inh inhalation Q8H PRN (Reason: shortness of breath or wheezing) diphenhydramine HCl [Banophen] 50 mg capsule 50 mg PO HS (DME) FreeStyle Dina 3 [place] Misc See Rx Instructions .Route Qty: 1 0RF Rx Instructions: As directed (DME) FreeStyle Dina 3 Sensor Device See Rx Instructions .Route Qty: 2 3RF Rx Instructions: As directed gabapentin 100 mg capsule 100 mg PO TID PRN (Reason: neuropathy) (DME) FreeStyle Dina 2 Sensor Kit Patient Comments: CHECK BLOOD SUGARS 3 TIMES A DAY FOR DIABETES Baqsimi 3 mg/actuation spray,non-aerosol 3 mg intranasal Q15MIN PRN (Reason: low blood sugar) lorazepam 2 mg tablet 2 mg PO Q12H Patient Comments: TAKE 1 TABLET BY MOUTH TWICE A DAY NEEDED Changed levetiracetam [Keppra] 500 mg tablet 500 mg PO BID 14 Days Qty: 28 0RF Rx Instructions: Take one tablet by mouth twice a day Held Xcopri 150 mg tablet 150 mg PO QDAY Hold Instructions: resume with neurologist Rx Instructions: administer weeks 9 and 10 of therapy Xcopri 100 mg tablet 100 mg PO QDAY Hold Instructions: resume with neurologist Rx Instructions: administer weeks 7 and 8 of therapy Referrals: Lionel Tello MD [Physician] - Eunice Peterson PA-C [Primary Care Provider] - Patient/Caregiver Discharge Instructions Discharge Activity: activity as tolerated Education Materials: C-Peptide (Blood), Anxiety Disorders Tx Therapy, Blood Sugar Monitoring and ..., ED Diabetic Insulin Reaction, ED Seizure, Recurrent (Adult) Print Language: Danish Stand Alone Forms: Janel Award Info., Patient Portal Info Letter Discharge Order Discharge Orders: Discharge (Routine); Ordered 02/20/25 Ordered By: Meggan Jalloh Quality Discharge Quality Measures VTE prophylaxis
[2025-02-20 12:00] VITALS: BP 132/96; PULSE 95; PULSE 98; RESP 19; TEMP 36.3; O2SAT 99
[2025-02-24 06:55] LABS: C-Peptide* 0.92 ng/mL (0.80-3.85); Insulin* 45.2 uIU/mL (< OR = 18.4)
== END 2025-02-20 13:50 | disposition home or self-care (01) | DRG 53 ==
LOC: SERX 13:30 → SERHOLD 14:28 → S3NX 20:55
PROVIDERS: Registered Nurse General Practice; Admitting Provider Student in an Organized Health Care Education/Training Program; Emergency Provider Family Medicine; PCP Physician Assistant; Visit Provider Student in an Organized Health Care Education/Training Program
DX: G40.909 Epilepsy, unspecified, not intractable, without status epilepticus (principal); E66.9 Obesity, unspecified; Z68.41 Body mass index [BMI] 40.0-44.9, adult; E78.00 Pure hypercholesterolemia, unspecified; Z79.84 Long term (current) use of oral hypoglycemic drugs; E11.40 Type 2 diabetes mellitus with diabetic neuropathy, unspecified; G43.909 Migraine, unspecified, not intractable, without status migrainosus; E03.9 Hypothyroidism, unspecified; D72.829 Elevated white blood cell count, unspecified; Z98.84 Bariatric surgery status; H54.61 Unqualified visual loss, right eye, normal vision left eye; E11.649 Type 2 diabetes mellitus with hypoglycemia without coma; R55 Syncope and collapse; K46.9 Unspecified abdominal hernia without obstruction or gangrene; M79.7 Fibromyalgia; Z88.5 Allergy status to narcotic agent; D50.9 Iron deficiency anemia, unspecified; F32.A Depression, unspecified; D75.839 Thrombocytosis, unspecified; N39.0 Urinary tract infection, site not specified; E11.65 Type 2 diabetes mellitus with hyperglycemia; F40.00 Agoraphobia, unspecified; F40.240 Claustrophobia; F41.0 Panic disorder [episodic paroxysmal anxiety]; G37.9 Demyelinating disease of central nervous system, unspecified; T43.226A Underdosing of selective serotonin reuptake inhibitors, initial encounter; Z63.4 Disappearance and death of family member; Z79.899 Other long term (current) drug therapy; Z91.128 Patient's intentional underdosing of medication regimen for other reason; F68.10 Factitious disorder imposed on self, unspecified; Z88.0 Allergy status to penicillin; Z88.8 Allergy status to other drugs, medicaments and biological substances
CPT/HCPCS: 36415; 70450; 70553; 80053; 80061; 80307; 81001; 82010; 82728; 82947; 83036; 83525; 83540; 83550; 83690; 83735; 83880; 84100; 84206; 84443; 84484; 84681; 85025; 85046; 85610; 85730; 93225; 95816; 96365; 96375; 96376; 99284; A9577; J0696; J1953; J2550; J3360; A9270

== ENCOUNTER 2025-04-17 19:25 | Inpatient (IN) | payer MEDICAID, SELFPAY ==
--- NOTE | 2025-04-17 19:38 | PD.EDAMS ---
Altered Mental Status RME/HPI General Chief Complaint: Altered Mental Status Stated Complaint: HYPOGLYCEMIA Time Seen by Provider: 04/17/25 19:49 Arrival date/time: 04/17/25 19:25 RME / HPI RME / HPI narrative: Dr. Cervantes?s Main ED Evaluation: 44yo female with known DMII presenting by paramedics after family called and noted patient to be unresponsive and thought to be sleeping. Blood sugar was reportedly 15 and was administered Glucagon with increase of blood sugar to 30 en route. Patient responsive to tactile and loud vocal stimuli only en route. History is unobtainable due to the patient's inability to provide any history at this time. Related Data Home Medications ?Medication ?Instructions ?Recorded ?Confirmed levothyroxine 75 mcg tablet 75 mcg PO QDAY 03/02/22 02/16/25 rimegepant 75 mg disintegrating 75 mg PO Q OTHER DAY 03/02/22 02/16/25 tablet (Nurtec ODT) albuterol sulfate 90 mcg/actuation 2 inh inhalation Q8H PRN shortness 09/12/24 02/16/25 aerosol inhaler of breath or wheezing cenobamate 150 mg tablet (Xcopri) 150 mg PO QDAY 09/12/24 02/16/25 Held on 02/20/25. Instructions: resume with neurologist diphenhydramine HCl 50 mg capsule 50 mg PO HS 09/12/24 02/16/25 (Banophen) promethazine 25 mg tablet 25 mg PO TID PRN nausea and 09/12/24 02/16/25 vomiting tramadol 50 mg tablet 50 mg PO BID 09/12/24 02/16/25 cenobamate 100 mg tablet (Xcopri) 100 mg PO QDAY 10/13/24 02/16/25 Held on 02/20/25. Instructions: resume with neurologist flash glucose sensor (FreeStyle 10/13/24 02/16/25 Dina 2 Sensor kit) gabapentin 100 mg capsule 100 mg PO TID PRN neuropathy 10/13/24 02/16/25 glucagon 3 mg/actuation nasal 3 mg intranasal Q15MIN PRN low 10/14/24 02/16/25 spray (Baqsimi) blood sugar lorazepam 2 mg tablet 2 mg PO Q12H 10/14/24 02/16/25 Previous Rx's ?Medication ?Instructions ?Recorded blood-glucose sensor (FreeStyle #2 ea 09/13/24 Dina 3 Sensor device) blood-glucose,packer inspector,cont #1 ea 09/13/24 (FreeStyle Dina 3 Mckinney) levetiracetam 500 mg tablet 500 mg PO BID 2 weeks #28 tabs 02/20/25 (Keppra) Allergies Allergy/AdvReac Type Severity Reaction Status Date / Time egg Allergy Severe Abdominal Verified 01/02/24 03:45 Pain milk Allergy Severe Abdominal Verified 01/02/24 03:45 Pain Penicillins Allergy Severe Rash Verified 01/02/24 03:45 hydrocodone Allergy Intermediate ITCHING Verified 01/02/24 03:45 morphine Allergy Rash Verified 01/02/24 03:45 metoclopramide HCl AdvReac Severe HEADACHE Verified 01/02/24 03:45 Review of Systems Review of Systems ROS Unobtainable: unobtainable due to mental status Past Medical History Past Medical History NEUROLOGIC: Positive Neurological Disorders and Migraine; Negative Seizures CARDIAC: Positive Cardiac Disorders, Hypercholesterolemia, Edema and Hypertension; Negative Congestive Heart Failure RESPIRATORY: Positive Pneumonia; Negative Chronic Obstructive Pulmonary Disease (COPD) or Asthma GASTROINTESTINAL: Positive Obesity GENITOURINARY: Negative Genitourinary Disorders or Renal Disease REPRODUCTIVE: Positive Previous Pregnancies MUSCULOSKELETAL: Positive Musculoskeletal Disorders, Fibromyalgia and Fractures ENT: Positive Cataracts, Blind and Retinal Detachment ENDOCRINE: Positive Endocrine Disorders, Diabetes Mellitus Type 2 and Hypothyroidism; Negative Diabetes Mellitus Type 1 HEMATOLOGIC: Positive Blood Disorders and Anemia; Negative Sickle Cell Disease PSYCHO/SOCIAL: Positive Depression and Anxiety OTHER HISTORY: Positive Chicken Pox and Measles; Negative Autoimmune Disease, Blood Transfusions, Blood Transfusion Reaction, Anesthesia Reactions or Cancer Family History FAMILY HISTORY: Positive Family Psychiatric Problems, Family Cardiac Disorders, Family Cancer and Family Surgery; Negative Family Respiratory Disorders, Family Gastrointestinal Problems or Family Anesthesia Reaction Surgical History SURGICAL: Positive Eye Surgery, Abdominal Surgery, Gastric Bypass Surgery, Hysterectomy and Section Social History SMOKING STATUS: Never smoker SECOND HAND EXPOSURE: No SUBSTANCE USE: does not use ED Exam Narrative Physical exam: GENERAL APPEARANCE: deeply somnolent, arousing to tactile and vocal stimuli, unable to follow commands initially VITALS: All vitals were reviewed and the pulse ox is % on room air, which is normal according to my interpretation. HEENT: Normocephalic, atraumatic; pupils equal, round, reactive to light; EOMI; mucous membranes pink, moist; oropharynx clear NECK: Supple LUNGS: CTABL; no wheezes, no rales, no rhonchi HEART: Regular rate, regular rhythm; normal S1, S2; no murmurs ABDOMEN: non distended; soft, ?LLQ tenderness with slight grimacing noted upon palpation BACK: no CVA tenderness EXTREMITIES: atraumatic; no edema NEUROLOGIC: deeply somnolent; cranial nerves II-XII unassessable; no focal sensory or motor deficits SKIN: warm, dry, normal color; no rashes Course Quality Measures none Orders Category Date Time Status EKG (ED ONLY) *Do not use* NOW Care 04/17/25 19:52 Completed EKG (ED Only) Stat Exams 04/17/25 19:52 Draft Blood Culture (Lab) Stat Lab 04/17/25 20:17 Received CBC Stat Lab 04/17/25 19:45 Completed Comprehensive Metabolic Panel Stat Lab 04/17/25 19:45 Completed Drug Screen,Urine Stat Lab 04/17/25 22:23 Received HCG Qualitative,Urine Stat Lab 04/17/25 22:23 Received Lactic Acid [Lactate (Lactic Acid)] Stat Lab 04/17/25 19:45 Completed Lipase Stat Lab 04/17/25 19:45 Completed Magnesium Stat Lab 04/17/25 19:45 Completed Urinalysis, C/S if Indicated Stat Lab 04/17/25 22:23 Received Dextrose 10%-Water 1000 ml [D10w 1000 ml] 1,000 ml Med 04/17/25 19:52 Discontinued IV 125 mls/hr Dextrose 10%-Water 1000 ml [D10w 1000 ml] 500 ml Med 04/17/25 19:57 Active IV 125 mls/hr Dextrose 10%-Water [D10w] 500 ml Med 04/17/25 19:49 Discontinued IV 150 mls/hr Dextrose 50% Syr [D50w Syringe Abboject] Med 04/17/25 19:37 Discontinued 50 ml .ROUTE .STK-MED ONE Dextrose 50% Syr [D50w Syringe Abboject] Med 04/17/25 19:37 Discontinued 50 ml IVP X1 ONE LORazepam [Ativan] Med 04/17/25 22:20 Discontinued 2 mg PO X1 ONE Midazolam Inj [Versed Inj] Med 04/17/25 21:24 Discontinued 2 mg IVP X1 ONE Promethazine HCl [Phenergan] Med 04/17/25 21:24 Discontinued 25 mg PO X1 ONE Vital Signs Vital signs: Vital Signs Pulse Rate 89 04/17/25 19:39 Respiratory Rate 17 04/17/25 19:39 Blood Pressure 129/71 04/17/25 19:39 Pulse Oximetry (%) 99 04/17/25 19:39 Oxygen Delivery Method Room Air 04/17/25 19:39 Altered Mental Status MDM Narrative MDM Narrative:: Scribe Attestation: 04/17/25 - Joselyn Pineda am scribing for and in the presence of Dr. Cervantes. 44yo female with known DMII presenting by paramedics after family called and noted patient to be unresponsive and thought to be sleeping. Blood sugar was reportedly 15 and was administered Glucagon with increase of blood sugar to 30 en route. Please see PE findings. After patient became more arousable, she noted she is on Glimepiride 1 mg. Lab markers demonstrate WBC count 12.8, HnH 9/32, Plt 563. Chemistries notable for blood sugar 51, normal renal function. UA is pending. Upon arrival, patient was deeply somnolent with blood sugar in 50s range and was immediately administered with amp of D50 with spike to 200 range and patient's sensorium markedly improved. Patient's blood sugar subsequently dropped and D10 infusion initiated. Patient underwent serial accu-checks with eventual stablization of blood sugar to 70-90 range. In interim, patient became quite anxious and requested usual benzodiazepine/phenothiazine medical regimen due to severe agoraphobia. Patient was administered incremental doses of benzodiazepines in addition to PO Phenergan. Hospitalist was consulted for admission as patient has a high likelihood of profound hypoglycemia given long half-life of hypoglycemic agent. Dx: sulfonylurea-induced hypoglycemia Patient data External records reviewed:: [facility] previous records (Per chart review, patient was admitted here on 02/16/25 for hypoglycemia.) and EMS form Clinical information provided by:: EMS Social determinants that could affect healthcare access:: none Patient has the following chronic illnesses:: seizures, gastric bypass, DMII, HLD, cataracts, R eye blindness, hypothyroidism, migraines, anxiety, abdominal hernia How is presenting disease/condition affected by chronic disease/condition?: caused by Evaluation data The following diagnostics were reviewed and interpreted by me:: lab results and EKG tracing(s) Lab and/or radiology exams considered but not ordered:: none Interpretation Summary: EKG done at 2129, sinus rhythm, rate of 97, no acute pathological ST segment changes, no ectopy, normal intervals, left axis deviation, according to my interpretation. Medications / Prescriptions Medications or Prescriptions considered but not ordered:: none Medication administrations:: Medication Administration History Dextrose (D10w 1000 Ml) 500 mls @ 125 mls/hr IV .Q4H ONE Stop: 04/17/25 23:56 Last Infusion: 04/17/25 20:32 Dose: 75 mls/hr Documented By: Admin: 04/17/25 20:05 Dose: 125 mls/hr Documented By: Discontinued Medications Dextrose (Dextrose 50%-Water Inj 50 Ml Syringe) 50 ml IVP X1 ONE Stop: 04/17/25 19:38 Last Admin: 04/17/25 19:41 Dose: 50 ml Documented By: ARLEEN Dextrose (Dextrose 50%-Water Inj 50 Ml Syringe) Confirm Administered Dose 50 ml .ROUTE .STK-MED ONE Stop: 04/17/25 19:38 Last Admin: 04/17/25 19:42 Dose: Not Given Documented By: ARLEEN Non-Admin Reason: Override Medication Dextrose (D10w) 500 mls @ 150 mls/hr IV .Q3H20M [facility] Stop: 05/17/25 19:48 Last Admin: 04/17/25 20:03 Dose: Not Given Documented By: SE Non-Admin Reason: Cancelled by Provider Dextrose (D10w 1000 Ml) 1,000 mls @ 125 mls/hr IV .Q8H ARIANA Stop: 04/17/25 23:51 Last Admin: 04/17/25 19:59 Dose: Not Given Documented By: SE Non-Admin Reason: Duplicate Medication on eMAR Lorazepam (Lorazepam 0.5 Mg Tablet) 2 mg PO X1 ONE Stop: 04/17/25 22:21 Last Admin: 04/17/25 22:34 Dose: 2 mg Documented By: ARLEEN Midazolam HCl (Midazolam Inj 1 Mg/Ml Vial 2 Ml) 2 mg IVP X1 ONE Stop: 04/17/25 21:25 Last Admin: 04/17/25 21:33 Dose: 2 mg Documented By: ARLEEN Promethazine HCl (Promethazine Hcl 25 Mg Tablet) 25 mg PO X1 ONE Stop: 04/17/25 21:25 Last Admin: 04/17/25 21:36 Dose: 25 mg Documented By: ARLEEN see above Consultations Consultation(s) initiated? (list below): Yes Consultation #1 (Physician, Specialty, Details): Discussed case with the resident physician, attending Dr. Thornton from Hospitalist service regarding admission. Discussed patients ED course, exam findings, labs, and radiology results. The Hospitalist agrees to accept the patient for admission. Time: 22:37 Diagnosis Differential diagnosis altered mental status: altered mental status, hypoglycemia and other (UTI, dehydration, electrolyte abnormality) Most likely diagnosis given after review of the tests above:: see clinical impression below Admission Indicated Admission indicated?: indicated Admission Request Was there a request for admission?: Yes Admission Attestation Admission request attestation: Discussed case with [] from Hospitalist service regarding admission. Discussed patients ED course, exam findings, labs, and radiology results. The Hospitalist [agrees,declines] to accept the patient for admission. Disposition Plan Disposition Plan: Admit Critical Care Time Critical Care Time Critical Care Time: Yes Total Critical Care Time (min.): 40 Attestation: The high probability of sudden, clinically significant deterioration in the patient?s condition required the highest level of my preparedness to intervene urgently. The services I provided to this patient were to treat and/or prevent clinically significant deterioration. Services included the following: chart data review, reviewing nursing notes and/or old charts, documentation time, reservoir engineering consultant collaboration regarding findings and treatment options, medication orders and management, direct patient care, vital sign assessments and ordering, interpreting and reviewing diagnostic studies and lab tests. Aggregate critical care time includes only time during which I was engaged in work directly related to the patient?s care, as described above, whether at bedside or elsewhere in the Emergency Department. It did not include time spent performing other reported procedures or the services of residents, students, nurses or physician assistants. Discharge Plan Plan Patient Disposition: Admit Acute Care w/in Hospital Prescriptions/Referrals Prescriptions/Med Rec: No Action levothyroxine 75 mcg Tablet 75 mcg PO QDAY Nurtec ODT 75 mg Tablet,Disintegrating 75 mg PO Q OTHER DAY tramadol 50 mg tablet 50 mg PO BID promethazine 25 mg tablet 25 mg PO TID PRN (Reason: nausea and vomiting) albuterol sulfate 90 mcg/actuation HFA aerosol inhaler 2 inh inhalation Q8H PRN (Reason: shortness of breath or wheezing) diphenhydramine HCl [Banophen] 50 mg capsule 50 mg PO HS Xcopri 150 mg tablet 150 mg PO QDAY Rx Instructions: administer weeks 9 and 10 of therapy (DME) FreeStyle Dina 3 Mckinney Misc See Rx Instructions .Route Qty: 1 0RF Rx Instructions: As directed (DME) FreeStyle Dina 3 Sensor Device See Rx Instructions .Route Qty: 2 3RF Rx Instructions: As directed Xcopri 100 mg tablet 100 mg PO QDAY Rx Instructions: administer weeks 7 and 8 of therapy gabapentin 100 mg capsule 100 mg PO TID PRN (Reason: neuropathy) (DME) FreeStyle Dina 2 Sensor Kit Patient Comments: CHECK BLOOD SUGARS 3 TIMES A DAY FOR DIABETES Baqsimi 3 mg/actuation spray,non-aerosol 3 mg intranasal Q15MIN PRN (Reason: low blood sugar) lorazepam 2 mg tablet 2 mg PO Q12H Patient Comments: TAKE 1 TABLET BY MOUTH TWICE A DAY NEEDED levetiracetam [Keppra] 500 mg tablet 500 mg PO BID 14 Days Qty: 28 0RF Rx Instructions: Take one tablet by mouth twice a day Referrals: Eunice Peterson PA-C [Primary Care Provider, Family Practice] - In 1 week Problem List Clinical Impression: Hypoglycemia Patient/Caregiver Discharge Instructions Print Language: Polish Stand Alone Forms: Janel Award Info., Patient Portal Info Letter
[2025-04-17 19:39] VITALS: BP 129/71; PULSE 89; RESP 17; O2SAT 99
[2025-04-17] MEDS: DEXTROSE 50%-WATER INJ 50 ML SYRINGE IVP (19:41)
[2025-04-17 19:44] VITALS: PULSE 88; RESP 16; O2SAT 98; BMI 39.5
--- NOTE | 2025-04-17 19:52 | EKG_ITS ---
[facility] Test Date: 2025-04-17 Pat Name: GEE MURILLO Department: Room: - Gender: Female Youth Officer: : 1980 Requested By: Remy Liriano Order Number: [id number] Reading MD: Remy Liriano Measurements Intervals [place] Rate: 97 P: 29 TX: 147 QRS: 20 QRSD: 90 T: 8 QT: 359 QTc: 457 Interpretive Statements SINUS RHYTHM Compared to ECG 10/13/2024 22:16:02 Sinus tachycardia no longer present Short TX interval no longer present /store/S0/[id number]
[2025-04-17] MEDS: DEXTROSE 10% IV (20:05)
[2025-04-17] MEDS: WATER IV (20:05)
[2025-04-17 20:06] LABS: Lactate (Lactic Acid) 1.9 mMol/L (0.4-2.0)
[2025-04-17 20:07] LABS: Basophils # (Auto) 0.1 Thou/mm3 (0.0-0.2); Basophils % (Auto) 0 % (0-2.5); Eosinophils # (Auto) 0.5 Thou/mm3 (0.0-0.5); Eosinophils % (Auto) 4 % (0-10); Hematocrit 32.3 % (36.0-46.0); Hemoglobin 9.2 g/dL (12.0-16.0); Immature Granulocytes Auto 0.03 Thou/mm3 (0.00-0.00); Lymphocytes # (Auto) 3.6 Thou/mm3 (1.0-4.8); Lymphocytes % (Auto) 28 % (10-50); Mean Corpuscular HGB Conc 28.5 g/dl (31.0-37.0); Mean Corpuscular Hemoglobin 20.0 pg (25.0-35.0); Mean Corpuscular Volume 70 fL (80-100); Monocytes # (Auto) 0.8 Thou/mm3 (0.0-0.8); Monocytes % (Auto) 6 % (0-12); Neutrophils # (Auto) 7.9 Thou/mm3 (1.8-7.7); Neutrophils % (Auto) 62 % (37-80); Nucleated Red Blood Cell # 0.00 Thou/mm3 (0.00-0.00); Nucleated Red Blood Cell % 0 /100 WBC (0); Platelet Count 563 Thou/mm3 (140-440); RDW Standard Deviation 46.3 fL (36.4-46.3); Red Blood Count 4.59 Miln/mm3 (4.00-5.20); White Blood Count 12.8 Thou/mm3 (3.6-11.0)
[2025-04-17 20:29] LABS: Alanine Aminotransferase 17 U/L (10-49); Albumin, Serum 4.3 gm/dL (3.5-5.0); Albumin/Globulin Ratio 1.3 (1.2-2.2); Alkaline Phosphatase 141 U/L (46-116); Anion Gap 9 (7-16); Aspartate Amino Transferase 24 U/L (0-34); BUN/Creatinine Ratio 12 Ratio (12-20); Bilirubin,Total 0.2 mg/dL (0.3-1.2); Blood Urea Nitrogen 14 mg/dL (9-23); Calcium 9.0 mg/dL (8.3-10.6); Calcium (Corrected) 9.0 mg/dL (8.5-10.1); Carbon Dioxide 24.9 mMol/L (20.0-31.0); Chloride 105 mMol/L (98-107); Creatinine (Component) 1.2 mg/dL (0.6-1.3); Estimated Creatinine Clearance 76.4 mL/min (>60); Globulin 3.4 gm/dL (2.3-3.5); Glucose 51 mg/dL (74-106); Lipase 28 U/L (12-53); Magnesium 2.2 mg/dL (1.6-2.6); Osmolality,Calculated 275 (275-295); Potassium 3.7 mMol/L (3.4-5.1); Sodium 139 mMol/L (136-145); Total Protein 7.7 gm/dL (5.7-8.2); eGFR 58 See Note
[2025-04-17] MEDS: MIDAZOLAM INJ 1 MG/ML VIAL 2 ML 2 MG IVP (21:33)
[2025-04-17] MEDS: PROMETHAZINE HCL 25 MG TABLET PO (21:36)
[2025-04-17 21:59] VITALS: BP 147/88; PULSE 93; RESP 18; TEMP 36.6; O2SAT 100
[2025-04-17 22:35] LABS: Collection Type, Urine Clean Catch
[2025-04-17 22:48] LABS: Bacteria,Urine Rare; Bilirubin,Urine Negative (Negative); Blood,Urine Negative (Negative); Clarity,Urine Clear (Clear/Hazy); Color,Urine Lt-Yellow (Lt Yel-Yel); Culture Indicated,Urine Yes; Glucose, Urine 1+ (Negative); Ketones,Urine Negative (Negative); Leukocyte Esterase,Urine Negative (Negative); Nitrite,Urine Positive (Negative); PH,Urine 5.5 (5.0-7.0); Protein,Urine Negative (Neg - Trace); RBC,Urine < 1 /hpf (0-3); Specific Gravity,Urine 1.010 (1.001-1.035); Squamous Epithelial Cell,Urine 1 /hpf (0-5); Urobilinogen,Urine Negative mg/dL (0.0-1.0); WBC,Urine 2 /hpf (0-5)
[2025-04-17 22:49] LABS: HCG Qualitative,Urine Negative
[2025-04-17 22:50] LABS: Amphetamine/Methamp Scrn,U Negative (Negative); Barbiturate Screen,Urine Negative (Negative); Benzodiazepines Screen,Urine Negative (Negative); Benzoylecgonine Screen, Ur Negative (Negative); Fentanyl Screen,Urine Negative (Negative); Opiate Screen,Urine Negative (Negative); THC Screen,Urine Negative (Negative)
--- NOTE | 2025-04-17 23:24 | PD.RESHP ---
Documentation for date of: 04/17/25 [facility] History of Present Illness History of present illness: Ms. Nguyễn is a 44 y/o woman with PMH T2DM, seizures, gastric bypass, obesity, hypercholesterolemia, cataracts, R eye blindness, hypothyroid, migraines, anxiety, abdominal hernia, who presented to the ED after being found unconscious at home. EMS was called, BG 15 at home. Patient does not remember passing out, but did remember being nauseous and not feeling right . Unknown for how long patient was unconscious, but she estimates ~1 hr prior to EMS being called. Last meal was ~24 hours ago; after gastric bypass, patient has low appetite and occasionally forgets to eat meals. Denies recent illnesses, hospitalizations, sick contacts. Currently denies abdominal pain, headache, nausea, vomiting. She was able to eat a 1/2 sandwich without complications while in ED. Of note, she has had multiple admissions in the past for hypoglycemia requiring D10 gtt. Patient was previously taking Mounjaro and Glimiperide, but stopped taking Mounjaro recently. Continues to take Glimiperide 1 mg PO daily. She sees a PCP at [facility] and is pending [facility] to approve an drapery hemmer automatic. Her also has T2DM, he takes Ozempic. Both her kids are pre-diabetic but not on any medications. No one at home takes insulin. Denies currently taking seizure medications. ED course: VSS. BG 51. WBC 12.8, hgb 9.2, HCT 32.3, MCV 70, plt 563, alk phos 141. EKG NSR 97, QTc 457. UDS negative. UA negative. Given amp D50, D10 125 mL/hr, midazolam 2 mg IV, Promethazine 25 mg PO, Lorazepam 2 mg PO. PMHx: T2DM, seizures, gastric bypass, obesity, hypercholesterolemia, cataracts, R eye blindness, hypothyroid, migraines, anxiety, abdominal hernia, peripheral neuropathy Allergies: Reglan, Hydrocodone, Morphine, [place], Penicillins, egg, milk Home meds: Glimiperide 1 mg PO daily Gabapentin 600 mg PO TID Ativan 2 mg PO BID Tramadol 50 mg PO BID Levothyroxine 75 mcg PO daily SgHx: , hysterectomy, debridement of infection s/p hysterectomy, gallbladder removal, gastric bypass. SHx: Denies smoking, EtOH, recreational drug use. 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 Lives with and two kids. FHx: dad: stent x1; mom: 12 years ago due to lung cancer; both children: prediabetes Review of Systems Review of Systems Narrative Review of Systems: 14 point ROS negative other than HPI Exam Vital Signs Temp Pulse Resp BP Pulse Ox O2 Del Method O2 Flow Rate 98 F 93 18 147/88 H 100 Nasal Cannula 3 04/17/25 21:59 04/17/25 21:59 04/17/25 21:59 04/17/25 21:59 04/17/25 21:59 04/17/25 21:59 04/17/25 21:59 Narrative Exam General: No acute distress, obese, covered in multiple blankets Eye: PERRL, EOMI, normal conjunctiva, no scleral icterus HENT: Normocephalic, atraumatic, normal hearing, moist oral mucosa Neck: Supple, non-tender, no JVD, no lymphadenopathy Lungs: Clear to auscultation bilaterally, non-labored respirations, symmetric chest rise, no use of accessory muscles Heart: Normal S1 and S2, no S3 or S4 appreciated. Tachycardic, regular rhythm, no murmurs, rubs gallops, or edema. Peripheral pulses intact bilaterally, capillary refill brisk distally Abdomen: Soft, non-tender, non-distended, normal bowel sounds. No guarding or rebound tenderness. Left sided abdominal hernia present (chronic). Musculoskeletal: Normal range of motion and strength, no tenderness or swelling Skin: Skin is warm, dry, no rashes or lesions. Neurologic: Alert, awake and oriented x3. CN II-XII grossly intact. No focal neuro deficits. No signs of meningeal irritation noted. Psychiatric: Cooperative, appropriate mood and affect Results: Labs 04/17/25 19:45 04/17/25 19:45 Labs: Short CBC 04/17/25 Range/Units 19:45 WBC 12.8 H (3.6-11.0) Thou/mm3 Hgb 9.2 L (12.0-16.0) g/dL Hct 32.3 L (36.0-46.0) % Plt Count 563 H (140-440) Thou/mm3 BMP 04/17/25 19:45 Sodium 139 Potassium 3.7 Chloride 105 Carbon Dioxide 24.9 BUN 14 Creatinine 1.2 Glucose 51 L Calcium 9.0 Liver Function 04/17/25 Range/Units 19:45 Total Bilirubin 0.2 L (0.3-1.2) mg/dL AST 24 (0-34) U/L ALT 17 (10-49) U/L Alkaline Phosphatase 141 H (46-116) U/L Albumin 4.3 (3.5-5.0) gm/dL Urine 04/17/25 Range/Units 22:23 Urine Color Lt-Yellow (Lt Yel-Yel) Urine Clarity Clear (Clear/Hazy) Urine pH 5.5 (5.0-7.0) Ur Specific [place] 1.010 (1.001-1.035) Urine Protein Negative (Neg - Trace) Urine Glucose (UA) 1+ A (Negative) Quality Measures Quality Measures none Medications Home Medications and Allergies Home Medications ?Medication ?Instructions ?Recorded ?Confirmed ?Type levothyroxine 75 mcg tablet 75 mcg PO QDAY 03/02/22 02/16/25 History rimegepant 75 mg disintegrating 75 mg PO Q OTHER DAY 03/02/22 02/16/25 History tablet (Nurtec ODT) albuterol sulfate 90 mcg/actuation 2 inh inhalation Q8H PRN shortness 09/12/24 02/16/25 History aerosol inhaler of breath or wheezing cenobamate 150 mg tablet (Xcopri) 150 mg PO QDAY 09/12/24 02/16/25 History Held on 02/20/25. Instructions: resume with neurologist diphenhydramine HCl 50 mg capsule 50 mg PO HS 09/12/24 02/16/25 History (Banophen) promethazine 25 mg tablet 25 mg PO TID PRN nausea and 09/12/24 02/16/25 History vomiting tramadol 50 mg tablet 50 mg PO BID 09/12/24 02/16/25 History cenobamate 100 mg tablet (Xcopri) 100 mg PO QDAY 10/13/24 02/16/25 History Held on 02/20/25. Instructions: resume with neurologist flash glucose sensor (FreeStyle 10/13/24 02/16/25 History Dina 2 Sensor kit) gabapentin 100 mg capsule 100 mg PO TID PRN neuropathy 10/13/24 02/16/25 History glucagon 3 mg/actuation nasal 3 mg intranasal Q15MIN PRN low 10/14/24 02/16/25 History spray (Baqsimi) blood sugar lorazepam 2 mg tablet 2 mg PO Q12H 10/14/24 02/16/25 History Allergies Allergy/AdvReac Type Severity Reaction Status Date / Time egg Allergy Severe Abdominal Verified 01/02/24 03:45 Pain milk Allergy Severe Abdominal Verified 01/02/24 03:45 Pain Penicillins Allergy Severe Rash Verified 01/02/24 03:45 hydrocodone Allergy Intermediate ITCHING Verified 01/02/24 03:45 morphine Allergy Rash Verified 01/02/24 03:45 metoclopramide HCl AdvReac Severe HEADACHE Verified 01/02/24 03:45 Visit Medications Acetaminophen (Acetaminophen 325 Mg Tablet) 650 mg PO Q6H PRN PRN Reason: Fever >101.5 Stop: 05/17/25 23:16 Acetaminophen (Acetaminophen 325 Mg Tablet) 650 mg PO Q6H PRN PRN Reason: PAIN SCALE 1-3 (mild Stop: 05/17/25 23:16 Heparin Sodium (Porcine) (Heparin Sod Inj 5000 Unit/Ml Vial) 5,000 unit SC Q8HR ARIANA Stop: 05/02/25 05:59 Dextrose (D10w 1000 Ml) 500 mls @ 125 mls/hr IV .Q4H ONE Stop: 04/17/25 23:56 Last Infusion: 04/17/25 20:32 Dose: 75 mls/hr Ondansetron HCl (Ondansetron Inj 2 Mg/Ml Inj 2 Ml) 4 mg IVP Q6H PRN; Protocol PRN Reason: NAUSEA OR VOMITING Stop: 05/17/25 23:16 Discontinued Medications Dextrose (Dextrose 50%-Water Inj 50 Ml Syringe) 50 ml IVP X1 ONE Stop: 04/17/25 19:38 Last Admin: 04/17/25 19:41 Dose: 50 ml Dextrose (D10w) 500 mls @ 150 mls/hr IV .Q3H20M ARIANA Stop: 05/17/25 19:48 Last Admin: 04/17/25 20:03 Dose: Not Given Dextrose (D10w 1000 Ml) 1,000 mls @ 125 mls/hr IV .Q8H ARIANA Stop: 04/17/25 23:51 Last Admin: 04/17/25 19:59 Dose: Not Given Lorazepam (Lorazepam 0.5 Mg Tablet) 2 mg PO X1 ONE Stop: 04/17/25 22:21 Last Admin: 04/17/25 22:34 Dose: 2 mg Midazolam HCl (Midazolam Inj 1 Mg/Ml Vial 2 Ml) 2 mg IVP X1 ONE Stop: 04/17/25 21:25 Last Admin: 04/17/25 21:33 Dose: 2 mg Promethazine HCl (Promethazine Hcl 25 Mg Tablet) 25 mg PO X1 ONE Stop: 04/17/25 21:25 Last Admin: 04/17/25 21:36 Dose: 25 mg Assessment & Plan Plan Ms. Nguyễn is a 44 y/o woman with PMH T2DM, seizures, gastric bypass, obesity, hypothyroid, anxiety who presented to the ED after being found unconscious at home, BG 15. Admitted to obs for D10 gtt for hypoglycemia. #Hypoglycemia #Type 2 Diabetes Mellitus Home med: Glimiperide 1 mg PO daily Prevous admission in February 2025: inuslin level 45.2, C peptide 0.92 WNL Given mp D50, D10 125 mL/hr 1L in ED Plan: - Continue D5 NS 100mL/hr - Blood glucose checks q4h - Pending A1C - F/U with outpatient endocrinology #Hypothyroidism Plan: - Pending TSH, T4 - Levothyroxine 75 mcg PO daily (home med) #Obesity #Hyperlipidemia #Hx gastric bypass Previously on Mounjaro, no longer taking Plan: - Pending Lipid panel #Leukocytosis #Thrombocytosis Afebrile, UDS negative for UTI Plan: - CTM with daily CBC #Microcytic anemia #Hx Iron deficiency anemia Hgb 9.2, HCT 32.3, MCV 70, MCHC 28.5 No s/sx active bleeding Plan: - CTM with daily CBC #Peripheral neuropathy Plan: - Gabapentin 600 mg PO TID (home med) #Anxiety #Agoraphobia Plan: - Ativan 2 mg PO BID (home med) #Fibromyalgia Plan: Tramadol 50 mg PO BID (home med) Checklist Dispo: Admit to obx tele for q4h BG checks Diet: Carb consistent Bowel Reg: n/a VTE ppx: heparin subQ GI ppx: n/a Pain mgmt: Tylenol PRN, Tramadol 50 mg PO BID (home med) Code status: full Plan discussed with Dr. Littlejohn and Dr. Hillary Aguilera MD PGY1 Attending Provider Attestation/Addendum I, Kari Thornton DO, attest that I was physically present for the [place]ham portions of the service and evaluated the patient with the resident and I reviewed and discussed the case with the resident and agree with the resident's findings and plans of care as documented above Patient is a 44 yo female with PmHx of [id number], seizures, gastric bypass, obesity, HLD, cataracts, hypothyroid, anxiety and migraines who was brought in by ambulance as she was found unresponsive at home. Patient states that she had not been feeling well throughout the day and nauseous. However, she does not remember the events that led up to her losing consciousness. She states that her had thought that she was sleeping, but alerted by her children that patient was not responding. She was found to have a BG of 15 upon arrival of EMS. Patient states that she eats small meals at home, last one being about 24h ago. ?She also often forgets to eat.? Patient has had several hospitalizations in the past due to hypoglycemia as well.? She denies ever using insulin for her diabetes.? Upon review of her previous chart, patient had been advised to stop taking glimepiride due to hypoglycemia in October.? However, patient denies ever stopping her glimepiride or recall being advised to stop.? She states that she had previously taken Mounjaro and stopped taking that since her last admission in February also due to hypoglycemia. Pt had previously been worked up for hypoglycemia on previous visits during which she was noted to have elevated serum levels of insulin and low-normal range c-peptide. Patient was somnolent upon presentation to the ED. Mental status improved after 1 amp of D50, but again dropped and was subsequently placed on D10 drip. Hospitalist service called for admission due to hypoglycemia. Will admit patient to telemetry as she remains on D10 drip. Patient is A&Ox4 and reports no nausea, abdominal pain, dysuria, fevers, chills, shortness of breath or chest pain. Patient reports feeling cold and shivering. She was able to eat half a sandwich and states she is feeling improved. Will continue with D10 drip and frequent Blood sugar checks q4h. Will order insulin levels again and hypoglycemia panel. Suspect that patient?s continued use of glimepiride may be the cause of her hypoglycemia. Patient advised to discontinue glimepiride due to recurrent hypoglycemia. Last A1c in February was 5.6. Will repeat A1c.
[2025-04-18] VITALS (10 sets, daily range): BP systolic 113–140; BP diastolic 64–85; PULSE 70–123; RESP 15–29; TEMP 36.8–37.5; O2SAT 94–99
[2025-04-18] MEDS: GABAPENTIN 100 MG CAPSULE 600 MG PO ×2 (02:26→14:30)
[2025-04-18] MEDS: ONDANSETRON INJ 2 MG/ML INJ 2 ML 4 MG IVP (02:53)
[2025-04-18] MEDS: DIAZEPAM INJ 5 MG/ML VIAL 2 ML 2 MG IVP (03:02)
[2025-04-18] MEDS: DEXTROSE 5%-NS 1,000 ML 100 ML IV (04:10)
[2025-04-18] MEDS: HEPARIN SOD INJ 5000 UNIT/ML VIAL SC ×2 (05:45→14:30)
[2025-04-18] MEDS: DEXTROSE 50%-WATER INJ 50 ML SYRINGE IVP (06:04)
[2025-04-18] MEDS: DEXTROSE 10%-WATER 1000 ML 1,000 ML 100 ML IV (06:07)
[2025-04-18 06:32] LABS: Misc Send Out* See Sep Rpt
[2025-04-18 06:52] LABS: Glucose Estimated Average 128 mg/dL (80-131); Hemoglobin A1C 6.1 % Hgb (4.8-6.0)
[2025-04-18 06:58] LABS: Basophils # (Auto) 0.1 Thou/mm3 (0.0-0.2); Basophils % (Auto) 0 % (0-2.5); Eosinophils # (Auto) 0.3 Thou/mm3 (0.0-0.5); Eosinophils % (Auto) 2 % (0-10); Hematocrit 27.5 % (36.0-46.0); Immature Granulocytes Auto 0.04 Thou/mm3 (0.00-0.00); Lymphocytes # (Auto) 3.1 Thou/mm3 (1.0-4.8); Lymphocytes % (Auto) 23 % (10-50); Mean Corpuscular HGB Conc 28.7 g/dl (31.0-37.0); Mean Corpuscular Hemoglobin 19.9 pg (25.0-35.0); Mean Corpuscular Volume 69 fL (80-100); Monocytes # (Auto) 0.8 Thou/mm3 (0.0-0.8); Monocytes % (Auto) 5 % (0-12); Neutrophils # (Auto) 9.5 Thou/mm3 (1.8-7.7); Neutrophils % (Auto) 69 % (37-80); Nucleated Red Blood Cell # 0.00 Thou/mm3 (0.00-0.00); Nucleated Red Blood Cell % 0 /100 WBC (0); Platelet Count 458 Thou/mm3 (140-440); RDW Standard Deviation 46.5 fL (36.4-46.3); Red Blood Count 3.96 Miln/mm3 (4.00-5.20); White Blood Count 13.8 Thou/mm3 (3.6-11.0)
[2025-04-18 07:03] LABS: Hemoglobin 7.9 g/dL (12.0-16.0)
[2025-04-18 07:04] LABS: Anion Gap 10 (7-16); BUN/Creatinine Ratio 13 Ratio (12-20); Blood Urea Nitrogen 12 mg/dL (9-23); Calcium 8.5 mg/dL (8.3-10.6); Carbon Dioxide 24.6 mMol/L (20.0-31.0); Cardiac Risk Estimate 4.7 RATIO (3.7-5.6); Chloride 105 mMol/L (98-107); Cholesterol 145 mg/dL (132-200); Creatinine (Component) 0.9 mg/dL (0.6-1.3); Estimated Creatinine Clearance 101.8 mL/min (>60); Free T4 (Free Thyroxine) 1.55 ng/dL (0.89-1.76); Glucose 54 mg/dL (74-106); HDL Cholesterol 31 mg/dL (40-60); LDL Cholesterol,Calculated 83 mg/dL (0-130); Magnesium 1.7 mg/dL (1.6-2.6); Osmolality,Calculated 277 (275-295); Phosphorous 3.1 mg/dL (2.4-5.1); Potassium 4.2 mMol/L (3.4-5.1); Sodium 140 mMol/L (136-145); Thyroid Stimulating Hormone 0.34 uIU/mL (0.55-4.78); Triglycerides 157 mg/dL (30-150); eGFR > 60 See Note
[2025-04-18] MEDS: Magnesium Sulfate 2 GM Ivpb 2 GM/50 ML BAG IV (07:58)
[2025-04-18] MEDS: PROMETHAZINE HCL 25 MG TABLET PO (08:07)
[2025-04-18 08:08] LABS: Misc Send Out* See Sep Rpt
[2025-04-18 08:10] LABS: Misc Send Out* See Sep Rpt
--- NOTE | 2025-04-18 11:12 | PC.NURSE ---
Dr Norton aware that the patient does not want an avasure in the room. States that she would rather leave. okayed not to put the avasure in the room.
--- NOTE | 2025-04-18 12:30 | PC.NURSE ---
pt cc n/v pt refusing zofran as it does not work. md fish aware
--- NOTE | 2025-04-18 12:39 | PC.SS ---
FIELD REPORTER conducted bedside contact with the patient conduct initial assessment and to discuss discharge planning.? Patient confirmed demographic information.? Patient resides at home with spouse, Alfredo Hicks; .? Patient does not utilize any form of DME to assist with ambulation.? Patient does not utilize home oxygen.? Patient describes the ability to complete ADL?s independently.? Patient identified spouse, Alfredo Hicks; as medical surrogate decision maker.? Patient?s PCP is Eunice Peterson.? Patient does not participate with dialysis.? Patient?s neurologist is Dr. Duckworth.? Patient utilizes [facility] for medication services.? Patient possesses history of diabetes. Patient in possession of Sienna II.? Patient does not utilize insulin.? Plan is for the patient to return home at the time of discharge.? Family will provide transportation on behalf of the patient.? No further discharge needs identified by the patient.? No further intervention required at this time, licensed clinical social worker will be available to address any further concerns.? Next of Kin: Alfredosammy Hicks D/C Plan: Home
[2025-04-18] MEDS: INFLUENZA VIRUS QUADRIVALENT 0.5 ML SYRINGE IMi (14:48)
--- NOTE | 2025-04-18 15:44 | ESDS_ITS ---
<Statement entered by Zoran Lewis MD - 04/19/25 05:49> I saw and examined patient personally and supervised PGY 1 resident, Dr. Hanna with formulating a management plan. I agree with the documentation with the exceptions as listed below. Please presented with hypoglycemia of 40 secondary to sulfonylurea use. She was treated with D10 infusion afterwards. Blood glucose improved to the 170s?222. Upon discharge sulfonylureas were completely discontinued. Plan of care discussed with Attending Dr. Faizan Lewis MD PGY 2 Disclaimer: This note was dictated by speech recognition. Minor errors in cloth washer may be present due to voice recognition software. Planned Discharge Date 04/18/25 DS: Providers Provider Date of admission: 04/18/25 08:20 Primary care physician: Eunice Peterson PA-C Admitting Provider: Kari Thornton DO Attending Provider on Admission: Kari Thornton DO Consults: 04/18/25 01:16 [facility] Referral - Nutrition Routine Comment: Positive screening for nutrition needs. [facility] Referral - Utilities Routine Comment: Positive screening for utility assistance needs. Attending Provider on DC: Cooper Gloria MD Discharging Provider: Cooper Gloria MD DS: Diagnosis Problem List Completed Was Problem List Reviewed/Reconciled?: Yes Hospital Course Hospital Course Hospital course: Ms. Nguyễn is a 44 y/o woman with PMH T2DM, seizures, gastric bypass, obesity, hypercholesterolemia, cataracts, R eye blindness, hypothyroid, migraines and recent admission for hypoglycemia, where c-peptide was low and insulin was high, upon last admission her seizure work up was negative, and cleared by neuro. In the ED VSS. BG 51. WBC 12.8, hgb 9.2, HCT 32.3, MCV 70, plt 563, alk phos 141. EKG NSR 97, QTc 457. UDS negative. UA negative. Given amp D50, D10 125 mL/hr, midazolam 2 mg IV, Promethazine 25 mg PO, Lorazepam 2 mg PO. Admitted to obs for D10 gtt for hypoglycemia. In the hospital the patient was informed she would have 1 to 1 sitting or the curtain to her room open for her safety, as well as, reasonable concern for factitious insulin use, the patient said she would leave AMA if this were the situation. Her multiple bedside glucose checks were all above 140 making her safe to discharge home, with explicit instructions to not take a sulfa insulin drug. And to follow up with psychiatry. Discharge Instructions: -Please STOP Glimepiride as your A1c 6.1 and you continue to have hypoglycemic episodes. -Please follow up with your primary care provider if any further adjustments are needed for glucose control in the outpatient setting. -Please follow up with your primary care provider within one week of discharge -If your symptoms worsen,please seek immediate medical attention and return to your nearest emergency room -If you do not have a primary care provider, [facility] [address] [address], [place] [address], #Hypoglycemia #Type 2 Diabetes Mellitus #Hypothyroidism #Obesity #Hyperlipidemia #Hx gastric bypass #Leukocytosis #Thrombocytosis #Microcytic anemia #Hx Iron deficiency anemia #Peripheral neuropathy #Anxiety #Agoraphobia #Fibromyalgia Patient's plan and care discussed with my attending, Dr. Gloria, and supervising resident MD Ambrose Duarte MD Internal Medicine PGY-1 Status at Discharge Functional status at discharge: independent ambulation Overall status at discharge: patient is back to baseline Time Spent with Patient Time attestation: Total time spent providing and/or coordinating discharge services: Time spent: Greater than 30 minutes Exam Vital Signs Temp Pulse Resp BP Pulse Ox O2 Del Method O2 Flow Rate 98.2 F 103 H 17 113/64 95 Nasal Cannula 3 04/18/25 04:00 04/18/25 08:00 04/18/25 04:00 04/18/25 04:00 04/18/25 04:00 04/17/25 21:59 04/17/25 21:59 Narrative Exam General: No acute distress, obese, covered in multiple blankets Eye: PERRL, EOMI, normal conjunctiva, no scleral icterus HENT: Normocephalic, atraumatic, normal hearing, moist oral mucosa Neck: Supple, non-tender, no JVD, no lymphadenopathy Lungs: Clear to auscultation bilaterally, non-labored respirations, symmetric chest rise, no use of accessory muscles Heart: Normal S1 and S2, no S3 or S4 appreciated. Tachycardic, regular rhythm, no murmurs, rubs gallops, or edema. Peripheral pulses intact bilaterally, capillary refill brisk distally Abdomen: Soft, non-tender, non-distended, normal bowel sounds. No guarding or rebound tenderness. Left sided abdominal hernia present (chronic). Musculoskeletal: Normal range of motion and strength, no tenderness or swelling Skin: Skin is warm, dry, no rashes or lesions. Neurologic: Alert, awake and oriented x3. CN II-XII grossly intact. No focal neuro deficits. No signs of meningeal irritation noted. Psychiatric: Cooperative, appropriate mood and affect Discharge Plan Plan Patient Disposition: HOME (Self Care) Patient condition on transfer: Stable Care Plan Goals: Instructions: -Please STOP Glimepiride as your A1c 6.1 and you continue to have hypoglycemic episodes. -Please follow up with your primary care provider if any further adjustments are needed for glucose control in the outpatient setting. -Please follow up with your primary care provider within one week of discharge -If your symptoms worsen,please seek immediate medical attention and return to your nearest emergency room -If you do not have a primary care provider, you may follow up at the [facility] at [address], [place] [address], Prescriptions/Referrals Prescriptions/Med Rec: Continued levothyroxine 75 mcg Tablet 75 mcg PO QDAY Nurtec ODT 75 mg Tablet,Disintegrating 75 mg PO Q OTHER DAY tramadol 50 mg tablet 50 mg PO BID promethazine 25 mg tablet 25 mg PO TID PRN (Reason: nausea and vomiting) albuterol sulfate 90 mcg/actuation HFA aerosol inhaler 2 inh inhalation Q8H PRN (Reason: shortness of breath or wheezing) diphenhydramine HCl [Banophen] 50 mg capsule 50 mg PO HS (DME) FreeStyle Dina 3 [place] Misc See Rx Instructions .Route Qty: 1 0RF Rx Instructions: As directed (DME) FreeStyle Dina 3 Sensor Device See Rx Instructions .Route Qty: 2 3RF Rx Instructions: As directed (DME) FreeStyle Dina 2 Sensor Kit Patient Comments: CHECK BLOOD SUGARS 3 TIMES A DAY FOR DIABETES Baqsimi 3 mg/actuation spray,non-aerosol 3 mg intranasal Q15MIN PRN (Reason: low blood sugar) lorazepam 2 mg tablet 2 mg PO Q12H Patient Comments: TAKE 1 TABLET BY MOUTH TWICE A DAY NEEDED levetiracetam [Keppra] 500 mg tablet 500 mg PO BID 14 Days Qty: 28 0RF Rx Instructions: Take one tablet by mouth twice a day gabapentin 300 mg capsule 600 mg PO BID quetiapine [Seroquel] 25 mg tablet 25 mg PO PRN (Reason: anxiety) Patient Comments: Take 1 tablet by mouth once a day as needed for anxiety for 30 days, and take 2 tablet by mouth every night for 30 days hydroxyzine HCl 25 mg tablet 25 mg PO DAILY PRN (Reason: anxiety) Patient Comments: TAKE 1 TABLET BY MOUTH ONCE A DAY NEEDED FOR ANXIETY FOR 30 DAYS Held Xcopri 150 mg tablet 150 mg PO QDAY Hold Instructions: Resume on 04/22/25. Please hold until you see your neurologist Rx Instructions: administer weeks 9 and 10 of therapy Xcopri 100 mg tablet 100 mg PO QDAY Hold Instructions: Resume on 04/22/25. Please hold until you see your neurologist Rx Instructions: administer weeks 7 and 8 of therapy Discontinued gabapentin 100 mg capsule 100 mg PO TID PRN (Reason: neuropathy) Referrals: Eunice Peterson PA-C [Primary Care Provider, Family Practice] Patient/Caregiver Discharge Instructions Education Materials: C-Peptide (Blood), Hypoglycemia (Low Blood Sugar), Blood Sugar Monitoring and ... Print Language: Ukrainian Stand Alone Forms: Janel Award Info., Patient Portal Info Letter Discharge Order Discharge Orders: Discharge (Routine); Ordered 04/18/25 Ordered By: Joseline Norton Quality Discharge Quality Measures VTE prophylaxis Attestestation Attestation I discussed with and supervised the resident physician who took care of this patient. I agree with the assessment and discharge plan. Follow-up with primary care provider as scheduled. Return to the emergency room for recurrent symptoms
[2025-04-21 06:37] LABS: Insulin* 117.4 uIU/mL (< OR = 18.4)
== END 2025-04-18 14:58 | disposition home or self-care (01) | DRG 420 ==
LOC: SERX 22:47 → SERHOLD 04-18 08:40 → S2SX 04-18 08:41
PROVIDERS: Student in an Organized Health Care Education/Training Program; Admitting Provider Internal Medicine; Emergency Provider Emergency Medicine; PCP Physician Assistant; Visit Provider Internal Medicine
DX: E11.649 Type 2 diabetes mellitus with hypoglycemia without coma (principal); E03.9 Hypothyroidism, unspecified; H54.61 Unqualified visual loss, right eye, normal vision left eye; M79.7 Fibromyalgia; E66.9 Obesity, unspecified; D50.9 Iron deficiency anemia, unspecified; F40.00 Agoraphobia, unspecified; G40.909 Epilepsy, unspecified, not intractable, without status epilepticus; D72.829 Elevated white blood cell count, unspecified; Z98.84 Bariatric surgery status; Z79.899 Other long term (current) drug therapy; D75.839 Thrombocytosis, unspecified; Z88.0 Allergy status to penicillin; Z88.1 Allergy status to other antibiotic agents; Z88.8 Allergy status to other drugs, medicaments and biological substances; Z68.39 Body mass index [BMI] 39.0-39.9, adult; Z88.5 Allergy status to narcotic agent; T38.3X5A Adverse effect of insulin and oral hypoglycemic [antidiabetic] drugs, initial encounter
CPT/HCPCS: 36415; 80048; 80053; 80061; 80307; 80377; 81001; 81025; 83036; 83525; 83605; 83690; 83735; 84100; 84206; 84439; 84443; 84681; 85025; 87040; 87077; 87086; 87186; 90686; 93005; 93225; 96361; 96372; 96374; 96375; 99284; G0378; J1644; J2250; J2405; J3360; J3475; J7042; A9270; G0480; J9060

== ENCOUNTER 2025-04-28 10:49 | Emergency (ER) | payer MEDICAID, SELFPAY ==
[2025-04-28 10:50] VITALS: PULSE 62; PULSE 85; O2SAT 96
--- NOTE | 2025-04-28 10:58 | EKG_ITS ---
[facility] Test Date: 2025-04-28 Pat Name: GEE MURILLO Department: Room: - Gender: Female Collar Cutter: : 1980 Requested By: Robby Peña Order Number: [id number] Reading MD: Robby Peña Measurements Intervals Cool Rate: 94 P: 40 IA: 130 QRS: 17 QRSD: 90 T: 7 QT: 369 QTc: 464 Interpretive Statements SINUS RHYTHM Compared to ECG 04/17/2025 21:29:07 No significant changes /store/S0/[id number].pdf
--- NOTE | 2025-04-28 10:58 | XR_ITS ---
EXAMINATION: AP chest single view Right knee: AP portable upright chest single view Date and time: April 28, 2025, 1132 hours INDICATIONS: Coughing 3 days FINDINGS: Tiny opacities around the left clavicle Normal heart size No pneumonia or pulmonary edema IMPRESSION: No pneumonia or pulmonary edema
[2025-04-28 11:00] VITALS: BP 165/87; PULSE 90; RESP 18; TEMP 34.6; O2SAT 100
[2025-04-28] MEDS: DEXTROSE 50%-WATER INJ 50 ML SYRINGE IVP (11:05)
--- NOTE | 2025-04-28 11:13 | PD.EDAMS ---
Altered Mental Status RME/HPI General Chief Complaint: Altered Mental Status Stated Complaint: AMS, LOW BLOOD SUGAR Time Seen by Provider: 04/28/25 10:57 Arrival date/time: 04/28/25 10:49 Limitations: no limitations RME / HPI RME / HPI narrative: 44 year old female with history of seizures, diabetes, hypertension, hyperlipidemia, s/p gastric bypass, hypothyroidism, presents to the ED BIBA from home for evaluation of altered mental status today. 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 Medics report on scene the patient was GCS of 3 with a BS of 13. Was given D10 and repeat BS 55, GCS mildly improved to 7. Family reported the patient was at her usual state of health yesterday. No recent illness reported. Patient arrived altered and unable to provide any additional history. Related Data Home Medications ?Medication ?Instructions ?Recorded ?Confirmed levothyroxine 75 mcg tablet 75 mcg PO QDAY 03/02/22 04/18/25 rimegepant 75 mg disintegrating 75 mg PO Q OTHER DAY 03/02/22 04/18/25 tablet (Nurtec ODT) albuterol sulfate 90 mcg/actuation 2 inh inhalation Q8H PRN shortness 09/12/24 02/16/25 aerosol inhaler of breath or wheezing cenobamate 150 mg tablet (Xcopri) 150 mg PO QDAY 09/12/24 02/16/25 Held on 04/18/25. Instructions: Resume on 04/22/25. Please hold until you see your neurologist diphenhydramine HCl 50 mg capsule 50 mg PO HS 09/12/24 02/16/25 (Banophen) promethazine 25 mg tablet 25 mg PO TID PRN nausea and 09/12/24 04/18/25 vomiting tramadol 50 mg tablet 50 mg PO BID 09/12/24 04/18/25 cenobamate 100 mg tablet (Xcopri) 100 mg PO QDAY 10/13/24 02/16/25 Held on 04/18/25. Instructions: Resume on 04/22/25. Please hold until you see your neurologist flash glucose sensor (FreeStyle 10/13/24 04/18/25 Dina 2 Sensor kit) glucagon 3 mg/actuation nasal 3 mg intranasal Q15MIN PRN low 10/14/24 04/18/25 spray (Baqsimi) blood sugar lorazepam 2 mg tablet 2 mg PO Q12H 10/14/24 04/18/25 gabapentin 300 mg capsule 600 mg PO BID 04/18/25 04/18/25 hydroxyzine HCl 25 mg tablet 25 mg PO DAILY PRN anxiety 04/18/25 04/18/25 quetiapine 25 mg tablet (Seroquel) 25 mg PO PRN anxiety 04/18/25 Previous Rx's ?Medication ?Instructions ?Recorded blood-glucose sensor (FreeStyle #2 ea 09/13/24 Dina 3 Sensor device) blood-glucose,roustabout hand,cont #1 ea 09/13/24 (FreeStyle Dina 3 [place]) levetiracetam 500 mg tablet 500 mg PO BID 2 weeks #28 tabs 02/20/25 (Keppra) Allergies Allergy/AdvReac Type Severity Reaction Status Date / Time egg Allergy Severe Abdominal Verified 04/28/25 11:39 Pain milk Allergy Severe Abdominal Verified 04/28/25 11:39 Pain Penicillins Allergy Severe Rash Verified 04/28/25 11:39 hydrocodone Allergy Intermediate ITCHING Verified 04/28/25 11:39 morphine Allergy Rash Verified 04/28/25 11:39 metoclopramide HCl AdvReac Severe HEADACHE Verified 04/28/25 11:39 Review of Systems Review of Systems ROS Unobtainable: unobtainable due to mental status Past Medical History Past Medical History NEUROLOGIC: Positive Neurological Disorders and Migraine CARDIAC: Positive Cardiac Disorders, Hypercholesterolemia, Edema and Hypertension RESPIRATORY: Positive Pneumonia GASTROINTESTINAL: Positive Obesity REPRODUCTIVE: Positive Previous Pregnancies MUSCULOSKELETAL: Positive Musculoskeletal Disorders, Fibromyalgia and Fractures ENT: Positive Cataracts, Blind and Retinal Detachment ENDOCRINE: Positive Endocrine Disorders, Diabetes Mellitus Type 2 and Hypothyroidism HEMATOLOGIC: Positive Blood Disorders and Anemia PSYCHO/SOCIAL: Positive Depression and Anxiety OTHER HISTORY: Positive Chicken Pox and Measles Family History FAMILY HISTORY: Positive Family Psychiatric Problems, Family Cardiac Disorders, Family Cancer and Family Surgery Surgical History SURGICAL: Positive Eye Surgery, Abdominal Surgery, Gastric Bypass Surgery, Hysterectomy and Section Social History SMOKING STATUS: Never smoker SECOND HAND EXPOSURE: No SUBSTANCE USE: does not use ED Exam General Limitations: Present no limitations General appearance: Present in no apparent distress and obtunded Head Head exam: Present atraumatic, normocephalic and normal inspection Eye Eye exam: Present normal appearance, PERRL and EOMI ENT ENT exam: Present normal exam, normal oropharynx and mucous membranes moist Neck Neck exam: Present normal inspection, full ROM and trachea midline Chest Chest inspection: Present normal inspection and symmetric chest wall rise Respiratory Respiratory exam: Present normal lung sounds bilaterally Cardiovascular Cardiovascular exam: Present regular rate, normal rhythm and normal heart sounds Abdominal Exam Abdominal exam: Present soft and normal bowel sounds Extremities Exam Extremities exam: Present normal inspection and full ROM Back Exam Back exam: Present normal inspection and full ROM Neurological Exam Neurological exam: Present other (Patient arrived obtunded, unable to perform full neurological assessment. ) Psychiatric Psychiatric exam: Present normal affect and normal mood Skin Skin exam: Present warm, dry, intact and normal color Course Quality Measures none Orders Category Date Time Status Bedside Blood Glucose Q1HR Care 04/28/25 11:02 Active Claim Service Representative NOW Care 04/28/25 10:58 Active Continuous Pulse Oximetry NOW Care 04/28/25 10:58 Completed EKG (ED ONLY) *Do not use* NOW Care 04/28/25 10:58 Completed Insert IV NOW Care 04/28/25 10:58 Active EKG (ED Only) Stat Exams 04/28/25 10:58 Draft XR chest 1V portable Stat Exams 04/28/25 10:58 Completed CBC Stat Lab 04/28/25 11:30 Completed Comprehensive Metabolic Panel Stat Lab 04/28/25 11:30 Completed Partial Thromboplastin Time Stat Lab 04/28/25 11:30 Completed Prothrombin Time with INR Stat Lab 04/28/25 11:30 Completed Troponin I Stat Lab 04/28/25 11:30 Completed Urinalysis Stat Lab 04/28/25 10:58 Ordered Dextrose 10%-Water 1000 ml [D10w 1000 ml] 1,000 ml Med 04/28/25 11:00 Active IV 75 mls/hr Dextrose 50% Syr [D50w Syringe Abboject] Med 04/28/25 10:55 Discontinued 50 ml .ROUTE .STK-MED ONE Dextrose 50% Syr [D50w Syringe Abboject] Med 04/28/25 10:59 Discontinued 50 ml IVP X1 ONE Promethazine HCl [Phenergan] Med 04/28/25 12:15 Discontinued 25 mg PO X1 ONE Oxygen Delivery NOW RT 04/28/25 10:58 Active Vital Signs Vital signs: Vital Signs Pulse Rate 85 10/23/25 10:50 Altered Mental Status MDM Narrative MDM Narrative:: IAmanda, luis scribing for and in the presence of Dr. Gilmore. 1055: Notified by RN that blood sugar is 47. Ordered an amp of D50. 1058: Notified by RN that patients mentation has improved. States the patient reported not eating dinner last night. Patient offered food. 1113: Blood sugar 238 1250: Blood sugar 141 1434: Blood sugar 108. Patient remains clinically stable throughout the emergency department visit. We reviewed all the results, analysis, and treatment plans. Patient is amenable to discharge. Strict return precautions were outlined. Patient data External records reviewed:: [facility] previous records and EMS form Clinical information provided by:: EMS Social determinants that could affect healthcare access:: none Patient has the following chronic illnesses:: seizures, diabetes, hypertension, hyperlipidemia, s/p gastric bypass, hypothyroidism, How is presenting disease/condition affected by chronic disease/condition?: exacerbated by Evaluation data The following diagnostics were reviewed and interpreted by me:: lab results, radiology exam(s) and EKG tracing(s) (EKG @ 11:52 AM. NSR, rate 94, no STEMI. ) Lab and/or radiology exams considered but not ordered:: None Interpretation Summary: Ordering Physician: Robby Gilmore MD Date of Service: 04/28/25 Procedure(s): XR chest 1V portable Accession Number(s): [id number] cc: Robby Gilmore MD; Joseph Holt MD~ EXAMINATION: AP chest single view Right knee: AP portable upright chest single view Date and time: April 28, 2025, 1132 hours INDICATIONS: Coughing 3 days FINDINGS: Tiny opacities around the left clavicle Normal heart size No pneumonia or pulmonary edema IMPRESSION: No pneumonia or pulmonary edema Dictated By: Joseph Holt MD Signed By: <Electronically signed by Joseph Holt MD in OV> 04/28/25 1143 Medications / Prescriptions Medications or Prescriptions considered but not ordered:: None Medication administrations:: Medication Administration History Dextrose (D10w 1000 Ml) 1,000 mls @ 75 mls/hr IV .[id number] ARIANA Stop: 04/29/25 00:19 Last Admin: 04/28/25 11:58 Dose: 75 mls/hr Documented By: DO Comments: NO 1000ML BAG AVAILABLE. 500ML USED Discontinued Medications Dextrose (Dextrose 50%-Water Inj 50 Ml Syringe) Confirm Administered Dose 50 ml .ROUTE .STK-MED ONE Stop: 04/28/25 10:56 Last Admin: 04/28/25 11:59 Dose: Not Given Documented By: DO Non-Admin Reason: Override Medication Dextrose (Dextrose 50%-Water Inj 50 Ml Syringe) 50 ml IVP X1 ONE Stop: 04/28/25 11:00 Last Admin: 04/28/25 11:05 Dose: 50 ml Documented By: DO Promethazine HCl (Promethazine Hcl 25 Mg Tablet) 25 mg PO X1 ONE Stop: 04/28/25 12:16 Last Admin: 04/28/25 12:47 Dose: 25 mg Documented By: DO See above Consultations Consultation(s) initiated? (list below): No Diagnosis Most likely diagnosis given after review of the tests above:: Hypoglycemia Admission Indicated Admission indicated?: not indicated Admission Request Was there a request for admission?: No Disposition Plan Disposition Plan: Discharge Discharge Attestation Discharge Attestation: The patient and all family members were given an opportunity to ask questions and understood the discharge instructions. Discharge instructions specifically effects, indications for sooner follow up or return to the emergency department, and the expected course of current diagnosis. Patient condition: Stable Discharge Plan Plan Patient Disposition: HOME (Self Care) Patient condition on transfer: Stable Prescriptions/Referrals Prescriptions/Med Rec: No Action levothyroxine 75 mcg Tablet 75 mcg PO QDAY Nurtec ODT 75 mg Tablet,Disintegrating 75 mg PO Q OTHER DAY tramadol 50 mg tablet 50 mg PO BID promethazine 25 mg tablet 25 mg PO TID PRN (Reason: nausea and vomiting) albuterol sulfate 90 mcg/actuation HFA aerosol inhaler 2 inh inhalation Q8H PRN (Reason: shortness of breath or wheezing) diphenhydramine HCl [Banophen] 50 mg capsule 50 mg PO HS Xcopri 150 mg tablet 150 mg PO QDAY Rx Instructions: administer weeks 9 and 10 of therapy (DME) FreeStyle Dina 3 [place] Misc See Rx Instructions .Route Qty: 1 0RF Rx Instructions: As directed (DME) FreeStyle Dina 3 Sensor Device See Rx Instructions .Route Qty: 2 3RF Rx Instructions: As directed Xcopri 100 mg tablet 100 mg PO QDAY Rx Instructions: administer weeks 7 and 8 of therapy (DME) FreeStyle Dina 2 Sensor Kit Patient Comments: CHECK BLOOD SUGARS 3 TIMES A DAY FOR DIABETES Baqsimi 3 mg/actuation spray,non-aerosol 3 mg intranasal Q15MIN PRN (Reason: low blood sugar) lorazepam 2 mg tablet 2 mg PO Q12H Patient Comments: TAKE 1 TABLET BY MOUTH TWICE A DAY NEEDED levetiracetam [Keppra] 500 mg tablet 500 mg PO BID 14 Days Qty: 28 0RF Rx Instructions: Take one tablet by mouth twice a day gabapentin 300 mg capsule 600 mg PO BID quetiapine [Seroquel] 25 mg tablet 25 mg PO PRN (Reason: anxiety) Patient Comments: Take 1 tablet by mouth once a day as needed for anxiety for 30 days, and take 2 tablet by mouth every night for 30 days hydroxyzine HCl 25 mg tablet 25 mg PO DAILY PRN (Reason: anxiety) Patient Comments: TAKE 1 TABLET BY MOUTH ONCE A DAY NEEDED FOR ANXIETY FOR 30 DAYS Referrals: No Primary/Family,Physician [Primary Care Provider] - In 1 week Problem List Clinical Impression: Hypoglycemia Patient/Caregiver Discharge Instructions Discharge Activity: activity as tolerated Education Materials: ED Hypoglycemia, Nondiabetic Additional Instructions: Follow-up with your doctor in 1 day. Please be sure to eat your meals regularly. Check your blood sugars before meals and at bedtime. Print Language: Welsh Stand Alone Forms: Janel Award Info., Patient Portal Info Letter
--- NOTE | 2025-04-28 11:22 | PC.NURSE ---
SANDWICH AND JUICE GIVEN TO PT AT THIS TIME
[2025-04-28 11:45] LABS: Basophils # (Auto) 0.1 Thou/mm3 (0.0-0.2); Basophils % (Auto) 1 % (0-2.5); Eosinophils # (Auto) 0.2 Thou/mm3 (0.0-0.5); Eosinophils % (Auto) 2 % (0-10); Hematocrit 30.4 % (36.0-46.0); Immature Granulocytes Auto 0.07 Thou/mm3 (0.00-0.00); Lymphocytes # (Auto) 1.9 Thou/mm3 (1.0-4.8); Lymphocytes % (Auto) 19 % (10-50); Mean Corpuscular HGB Conc 28.6 g/dl (31.0-37.0); Mean Corpuscular Hemoglobin 20.1 pg (25.0-35.0); Mean Corpuscular Volume 70 fL (80-100); Monocytes # (Auto) 0.5 Thou/mm3 (0.0-0.8); Monocytes % (Auto) 5 % (0-12); Neutrophils # (Auto) 7.4 Thou/mm3 (1.8-7.7); Neutrophils % (Auto) 73 % (37-80); Nucleated Red Blood Cell # 0.00 Thou/mm3 (0.00-0.00); Nucleated Red Blood Cell % 0 /100 WBC (0); Platelet Count 495 Thou/mm3 (140-440); RDW Standard Deviation 46.6 fL (36.4-46.3); Red Blood Count 4.32 Miln/mm3 (4.00-5.20); White Blood Count 10.2 Thou/mm3 (3.6-11.0)
[2025-04-28] MEDS: DEXTROSE 10%-WATER 1000 ML 1,000 ML 75 ML IV (11:58)
[2025-04-28 12:02] LABS: Hemoglobin 8.7 g/dL (12.0-16.0)
[2025-04-28 12:06] LABS: Alanine Aminotransferase 39 U/L (10-49); Albumin, Serum 4.2 gm/dL (3.5-5.0); Albumin/Globulin Ratio 1.4 (1.2-2.2); Alkaline Phosphatase 141 U/L (46-116); Anion Gap 11 (7-16); Aspartate Amino Transferase 33 U/L (0-34); BUN/Creatinine Ratio 13 Ratio (12-20); Bilirubin,Total 0.2 mg/dL (0.3-1.2); Blood Urea Nitrogen 15 mg/dL (9-23); Calcium 8.4 mg/dL (8.3-10.6); Calcium (Corrected) 8.4 mg/dL (8.5-10.1); Carbon Dioxide 26.7 mMol/L (20.0-31.0); Chloride 104 mMol/L (98-107); Creatinine (Component) 1.2 mg/dL (0.6-1.3); Globulin 3.0 gm/dL (2.3-3.5); Osmolality,Calculated 280 (275-295); Potassium 4.0 mMol/L (3.4-5.1); Sodium 142 mMol/L (136-145); Total Protein 7.2 gm/dL (5.7-8.2); Troponin I < 0.002 ng/mL (0.0-0.045); eGFR 58 See Note
[2025-04-28 12:08] LABS: Glucose 43 mg/dL (74-106); INR 1.0 (0.9-1.3); Partial Thromboplastin Time 26.3 Seconds (22.0-36.0); Prothrombin Time 10.5 Seconds (9.0-12.2)
[2025-04-28 12:44] VITALS: BP 165/87; PULSE 94; RESP 16; TEMP 36.3; O2SAT 100
[2025-04-28] MEDS: PROMETHAZINE HCL 25 MG TABLET PO (12:47)
[2025-04-28 12:51] VITALS: BMI 40.3
[2025-04-28 12:52] VITALS: BP 142/67; PULSE 91; RESP 18; O2SAT 98
[2025-04-28 15:16] VITALS: BP 139/70; PULSE 94; RESP 14; TEMP 36.4; O2SAT 98
--- NOTE | 2025-04-28 15:18 | PC.NURSE ---
PT STATES THAT SHE IS READY TO GO. DR MARY INFORMED. AWAITING DC PAPERS
[2025-04-28 16:18] VITALS: BP 120/91; PULSE 95; RESP 18; O2SAT 100
== END 2025-04-28 16:30 | disposition home or self-care (01) ==
PROVIDERS: Emergency Provider Family Medicine
DX: E11.649 Type 2 diabetes mellitus with hypoglycemia without coma (principal); E03.9 Hypothyroidism, unspecified; E78.5 Hyperlipidemia, unspecified; I10 Essential (primary) hypertension; Z90.710 Acquired absence of both cervix and uterus; Z98.84 Bariatric surgery status
CPT/HCPCS: 36415; 71045; 80053; 81001; 84484; 85025; 85610; 85730; 93005; 99283; A9270

== ENCOUNTER 2025-04-29 07:13 | Emergency (ER) | payer MEDICAID, SELFPAY ==
[2025-04-29 07:14] VITALS: PULSE 102; RESP 14; O2SAT 98
--- NOTE | 2025-04-29 07:15 | PC.NURSE ---
Pt BIBA due to hypoglycemia. PT was here yesterday for the same reason and has a hx of this issue, DM, HTN, and nk. EMS got a BS of 43, GCS 5, IO left ankle. Pt is on high flow mask per protocol. Difficulty getting IV and IP does not seem to be flowing. After several attempts, 22g in left wrist achieved and D50 administered. After a few minutes pt started to become cohearant.
[2025-04-29] MEDS: DEXTROSE 50%-WATER INJ 50 ML SYRINGE IVP ×2 (07:20→11:35)
[2025-04-29 07:21] VITALS: RESP 13; O2SAT 100
--- NOTE | 2025-04-29 07:30 | EKG_ITS ---
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
[2025-04-29 07:41] VITALS: BP 140/99; PULSE 94; RESP 20
[2025-04-29] MEDS: DEXTROSE 10%-WATER 1000 ML 1,000 ML 75 ML IV (07:52)
[2025-04-29 08:41] LABS: Basophils # (Auto) 0.1 Thou/mm3 (0.0-0.2); Basophils % (Auto) 1 % (0-2.5); Eosinophils # (Auto) 0.4 Thou/mm3 (0.0-0.5); Eosinophils % (Auto) 4 % (0-10); Hematocrit 30.3 % (36.0-46.0); Immature Granulocytes Auto 0.04 Thou/mm3 (0.00-0.00); Lymphocytes # (Auto) 2.1 Thou/mm3 (1.0-4.8); Lymphocytes % (Auto) 26 % (10-50); Mean Corpuscular HGB Conc 28.1 g/dl (31.0-37.0); Mean Corpuscular Hemoglobin 20.0 pg (25.0-35.0); Mean Corpuscular Volume 71 fL (80-100); Monocytes # (Auto) 0.4 Thou/mm3 (0.0-0.8); Monocytes % (Auto) 4 % (0-12); Neutrophils # (Auto) 5.3 Thou/mm3 (1.8-7.7); Neutrophils % (Auto) 64 % (37-80); Nucleated Red Blood Cell # 0.00 Thou/mm3 (0.00-0.00); Nucleated Red Blood Cell % 0 /100 WBC (0); Platelet Count 373 Thou/mm3 (140-440); RDW Standard Deviation 47.3 fL (36.4-46.3); Red Blood Count 4.26 Miln/mm3 (4.00-5.20); White Blood Count 8.2 Thou/mm3 (3.6-11.0)
[2025-04-29 08:48] VITALS: BP 130/81; PULSE 86; RESP 16; O2SAT 100
[2025-04-29 08:52] LABS: Hemoglobin 8.5 g/dL (12.0-16.0)
[2025-04-29 09:06] VITALS: PULSE 87; RESP 100; RESP 18
[2025-04-29 09:10] LABS: Acetaminophen < 2.0 mcg/mL (10.0-20.0); Alanine Aminotransferase 34 U/L (10-49); Albumin, Serum 3.9 gm/dL (3.5-5.0); Albumin/Globulin Ratio 1.4 (1.2-2.2); Alcohol, Blood Medical < 3.0 mg/dL (0-10.0); Alkaline Phosphatase 135 U/L (46-116); Anion Gap 11 (7-16); Aspartate Amino Transferase 30 U/L (0-34); BUN/Creatinine Ratio 8 Ratio (12-20); Bilirubin,Total 0.2 mg/dL (0.3-1.2); Blood Urea Nitrogen 11 mg/dL (9-23); Calcium 8.3 mg/dL (8.3-10.6); Calcium (Corrected) 8.4 mg/dL (8.5-10.1); Carbon Dioxide 23.6 mMol/L (20.0-31.0); Chloride 106 mMol/L (98-107); Creatinine (Component) 1.3 mg/dL (0.6-1.3); Globulin 2.8 gm/dL (2.3-3.5); Glucose 92 mg/dL (74-106); Magnesium 2.2 mg/dL (1.6-2.6); Osmolality,Calculated 280 (275-295); Potassium 3.8 mMol/L (3.4-5.1); Salicylate < 3.0 mg/dL; Sodium 141 mMol/L (136-145); Total Protein 6.7 gm/dL (5.7-8.2); Troponin I < 0.002 ng/mL (0.0-0.045); eGFR 52 See Note
[2025-04-29 09:43] LABS: INR 1.1 (0.9-1.3); Prothrombin Time 11.9 Seconds (9.0-12.2)
--- NOTE | 2025-04-29 09:45 | PC.NURSE ---
Lab called and stated that pt's ABG draw looked to be more likely a VBG draw and suggested we re-order it. I spoke with Pascual and informed him of this and he stated that he did not feel the need for a redraw
[2025-04-29] MEDS: PROMETHAZINE INJ 25 MG/ML VIAL IM (10:01)
[2025-04-29] MEDS: LORazepam 2 MG/ML VIAL IVP (11:35)
[2025-04-29 11:46] VITALS: BP 120/74; PULSE 96; RESP 20; TEMP 36.5; O2SAT 100
--- NOTE | 2025-04-29 14:00 | PD.EDAMS ---
Altered Mental Status RME/HPI General Chief Complaint: Altered Mental Status Stated Complaint: ALTERED MENTAL STATUS Time Seen by Provider: 04/29/25 07:28 Arrival date/time: 04/29/25 07:13 Limitations: no limitations RME / HPI RME / HPI narrative: 44 year old female with history of seizures, diabetes, hypertension, hyperlipidemia, s/p gastric bypass, hypothyroidism, presents to the ED BIBA from home for evaluation of altered mental status today. Per medics report, the patient was found altered this morning. Medics report on scene the patient was GCS of 4 with a BS of 32. Was given D10 via IO though only received a small amount due malfunction. On arrival to ED, blood sugar was 12. Patient arrived altered and unable to provide any additional history. Related Data Home Medications ?Medication ?Instructions ?Recorded ?Confirmed levothyroxine 75 mcg tablet 75 mcg PO QDAY 03/02/22 04/18/25 rimegepant 75 mg disintegrating 75 mg PO Q OTHER DAY 03/02/22 04/18/25 tablet (Nurtec ODT) albuterol sulfate 90 mcg/actuation 2 inh inhalation Q8H PRN shortness 09/12/24 02/16/25 aerosol inhaler of breath or wheezing cenobamate 150 mg tablet (Xcopri) 150 mg PO QDAY 09/12/24 02/16/25 Held on 04/18/25. Instructions: Resume on 04/22/25. Please hold until you see your neurologist diphenhydramine HCl 50 mg capsule 50 mg PO HS 09/12/24 02/16/25 (Banophen) promethazine 25 mg tablet 25 mg PO TID PRN nausea and 09/12/24 04/18/25 vomiting tramadol 50 mg tablet 50 mg PO BID 09/12/24 04/18/25 cenobamate 100 mg tablet (Xcopri) 100 mg PO QDAY 10/13/24 02/16/25 Held on 04/18/25. Instructions: Resume on 04/22/25. Please hold until you see your neurologist flash glucose sensor (FreeStyle 10/13/24 04/18/25 Dina 2 Sensor kit) glucagon 3 mg/actuation nasal 3 mg intranasal Q15MIN PRN low 10/14/24 04/18/25 spray (Baqsimi) blood sugar lorazepam 2 mg tablet 2 mg PO Q12H 10/14/24 04/18/25 gabapentin 300 mg capsule 600 mg PO BID 04/18/25 04/18/25 hydroxyzine HCl 25 mg tablet 25 mg PO DAILY PRN anxiety 04/18/25 04/18/25 quetiapine 25 mg tablet (Seroquel) 25 mg PO PRN anxiety 04/18/25 Previous Rx's ?Medication ?Instructions ?Recorded blood-glucose sensor (FreeStyle #2 ea 09/13/24 Dina 3 Sensor device) blood-glucose,carpenter prototype,cont #1 ea 09/13/24 (FreeStyle Dina 3 Hurley) levetiracetam 500 mg tablet 500 mg PO BID 2 weeks #28 tabs 02/20/25 (Keppra) Allergies Allergy/AdvReac Type Severity Reaction Status Date / Time egg Allergy Severe Abdominal Verified 04/28/25 11:39 Pain milk Allergy Severe Abdominal Verified 04/28/25 11:39 Pain Penicillins Allergy Severe Rash Verified 04/28/25 11:39 hydrocodone Allergy Intermediate ITCHING Verified 04/28/25 11:39 morphine Allergy Rash Verified 04/28/25 11:39 metoclopramide HCl AdvReac Severe HEADACHE Verified 04/28/25 11:39 Review of Systems Review of Systems ROS Unobtainable: unobtainable due to mental status Past Medical History Past Medical History NEUROLOGIC: Positive Neurological Disorders and Migraine CARDIAC: Positive Cardiac Disorders, Hypercholesterolemia, Edema and Hypertension RESPIRATORY: Positive Pneumonia GASTROINTESTINAL: Positive Obesity REPRODUCTIVE: Positive Previous Pregnancies MUSCULOSKELETAL: Positive Musculoskeletal Disorders, Fibromyalgia and Fractures ENT: Positive Cataracts, Blind and Retinal Detachment ENDOCRINE: Positive Endocrine Disorders, Diabetes Mellitus Type 2, Hypoglycemia and Hypothyroidism HEMATOLOGIC: Positive Blood Disorders and Anemia PSYCHO/SOCIAL: Positive Depression and Anxiety OTHER HISTORY: Positive Chicken Pox and Measles Family History FAMILY HISTORY: Positive Family Psychiatric Problems, Family Cardiac Disorders, Family Cancer and Family Surgery Surgical History SURGICAL: Positive Eye Surgery, Abdominal Surgery, Gastric Bypass Surgery, Hysterectomy and Section Social History SMOKING STATUS: Never smoker SECOND HAND EXPOSURE: No SUBSTANCE USE: does not use ED Exam General Limitations: Present no limitations General appearance: Present in no apparent distress and obtunded Head Head exam: Present atraumatic Eye Eye exam: Present normal appearance and EOMI ENT ENT exam: Present normal exam, normal oropharynx and mucous membranes moist Neck Neck exam: Present normal inspection, full ROM and trachea midline Chest Chest inspection: Present normal inspection and symmetric chest wall rise Respiratory Respiratory exam: Present normal lung sounds bilaterally Cardiovascular Cardiovascular exam: Present regular rate, normal rhythm and normal heart sounds Abdominal Exam Abdominal exam: Present soft and normal bowel sounds Extremities Exam Extremities exam: Present normal inspection and full ROM Back Exam Back exam: Present normal inspection and full ROM Neurological Exam Neurological exam: Present other (Patient arrived obtunded, unable to perform full neurological assessment.) Psychiatric Psychiatric exam: Present normal affect and normal mood Skin Skin exam: Present warm, dry, intact and normal color Course Quality Measures none Orders Category Date Time Status Bedside Blood Glucose Q1HR Care 04/29/25 07:30 Completed Landfill Gas Collection Operator NOW Care 04/29/25 07:30 Completed Continuous Pulse Oximetry NOW Care 04/29/25 07:30 Completed EKG (ED ONLY) *Do not use* NOW Care 04/29/25 07:30 Completed Insert IV NOW Care 04/29/25 07:30 Completed NPO NOW Care 04/29/25 07:30 Completed Diet Full Liquid Diet 04/29/25 Lunch Active EKG (ED Only) Stat Exams 04/29/25 07:30 Draft Acetaminophen Stat Lab 04/29/25 08:28 Completed Alcohol, Blood Medical Stat Lab 04/29/25 08:28 Completed Arterial Blood Gas Stat Lab 04/29/25 09:07 Ordered CBC Stat Lab 04/29/25 08:28 Completed Comprehensive Metabolic Panel Stat Lab 04/29/25 08:28 Completed Magnesium Stat Lab 04/29/25 08:28 Completed Prothrombin Time with INR Stat Lab 04/29/25 08:28 Completed Salicylate Stat Lab 04/29/25 08:28 Completed Troponin I Stat Lab 04/29/25 08:28 Completed Dextrose 10%-Water 1000 ml [D10w 1000 ml] 1,000 ml Med 04/29/25 07:31 Discontinued IV 75 mls/hr Dextrose 50% Syr [D50w Syringe Abboject] Med 04/29/25 07:15 Discontinued 50 ml .ROUTE .STK-MED ONE Dextrose 50% Syr [D50w Syringe Abboject] Med 04/29/25 07:16 Discontinued 50 ml IVP X1 ONE Dextrose 50% Syr [D50w Syringe Abboject] Med 04/29/25 11:26 Discontinued 50 ml IVP X1 ONE LORazepam [Ativan Inj] Med 04/29/25 11:26 Discontinued 2 mg IVP X1 ONE LORazepam [Ativan] Med 04/29/25 10:51 Discontinued 2 mg PO X1 ONE Promethazine Inj [Phenergan Inj] Med 04/29/25 09:21 Discontinued 25 mg IM X1 ONE Oxygen Delivery NOW RT 04/29/25 07:30 Completed Vital Signs Vital signs: Vital Signs Respiratory Rate 13 04/29/25 07:21 Pulse Oximetry (%) 100 04/29/25 07:21 Oxygen Delivery Method Oxy Mask 04/29/25 07:21 Oxygen Flow Rate 15 04/29/25 07:21 Altered Mental Status MDM Narrative MDM Narrative:: IAmanda, am scribing for and in the presence of Dr. Gilmore. The patient was evaluated here yesterday for similar presentation and blood sugar. Today the patient found altered, GCS of 4, and blood sugar in the 30s. On arrival to the ED, blood glucose was 12 and given D50. Shortly after receiving D50 patients mental status improved and woke up feeling anxious. States she feels fearful leaving her home. I offered admission given this is her second visit for hypoglycemia in the last 2 days and she declined. We went over importance of her diet. In the ED, patient has tolerated po well and blood sugar 127 before discharge. Patient data External records reviewed:: [facility] previous records and EMS form Clinical information provided by:: EMS Social determinants that could affect healthcare access:: none Patient has the following chronic illnesses:: seizures, diabetes, hypertension, hyperlipidemia, s/p gastric bypass, hypothyroidism, How is presenting disease/condition affected by chronic disease/condition?: exacerbated by Evaluation data The following diagnostics were reviewed and interpreted by me:: lab results and EKG tracing(s) (EKG @ 07:38AM. Normal sinus rhythm, rate 95, no STEMI. ) Lab and/or radiology exams considered but not ordered:: None Interpretation Summary: As noted above Medications / Prescriptions Medications or Prescriptions considered but not ordered:: none Medication administrations:: Medication Administration History Discontinued Medications Dextrose (Dextrose 50%-Water Inj 50 Ml Syringe) 50 ml IVP X1 ONE Stop: 04/29/25 07:17 Last Admin: 04/29/25 07:20 Dose: 50 ml Documented By: ALISHA Dextrose (Dextrose 50%-Water Inj 50 Ml Syringe) Confirm Administered Dose 50 ml .ROUTE .STK-MED ONE Stop: 04/29/25 07:16 Last Admin: 04/29/25 08:21 Dose: Not Given Documented By: DO Non-Admin Reason: Override Medication Dextrose (Dextrose 50%-Water Inj 50 Ml Syringe) 50 ml IVP X1 ONE Stop: 04/29/25 11:27 Last Admin: 04/29/25 11:35 Dose: 50 ml Documented By: CS Dextrose (D10w 1000 Ml) 1,000 mls @ 75 mls/hr IV .[id number] ARIANA Stop: 04/29/25 20:50 Last Admin: 04/29/25 07:52 Dose: 75 mls/hr Documented By: CS Lorazepam (Lorazepam 0.5 Mg Tablet) 2 mg PO X1 ONE Stop: 04/29/25 10:52 Last Admin: 04/29/25 11:31 Dose: Not Given Documented By: CS Non-Admin Reason: Patient Refused Comments: Pt refused PO Lorazepam (Lorazepam 2 Mg/Ml Vial) 2 mg IVP X1 ONE Stop: 04/29/25 11:27 Last Admin: 04/29/25 11:35 Dose: 2 mg Documented By: CS Promethazine HCl (Promethazine Inj 25 Mg/Ml Vial) 25 mg IM X1 ONE; Protocol Stop: 04/29/25 09:22 Last Admin: 04/29/25 10:01 Dose: 25 mg Documented By: ALISHA See above Consultations Consultation(s) initiated? (list below): No Diagnosis Most likely diagnosis given after review of the tests above:: Hypoglycemia Anxiety Admission Indicated Admission indicated?: not indicated Admission Request Was there a request for admission?: No Disposition Plan Disposition Plan: Discharge Discharge Attestation Discharge Attestation: The patient and all family members were given an opportunity to ask questions and understood the discharge instructions. Discharge instructions specifically effects, indications for sooner follow up or return to the emergency department, and the expected course of current diagnosis. Patient condition: Stable Discharge Plan Plan Patient Disposition: HOME (Self Care) Patient condition on transfer: Stable Prescriptions/Referrals Prescriptions/Med Rec: No Action levothyroxine 75 mcg Tablet 75 mcg PO QDAY Nurtec ODT 75 mg Tablet,Disintegrating 75 mg PO Q OTHER DAY tramadol 50 mg tablet 50 mg PO BID promethazine 25 mg tablet 25 mg PO TID PRN (Reason: nausea and vomiting) albuterol sulfate 90 mcg/actuation HFA aerosol inhaler 2 inh inhalation Q8H PRN (Reason: shortness of breath or wheezing) diphenhydramine HCl [Banophen] 50 mg capsule 50 mg PO HS Xcopri 150 mg tablet 150 mg PO QDAY Rx Instructions: administer weeks 9 and 10 of therapy (DME) FreeStyle Dina 3 Hurley Misc See Rx Instructions .Route Qty: 1 0RF Rx Instructions: As directed (DME) FreeStyle Dina 3 Sensor Device See Rx Instructions .Route Qty: 2 3RF Rx Instructions: As directed Xcopri 100 mg tablet 100 mg PO QDAY Rx Instructions: administer weeks 7 and 8 of therapy (DME) FreeStyle Dina 2 Sensor Kit Patient Comments: CHECK BLOOD SUGARS 3 TIMES A DAY FOR DIABETES Baqsimi 3 mg/actuation spray,non-aerosol 3 mg intranasal Q15MIN PRN (Reason: low blood sugar) lorazepam 2 mg tablet 2 mg PO Q12H Patient Comments: TAKE 1 TABLET BY MOUTH TWICE A DAY NEEDED levetiracetam [Keppra] 500 mg tablet 500 mg PO BID 14 Days Qty: 28 0RF Rx Instructions: Take one tablet by mouth twice a day gabapentin 300 mg capsule 600 mg PO BID quetiapine [Seroquel] 25 mg tablet 25 mg PO PRN (Reason: anxiety) Patient Comments: Take 1 tablet by mouth once a day as needed for anxiety for 30 days, and take 2 tablet by mouth every night for 30 days hydroxyzine HCl 25 mg tablet 25 mg PO DAILY PRN (Reason: anxiety) Patient Comments: TAKE 1 TABLET BY MOUTH ONCE A DAY NEEDED FOR ANXIETY FOR 30 DAYS Referrals: Eunice Peterson PA-C [Primary Care Provider, Family Practice] - In 1 week Problem List Clinical Impression: Hypoglycemia, Anxiety Patient/Caregiver Discharge Instructions Discharge Activity: activity as tolerated Education Materials: ED Anxiety Reaction, ED Hypoglycemia, Nondiabetic Additional Instructions: Please follow healthy diet. Eat foods with complex carbs when correcting the low blood sugar. Very important to eat today, this afternoon and this evening so that you do not have hypoglycemia again. Follow-up with your doctor in 3 days. Print Language: Bahraini Stand Alone Forms: Janel Award Info., Patient Portal Info Letter
== END 2025-04-29 14:44 | disposition home or self-care (01) ==
PROVIDERS: Emergency Provider Family Medicine; PCP Physician Assistant
DX: E11.649 Type 2 diabetes mellitus with hypoglycemia without coma (principal); E03.9 Hypothyroidism, unspecified; I10 Essential (primary) hypertension; Z98.84 Bariatric surgery status; E78.5 Hyperlipidemia, unspecified; F41.9 Anxiety disorder, unspecified
CPT/HCPCS: 36415; 36600; 80053; 80307; 80320; 80329; 82803; 83735; 84484; 85025; 85610; 93005; 96372; 96374; 99284; J2060; J2550; A9270; G0480